=== PATIENT | male | born 1950 | race African-American/Black ===

== ENCOUNTER 2017-01-27 10:23 | Day surgery (SDC) | payer MEDICAID ==
[~2017-01-27] VITALS: Ht 175.3 cm; Wt 72.6 kg
[~2017-01-27 10:23] MED LIST: CLON0.1T PO; ZOLP10TA2 PO
[2017-01-27] MEDS ORDERED: SULF1TAB48 PO (11:46)
[2017-01-27] MEDS ORDERED: APIX2.5T PO (11:46)
[2017-01-27] MEDS ORDERED: AMIO200T39 PO (11:46)
[2017-01-27] MEDS ORDERED: METO25TA6 PO (11:46)
[2017-01-27] MEDS ORDERED: LIDOCAINE HCL 1% 20ML VIAL (Pyxis) INJ ONE (11:55)
[2017-01-27] MEDS ORDERED: MIDAZOLAM HCL 2 MG/2 ML VIAL ONE ×2 (11:56→12:29)
[2017-01-27] MEDS ORDERED: HYDROMORPHONE HCL/PF 2MG/ML (OR) ONE (11:56)
[2017-01-27] MEDS ORDERED: IODIXANOL 320MG/ML 100 ML BOTTLE IV ONE (11:56)
[2017-01-27] MEDS ORDERED: FENTANYL CITRATE/PF 50MCG/ML 2ML VIAL ONE (12:26)
== END 2017-01-27 18:00 | disposition home or self-care (01) ==
LOC: CCL 10:23
PROVIDERS: ATTEND Specialist
DX: I48.2 Chronic atrial fibrillation (principal); I34.0 Nonrheumatic mitral (valve) insufficiency; I12.9 Hypertensive chronic kidney disease with stage 1 through stage 4 chronic kidney disease, or unspecified chronic kidney disease; N18.9 Chronic kidney disease, unspecified; I50.9 Heart failure, unspecified; E78.5 Hyperlipidemia, unspecified; J44.9 Chronic obstructive pulmonary disease, unspecified; I73.9 Peripheral vascular disease, unspecified; Z87.891 Personal history of nicotine dependence
CPT/HCPCS: 36247; 75710; C1725; C1760; C1769; C1893; J1170; J1644; J2250; J3010; J3490; Q9967

== ENCOUNTER 2017-12-10 10:32 | Inpatient (IN) | payer MEDICAID, OTHER ==
[~2017-12-10] VITALS: Ht 180.3 cm; Wt 64.0 kg
[~2017-12-10 10:32] MED LIST changes: +ACET-3161 PO; +AMI2 PO; +APIX2.5T PO; +CARV6.2548 PO; -CLON0.1T PO; +FURO40TA5 PO; +PRAV40TA58 PO; +SPIR25TA4 PO; -ZOLP10TA2 PO
[2017-12-10] MEDS ORDERED: MORPHINE SULFATE 4 MG/ML CPJ (NOT FOR IM USE) IV STA (10:42)
[2017-12-10] MEDS ORDERED: ONDANSETRON HCL 4MG/2ML VIAL IV STA (10:42)
[2017-12-10] MEDS ORDERED: ASPIRIN 81MG TABLET PO ONE (10:45)
[2017-12-10] MEDS ORDERED: NITROGLYCERIN OINT 1GM/INCH UDPKT TD ONE (10:45)
[2017-12-10] MEDS ORDERED: LABETALOL HCL 20MG/4ML CARPUJECT IV ONE (10:45)
[2017-12-10 11:12] LABS: BASOPHILS % 1.2 % (0.0-2.0); EOSINOPHILS % 0.5 % (0.0-5.0); HEMATOCRIT. 40.9 % (42.0-52.0); HEMOGLOBIN. 13.2 g/dL (14.0-18.0); LYMPHOCYTES % 21.7 % (20.0-50.0); MEAN CORPUSCULAR HEMOGLOBIN 27.7 pg (28.0-32.0); MEAN CORPUSCULAR VOLUME 86.3 fL (80.0-94.0); MEAN PLATELET VOLUME 9.3 fl (7.4-10.4); MONOCYTES % 6.6 % (2.0-8.0); PLATELET 172 x1000/uL (130-400); RED BLOOD CELL COUNT 4.74 mill/uL (4.7-6.1); RED CELL DISTRIBUTION WIDTH 15.4 % (11.6-14.6)
[2017-12-10 11:34] LABS: CARBON DIOXIDE 21 mEq/L (21-32); CHLORIDE 117 mEq/L (98-107); ETHANOL BLOOD < 10 mg/dL; TROPONIN I 0.04 ng/mL (0.00-0.04)
[2017-12-10 11:35] LABS: D-DIMER 0.19 mg/L FEU (<0.50); INR 1.6; PROTHROMBIN TIME 16.6 sec (9.4-11.6)
[2017-12-10] MEDS ORDERED: DILTIAZEM HCL 5MG/ML 5ML VIAL IV ONE (12:30)
[2017-12-10] MEDS ORDERED: DIPHENHYDRAMINE 50MG/ML VIAL IV PRN (13:15)
[2017-12-10] MEDS ORDERED: ACETAMINOPHEN 325MG TABLET PO PRN (13:15)
[2017-12-10] MEDS ORDERED: GUAIFENESIN 200MG/10ML SUGAR FREE UDC PO PRN (13:15)
[2017-12-10] MEDS ORDERED: ENOXAPARIN 40MG/0.4ML SYR SUBCUT SCH (13:15)
[2017-12-10] MEDS ORDERED: MORPHINE SULFATE 2 MG/ML CPJ (NOT FOR IM USE) IV PRN (13:15)
[2017-12-10] MEDS ORDERED: NA PHOS,M-B/NA PHOS,DI-BA ENEMA 118ML PR PRN (13:15)
[2017-12-10] MEDS ORDERED: CLONIDINE 0.1MG TABLET PO PRN (13:15)
[2017-12-10] MEDS ORDERED: IPRATROPIUM/ALBUTEROL 0.5-3(2.5)MG/3ML NEB INH PRN (13:15)
[2017-12-10] MEDS ORDERED: LORAZEPAM 2MG/ML CPJ IV PRN (13:15)
[2017-12-10] MEDS ORDERED: ONDANSETRON HCL 4MG/2ML VIAL IV PRN (13:15)
[2017-12-10] MEDS ORDERED: MAGNESIUM/ALUMINUM HYDROXIDE/SIMETHICONE 30ML UDC PO PRN (13:15)
[2017-12-10] MEDS ORDERED: DOCUSATE SODIUM 100MG CAPSULE PO PRN (13:15)
[2017-12-10 16:26] LABS: CARBON DIOXIDE 21 mEq/L (21-32); CHLORIDE 115 mEq/L (98-107); TROPONIN I 0.04 ng/mL (0.00-0.04)
[2017-12-10 23:40] VITALS: BP 137/115
[2017-12-10 23:45] VITALS: BP 137/115
[2017-12-11] VITALS (12 sets, daily range): BP systolic 100–143; BP diastolic 40–115
[2017-12-11] MEDS: MORPHINE SULFATE 4 MG/ML CPJ (NOT FOR IM USE) IV PRN ×3 (01:24→20:32)
[2017-12-11] MEDS ORDERED: CLON0.1T PO (02:25)
[2017-12-11] MEDS ORDERED: SACU1TAB PO (02:25)
[2017-12-11] MEDS ORDERED: TUSSL GT (02:25)
[2017-12-11] MEDS: CLONIDINE 0.1MG TABLET PO SCH ×3 (05:25→22:33)
[2017-12-11] MEDS: GUAIFENESIN-DM 200MG-20MG/10ML UDC PO PRN (06:21)
[2017-12-11] MEDS ORDERED: PNEUMOCOCCAL 23-VAL P-SAC VAC 0.5 ML IM ONE (08:00)
[2017-12-11] MEDS: FUROSEMIDE 40MG/4ML VIAL IVP SCH (08:10)
[2017-12-11] MEDS: ASPIRIN 81MG EC TABLET PO SCH (08:10)
[2017-12-11] MEDS: CARVEDILOL 6.25 MG TABLET PO SCH ×2 (08:10→22:33)
[2017-12-11] MEDS: APIXABAN 2.5 MG TABLET PO SCH ×2 (08:10→16:20)
[2017-12-11] MEDS: AMIODARONE HCL 200 MG TABLET PO SCH (08:11)
[2017-12-11] MEDS ORDERED: APIXABAN 2.5 MG TABLET PO SCH (09:00)
[2017-12-11] MEDS ORDERED: MEDICATION NOT ON FORMULARY EA (Sacubitril/Valsartan (Entresto 24 mg-26 mg Tablet) 1 EAC PO SCH (09:00)
[2017-12-11] MEDS ORDERED: CARVEDILOL 6.25 MG TABLET PO SCH (09:00)
[2017-12-11 09:54] LABS: EOSINOPHILS % 3.2 % (0.0-5.0); HEMATOCRIT. 39.9 % (42.0-52.0); HEMOGLOBIN. 12.7 g/dL (14.0-18.0); LYMPHOCYTES % 24.5 % (20.0-50.0); MEAN CORPUSCULAR HEMOGLOBIN 28.1 pg (28.0-32.0); MEAN CORPUSCULAR VOLUME 88.3 fL (80.0-94.0); MEAN PLATELET VOLUME 9.1 fl (7.4-10.4); NEUTROPHILS % 62.3 % (40.0-76.0); PLATELET 149 x1000/uL (130-400); RED BLOOD CELL COUNT 4.52 mill/uL (4.7-6.1); RED CELL DISTRIBUTION WIDTH 15.5 % (11.6-14.6)
[2017-12-11 11:17] LABS: CARBON DIOXIDE 23 mEq/L (21-32); CHLORIDE 114 mEq/L (98-107); HDL CHOLESTEROL 33 mg/dL (40-59); LDL CHOLESTEROL 65 mg/dL (5-100)
[2017-12-11 11:43] LABS: *AMPHETAMINES SCREEN URINE NEGATIVE (NEGATIVE); *BARBITURATES SCREEN URINE NEGATIVE (NEGATIVE); *BENZODIAZEPINES SCREEN URINE NEGATIVE (NEGATIVE); *COCAINE SCREEN URINE NEGATIVE (NEGATIVE); CANNABINOID URINE SCREEN NEGATIVE (NEGATIVE); METHADONE URINE SCREEN PRESUMTIVE POSITIVE (NEGATIVE); OPIATES URINE SCREEN PRESUMTIVE POSITIVE (NEGATIVE); PHENCYCLIDINE URINE SCREEN NEGATIVE (NEGATIVE)
[2017-12-11] MEDS: ENTRESTO PO SCH ×2 (13:38→22:34)
[2017-12-11] MEDS ORDERED: ATORVASTATIN CALCIUM 10MG TABLET PO SCH (21:00)
[2017-12-12] VITALS (11 sets, daily range): BP systolic 99–145; BP diastolic 55–94
[2017-12-12] MEDS: HYDROCODONE/ACETAMINOPHEN 5/325MG TABLET PO PRN ×4 (02:38→19:58)
[2017-12-12] MEDS: CLONIDINE 0.1MG TABLET PO SCH ×2 (05:45→13:18)
[2017-12-12] MEDS: MORPHINE SULFATE 4 MG/ML CPJ (NOT FOR IM USE) IV PRN ×3 (06:11→18:35)
[2017-12-12] MEDS: ASPIRIN 81MG EC TABLET PO SCH (08:56)
[2017-12-12] MEDS: FUROSEMIDE 40MG/4ML VIAL IVP SCH (08:56)
[2017-12-12] MEDS: ENTRESTO PO SCH (08:57)
[2017-12-12] MEDS: APIXABAN 2.5 MG TABLET PO SCH ×2 (08:57→18:31)
[2017-12-12] MEDS: CARVEDILOL 6.25 MG TABLET PO SCH (08:57)
[2017-12-12] MEDS: AMIODARONE HCL 200 MG TABLET PO SCH (08:57)
[2017-12-12] MEDS: GUAIFENESIN-DM 200MG-20MG/10ML UDC PO PRN (09:36)
[2017-12-12] MEDS ORDERED: CARVEDILOL 12.5MG TABLET PO SCH (21:00)
[2017-12-12] MEDS ORDERED: CARVEDILOL 6.25 MG TABLET PO SCH (21:00)
== END 2017-12-12 20:20 | disposition home health service (06) | DRG 194 ==
LOC: ER 10:45 → 5EST 13:02 → EDBEDREQ 13:04 → EDBEDREQSVC 13:04 → ENRESERV 18:33
PROVIDERS: ADMIT Internal Medicine; ATTEND Internal Medicine
DX: I11.0 Hypertensive heart disease with heart failure (principal); E46 Unspecified protein-calorie malnutrition; I42.0 Dilated cardiomyopathy; I48.2 Chronic atrial fibrillation; I25.10 Atherosclerotic heart disease of native coronary artery without angina pectoris; F19.10 Other psychoactive substance abuse, uncomplicated; Z91.14 Patient's other noncompliance with medication regimen; Z68.1 Body mass index [BMI] 19.9 or less, adult; I50.23 Acute on chronic systolic (congestive) heart failure; E78.00 Pure hypercholesterolemia, unspecified; Z87.891 Personal history of nicotine dependence; Z79.899 Other long term (current) drug therapy; Z79.01 Long term (current) use of anticoagulants; Z95.810 Presence of automatic (implantable) cardiac defibrillator
CPT/HCPCS: 36415; 71045; 80048; 80053; 80061; 80305; 83605; 83690; 83735; 83880; 84439; 84443; 84484; 85025; 85379; 85610; 87070; 87077; 87186; 87205; 90732; 93005; 93306; 96374; 96375; 99291; G0482; J1940; J2270; J2405; J3490

== ENCOUNTER 2019-04-02 06:59 | Emergency (ER) | payer MEDICAID ==
[~2019-04-02] VITALS: Ht 177.8 cm; Wt 73.0 kg
[~2019-04-02 06:59] MED LIST changes: -ACET-3161 PO; -AMI2 PO; -SPIR25TA4 PO; +TUSSL GT
[2019-04-02] MEDS ORDERED: NITROGLYCERIN 0.4MG TABLET SL SL PRN (07:30)
[2019-04-02 07:48] LABS: EOSINOPHILS % 1.6 % (0.0-5.0); HEMATOCRIT. 39.2 % (42.0-52.0); LYMPHOCYTES % 13.3 % (20.0-50.0); MEAN CORPUSCULAR HEMOGLOBIN 24.3 pg (28.0-32.0); MEAN CORPUSCULAR VOLUME 79.1 fL (80.0-94.0); MEAN PLATELET VOLUME 7.9 fl (7.4-10.4); MONOCYTES % 6.8 % (2.0-8.0); NEUTROPHILS % 77.3 % (40.0-76.0); PLATELET 235 x1000/uL (130-400); RED BLOOD CELL COUNT 4.96 mill/uL (4.7-6.1)
[2019-04-02 07:55] LABS: CHLORIDE 113 mEq/L (98-107)
[2019-04-02 07:58] LABS: ETHANOL BLOOD < 10 mg/dL
[2019-04-02] MEDS: FUROSEMIDE 40MG/4ML VIAL IV ONE (09:00)
[2019-04-02] MEDS: ASPIRIN 81MG TABLET PO ONE (09:00)
[2019-04-02 12:04] LABS: *AMPHETAMINES SCREEN URINE NEGATIVE (NEGATIVE); *BARBITURATES SCREEN URINE NEGATIVE (NEGATIVE); *BENZODIAZEPINES SCREEN URINE NEGATIVE (NEGATIVE); *COCAINE SCREEN URINE NEGATIVE (NEGATIVE)
[2019-04-02 12:05] LABS: CANNABINOID URINE SCREEN NEGATIVE (NEGATIVE); METHADONE URINE SCREEN NEGATIVE (NEGATIVE)
[2019-04-02 12:06] LABS: PHENCYCLIDINE URINE SCREEN NEGATIVE (NEGATIVE)
[2019-04-02 12:07] LABS: OPIATES URINE SCREEN PRESUMTIVE POSITIVE (NEGATIVE)
[2019-04-02] MEDS: HYDROCODONE/ACETAMINOPHEN 5/325MG TABLET PO ONE (12:09)
[2019-04-02] MEDS ORDERED: HYDROCODONE/ACETAMINOPHEN 5/325MG TABLET PO PRN (12:45)
[2019-04-02] MEDS ORDERED: DOCUSATE SODIUM 100MG CAPSULE PO PRN (12:45)
[2019-04-02] MEDS ORDERED: MAGNESIUM/ALUMINUM HYDROXIDE/SIMETHICONE 30ML UDC PO PRN (12:45)
[2019-04-02] MEDS ORDERED: ACETAMINOPHEN 325MG TABLET PO PRN (12:45)
[2019-04-02] MEDS ORDERED: CLONIDINE 0.1MG TABLET PO PRN (12:45)
[2019-04-02] MEDS ORDERED: ENOXAPARIN 40MG/0.4ML SYR SUBCUT SCH (12:45)
[2019-04-02] MEDS ORDERED: IPRATROPIUM/ALBUTEROL 0.5-3(2.5)MG/3ML NEB INH PRN (12:45)
[2019-04-02] MEDS ORDERED: DIPHENHYDRAMINE 50MG/ML VIAL IV PRN (12:45)
[2019-04-02] MEDS ORDERED: ONDANSETRON HCL 4MG/2ML INJ IV PRN (12:45)
[2019-04-02] MEDS ORDERED: GUAIFENESIN 200MG/10ML SUGAR FREE UDC PO PRN (12:45)
[2019-04-02 13:05] LABS: PHOSPHORUS 2.7 mg/dL (2.5-4.9)
[2019-04-02 14:32] VITALS: BP 134/98
[2019-04-02 16:52] LABS: CREATINE KINASE MB FRACTION 3.2 ng/mL (0.5-3.6)
== END 2019-04-02 14:32 | disposition home or self-care (01) ==
LOC: ER 06:59 → EDBEDREQ 12:26 → ER 14:32 → CANBEDREQ 14:35
DX: I50.22 Chronic systolic (congestive) heart failure (principal); E78.00 Pure hypercholesterolemia, unspecified; I11.0 Hypertensive heart disease with heart failure; I48.91 Unspecified atrial fibrillation; Z95.0 Presence of cardiac pacemaker; Z79.899 Other long term (current) drug therapy
CPT/HCPCS: 36415; 71045; 80053; 80305; 80320; 82550; 82553; 83036; 83735; 83880; 84100; 84484; 85025; 93005; 96374; 99284; J1940; Z7610; G0480

== ENCOUNTER 2019-04-12 02:14 | Inpatient (IN) | payer MEDICAID, OTHER ==
[~2019-04-12] VITALS: Ht 180.3 cm; Wt 68.0 kg
[2019-04-12] MEDS ORDERED: FUROSEMIDE 40MG/4ML VIAL IV ONE (03:45)
[2019-04-12] MEDS ORDERED: NITROGLYCERIN OINT 1GM/INCH UDPKT TD ONE (03:45)
[2019-04-12 03:53] LABS: BASOPHILS % 0.3 % (0.0-2.0); EOSINOPHILS % 1.7 % (0.0-5.0); HEMATOCRIT. 36.8 % (42.0-52.0); HEMOGLOBIN. 11.5 g/dL (14.0-18.0); MEAN CORPUSCULAR HEMOGLOBIN 24.9 pg (28.0-32.0); MEAN CORPUSCULAR VOLUME 79.6 fL (80.0-94.0); MEAN PLATELET VOLUME 8.4 fl (7.4-10.4); MONOCYTES % 7.6 % (2.0-8.0); NEUTROPHILS % 76.4 % (40.0-76.0); PLATELET 233 x1000/uL (130-400); RED BLOOD CELL COUNT 4.62 mill/uL (4.7-6.1); RED CELL DISTRIBUTION WIDTH 19.8 % (11.6-14.6)
[2019-04-12 03:55] LABS: CHLORIDE 109 mEq/L (98-107)
[2019-04-12 03:58] LABS: INR 1.4; PROTHROMBIN TIME 14.6 sec (9.6-11.0)
[2019-04-12 05:58] LABS: *AMPHETAMINES SCREEN URINE NEGATIVE (NEGATIVE); *BARBITURATES SCREEN URINE NEGATIVE (NEGATIVE); *BENZODIAZEPINES SCREEN URINE NEGATIVE (NEGATIVE)
[2019-04-12 05:59] LABS: *COCAINE SCREEN URINE NEGATIVE (NEGATIVE); CANNABINOID URINE SCREEN NEGATIVE (NEGATIVE); METHADONE URINE SCREEN NEGATIVE (NEGATIVE); OPIATES URINE SCREEN PRESUMTIVE POSITIVE (NEGATIVE); PHENCYCLIDINE URINE SCREEN NEGATIVE (NEGATIVE)
[2019-04-12] MEDS ORDERED: MORPHINE SULFATE 2 MG/ML CPJ (NOT FOR IM USE) IV PRN (08:45)
[2019-04-12] MEDS ORDERED: ACETAMINOPHEN 325MG TABLET PO PRN (11:15)
[2019-04-12] MEDS ORDERED: ONDANSETRON HCL 4MG/2ML INJ IV PRN ×2 (11:15)
[2019-04-12 11:49] VITALS: BP 138/100
[2019-04-12 11:55] VITALS: BP 138/100
[2019-04-12] MEDS ORDERED: FUROSEMIDE 40MG/4ML VIAL IVP SCH (12:30)
[2019-04-12] MEDS ORDERED: MORPHINE SULFATE 4 MG/ML CPJ (NOT FOR IM USE) IV PRN (12:45)
[2019-04-12] MEDS: CARVEDILOL 6.25 MG TABLET PO SCH ×2 (13:05→20:23)
[2019-04-12] MEDS: ENOXAPARIN 40MG/0.4ML SYR SUBCUT SCH (13:06)
[2019-04-12] MEDS: LOSARTAN POTASSIUM 25 MG TABLET PO SCH (13:07)
[2019-04-12] MEDS ORDERED: LIDOCAINE HCL 1% 20ML VIAL (Pyxis) INJ ONE (14:56)
[2019-04-12 16:00] VITALS: BP 130/99
[2019-04-12] MEDS: FUROSEMIDE 100MG/10ML VIAL IVP SCH (17:28)
[2019-04-12 20:00] VITALS: BP 123/92
[2019-04-12] MEDS: MORPHINE SULFATE 2 MG/ML CPJ (NOT FOR IM USE) IV PRN (20:22)
[2019-04-13] VITALS: BP 138/99
[2019-04-13] MEDS: MORPHINE SULFATE 2 MG/ML CPJ (NOT FOR IM USE) IV PRN ×3 (01:08→10:44)
[2019-04-13 04:00] VITALS: BP 121/89
[2019-04-13] MEDS: FUROSEMIDE 100MG/10ML VIAL IVP SCH ×2 (06:17→16:17)
[2019-04-13 07:43] LABS: HEMATOCRIT. 37.7 % (42.0-52.0); HEMOGLOBIN. 11.6 g/dL (14.0-18.0); MEAN CORPUSCULAR HEMOGLOBIN 24.2 pg (28.0-32.0); MEAN CORPUSCULAR VOLUME 78.7 fL (80.0-94.0); MEAN PLATELET VOLUME 8.9 fl (7.4-10.4); PLATELET 242 x1000/uL (130-400); RED CELL DISTRIBUTION WIDTH 19.4 % (11.6-14.6)
[2019-04-13 08:00] VITALS: BP 130/94
[2019-04-13] MEDS: LOSARTAN POTASSIUM 25 MG TABLET PO SCH (09:13)
[2019-04-13] MEDS: CARVEDILOL 6.25 MG TABLET PO SCH (09:14)
[2019-04-13 09:20] LABS: NUCLEATED RED BLOOD CELLS 3 /100 WBC
[2019-04-13 09:22] LABS: PLATELET ESTIMATE NORMAL
[2019-04-13 12:00] VITALS: BP 129/94
[2019-04-13] MEDS: ENOXAPARIN 40MG/0.4ML SYR SUBCUT SCH (13:40)
[2019-04-13 15:55] LABS: CLARITY URINE CLEAR (CLEAR); COLOR URINE YELLOW (YELLOW); KETONES URINE NEGATIVE (NEGATIVE); LEUKOCYTE ESTERASE URINE NEGATIVE (NEGATIVE); NITRITE URINE NEGATIVE (NEGATIVE); OCCULT BLOOD URINE NEGATIVE (NEGATIVE); PROTEIN URINE NEGATIVE (NEGATIVE); SPECIFIC GRAVITY URINE 1.009 (1.005-1.030)
[2019-04-13 16:00] VITALS: BP 137/92
[2019-04-13] MEDS: PIPERACILLIN/TAZ 3.375G PREMIX 50 ML IV SCH ×2 (16:15→20:27)
[2019-04-13 20:00] VITALS: BP 120/86
[2019-04-13] MEDS: CARVEDILOL 12.5MG TABLET PO SCH (20:27)
[2019-04-14] VITALS (8 sets, daily range): BP systolic 100–137; BP diastolic 71–86
[2019-04-14] MEDS: MORPHINE SULFATE 2 MG/ML CPJ (NOT FOR IM USE) IV PRN ×5 (02:19→18:08)
[2019-04-14] MEDS: PIPERACILLIN/TAZ 3.375G PREMIX 50 ML IV SCH ×2 (02:19→10:20)
[2019-04-14] MEDS: FUROSEMIDE 100MG/10ML VIAL IVP SCH ×2 (06:25→17:57)
[2019-04-14] MEDS: LOSARTAN POTASSIUM 25 MG TABLET PO SCH (10:20)
[2019-04-14] MEDS: CARVEDILOL 12.5MG TABLET PO SCH ×2 (10:20→21:00)
[2019-04-14] MEDS: ENOXAPARIN 40MG/0.4ML SYR SUBCUT SCH (12:55)
[2019-04-14] MEDS ORDERED: CEFTRIAXONE 1 G PREMIX 50 ML IV SCH (13:00)
[2019-04-14 15:44] LABS: BASOPHILS % 1.3 % (0.0-2.0); EOSINOPHILS % 1.7 % (0.0-5.0); HEMATOCRIT. 37.8 % (42.0-52.0); HEMOGLOBIN. 11.8 g/dL (14.0-18.0); MEAN CORPUSCULAR HEMOGLOBIN 24.6 pg (28.0-32.0); MEAN CORPUSCULAR VOLUME 78.6 fL (80.0-94.0); MEAN PLATELET VOLUME 8.8 fl (7.4-10.4); MONOCYTES % 10.8 % (2.0-8.0); NEUTROPHILS % 75.2 % (40.0-76.0); PLATELET 232 x1000/uL (130-400); RED BLOOD CELL COUNT 4.82 mill/uL (4.7-6.1); RED CELL DISTRIBUTION WIDTH 19.2 % (11.6-14.6)
== END 2019-04-14 23:40 | DRG 194 ==
LOC: ER 02:14 → 8WST 05:37 → EDBEDREQ 05:38 → EDBEDREQTM 05:38 → ENRESERV 09:25
PROVIDERS: ADMIT Internal Medicine; ATTEND Internal Medicine
PROC: 0JPT3XZ Removal of Tunneled Vascular Access Device from Trunk Subcutaneous Tissue and Fascia, Percutaneous Approach (ICD-10-PCS; principal; 2019-04-12)
DX: I13.0 Hypertensive heart and chronic kidney disease with heart failure and stage 1 through stage 4 chronic kidney disease, or unspecified chronic kidney disease (principal); J96.00 Acute respiratory failure, unspecified whether with hypoxia or hypercapnia; I47.2 Ventricular tachycardia; N17.9 Acute kidney failure, unspecified; E44.0 Moderate protein-calorie malnutrition; L89.313 Pressure ulcer of right buttock, stage 3; E87.8 Other disorders of electrolyte and fluid balance, not elsewhere classified; I95.89 Other hypotension; I42.9 Cardiomyopathy, unspecified; L97.929 Non-pressure chronic ulcer of unspecified part of left lower leg with unspecified severity; I48.0 Paroxysmal atrial fibrillation; I50.23 Acute on chronic systolic (congestive) heart failure; I87.8 Other specified disorders of veins; L98.419 Non-pressure chronic ulcer of buttock with unspecified severity; D64.9 Anemia, unspecified; E78.5 Hyperlipidemia, unspecified; N18.9 Chronic kidney disease, unspecified; I73.9 Peripheral vascular disease, unspecified; E78.00 Pure hypercholesterolemia, unspecified; F17.200 Nicotine dependence, unspecified, uncomplicated; I25.10 Atherosclerotic heart disease of native coronary artery without angina pectoris; Z79.01 Long term (current) use of anticoagulants; Z79.899 Other long term (current) drug therapy; Z86.718 Personal history of other venous thrombosis and embolism; Z95.810 Presence of automatic (implantable) cardiac defibrillator; Z71.6 Tobacco abuse counseling
CPT/HCPCS: 36415; 36589; 71045; 80048; 80305; 83880; 84134; 84484; 87070; 87077; 87186; 93005; 93923; 96374; 96375; 97162; 97166; 97530; 99285; J0696; J1650; J1940; J2270; J2543; J3490; J7040

== ENCOUNTER 2019-09-04 22:28 | Inpatient (IN) | payer OTHER ==
[~2019-09-04] VITALS: Ht 180.3 cm; Wt 73.5 kg
[~2019-09-04 22:28] MED LIST changes: -APIX2.5T PO
[2019-09-04] MEDS ORDERED: NITROGLYCERIN OINT 1GM/INCH UDPKT TD ONE (23:15)
[2019-09-04] MEDS ORDERED: ASPIRIN 81MG TABLET PO ONE (23:15)
[2019-09-04 23:32] LABS: BASOPHILS % 1.4 % (0.0-2.0); EOSINOPHILS % 4.6 % (0.0-5.0); HEMATOCRIT. 42.5 % (42.0-52.0); HEMOGLOBIN. 13.5 g/dL (14.0-18.0); MEAN CORPUSCULAR HEMOGLOBIN 27.2 pg (28.0-32.0); MEAN CORPUSCULAR VOLUME 85.6 fL (80.0-94.0); MEAN PLATELET VOLUME 8.6 fl (7.4-10.4); MONOCYTES % 10.5 % (2.0-8.0); NEUTROPHILS % 54.5 % (40.0-76.0); PLATELET 129 x1000/uL (130-400); RED BLOOD CELL COUNT 4.97 mill/uL (4.7-6.1); RED CELL DISTRIBUTION WIDTH 15.5 % (11.6-14.6)
[2019-09-04 23:33] LABS: CHLORIDE 112 mEq/L (98-107)
[2019-09-05] MEDS ORDERED: ONDANSETRON HCL 4MG/2ML INJ IV PRN (07:30)
[2019-09-05] MEDS ORDERED: CLONIDINE 0.1MG TABLET PO PRN (07:30)
[2019-09-05] MEDS ORDERED: DIPHENHYDRAMINE 50MG/ML VIAL IV PRN (07:30)
[2019-09-05] MEDS ORDERED: LORAZEPAM 2MG/ML CPJ IV PRN (07:30)
[2019-09-05] MEDS ORDERED: MAGNESIUM/ALUMINUM HYDROXIDE/SIMETHICONE 30ML UDC PO PRN (07:30)
[2019-09-05] MEDS ORDERED: IPRATROPIUM/ALBUTEROL 0.5-3(2.5)MG/3ML NEB NEB PRN (07:30)
[2019-09-05] MEDS ORDERED: HYDROCODONE/ACETAMINOPHEN 5/325MG TABLET PO PRN (07:30)
[2019-09-05] MEDS ORDERED: GUAIFENESIN 200MG/10ML SUGAR FREE UDC PO PRN (07:30)
[2019-09-05] MEDS ORDERED: NA PHOS,M-B/NA PHOS,DI-BA ENEMA 118ML PR PRN (07:30)
[2019-09-05] MEDS ORDERED: ENOXAPARIN 40MG/0.4ML SYR SUBCUT SCH (07:30)
[2019-09-05] MEDS ORDERED: DOCUSATE SODIUM 100MG CAPSULE PO PRN (07:30)
[2019-09-05] MEDS ORDERED: ACETAMINOPHEN 325MG TABLET PO PRN (07:30)
[2019-09-05 08:40] VITALS: BP 138/97
[2019-09-05] MEDS ORDERED: ONDANSETRON HCL 4MG TABLET PO PRN (09:00)
[2019-09-05] MEDS: CARVEDILOL 12.5MG TABLET PO SCH ×2 (10:08→21:09)
[2019-09-05] MEDS: ASPIRIN 81MG EC TABLET PO SCH (10:08)
[2019-09-05] MEDS: ENOXAPARIN 40MG/0.4ML SYR SUBCUT SCH (10:09)
[2019-09-05] MEDS: FUROSEMIDE 40MG TABLET PO SCH (10:09)
[2019-09-05] MEDS: MORPHINE SULFATE 2 MG/ML CPJ (NOT FOR IM USE) IV PRN ×2 (10:46→16:14)
[2019-09-05 12:00] VITALS: BP 128/88
[2019-09-05 12:29] LABS: CHLORIDE 109 mEq/L (98-107)
[2019-09-05] MEDS ORDERED: INFLUENZA VIRUS VACCINE(AFLURIA) 0.5ML SYR IM ONE (13:00)
[2019-09-05 16:18] VITALS: BP 132/91
[2019-09-05] MEDS ORDERED: CLON0.1T PO (16:37)
[2019-09-05] MEDS ORDERED: FURO40TA5 MT (16:37)
[2019-09-05] MEDS ORDERED: ZOLP10TA2 MT (16:37)
[2019-09-05] MEDS ORDERED: CARV12.545 MT (16:37)
[2019-09-05] MEDS ORDERED: ONDA4TAB5 PO (16:37)
[2019-09-05] MEDS ORDERED: HYDR-4009 MT (16:37)
[2019-09-05 20:00] VITALS: BP 134/60
[2019-09-05] MEDS: ZOLPIDEM TARTRATE 5MG TABLET PO PRN (23:06)
[2019-09-06] VITALS: BP 119/78
[2019-09-06 04:00] VITALS: BP 114/80
[2019-09-06 08:00] VITALS: BP 131/94
[2019-09-06] MEDS: CARVEDILOL 12.5MG TABLET PO SCH ×2 (08:26→20:48)
[2019-09-06] MEDS: ENOXAPARIN 40MG/0.4ML SYR SUBCUT SCH (08:26)
[2019-09-06] MEDS: ASPIRIN 81MG EC TABLET PO SCH (08:26)
[2019-09-06] MEDS: MORPHINE SULFATE 2 MG/ML CPJ (NOT FOR IM USE) IV PRN ×3 (08:27→20:44)
[2019-09-06] MEDS: FUROSEMIDE 40MG TABLET PO SCH (09:00)
[2019-09-06 10:14] LABS: BASOPHILS % 1.2 % (0.0-2.0); HEMATOCRIT. 42.4 % (42.0-52.0); HEMOGLOBIN. 13.6 g/dL (14.0-18.0); LYMPHOCYTES % 26.7 % (20.0-50.0); MEAN CORPUSCULAR VOLUME 84.4 fL (80.0-94.0); MEAN PLATELET VOLUME 8.7 fl (7.4-10.4); MONOCYTES % 10.6 % (2.0-8.0); NEUTROPHILS % 56.5 % (40.0-76.0); PLATELET 138 x1000/uL (130-400); RED BLOOD CELL COUNT 5.03 mill/uL (4.7-6.1); RED CELL DISTRIBUTION WIDTH 15.2 % (11.6-14.6)
[2019-09-06 10:27] LABS: CHLORIDE 108 mEq/L (98-107)
[2019-09-06 10:34] LABS: LDL CHOLESTEROL 83 mg/dL (5-100)
[2019-09-06 10:36] LABS: HDL CHOLESTEROL 51 mg/dL (40-59); T4 FREE 1.22 ng/dL (0.76-1.46)
[2019-09-06 11:31] VITALS: BP 165/55
[2019-09-06 16:00] VITALS: BP 139/98
[2019-09-06] MEDS: FUROSEMIDE 100MG/10ML VIAL IVP SCH (16:14)
[2019-09-06 20:00] VITALS: BP 139/97
[2019-09-06] MEDS: APIXABAN 5 MG TABLET PO SCH (20:47)
[2019-09-06] MEDS: ATORVASTATIN CALCIUM 10MG TABLET PO SCH (20:47)
[2019-09-07 00:15] VITALS: BP 110/77
[2019-09-07] MEDS: ZOLPIDEM TARTRATE 5MG TABLET PO PRN (00:16)
[2019-09-07 04:00] VITALS: BP 147/76
[2019-09-07 08:00] VITALS: BP 150/98
[2019-09-07] MEDS: ASPIRIN 81MG EC TABLET PO SCH (09:09)
[2019-09-07] MEDS: CARVEDILOL 12.5MG TABLET PO SCH ×2 (09:09→20:47)
[2019-09-07] MEDS: FUROSEMIDE 100MG/10ML VIAL IVP SCH ×2 (09:09→16:25)
[2019-09-07] MEDS: APIXABAN 5 MG TABLET PO SCH ×2 (09:10→20:47)
[2019-09-07] MEDS: MORPHINE SULFATE 2 MG/ML CPJ (NOT FOR IM USE) IV PRN ×3 (09:15→20:44)
[2019-09-07 10:13] LABS: BASOPHILS % 1.1 % (0.0-2.0); EOSINOPHILS % 5.1 % (0.0-5.0); HEMATOCRIT. 44.2 % (42.0-52.0); HEMOGLOBIN. 14.2 g/dL (14.0-18.0); LYMPHOCYTES % 26.6 % (20.0-50.0); MEAN CORPUSCULAR HEMOGLOBIN 27.3 pg (28.0-32.0); MEAN CORPUSCULAR VOLUME 85.2 fL (80.0-94.0); MONOCYTES % 9.6 % (2.0-8.0); NEUTROPHILS % 57.6 % (40.0-76.0); PLATELET 138 x1000/uL (130-400); RED BLOOD CELL COUNT 5.19 mill/uL (4.7-6.1); RED CELL DISTRIBUTION WIDTH 15.3 % (11.6-14.6)
[2019-09-07 11:07] LABS: CHLORIDE 106 mEq/L (98-107)
[2019-09-07] MEDS ORDERED: METOLAZONE 2.5MG TABLET PO NR (11:45)
[2019-09-07 12:00] VITALS: BP 113/82
[2019-09-07 16:00] VITALS: BP 120/79
[2019-09-07 20:00] VITALS: BP 112/74
[2019-09-07] MEDS: ATORVASTATIN CALCIUM 10MG TABLET PO SCH (20:47)
[2019-09-08] MEDS: ZOLPIDEM TARTRATE 5MG TABLET PO PRN (01:25)
[2019-09-08 02:12] VITALS: BP 111/65
[2019-09-08 04:00] VITALS: BP 115/82
[2019-09-08 07:37] LABS: BASOPHILS % 1.1 % (0.0-2.0); EOSINOPHILS % 4.8 % (0.0-5.0); HEMATOCRIT. 41.7 % (42.0-52.0); HEMOGLOBIN. 13.7 g/dL (14.0-18.0); LYMPHOCYTES % 32.1 % (20.0-50.0); MEAN CORPUSCULAR HEMOGLOBIN 27.4 pg (28.0-32.0); MEAN CORPUSCULAR VOLUME 83.3 fL (80.0-94.0); MEAN PLATELET VOLUME 8.8 fl (7.4-10.4); MONOCYTES % 13.9 % (2.0-8.0); NEUTROPHILS % 48.1 % (40.0-76.0); PLATELET 135 x1000/uL (130-400); RED BLOOD CELL COUNT 5.01 mill/uL (4.7-6.1)
[2019-09-08 07:47] LABS: CHLORIDE 104 mEq/L (98-107)
[2019-09-08 08:00] VITALS: BP 132/93
[2019-09-08] MEDS: MORPHINE SULFATE 2 MG/ML CPJ (NOT FOR IM USE) IV PRN ×3 (08:45→18:34)
[2019-09-08] MEDS: FUROSEMIDE 100MG/10ML VIAL IVP SCH ×2 (08:55→17:37)
[2019-09-08] MEDS: ASPIRIN 81MG EC TABLET PO SCH (08:56)
[2019-09-08] MEDS: APIXABAN 5 MG TABLET PO SCH ×2 (08:56→21:31)
[2019-09-08] MEDS: CARVEDILOL 12.5MG TABLET PO SCH ×2 (08:56→21:00)
[2019-09-08 12:00] VITALS: BP 130/90
[2019-09-08 16:00] VITALS: BP 118/82
[2019-09-08 20:00] VITALS: BP 99/71
[2019-09-08] MEDS: ATORVASTATIN CALCIUM 10MG TABLET PO SCH (21:30)
[2019-09-09] VITALS: BP_SYST 130; BP_SYST 99; BP_DIAS 71; BP_DIAS 95
[2019-09-09] MEDS: MORPHINE SULFATE 2 MG/ML CPJ (NOT FOR IM USE) IV PRN ×4 (00:40→21:23)
[2019-09-09] MEDS: ZOLPIDEM TARTRATE 5MG TABLET PO PRN (02:19)
[2019-09-09 04:00] VITALS: BP 136/82
[2019-09-09 08:00] VITALS: BP 134/84
[2019-09-09] MEDS: ASPIRIN 81MG EC TABLET PO SCH (09:00)
[2019-09-09] MEDS: APIXABAN 5 MG TABLET PO SCH ×2 (09:00→21:22)
[2019-09-09] MEDS: FUROSEMIDE 40MG TABLET PO SCH ×2 (09:01→21:23)
[2019-09-09] MEDS: CARVEDILOL 12.5MG TABLET PO SCH ×2 (09:11→21:23)
[2019-09-09 12:00] VITALS: BP 117/80
[2019-09-09 16:00] VITALS: BP 130/82
[2019-09-09 20:00] VITALS: BP 123/91
[2019-09-09] MEDS: ATORVASTATIN CALCIUM 10MG TABLET PO SCH (21:22)
[2019-09-10] VITALS: BP 127/91
[2019-09-10] MEDS: ZOLPIDEM TARTRATE 5MG TABLET PO PRN (00:30)
[2019-09-10 04:00] VITALS: BP 120/80
[2019-09-10 08:00] VITALS: BP 119/76
[2019-09-10] MEDS: APIXABAN 5 MG TABLET PO SCH (09:00)
[2019-09-10] MEDS: ASPIRIN 81MG EC TABLET PO SCH (09:00)
[2019-09-10] MEDS: CARVEDILOL 12.5MG TABLET PO SCH (09:00)
[2019-09-10] MEDS: FUROSEMIDE 40MG TABLET PO SCH (09:00)
[2019-09-10 11:19] VITALS: BP 119/76
== END 2019-09-10 12:35 | disposition home or self-care (01) | DRG 133 ==
LOC: ER 22:28 → 7WST 09-05 04:31 → EDBEDREQTM 09-05 04:45 → EDBEDREQ 09-05 04:45 → EDBEDREQDT 09-05 04:45 → ENRESERV 09-05 07:03
PROVIDERS: ADMIT Internal Medicine; ATTEND Internal Medicine
DX: J96.00 Acute respiratory failure, unspecified whether with hypoxia or hypercapnia (principal); I50.23 Acute on chronic systolic (congestive) heart failure; I42.0 Dilated cardiomyopathy; I48.0 Paroxysmal atrial fibrillation; I11.0 Hypertensive heart disease with heart failure; I48.92 Unspecified atrial flutter; F19.10 Other psychoactive substance abuse, uncomplicated; I45.10 Unspecified right bundle-branch block; J44.9 Chronic obstructive pulmonary disease, unspecified; E78.5 Hyperlipidemia, unspecified; I25.10 Atherosclerotic heart disease of native coronary artery without angina pectoris; E87.6 Hypokalemia; I73.9 Peripheral vascular disease, unspecified; Z79.01 Long term (current) use of anticoagulants; Z79.899 Other long term (current) drug therapy; Z82.49 Family history of ischemic heart disease and other diseases of the circulatory system; Z86.718 Personal history of other venous thrombosis and embolism; Z91.19 Patient's noncompliance with other medical treatment and regimen; Z95.828 Presence of other vascular implants and grafts; Z95.810 Presence of automatic (implantable) cardiac defibrillator
CPT/HCPCS: 36415; 71045; 80048; 80061; 83880; 84439; 84443; 84484; 90686; 93005; 93306; 94618; 99285; J1650; J1940; J2270

== ENCOUNTER 2020-01-01 14:01 | Inpatient (IN) | payer MEDICAID ==
[~2020-01-01] VITALS: Ht 172.7 cm; Wt 70.3 kg
[~2020-01-01 14:01] MED LIST changes: +CARV12.545 MT; -CARV6.2548 PO; +CLON0.1T PO; +FURO40TA5 MT; -FURO40TA5 PO; +HYDR-4009 MT; +ONDA4TAB5 PO; +ZOLP10TA2 MT
[2020-01-01] MEDS ORDERED: ALBUTEROL (0.083%) 2.5MG/3ML NEB HHN STA (14:36)
[2020-01-01] MEDS ORDERED: ONDANSETRON HCL 4MG/2ML INJ IV STA (14:36)
[2020-01-01] MEDS ORDERED: METHYLPREDNISOLONE SOD SUCC 125 MG/2 ML VIAL IV STA (14:36)
[2020-01-01] MEDS ORDERED: IPRATROPIUM BROMIDE (0.02%) 0.5MG/2.5ML NEB HHN STA (14:36)
[2020-01-01] MEDS ORDERED: MORPHINE SULFATE 4 MG/ML CPJ (NOT FOR IM USE) IV STA (14:36)
[2020-01-01] MEDS ORDERED: MAGNESIUM 2 G PREMIX 50 ML IV ONE (14:45)
[2020-01-01] MEDS ORDERED: ASPIRIN 81MG TABLET PO ONE (14:45)
[2020-01-01] MEDS ORDERED: FUROSEMIDE 40MG/4ML VIAL IV ONE (14:45)
[2020-01-01 15:12] LABS: INR 1.2; PARTIAL THROMBOPLASTIN TIME 26.1 sec (23.4-31.0); PROTHROMBIN TIME 11.8 sec (9.6-11.0)
[2020-01-01 15:14] LABS: BASOPHILS % 0.3 % (0.0-2.0); EOSINOPHILS % 0.6 % (0.0-5.0); HEMATOCRIT. 53.5 % (42.0-52.0); HEMOGLOBIN. 16.8 g/dL (14.0-18.0); LYMPHOCYTES % 9.5 % (20.0-50.0); MEAN CORPUSCULAR HEMOGLOBIN 27.7 pg (28.0-32.0); MEAN PLATELET VOLUME 9.1 fl (7.4-10.4); MONOCYTES % 5.9 % (2.0-8.0); NEUTROPHILS % 83.7 % (40.0-76.0); PLATELET 159 x1000/uL (130-400); RED BLOOD CELL COUNT 6.08 mill/uL (4.7-6.1); RED CELL DISTRIBUTION WIDTH 16.1 % (11.6-14.6)
[2020-01-01 15:18] LABS: CHLORIDE 116 mEq/L (98-107)
[2020-01-01] MEDS ORDERED: ALBUTEROL (0.5%) 2.5MG/0.5ML NEB HHN ONE (15:22)
[2020-01-01] MEDS ORDERED: ALBUTEROL (0.083%) 2.5MG/3ML NEB ONE (15:22)
[2020-01-01] MEDS ORDERED: IPRATROPIUM BROMIDE (0.02%) 0.5MG/2.5ML NEB ONE (15:23)
[2020-01-01] MEDS ORDERED: PIPERACILLIN/TAZ 3.375G PREMIX 50 ML IV ONE (15:30)
[2020-01-01] MEDS ORDERED: VANCOMYCIN 1 G PREMIX 200 ML IV ONE (15:30)
[2020-01-01] MEDS ORDERED: DIPHENHYDRAMINE 50MG/ML VIAL IV ONE (17:00)
[2020-01-01] MEDS ORDERED: GUAIFENESIN 200MG/10ML SUGAR FREE UDC PO PRN (19:30)
[2020-01-01] MEDS ORDERED: MAGNESIUM/ALUMINUM HYDROXIDE/SIMETHICONE 30ML UDC PO PRN (19:30)
[2020-01-01] MEDS ORDERED: IPRATROPIUM/ALBUTEROL 0.5-3(2.5)MG/3ML NEB HHN PRN (19:30)
[2020-01-01] MEDS ORDERED: ONDANSETRON HCL 4MG/2ML INJ IV PRN (19:30)
[2020-01-01] MEDS ORDERED: DOCUSATE SODIUM 100MG CAPSULE PO PRN (19:30)
[2020-01-01] MEDS ORDERED: HYDRALAZINE 20MG/ML VIAL IV PRN (19:30)
[2020-01-01] MEDS ORDERED: CLONIDINE 0.1MG TABLET PO PRN (19:30)
[2020-01-01] MEDS ORDERED: DIPHENHYDRAMINE 50MG/ML VIAL IV PRN (19:30)
[2020-01-01] MEDS ORDERED: ACETAMINOPHEN 325MG TABLET PO PRN (19:30)
[2020-01-01] MEDS: MORPHINE SULFATE 2 MG/ML CPJ (NOT FOR IM USE) IV PRN (20:04)
[2020-01-01] MEDS: SODIUM CHLORIDE 0.9% INJ 3ML FLUSH IVF SCH (22:00)
[2020-01-01 22:26] VITALS: BP 134/79
[2020-01-01] MEDS ORDERED: ENOXAPARIN 40MG/0.4ML SYR SUBCUT SCH (23:00)
[2020-01-01 23:31] VITALS: BP 135/72
[2020-01-01 23:52] VITALS: BP 134/79
[2020-01-02] VITALS (9 sets, daily range): BP systolic 106–157; BP diastolic 53–108
[2020-01-02] MEDS: PIPERACILLIN/TAZ 3.375G PREMIX 50 ML IV SCH ×2 (00:22→06:14)
[2020-01-02] MEDS: HYDROCODONE/ACETAMINOPHEN 10/325MG TABLET PO PRN ×2 (00:23→12:45)
[2020-01-02] MEDS: LORAZEPAM 2MG/ML CPJ IV PRN (00:36)
[2020-01-02 02:11] LABS: CREATINE KINASE 273 IU/L (39-308)
[2020-01-02 02:12] LABS: CREATINE KINASE MB FRACTION 5.8 ng/mL (0.5-3.6)
[2020-01-02] MEDS ORDERED: VANCOMYCIN 750 MG PREMIX 150 ML IV SCH (04:00)
[2020-01-02] MEDS: IPRATROPIUM/ALBUTEROL 0.5-3(2.5)MG/3ML NEB HHN SCH ×4 (04:00→16:00)
[2020-01-02] MEDS: SODIUM CHLORIDE 0.9% INJ 3ML FLUSH IVF SCH ×3 (06:00→22:00)
[2020-01-02 08:55] LABS: HEMATOCRIT. 45.8 % (42.0-52.0); HEMOGLOBIN. 14.7 g/dL (14.0-18.0); MEAN CORPUSCULAR HEMOGLOBIN 27.6 pg (28.0-32.0); MEAN CORPUSCULAR VOLUME 85.9 fL (80.0-94.0); PLATELET 139 x1000/uL (130-400); RED BLOOD CELL COUNT 5.33 mill/uL (4.7-6.1); RED CELL DISTRIBUTION WIDTH 15.8 % (11.6-14.6)
[2020-01-02 09:28] LABS: CHLORIDE 113 mEq/L (98-107)
[2020-01-02 09:37] LABS: CREATINE KINASE 248 IU/L (39-308)
[2020-01-02 09:41] LABS: CREATINE KINASE MB FRACTION 6.7 ng/mL (0.5-3.6)
[2020-01-02] MEDS: CARVEDILOL 6.25 MG TABLET PO SCH ×2 (11:02→20:36)
[2020-01-02] MEDS: MORPHINE SULFATE 2 MG/ML CPJ (NOT FOR IM USE) IV PRN ×3 (11:02→20:35)
[2020-01-02] MEDS: FUROSEMIDE 40MG/4ML VIAL IVP SCH (11:02)
[2020-01-02] MEDS ORDERED: GUAIFENESIN-DM 200MG-20MG/10ML UDC PO PRN (13:15)
[2020-01-02 13:22] LABS: PLATELET ESTIMATE NORMAL
[2020-01-02] MEDS ORDERED: BUDESONIDE 0.5MG/2ML NEB HHN SCH (13:30)
[2020-01-02] MEDS: BENZONATATE 100MG CAPSULE PO SCH ×2 (15:36→20:36)
[2020-01-02] MEDS: PIPERACILLIN/TAZOBACTAM 3.375 G in DEXT 5% WATER 100 ML IV SCH (17:18)
[2020-01-02] MEDS: APIXABAN 5 MG TABLET PO SCH (17:18)
[2020-01-02] MEDS: VANCOMYCIN HCL 750 MG in DEXT 5% WATER 250 ML IV SCH (18:15)
[2020-01-03] VITALS (12 sets, daily range): BP systolic 83–142; BP diastolic 35–86
[2020-01-03] MEDS: IPRATROPIUM/ALBUTEROL 0.5-3(2.5)MG/3ML NEB HHN SCH ×2 (00:35→04:05)
[2020-01-03] MEDS: LORAZEPAM 2MG/ML CPJ IV PRN ×2 (00:37→22:32)
[2020-01-03] MEDS: MORPHINE SULFATE 2 MG/ML CPJ (NOT FOR IM USE) IV PRN ×6 (00:39→22:33)
[2020-01-03] MEDS: PIPERACILLIN/TAZOBACTAM 3.375 G in DEXT 5% WATER 100 ML IV SCH ×3 (00:41→16:53)
[2020-01-03] MEDS: VANCOMYCIN HCL 750 MG in DEXT 5% WATER 250 ML IV SCH (05:16)
[2020-01-03] MEDS: SODIUM CHLORIDE 0.9% INJ 3ML FLUSH IVF SCH ×3 (06:00→22:00)
[2020-01-03] MEDS: BENZONATATE 100MG CAPSULE PO SCH ×3 (06:00→20:50)
[2020-01-03] MEDS: FUROSEMIDE 40MG/4ML VIAL IVP SCH (08:36)
[2020-01-03] MEDS: CARVEDILOL 6.25 MG TABLET PO SCH ×2 (08:36→20:49)
[2020-01-03] MEDS: APIXABAN 5 MG TABLET PO SCH ×2 (08:36→16:53)
[2020-01-03] MEDS: HYDROCODONE/ACETAMINOPHEN 10/325MG TABLET PO PRN (12:54)
[2020-01-03] MEDS: VANCOMYCIN 750 MG PREMIX 150 ML IV SCH (18:12)
[2020-01-04] VITALS (8 sets, daily range): BP systolic 105–141; BP diastolic 61–102
[2020-01-04] MEDS: PIPERACILLIN/TAZOBACTAM 3.375 G in DEXT 5% WATER 100 ML IV SCH ×2 (00:18→09:00)
[2020-01-04] MEDS: MORPHINE SULFATE 2 MG/ML CPJ (NOT FOR IM USE) IV PRN ×2 (05:12→09:40)
[2020-01-04] MEDS: BENZONATATE 100MG CAPSULE PO SCH ×2 (05:13→13:03)
[2020-01-04] MEDS: SODIUM CHLORIDE 0.9% INJ 3ML FLUSH IVF SCH ×2 (05:13→13:03)
[2020-01-04] MEDS: VANCOMYCIN 750 MG PREMIX 150 ML IV SCH (05:13)
[2020-01-04] MEDS: FUROSEMIDE 40MG/4ML VIAL IVP SCH (09:19)
[2020-01-04] MEDS: CARVEDILOL 6.25 MG TABLET PO SCH (09:20)
[2020-01-04] MEDS: APIXABAN 5 MG TABLET PO SCH (09:21)
== END 2020-01-04 14:00 | disposition home or self-care (01) | DRG 137 ==
LOC: ER 14:01 → 5EST 17:01 → EDBEDREQ 17:09 → EDBEDREQSVC 17:09 → ENRESERV 19:55 → 5EST 01-02 18:50
PROVIDERS: ADMIT Internal Medicine; ATTEND Internal Medicine
DX: J69.0 Pneumonitis due to inhalation of food and vomit (principal); J96.00 Acute respiratory failure, unspecified whether with hypoxia or hypercapnia; I50.23 Acute on chronic systolic (congestive) heart failure; E87.2 Acidosis; R65.10 Systemic inflammatory response syndrome (SIRS) of non-infectious origin without acute organ dysfunction; I07.1 Rheumatic tricuspid insufficiency; I11.0 Hypertensive heart disease with heart failure; I42.9 Cardiomyopathy, unspecified; I27.21 Secondary pulmonary arterial hypertension; E78.5 Hyperlipidemia, unspecified; I25.10 Atherosclerotic heart disease of native coronary artery without angina pectoris; I48.20 Chronic atrial fibrillation, unspecified; J98.11 Atelectasis; N40.0 Benign prostatic hyperplasia without lower urinary tract symptoms; J44.0 Chronic obstructive pulmonary disease with (acute) lower respiratory infection; I34.0 Nonrheumatic mitral (valve) insufficiency; J44.9 Chronic obstructive pulmonary disease, unspecified; Z87.891 Personal history of nicotine dependence; Z95.810 Presence of automatic (implantable) cardiac defibrillator; Z95.828 Presence of other vascular implants and grafts; Z86.718 Personal history of other venous thrombosis and embolism; Z79.899 Other long term (current) drug therapy
CPT/HCPCS: 36415; 71045; 74176; 80053; 82550; 82553; 83605; 83880; 84484; 85025; 86850; 86870; 86900; 87804; 93005; 94640; 96365; 99291; J1200; J1650; J1940; J2060; J2270; J2405; J2543; J2930; J3370; J3475; J7060

== ENCOUNTER 2020-01-14 13:43 | Inpatient (IN) | payer MEDICAID ==
[~2020-01-14] VITALS: Ht 172.7 cm; Wt 74.4 kg
[2020-01-14] MEDS ORDERED: ASPIRIN 325MG TABLET PO ONE (14:15)
[2020-01-14 16:03] LABS: *BARBITURATES SCREEN URINE NEGATIVE (NEGATIVE); *BENZODIAZEPINES SCREEN URINE NEGATIVE (NEGATIVE); *COCAINE SCREEN URINE NEGATIVE (NEGATIVE)
[2020-01-14 16:04] LABS: CANNABINOID URINE SCREEN NEGATIVE (NEGATIVE); METHADONE URINE SCREEN NEGATIVE (NEGATIVE); OPIATES URINE SCREEN NEGATIVE (NEGATIVE); PHENCYCLIDINE URINE SCREEN NEGATIVE (NEGATIVE)
[2020-01-14 16:10] LABS: *AMPHETAMINES SCREEN URINE NEGATIVE (NEGATIVE)
[2020-01-14 17:03] LABS: BASOPHILS % 1.2 % (0.0-2.0); EOSINOPHILS % 1.5 % (0.0-5.0); HEMATOCRIT. 50.7 % (42.0-52.0); HEMOGLOBIN. 16.4 g/dL (14.0-18.0); LYMPHOCYTES % 26.9 % (20.0-50.0); MEAN CORPUSCULAR HEMOGLOBIN 27.7 pg (28.0-32.0); MEAN CORPUSCULAR VOLUME 85.8 fL (80.0-94.0); NEUTROPHILS % 63.4 % (40.0-76.0); PLATELET 175 x1000/uL (130-400); RED BLOOD CELL COUNT 5.91 mill/uL (4.7-6.1); RED CELL DISTRIBUTION WIDTH 15.8 % (11.6-14.6)
[2020-01-14 17:13] LABS: CHLORIDE 113 mEq/L (98-107)
[2020-01-14 17:22] LABS: ETHANOL BLOOD < 10 mg/dL
[2020-01-14] MEDS ORDERED: KETOROLAC 15MG/ML VIAL IV ONE (17:30)
[2020-01-14] MEDS ORDERED: VISCOUS LIDOCAINE 2% 15 ML UDC PO ONE (22:15)
[2020-01-14] MEDS ORDERED: MAGNESIUM/ALUMINUM HYDROXIDE/SIMETHICONE 30ML UDC PO ONE (22:15)
[2020-01-14] MEDS ORDERED: NITROGLYCERIN 0.4MG TABLET SL SL ONE (22:15)
[2020-01-15] MEDS ORDERED: CLONIDINE 0.1MG TABLET PO PRN ×2 (00:30→11:45)
[2020-01-15] MEDS: HYDROCODONE/ACETAMINOPHEN 5/325MG TABLET PO PRN ×2 (00:55→07:12)
[2020-01-15 09:01] VITALS: BP 167/110
[2020-01-15] MEDS ORDERED: ONDANSETRON HCL 4MG/2ML INJ IV PRN (11:45)
[2020-01-15] MEDS ORDERED: IPRATROPIUM/ALBUTEROL 0.5-3(2.5)MG/3ML NEB HHN PRN (11:45)
[2020-01-15] MEDS ORDERED: HYDROCODONE/ACETAMINOPHEN 5/325MG TABLET PO PRN (11:45)
[2020-01-15] MEDS ORDERED: LORAZEPAM 0.5MG TABLET PO PRN (11:45)
[2020-01-15] MEDS ORDERED: ACETAMINOPHEN 325MG TABLET PO PRN (11:45)
[2020-01-15 12:00] VITALS: BP 140/89
[2020-01-15 16:00] VITALS: BP 124/90
[2020-01-15] MEDS: HYDROCODONE/ACETAMINOPHEN 10/325MG TABLET PO PRN (18:36)
[2020-01-15] MEDS: APIXABAN 5 MG TABLET PO SCH (18:36)
[2020-01-15 20:00] VITALS: BP 115/84
[2020-01-16] VITALS: BP 129/87
[2020-01-16] MEDS: ZOLPIDEM TARTRATE 5MG TABLET PO PRN (00:39)
[2020-01-16 04:00] VITALS: BP 114/85
[2020-01-16] MEDS: HYDROCODONE/ACETAMINOPHEN 10/325MG TABLET PO PRN (05:03)
[2020-01-16 07:54] LABS: BASOPHILS % 1.2 % (0.0-2.0); EOSINOPHILS % 3.6 % (0.0-5.0); HEMOGLOBIN. 14.7 g/dL (14.0-18.0); LYMPHOCYTES % 35.5 % (20.0-50.0); MEAN CORPUSCULAR HEMOGLOBIN 27.7 pg (28.0-32.0); MEAN CORPUSCULAR VOLUME 84.8 fL (80.0-94.0); MEAN PLATELET VOLUME 9.2 fl (7.4-10.4); MONOCYTES % 8.5 % (2.0-8.0); NEUTROPHILS % 51.2 % (40.0-76.0); PLATELET 144 x1000/uL (130-400); RED CELL DISTRIBUTION WIDTH 15.3 % (11.6-14.6)
[2020-01-16 08:00] VITALS: BP 133/86
[2020-01-16 08:22] LABS: CHLORIDE 112 mEq/L (98-107)
[2020-01-16] MEDS: APIXABAN 5 MG TABLET PO SCH ×2 (08:51→17:31)
[2020-01-16] MEDS: MORPHINE SULFATE 2 MG/ML CPJ (NOT FOR IM USE) IV PRN ×4 (08:52→22:45)
[2020-01-16] MEDS ORDERED: REGADENOSON 0.4 MG/5 ML IV NR (11:15)
[2020-01-16] MEDS: FUROSEMIDE 40MG/4ML VIAL IVP SCH ×2 (11:44→17:15)
[2020-01-16 12:00] VITALS: BP 139/90
[2020-01-16 16:00] VITALS: BP 119/81
[2020-01-16 20:00] VITALS: BP 122/91
[2020-01-16] MEDS: ATORVASTATIN CALCIUM 10MG TABLET PO SCH (21:11)
[2020-01-16] MEDS: CARVEDILOL 6.25 MG TABLET PO SCH (21:11)
[2020-01-17] VITALS: BP 125/95
[2020-01-17] MEDS: ZOLPIDEM TARTRATE 5MG TABLET PO PRN (00:37)
[2020-01-17 04:00] VITALS: BP 129/94
[2020-01-17] MEDS: MORPHINE SULFATE 2 MG/ML CPJ (NOT FOR IM USE) IV PRN ×3 (04:45→20:29)
[2020-01-17 06:38] LABS: BASOPHILS % 1.3 % (0.0-2.0); EOSINOPHILS % 3.6 % (0.0-5.0); HEMATOCRIT. 45.1 % (42.0-52.0); HEMOGLOBIN. 14.9 g/dL (14.0-18.0); LYMPHOCYTES % 24.8 % (20.0-50.0); MEAN CORPUSCULAR HEMOGLOBIN 28.3 pg (28.0-32.0); MEAN CORPUSCULAR VOLUME 85.9 fL (80.0-94.0); MEAN PLATELET VOLUME 9.4 fl (7.4-10.4); NEUTROPHILS % 61.3 % (40.0-76.0); PLATELET 143 x1000/uL (130-400); RED BLOOD CELL COUNT 5.25 mill/uL (4.7-6.1); RED CELL DISTRIBUTION WIDTH 15.7 % (11.6-14.6)
[2020-01-17 06:57] LABS: CHLORIDE 112 mEq/L (98-107)
[2020-01-17] MEDS: FUROSEMIDE 40MG/4ML VIAL IVP SCH ×2 (06:58→17:15)
[2020-01-17] MEDS: CARVEDILOL 6.25 MG TABLET PO SCH ×2 (07:42→20:28)
[2020-01-17 07:53] VITALS: BP 147/78
[2020-01-17] MEDS: APIXABAN 5 MG TABLET PO SCH ×2 (08:00→16:43)
[2020-01-17] MEDS: HYDROCODONE/ACETAMINOPHEN 10/325MG TABLET PO PRN ×3 (08:01→23:12)
[2020-01-17] MEDS ORDERED: REGADENOSON 0.4 MG/5 ML IV ONE (09:33)
[2020-01-17 12:00] VITALS: BP 132/98
[2020-01-17] MEDS: GUAIFENESIN 200MG/10ML SUGAR FREE UDC PO PRN ×3 (13:24→23:06)
[2020-01-17 16:00] VITALS: BP 131/87
[2020-01-17 20:00] VITALS: BP 130/96
[2020-01-17] MEDS: ATORVASTATIN CALCIUM 10MG TABLET PO SCH (20:28)
[2020-01-18] VITALS: BP 121/88
[2020-01-18] MEDS: ZOLPIDEM TARTRATE 5MG TABLET PO PRN (01:25)
[2020-01-18 04:00] VITALS: BP 129/89
[2020-01-18] MEDS: GUAIFENESIN 200MG/10ML SUGAR FREE UDC PO PRN ×2 (04:49→10:00)
[2020-01-18] MEDS: MORPHINE SULFATE 2 MG/ML CPJ (NOT FOR IM USE) IV PRN ×2 (04:50→09:17)
[2020-01-18] MEDS: FUROSEMIDE 40MG/4ML VIAL IVP SCH (06:52)
[2020-01-18 07:33] LABS: BASOPHILS % 1.5 % (0.0-2.0); EOSINOPHILS % 4.6 % (0.0-5.0); HEMATOCRIT. 46.6 % (42.0-52.0); HEMOGLOBIN. 15.2 g/dL (14.0-18.0); MEAN CORPUSCULAR HEMOGLOBIN 27.9 pg (28.0-32.0); MEAN CORPUSCULAR VOLUME 85.7 fL (80.0-94.0); MEAN PLATELET VOLUME 9.6 fl (7.4-10.4); MONOCYTES % 11.2 % (2.0-8.0); NEUTROPHILS % 59.7 % (40.0-76.0); PLATELET 142 x1000/uL (130-400); RED BLOOD CELL COUNT 5.44 mill/uL (4.7-6.1); RED CELL DISTRIBUTION WIDTH 15.3 % (11.6-14.6)
[2020-01-18 08:00] VITALS: BP 105/81
[2020-01-18] MEDS: CARVEDILOL 6.25 MG TABLET PO SCH (08:42)
[2020-01-18] MEDS: APIXABAN 5 MG TABLET PO SCH (08:42)
[2020-01-18 12:00] VITALS: BP 131/83
[2020-01-18] MEDS ORDERED: COR6 PO (12:50)
[2020-01-18] MEDS ORDERED: APIX5TAB PO (12:50)
[2020-01-18] MEDS: HYDROCODONE/ACETAMINOPHEN 10/325MG TABLET PO PRN (13:44)
[2020-01-18 14:26] VITALS: BP 131/83
== END 2020-01-18 16:25 | disposition home or self-care (01) | DRG 194 ==
LOC: ER 13:50 → 7WST 18:41 → EDBEDREQTM 18:46 → ENRESERV 01-15 08:15
PROVIDERS: ADMIT Internal Medicine; ATTEND Internal Medicine
DX: I11.0 Hypertensive heart disease with heart failure (principal); N17.9 Acute kidney failure, unspecified; I27.20 Pulmonary hypertension, unspecified; I07.1 Rheumatic tricuspid insufficiency; I42.0 Dilated cardiomyopathy; M94.0 Chondrocostal junction syndrome [Tietze]; I50.23 Acute on chronic systolic (congestive) heart failure; I48.20 Chronic atrial fibrillation, unspecified; J44.9 Chronic obstructive pulmonary disease, unspecified; E78.5 Hyperlipidemia, unspecified; I48.92 Unspecified atrial flutter; I49.3 Ventricular premature depolarization; I45.10 Unspecified right bundle-branch block; N28.9 Disorder of kidney and ureter, unspecified; Z82.3 Family history of stroke; Z86.718 Personal history of other venous thrombosis and embolism; Z87.01 Personal history of pneumonia (recurrent); Z79.01 Long term (current) use of anticoagulants; Z82.49 Family history of ischemic heart disease and other diseases of the circulatory system
CPT/HCPCS: 36415; 71045; 78452; 80048; 80053; 80305; 80320; 83036; 83735; 83880; 84484; 85025; 93005; 93017; 99285; A9500; J1885; J1940; J2270; J2785; G0480

== ENCOUNTER 2020-02-01 15:35 | Inpatient (IN) | payer MEDICARE, MEDICAID ==
[~2020-02-01] VITALS: Ht 180.3 cm; Wt 67.2 kg
[~2020-02-01 15:35] MED LIST changes: +APIX5TAB PO; -CARV12.545 MT; +COR6 PO
[2020-02-01] MEDS ORDERED: NITROGLYCERIN 0.4MG TABLET SL SL PRN (16:00)
[2020-02-01] MEDS ORDERED: ASPIRIN 81MG TABLET PO ONE (16:00)
[2020-02-01 16:24] LABS: BASOPHILS % 1.5 % (0.0-2.0); HEMATOCRIT. 46.2 % (42.0-52.0); HEMOGLOBIN. 15.1 g/dL (14.0-18.0); LYMPHOCYTES % 30.9 % (20.0-50.0); MEAN CORPUSCULAR HEMOGLOBIN 28.1 pg (28.0-32.0); MEAN CORPUSCULAR VOLUME 85.7 fL (80.0-94.0); MEAN PLATELET VOLUME 8.6 fl (7.4-10.4); MONOCYTES % 8.7 % (2.0-8.0); NEUTROPHILS % 55.9 % (40.0-76.0); PLATELET 138 x1000/uL (130-400); RED BLOOD CELL COUNT 5.38 mill/uL (4.7-6.1); RED CELL DISTRIBUTION WIDTH 15.2 % (11.6-14.6)
[2020-02-01 16:28] LABS: CHLORIDE 110 mEq/L (98-107)
[2020-02-01] MEDS ORDERED: FUROSEMIDE 20MG/2ML VIAL IVP ONE (17:15)
[2020-02-01] MEDS: MORPHINE SULFATE 2 MG/ML CPJ (NOT FOR IM USE) IV PRN ×2 (18:49→22:46)
[2020-02-02] VITALS (7 sets, daily range): BP systolic 113–154; BP diastolic 74–99
[2020-02-02] MEDS ORDERED: IPRATROPIUM/ALBUTEROL 0.5-3(2.5)MG/3ML NEB HHN PRN (00:45)
[2020-02-02] MEDS ORDERED: CLONIDINE 0.1MG TABLET PO PRN (00:45)
[2020-02-02] MEDS: MORPHINE SULFATE 2 MG/ML CPJ (NOT FOR IM USE) IV PRN (04:22)
[2020-02-02 08:07] LABS: CHLORIDE 111 mEq/L (98-107)
[2020-02-02] MEDS: FUROSEMIDE 40MG/4ML VIAL IVP SCH ×2 (09:33→20:27)
[2020-02-02] MEDS: ASPIRIN 81MG EC TABLET PO SCH (09:33)
[2020-02-02] MEDS: APIXABAN 5 MG TABLET PO SCH ×2 (09:33→16:33)
[2020-02-02] MEDS: LISINOPRIL 20MG TABLET PO SCH (09:34)
[2020-02-02] MEDS ORDERED: HYDROCODONE/ACETAMINOPHEN 5/325MG TABLET PO PRN (12:30)
[2020-02-02] MEDS ORDERED: MORPHINE SULFATE 2 MG/ML CPJ (NOT FOR IM USE) IV NR (20:00)
[2020-02-02] MEDS: CARVEDILOL 3.125 MG TABLET PO SCH (20:27)
[2020-02-03] VITALS: BP 106/62
[2020-02-03] MEDS: ZOLPIDEM TARTRATE 5MG TABLET PO PRN (00:56)
[2020-02-03 04:00] VITALS: BP 97/67
[2020-02-03 06:07] LABS: BASOPHILS % 0.6 % (0.0-2.0); EOSINOPHILS % 4.7 % (0.0-5.0); HEMATOCRIT. 45.5 % (42.0-52.0); HEMOGLOBIN. 14.9 g/dL (14.0-18.0); LYMPHOCYTES % 37.3 % (20.0-50.0); MEAN CORPUSCULAR VOLUME 85.6 fL (80.0-94.0); MEAN PLATELET VOLUME 9.1 fl (7.4-10.4); MONOCYTES % 11.3 % (2.0-8.0); NEUTROPHILS % 46.1 % (40.0-76.0); PLATELET 123 x1000/uL (130-400); RED BLOOD CELL COUNT 5.32 mill/uL (4.7-6.1); RED CELL DISTRIBUTION WIDTH 15.5 % (11.6-14.6)
[2020-02-03 06:53] LABS: CHLORIDE 107 mEq/L (98-107)
[2020-02-03 08:00] VITALS: BP 97/67
[2020-02-03] MEDS: LISINOPRIL 20MG TABLET PO SCH (09:00)
[2020-02-03] MEDS: CARVEDILOL 3.125 MG TABLET PO SCH ×2 (09:00→21:13)
[2020-02-03] MEDS: APIXABAN 5 MG TABLET PO SCH ×2 (09:23→17:49)
[2020-02-03] MEDS: ASPIRIN 81MG EC TABLET PO SCH (09:23)
[2020-02-03] MEDS: FUROSEMIDE 40MG/4ML VIAL IVP SCH ×3 (09:24→21:13)
[2020-02-03] MEDS ORDERED: MORPHINE SULFATE 2 MG/ML CPJ (NOT FOR IM USE) IV PRN (10:30)
[2020-02-03 12:00] VITALS: BP 124/90
[2020-02-03] MEDS: HYDROCODONE/ACETAMINOPHEN 5/325MG TABLET PO PRN (14:46)
[2020-02-03 16:00] VITALS: BP 119/95
[2020-02-03 20:00] VITALS: BP 99/70
[2020-02-04] VITALS: BP 111/79
[2020-02-04] MEDS: ZOLPIDEM TARTRATE 5MG TABLET PO PRN (00:05)
[2020-02-04 04:00] VITALS: BP 106/84
[2020-02-04] MEDS: FUROSEMIDE 40MG/4ML VIAL IVP SCH (06:00)
[2020-02-04 08:00] VITALS: BP 119/86
[2020-02-04] MEDS: APIXABAN 5 MG TABLET PO SCH (08:10)
[2020-02-04] MEDS: ASPIRIN 81MG EC TABLET PO SCH (08:10)
[2020-02-04] MEDS: CARVEDILOL 3.125 MG TABLET PO SCH (08:10)
[2020-02-04] MEDS: HYDROCODONE/ACETAMINOPHEN 5/325MG TABLET PO PRN (08:11)
[2020-02-04] MEDS ORDERED: LISINOPRIL 20MG TABLET PO SCH (09:00)
[2020-02-04 13:00] VITALS: BP 119/86
== END 2020-02-04 13:45 | disposition home or self-care (01) | DRG 203 ==
LOC: ER 15:35 → 5WST 17:56 → EDBEDREQ 18:03 → EDBEDREQTM 18:03 → ENRESERV 22:23
PROVIDERS: ADMIT Internal Medicine; ATTEND Internal Medicine
DX: M94.0 Chondrocostal junction syndrome [Tietze] (principal); N17.9 Acute kidney failure, unspecified; I50.23 Acute on chronic systolic (congestive) heart failure; I13.0 Hypertensive heart and chronic kidney disease with heart failure and stage 1 through stage 4 chronic kidney disease, or unspecified chronic kidney disease; E87.8 Other disorders of electrolyte and fluid balance, not elsewhere classified; I27.21 Secondary pulmonary arterial hypertension; I08.1 Rheumatic disorders of both mitral and tricuspid valves; R07.89 Other chest pain; G89.29 Other chronic pain; I42.9 Cardiomyopathy, unspecified; I48.20 Chronic atrial fibrillation, unspecified; J44.9 Chronic obstructive pulmonary disease, unspecified; N18.9 Chronic kidney disease, unspecified; Z76.5 Malingerer [conscious simulation]; Z79.01 Long term (current) use of anticoagulants; Z79.899 Other long term (current) drug therapy; Z86.718 Personal history of other venous thrombosis and embolism; Z87.891 Personal history of nicotine dependence; Z95.810 Presence of automatic (implantable) cardiac defibrillator; Z95.828 Presence of other vascular implants and grafts; Z82.49 Family history of ischemic heart disease and other diseases of the circulatory system
CPT/HCPCS: 36415; 71045; 80048; 80053; 83735; 83880; 84484; 85025; 85379; 93005; 93306; 96374; 99285; J1940; J2270

== ENCOUNTER 2020-03-13 13:12 | Inpatient (IN) | payer MEDICARE, OTHER, MEDICAID ==
[~2020-03-13] VITALS: Ht 180.3 cm; Wt 67.6 kg
[~2020-03-13 13:12] MED LIST changes: -CLON0.1T PO
[2020-03-13 15:46] LABS: BASOPHILS % 1.2 % (0.0-2.0); EOSINOPHILS % 3.7 % (0.0-5.0); HEMATOCRIT. 48.3 % (42.0-52.0); HEMOGLOBIN. 15.5 g/dL (14.0-18.0); MEAN CORPUSCULAR HEMOGLOBIN 27.8 pg (28.0-32.0); MEAN CORPUSCULAR VOLUME 86.5 fL (80.0-94.0); MEAN PLATELET VOLUME 8.9 fl (7.4-10.4); MONOCYTES % 11.3 % (2.0-8.0); NEUTROPHILS % 48.8 % (40.0-76.0); PLATELET 140 x1000/uL (130-400); RED BLOOD CELL COUNT 5.58 mill/uL (4.7-6.1); RED CELL DISTRIBUTION WIDTH 15.7 % (11.6-14.6)
[2020-03-13 15:49] LABS: CHLORIDE 111 mEq/L (98-107); INR 1.3; PROTHROMBIN TIME 13.9 sec (9.6-11.0)
[2020-03-13] MEDS ORDERED: ACETAMINOPHEN 325MG TABLET PO ONE (17:15)
[2020-03-13 18:10] VITALS: BP 135/98
[2020-03-13 20:00] VITALS: BP_SYST 135; BP_SYST 145; BP_DIAS 118; BP_DIAS 98
[2020-03-13] MEDS ORDERED: CLONIDINE 0.1MG TABLET PO PRN (21:15)
[2020-03-13] MEDS ORDERED: GUAIFENESIN-DM 200MG-20MG/10ML UDC GT PRN (21:15)
[2020-03-13] MEDS ORDERED: HYDROCODONE/ACETAMINOPHEN 10/325MG TABLET PO PRN (21:15)
[2020-03-13] MEDS ORDERED: ONDANSETRON HCL 4MG TABLET PO PRN (21:15)
[2020-03-13] MEDS: MORPHINE SULFATE 2 MG/ML CPJ (NOT FOR IM USE) IV PRN (21:30)
[2020-03-13 22:48] LABS: BASOPHILS % 0.2 % (0.0-2.0); EOSINOPHILS % 5.2 % (0.0-5.0); HEMATOCRIT. 46.3 % (42.0-52.0); LYMPHOCYTES % 37.8 % (20.0-50.0); MEAN CORPUSCULAR VOLUME 86.4 fL (80.0-94.0); MEAN PLATELET VOLUME 8.2 fl (7.4-10.4); MONOCYTES % 11.6 % (2.0-8.0); NEUTROPHILS % 45.2 % (40.0-76.0); PLATELET 123 x1000/uL (130-400); RED BLOOD CELL COUNT 5.36 mill/uL (4.7-6.1); RED CELL DISTRIBUTION WIDTH 15.7 % (11.6-14.6)
[2020-03-13 23:04] LABS: CREATINE KINASE MB FRACTION 6.7 ng/mL (0.5-3.6)
[2020-03-14] VITALS: BP 134/97
[2020-03-14] MEDS: ZOLPIDEM TARTRATE 5MG TABLET PO PRN ×2 (00:27→23:29)
[2020-03-14 04:00] VITALS: BP 104/73
[2020-03-14 06:16] LABS: CREATINE KINASE MB FRACTION 5.3 ng/mL (0.5-3.6)
[2020-03-14 07:49] VITALS: BP 142/94
[2020-03-14] MEDS: MORPHINE SULFATE 2 MG/ML CPJ (NOT FOR IM USE) IV PRN ×4 (07:49→20:05)
[2020-03-14] MEDS: APIXABAN 5 MG TABLET PO SCH ×2 (08:56→16:10)
[2020-03-14] MEDS: FUROSEMIDE 40MG/4ML VIAL IVP SCH (08:56)
[2020-03-14] MEDS: CARVEDILOL 6.25 MG TABLET PO SCH ×2 (08:57→20:05)
[2020-03-14] MEDS ORDERED: AMLODIPINE 2.5MG TABLET PO NR (11:30)
[2020-03-14 12:07] VITALS: BP 122/92
[2020-03-14 15:51] LABS: CREATINE KINASE MB FRACTION 5.8 ng/mL (0.5-3.6)
[2020-03-14 16:07] VITALS: BP 124/103
[2020-03-14 20:00] VITALS: BP 126/80
[2020-03-14] MEDS: ATORVASTATIN CALCIUM 40MG TABLET PO SCH (20:06)
[2020-03-15] VITALS: BP 138/95
[2020-03-15 04:00] VITALS: BP 134/88
[2020-03-15 08:30] VITALS: BP 127/96
[2020-03-15] MEDS: APIXABAN 5 MG TABLET PO SCH ×2 (09:27→17:29)
[2020-03-15] MEDS: AMLODIPINE 2.5MG TABLET PO SCH (09:27)
[2020-03-15] MEDS: CARVEDILOL 6.25 MG TABLET PO SCH ×2 (09:27→20:46)
[2020-03-15] MEDS: MORPHINE SULFATE 2 MG/ML CPJ (NOT FOR IM USE) IV PRN ×4 (09:28→20:47)
[2020-03-15] MEDS: FUROSEMIDE 40MG/4ML VIAL IVP SCH (11:05)
[2020-03-15 13:16] VITALS: BP 108/81
[2020-03-15 15:29] LABS: EOSINOPHILS % 3.4 % (0.0-5.0); HEMATOCRIT. 50.2 % (42.0-52.0); HEMOGLOBIN. 16.2 g/dL (14.0-18.0); LYMPHOCYTES % 32.7 % (20.0-50.0); MEAN CORPUSCULAR HEMOGLOBIN 28.1 pg (28.0-32.0); MONOCYTES % 11.5 % (2.0-8.0); NEUTROPHILS % 51.4 % (40.0-76.0); PLATELET 133 x1000/uL (130-400); RED BLOOD CELL COUNT 5.77 mill/uL (4.7-6.1); RED CELL DISTRIBUTION WIDTH 16.1 % (11.6-14.6)
[2020-03-15 15:47] LABS: CHLORIDE 107 mEq/L (98-107)
[2020-03-15 16:45] VITALS: BP 132/85
[2020-03-15 20:00] VITALS: BP 133/73
[2020-03-15] MEDS: ATORVASTATIN CALCIUM 40MG TABLET PO SCH (20:46)
[2020-03-15] MEDS: ZOLPIDEM TARTRATE 5MG TABLET PO PRN (23:50)
[2020-03-16] VITALS: BP 111/92
[2020-03-16 04:00] VITALS: BP 126/86
[2020-03-16 08:00] VITALS: BP 133/72
[2020-03-16] MEDS: AMLODIPINE 2.5MG TABLET PO SCH (08:20)
[2020-03-16] MEDS: CARVEDILOL 6.25 MG TABLET PO SCH (08:20)
[2020-03-16] MEDS: APIXABAN 5 MG TABLET PO SCH (08:20)
[2020-03-16] MEDS: MORPHINE SULFATE 2 MG/ML CPJ (NOT FOR IM USE) IV PRN ×2 (08:21→12:00)
[2020-03-16] MEDS ORDERED: FUROSEMIDE 40MG TABLET PO SCH (09:00)
[2020-03-16 09:59] LABS: BASOPHILS % 1.1 % (0.0-2.0); EOSINOPHILS % 3.4 % (0.0-5.0); HEMATOCRIT. 50.6 % (42.0-52.0); HEMOGLOBIN. 16.7 g/dL (14.0-18.0); LYMPHOCYTES % 35.4 % (20.0-50.0); MEAN CORPUSCULAR HEMOGLOBIN 28.5 pg (28.0-32.0); MEAN CORPUSCULAR VOLUME 86.6 fL (80.0-94.0); MEAN PLATELET VOLUME 9.4 fl (7.4-10.4); MONOCYTES % 11.4 % (2.0-8.0); NEUTROPHILS % 48.7 % (40.0-76.0); PLATELET 139 x1000/uL (130-400); RED BLOOD CELL COUNT 5.84 mill/uL (4.7-6.1); RED CELL DISTRIBUTION WIDTH 15.8 % (11.6-14.6)
[2020-03-16 10:14] LABS: CHLORIDE 105 mEq/L (98-107)
[2020-03-16 12:03] VITALS: BP 112/85
[2020-03-16 13:42] VITALS: BP 121/72
== END 2020-03-16 16:35 | disposition home health service (06) | DRG 194 ==
LOC: ER 13:12 → 6WST 16:41 → EDBEDREQTM 16:44 → EDBEDREQ 16:44 → ENRESERV 17:31
PROVIDERS: ADMIT Internal Medicine; ATTEND Internal Medicine
DX: I13.0 Hypertensive heart and chronic kidney disease with heart failure and stage 1 through stage 4 chronic kidney disease, or unspecified chronic kidney disease (principal); J96.20 Acute and chronic respiratory failure, unspecified whether with hypoxia or hypercapnia; D69.6 Thrombocytopenia, unspecified; I27.20 Pulmonary hypertension, unspecified; I36.1 Nonrheumatic tricuspid (valve) insufficiency; Z99.81 Dependence on supplemental oxygen; I50.23 Acute on chronic systolic (congestive) heart failure; I42.0 Dilated cardiomyopathy; I48.20 Chronic atrial fibrillation, unspecified; E78.5 Hyperlipidemia, unspecified; I45.10 Unspecified right bundle-branch block; J44.9 Chronic obstructive pulmonary disease, unspecified; I25.10 Atherosclerotic heart disease of native coronary artery without angina pectoris; Z79.01 Long term (current) use of anticoagulants; N18.9 Chronic kidney disease, unspecified; Z95.828 Presence of other vascular implants and grafts; Z79.84 Long term (current) use of oral hypoglycemic drugs; Z79.891 Long term (current) use of opiate analgesic; Z79.899 Other long term (current) drug therapy; Z95.1 Presence of aortocoronary bypass graft; Z86.718 Personal history of other venous thrombosis and embolism; Z82.49 Family history of ischemic heart disease and other diseases of the circulatory system; Z82.3 Family history of stroke
CPT/HCPCS: 36415; 71045; 80048; 80053; 82550; 82553; 83880; 84484; 85025; 93005; 99285; J1940; J2270

== ENCOUNTER 2020-04-05 15:13 | Inpatient (IN) | payer MEDICARE, OTHER ==
[~2020-04-05] VITALS: Ht 180.3 cm; Wt 67.6 kg
[2020-04-05 17:23] LABS: CHLORIDE 112 mEq/L (98-107)
[2020-04-05 17:27] LABS: ETHANOL BLOOD 32 mg/dL
[2020-04-05 17:28] LABS: BASOPHILS % 0.7 % (0.0-2.0); HEMATOCRIT. 52.3 % (42.0-52.0); HEMOGLOBIN. 16.7 g/dL (14.0-18.0); LYMPHOCYTES % 35.1 % (20.0-50.0); MEAN CORPUSCULAR HEMOGLOBIN 28.3 pg (28.0-32.0); MEAN CORPUSCULAR VOLUME 88.5 fL (80.0-94.0); MEAN PLATELET VOLUME 8.6 fl (7.4-10.4); MONOCYTES % 8.9 % (2.0-8.0); NEUTROPHILS % 53.3 % (40.0-76.0); PLATELET 161 x1000/uL (130-400); RED BLOOD CELL COUNT 5.91 mill/uL (4.7-6.1); RED CELL DISTRIBUTION WIDTH 17.2 % (11.6-14.6)
[2020-04-05] MEDS ORDERED: FUROSEMIDE 40MG/4ML VIAL IV ONE (17:45)
[2020-04-05] MEDS ORDERED: NITROGLYCERIN 0.4MG TABLET SL SL PRN (17:45)
[2020-04-05] MEDS ORDERED: ASPIRIN 81MG TABLET PO ONE (17:45)
[2020-04-05 18:57] LABS: *AMPHETAMINES SCREEN URINE NEGATIVE (NEGATIVE); *BARBITURATES SCREEN URINE NEGATIVE (NEGATIVE); *BENZODIAZEPINES SCREEN URINE NEGATIVE (NEGATIVE); *COCAINE SCREEN URINE NEGATIVE (NEGATIVE); METHADONE URINE SCREEN NEGATIVE (NEGATIVE)
[2020-04-05 18:58] LABS: CANNABINOID URINE SCREEN NEGATIVE (NEGATIVE); OPIATES URINE SCREEN PRESUMTIVE POSITIVE (NEGATIVE); PHENCYCLIDINE URINE SCREEN NEGATIVE (NEGATIVE)
[2020-04-05] MEDS ORDERED: ACETAMINOPHEN 325MG TABLET PO PRN (19:30)
[2020-04-05] MEDS ORDERED: ONDANSETRON HCL 4MG/2ML INJ IV PRN (19:30)
[2020-04-05] MEDS ORDERED: LORAZEPAM 2MG/ML CPJ IV PRN (19:30)
[2020-04-05] MEDS ORDERED: DIPHENHYDRAMINE 50MG/ML VIAL IV PRN (19:30)
[2020-04-05] MEDS ORDERED: HYDROCODONE/ACETAMINOPHEN 10/325MG TABLET PO PRN (19:30)
[2020-04-05] MEDS ORDERED: DOCUSATE SODIUM 100MG CAPSULE PO PRN (19:30)
[2020-04-05] MEDS ORDERED: GUAIFENESIN 200MG/10ML SUGAR FREE UDC PO PRN (19:30)
[2020-04-05] MEDS ORDERED: ENOXAPARIN 40MG/0.4ML SYR SUBCUT SCH (19:30)
[2020-04-05] MEDS ORDERED: IPRATROPIUM/ALBUTEROL 0.5-3(2.5)MG/3ML NEB HHN PRN (19:30)
[2020-04-05] MEDS ORDERED: CLONIDINE 0.1MG TABLET PO PRN (19:30)
[2020-04-05] MEDS ORDERED: HYDRALAZINE 20MG/ML VIAL IV PRN (19:30)
[2020-04-05] MEDS ORDERED: MAGNESIUM/ALUMINUM HYDROXIDE/SIMETHICONE 30ML UDC PO PRN (19:30)
[2020-04-05 23:42] VITALS: BP 134/79
[2020-04-06] VITALS (12 sets, daily range): BP systolic 103–149; BP diastolic 48–102
[2020-04-06] MEDS: APIXABAN 5 MG TABLET PO SCH ×3 (00:17→21:26)
[2020-04-06 00:18] LABS: CREATINE KINASE MB FRACTION 9.9 ng/mL (0.5-3.6)
[2020-04-06] MEDS: MORPHINE SULFATE 2 MG/ML CPJ (NOT FOR IM USE) IV PRN ×3 (00:18→16:10)
[2020-04-06] MEDS: CARVEDILOL 6.25 MG TABLET PO SCH ×2 (00:18→09:11)
[2020-04-06] MEDS: SODIUM CHLORIDE 0.9% INJ 3ML FLUSH IVF SCH ×4 (00:21→21:31)
[2020-04-06] MEDS ORDERED: FUROSEMIDE 100MG/10ML VIAL IVP NR (09:30)
[2020-04-06] MEDS: AMLODIPINE 2.5MG TABLET PO SCH (11:33)
[2020-04-06 15:03] LABS: EOSINOPHILS % 2.9 % (0.0-5.0); HEMATOCRIT. 51.3 % (42.0-52.0); HEMOGLOBIN. 16.8 g/dL (14.0-18.0); LYMPHOCYTES % 30.8 % (20.0-50.0); MEAN CORPUSCULAR HEMOGLOBIN 28.5 pg (28.0-32.0); MEAN PLATELET VOLUME 8.6 fl (7.4-10.4); MONOCYTES % 12.4 % (2.0-8.0); NEUTROPHILS % 52.9 % (40.0-76.0); PLATELET 141 x1000/uL (130-400); RED CELL DISTRIBUTION WIDTH 16.5 % (11.6-14.6)
[2020-04-06 15:08] LABS: CHLORIDE 109 mEq/L (98-107)
[2020-04-06 15:17] LABS: CREATINE KINASE 257 IU/L (39-308)
[2020-04-06 15:19] LABS: CREATINE KINASE MB FRACTION 9.2 ng/mL (0.5-3.6)
[2020-04-06] MEDS: FUROSEMIDE 100MG/10ML VIAL IVP SCH (17:12)
[2020-04-06] MEDS: CARVEDILOL 3.125 MG TABLET PO SCH (21:31)
[2020-04-07] VITALS (12 sets, daily range): BP systolic 112–189; BP diastolic 31–110
[2020-04-07] MEDS: FUROSEMIDE 100MG/10ML VIAL IVP SCH ×3 (06:47→17:15)
[2020-04-07] MEDS: SODIUM CHLORIDE 0.9% INJ 3ML FLUSH IVF SCH ×3 (06:47→23:50)
[2020-04-07 08:06] LABS: CHLORIDE 107 mEq/L (98-107)
[2020-04-07 08:12] LABS: BASOPHILS % 0.7 % (0.0-2.0); EOSINOPHILS % 3.7 % (0.0-5.0); HEMATOCRIT. 46.3 % (42.0-52.0); HEMOGLOBIN. 15.3 g/dL (14.0-18.0); LYMPHOCYTES % 30.6 % (20.0-50.0); MEAN CORPUSCULAR HEMOGLOBIN 28.7 pg (28.0-32.0); MEAN CORPUSCULAR VOLUME 86.8 fL (80.0-94.0); MEAN PLATELET VOLUME 8.8 fl (7.4-10.4); MONOCYTES % 12.5 % (2.0-8.0); NEUTROPHILS % 52.5 % (40.0-76.0); PLATELET 134 x1000/uL (130-400); RED BLOOD CELL COUNT 5.33 mill/uL (4.7-6.1); RED CELL DISTRIBUTION WIDTH 16.5 % (11.6-14.6)
[2020-04-07] MEDS: CARVEDILOL 3.125 MG TABLET PO SCH (08:55)
[2020-04-07] MEDS: APIXABAN 5 MG TABLET PO SCH ×2 (08:55→20:40)
[2020-04-07] MEDS: AMLODIPINE 2.5MG TABLET PO SCH (08:56)
[2020-04-07] MEDS ORDERED: AMLODIPINE 2.5MG TABLET PO NR (09:15)
[2020-04-07] MEDS: MORPHINE SULFATE 2 MG/ML CPJ (NOT FOR IM USE) IV PRN ×2 (10:57→20:42)
[2020-04-07 11:45] LABS: CLARITY URINE CLEAR (CLEAR); COLOR URINE PALE YELLOW (YELLOW); KETONES URINE NEGATIVE (NEGATIVE); LEUKOCYTE ESTERASE URINE NEGATIVE (NEGATIVE); NITRITE URINE NEGATIVE (NEGATIVE); OCCULT BLOOD URINE NEGATIVE (NEGATIVE); PROTEIN URINE NEGATIVE (NEGATIVE); SPECIFIC GRAVITY URINE 1.006 (1.005-1.030); UROBILINOGEN URINE 0.2 E.U./dL (0.2-1.0)
[2020-04-07] MEDS: AMLODIPINE 5MG TABLET PO SCH (20:40)
[2020-04-07] MEDS: CARVEDILOL 6.25 MG TABLET PO SCH (20:40)
[2020-04-08] VITALS: BP 130/88
[2020-04-08 02:00] VITALS: BP 138/95
[2020-04-08] MEDS: MORPHINE SULFATE 2 MG/ML CPJ (NOT FOR IM USE) IV PRN ×2 (03:27→08:29)
[2020-04-08] MEDS: SODIUM CHLORIDE 0.9% INJ 3ML FLUSH IVF SCH (06:23)
[2020-04-08] MEDS: FUROSEMIDE 100MG/10ML VIAL IVP SCH (06:23)
[2020-04-08 06:42] VITALS: BP 148/68
[2020-04-08 08:08] VITALS: BP 154/104
[2020-04-08] MEDS: AMLODIPINE 5MG TABLET PO SCH (08:29)
[2020-04-08] MEDS: APIXABAN 5 MG TABLET PO SCH (08:29)
[2020-04-08] MEDS: CARVEDILOL 6.25 MG TABLET PO SCH (08:29)
[2020-04-08 08:54] LABS: BASOPHILS % 1.3 % (0.0-2.0); HEMATOCRIT. 52.9 % (42.0-52.0); LYMPHOCYTES % 24.6 % (20.0-50.0); MEAN CORPUSCULAR HEMOGLOBIN 28.4 pg (28.0-32.0); MEAN CORPUSCULAR VOLUME 88.5 fL (80.0-94.0); MEAN PLATELET VOLUME 8.7 fl (7.4-10.4); NEUTROPHILS % 61.1 % (40.0-76.0); PLATELET 143 x1000/uL (130-400); RED BLOOD CELL COUNT 5.98 mill/uL (4.7-6.1); RED CELL DISTRIBUTION WIDTH 16.7 % (11.6-14.6)
[2020-04-08 09:08] LABS: CHLORIDE 101 mEq/L (98-107)
[2020-04-08 11:38] VITALS: BP 154/96
[2020-04-08] MEDS ORDERED: FUROSEMIDE 40MG TABLET PO SCH (18:00)
== END 2020-04-08 13:08 | disposition home or self-care (01) | DRG 198 ==
LOC: ER 15:13 → 3WST 17:56 → EDBEDREQ 17:57 → ENRESERV 22:24
PROVIDERS: ADMIT Internal Medicine; ATTEND Internal Medicine
DX: I24.8 Other forms of acute ischemic heart disease (principal); J96.00 Acute respiratory failure, unspecified whether with hypoxia or hypercapnia; N17.0 Acute kidney failure with tubular necrosis; I13.0 Hypertensive heart and chronic kidney disease with heart failure and stage 1 through stage 4 chronic kidney disease, or unspecified chronic kidney disease; I50.23 Acute on chronic systolic (congestive) heart failure; I48.20 Chronic atrial fibrillation, unspecified; N18.9 Chronic kidney disease, unspecified; I07.1 Rheumatic tricuspid insufficiency; J43.9 Emphysema, unspecified; I27.20 Pulmonary hypertension, unspecified; I42.0 Dilated cardiomyopathy; Z86.718 Personal history of other venous thrombosis and embolism; Z95.828 Presence of other vascular implants and grafts; Z95.810 Presence of automatic (implantable) cardiac defibrillator; Z82.49 Family history of ischemic heart disease and other diseases of the circulatory system; Z79.01 Long term (current) use of anticoagulants; Z82.3 Family history of stroke; Z79.899 Other long term (current) drug therapy
CPT/HCPCS: 36415; 71045; 76770; 80048; 80053; 80305; 80320; 81003; 82550; 82553; 83735; 83880; 84100; 84484; 85025; 93005; 93970; 96374; 99291; J1940; J2270; G0480

== ENCOUNTER 2020-04-28 19:11 | Emergency (ER) | payer MEDICARE, OTHER ==
[~2020-04-28] VITALS: Ht 167.6 cm; Wt 64.0 kg
[2020-04-28] MEDS ORDERED: IBUPROFEN 400MG TABLET PO ONE (21:00)
[2020-04-28 22:31] VITALS: BP 126/96
== END 2020-04-28 22:33 | disposition home or self-care (01) ==
LOC: ER 19:11
DX: S29.8XXA Other specified injuries of thorax, initial encounter (principal); W22.8XXA Striking against or struck by other objects, initial encounter; Y93.89 Activity, other specified; Y92.89 Other specified places as the place of occurrence of the external cause; Y99.8 Other external cause status; J44.9 Chronic obstructive pulmonary disease, unspecified; I10 Essential (primary) hypertension; Z95.0 Presence of cardiac pacemaker; Z79.899 Other long term (current) drug therapy
CPT/HCPCS: 71045; 99283

== ENCOUNTER 2020-05-06 16:45 | Inpatient (IN) | payer MEDICARE, MEDICAID ==
[~2020-05-06] VITALS: Ht 180.3 cm; Wt 67.1 kg
[2020-05-06] MEDS ORDERED: ASPIRIN 81MG TABLET PO ONE (17:30)
[2020-05-06] MEDS ORDERED: NITROGLYCERIN 0.4MG TABLET SL SL PRN (17:30)
[2020-05-06 17:49] LABS: BASOPHILS % 0.4 % (0.0-2.0); EOSINOPHILS % 2.8 % (0.0-5.0); HEMATOCRIT. 48.2 % (42.0-52.0); HEMOGLOBIN. 15.8 g/dL (14.0-18.0); LYMPHOCYTES % 27.4 % (20.0-50.0); MEAN CORPUSCULAR HEMOGLOBIN 29.4 pg (28.0-32.0); MEAN CORPUSCULAR VOLUME 89.5 fL (80.0-94.0); MEAN PLATELET VOLUME 8.5 fl (7.4-10.4); MONOCYTES % 12.6 % (2.0-8.0); NEUTROPHILS % 56.8 % (40.0-76.0); PLATELET 184 x1000/uL (130-400); RED BLOOD CELL COUNT 5.38 mill/uL (4.7-6.1)
[2020-05-06 17:52] LABS: CHLORIDE 115 mEq/L (98-107)
[2020-05-06 17:56] LABS: ETHANOL BLOOD 22 mg/dL
[2020-05-06] MEDS ORDERED: ONDANSETRON HCL 4MG/2ML INJ IV PRN (20:00)
[2020-05-06] MEDS ORDERED: ACETAMINOPHEN 325MG TABLET PO PRN (20:00)
[2020-05-06] MEDS ORDERED: TRAZODONE HCL 50MG TABLET PO PRN (20:00)
[2020-05-06] MEDS ORDERED: ATORVASTATIN CALCIUM 40MG TABLET PO NR (20:00)
[2020-05-06] MEDS ORDERED: CLONIDINE 0.1MG TABLET PO PRN (20:00)
[2020-05-06] MEDS ORDERED: HYDRALAZINE 20MG/ML VIAL IV PRN (20:00)
[2020-05-06] MEDS: HEPARIN 5000 UNITS/ML VIAL SUBCUT SCH (21:57)
[2020-05-07] VITALS (7 sets, daily range): BP systolic 105–161; BP diastolic 82–101
[2020-05-07] MEDS: NITROGLYCERIN 0.4MG TABLET SL SL PRN ×2 (00:40→00:50)
[2020-05-07 07:15] LABS: HEMATOCRIT. 42.5 % (42.0-52.0); HEMOGLOBIN. 13.8 g/dL (14.0-18.0); MEAN CORPUSCULAR HEMOGLOBIN 29.1 pg (28.0-32.0); MEAN CORPUSCULAR VOLUME 89.6 fL (80.0-94.0); MEAN PLATELET VOLUME 8.4 fl (7.4-10.4); PLATELET 139 x1000/uL (130-400); RED BLOOD CELL COUNT 4.75 mill/uL (4.7-6.1); RED CELL DISTRIBUTION WIDTH 17.9 % (11.6-14.6)
[2020-05-07 07:21] LABS: CHLORIDE 115 mEq/L (98-107)
[2020-05-07 07:31] LABS: LDL CHOLESTEROL 47 mg/dL (5-100)
[2020-05-07 07:32] LABS: HDL CHOLESTEROL 52 mg/dL (40-59)
[2020-05-07] MEDS: HEPARIN 5000 UNITS/ML VIAL SUBCUT SCH ×2 (08:34→22:27)
[2020-05-07] MEDS ORDERED: MORPHINE SULFATE 2 MG/ML CPJ (NOT FOR IM USE) IV PRN (11:45)
[2020-05-07 14:15] LABS: PLATELET ESTIMATE NORMAL
[2020-05-07] MEDS: FUROSEMIDE 40MG/4ML VIAL IVP SCH ×2 (14:33→17:00)
[2020-05-07] MEDS: NITROGLYCERIN OINT 1GM/INCH UDPKT TD SCH ×3 (14:33→22:27)
[2020-05-07 15:42] LABS: *COCAINE SCREEN URINE NEGATIVE (NEGATIVE)
[2020-05-07 15:43] LABS: *AMPHETAMINES SCREEN URINE NEGATIVE (NEGATIVE); *BARBITURATES SCREEN URINE NEGATIVE (NEGATIVE); *BENZODIAZEPINES SCREEN URINE NEGATIVE (NEGATIVE); CANNABINOID URINE SCREEN NEGATIVE (NEGATIVE); METHADONE URINE SCREEN NEGATIVE (NEGATIVE); OPIATES URINE SCREEN PRESUMTIVE POSITIVE (NEGATIVE); PHENCYCLIDINE URINE SCREEN NEGATIVE (NEGATIVE)
[2020-05-07] MEDS ORDERED: ATORVASTATIN CALCIUM 10MG TABLET PO SCH (21:00)
[2020-05-07] MEDS: CARVEDILOL 3.125 MG TABLET PO SCH (22:27)
[2020-05-07] MEDS: AMLODIPINE 2.5MG TABLET PO SCH (22:28)
[2020-05-07] MEDS: TRAMADOL 50MG TABLET PO PRN (22:28)
[2020-05-08 00:14] VITALS: BP 133/80
[2020-05-08 04:00] VITALS: BP 113/81
[2020-05-08] MEDS: NITROGLYCERIN OINT 1GM/INCH UDPKT TD SCH (05:12)
[2020-05-08 08:00] VITALS: BP_SYST 124; BP_SYST 132; BP_DIAS 76; BP_DIAS 79
[2020-05-08] MEDS: FUROSEMIDE 40MG/4ML VIAL IVP SCH (08:39)
[2020-05-08] MEDS: HEPARIN 5000 UNITS/ML VIAL SUBCUT SCH (08:39)
[2020-05-08] MEDS: CARVEDILOL 3.125 MG TABLET PO SCH (08:39)
[2020-05-08] MEDS: AMLODIPINE 2.5MG TABLET PO SCH (08:39)
[2020-05-08] MEDS: TRAMADOL 50MG TABLET PO PRN (11:48)
[2020-05-08 12:07] VITALS: BP 126/88
[2020-05-08 12:10] VITALS: BP 126/88
[2020-05-08 13:05] VITALS: BP 126/86
== END 2020-05-08 14:15 | disposition home health service (06) | DRG 194 ==
LOC: ER 16:45 → EDBEDREQ 19:42 → EDBEDREQTM 19:42 → ENRESERV 22:50 → 6WST 05-07 00:21
PROVIDERS: ADMIT Internal Medicine; ATTEND Internal Medicine
DX: I11.0 Hypertensive heart disease with heart failure (principal); N17.9 Acute kidney failure, unspecified; E87.0 Hyperosmolality and hypernatremia; E87.8 Other disorders of electrolyte and fluid balance, not elsewhere classified; R07.89 Other chest pain; I20.0 Unstable angina; I50.23 Acute on chronic systolic (congestive) heart failure; E78.5 Hyperlipidemia, unspecified; E86.0 Dehydration; F10.129 Alcohol abuse with intoxication, unspecified; I27.20 Pulmonary hypertension, unspecified; I42.0 Dilated cardiomyopathy; I48.19 Other persistent atrial fibrillation; I49.3 Ventricular premature depolarization; I82.501 Chronic embolism and thrombosis of unspecified deep veins of right lower extremity; J44.9 Chronic obstructive pulmonary disease, unspecified; L85.3 Xerosis cutis; Z53.20 Procedure and treatment not carried out because of patient's decision for unspecified reasons; I45.10 Unspecified right bundle-branch block; Y90.1 Blood alcohol level of 20-39 mg/100 ml; Z79.01 Long term (current) use of anticoagulants; Z79.899 Other long term (current) drug therapy; Z82.3 Family history of stroke; Z82.49 Family history of ischemic heart disease and other diseases of the circulatory system; Z87.891 Personal history of nicotine dependence; Z91.19 Patient's noncompliance with other medical treatment and regimen; Z95.810 Presence of automatic (implantable) cardiac defibrillator; Z71.41 Alcohol abuse counseling and surveillance of alcoholic; I25.2 Old myocardial infarction
CPT/HCPCS: 36415; 71045; 80053; 80061; 80305; 80320; 83036; 83735; 83880; 84484; 85025; 93005; 93306; 97162; 99285; J1644; J1940; J2270; G0480

== ENCOUNTER 2020-05-11 06:09 | Emergency (ER) | payer MEDICARE, MEDICAID ==
[~2020-05-11] VITALS: Ht 175.3 cm; Wt 63.5 kg
[2020-05-11] MEDS ORDERED: IBUPROFEN 600MG TABLET PO ONE (07:00)
[2020-05-11] MEDS ORDERED: TRAMADOL 50MG TABLET PO ONE (07:00)
[2020-05-11 07:04] LABS: BASOPHILS % 1.3 % (0.0-2.0); EOSINOPHILS % 3.3 % (0.0-5.0); HEMATOCRIT. 48.9 % (42.0-52.0); LYMPHOCYTES % 32.2 % (20.0-50.0); MEAN CORPUSCULAR HEMOGLOBIN 29.5 pg (28.0-32.0); MEAN CORPUSCULAR VOLUME 90.2 fL (80.0-94.0); MEAN PLATELET VOLUME 8.4 fl (7.4-10.4); MONOCYTES % 14.1 % (2.0-8.0); NEUTROPHILS % 49.1 % (40.0-76.0); PLATELET 161 x1000/uL (130-400); RED BLOOD CELL COUNT 5.42 mill/uL (4.7-6.1); RED CELL DISTRIBUTION WIDTH 17.9 % (11.6-14.6)
[2020-05-11 07:14] LABS: CHLORIDE 107 mEq/L (98-107)
[2020-05-11 11:15] VITALS: BP 117/60
== END 2020-05-11 11:18 | disposition home or self-care (01) ==
LOC: ER 06:09
DX: R07.89 Other chest pain (principal); I48.91 Unspecified atrial fibrillation; I42.9 Cardiomyopathy, unspecified; I11.9 Hypertensive heart disease without heart failure; Z79.899 Other long term (current) drug therapy; Z86.711 Personal history of pulmonary embolism; Z79.01 Long term (current) use of anticoagulants; Z95.810 Presence of automatic (implantable) cardiac defibrillator
CPT/HCPCS: 36415; 71045; 80053; 83605; 83880; 84484; 85025; 93005; 99285

== ENCOUNTER 2020-06-22 13:45 | Inpatient (IN) | payer MEDICARE, MEDICAID ==
[~2020-06-22] VITALS: Ht 175.3 cm; Wt 64.4 kg
[2020-06-22] MEDS ORDERED: CLON0.2T PO (14:02)
[2020-06-22] MEDS ORDERED: TEMA15CA PO (14:02)
[2020-06-22] MEDS ORDERED: LISI10TA5 PO (14:02)
[2020-06-22] MEDS ORDERED: POTA-9 PO (14:02)
[2020-06-22] MEDS ORDERED: ISOS30TA12 PO (14:02)
[2020-06-22] MEDS ORDERED: ATOR40TA70 PO (14:02)
[2020-06-22] MEDS ORDERED: FAMO-135 PO (14:02)
[2020-06-22] MEDS ORDERED: MORPHINE SULFATE 4 MG/ML CPJ (NOT FOR IM USE) IV STA (14:22)
[2020-06-22 14:59] LABS: BASOPHILS % 0.1 % (0.0-2.0); EOSINOPHILS % 0.1 % (0.0-5.0); HEMATOCRIT. 50.2 % (42.0-52.0); HEMOGLOBIN. 16.3 g/dL (14.0-18.0); LYMPHOCYTES % 8.9 % (20.0-50.0); MEAN CORPUSCULAR HEMOGLOBIN 28.7 pg (28.0-32.0); MEAN CORPUSCULAR VOLUME 88.1 fL (80.0-94.0); MEAN PLATELET VOLUME 8.9 fl (7.4-10.4); MONOCYTES % 7.2 % (2.0-8.0); NEUTROPHILS % 83.7 % (40.0-76.0); PLATELET 171 x1000/uL (130-400); RED BLOOD CELL COUNT 5.69 mill/uL (4.7-6.1); RED CELL DISTRIBUTION WIDTH 14.9 % (11.6-14.6)
[2020-06-22 15:04] LABS: CHLORIDE 98 mEq/L (98-107)
[2020-06-22 15:10] LABS: INR 1.2; PROTHROMBIN TIME 12.8 sec (9.6-11.0)
[2020-06-22] MEDS ORDERED: SODIUM CHLORIDE 0.9% 250 ML IV ONE (15:15)
[2020-06-22] MEDS ORDERED: ASPIRIN 81MG TABLET PO NR (16:30)
[2020-06-22] MEDS ORDERED: ACETAMINOPHEN 650MG/20.3ML UDC PO ONE (17:15)
[2020-06-22] MEDS ORDERED: ONDANSETRON HCL 4MG/2ML INJ IV PRN (20:00)
[2020-06-22] MEDS ORDERED: HYDROCODONE/ACETAMINOPHEN 5/325MG TABLET PO PRN (20:00)
[2020-06-22] MEDS ORDERED: ACETAMINOPHEN 325MG TABLET PO PRN (20:00)
[2020-06-22] MEDS ORDERED: ISOSORBIDE DINITRATE 30MG TABLET PO SCH (20:00)
[2020-06-22] MEDS ORDERED: DOCUSATE SODIUM 100MG CAPSULE PO PRN (20:00)
[2020-06-22] MEDS ORDERED: MORPHINE SULFATE 2 MG/ML CPJ (NOT FOR IM USE) IV PRN (20:00)
[2020-06-22] MEDS ORDERED: MAGNESIUM/ALUMINUM HYDROXIDE/SIMETHICONE 30ML UDC PO PRN (20:00)
[2020-06-22] MEDS ORDERED: CLONIDINE 0.1MG TABLET PO PRN (20:00)
[2020-06-22] MEDS ORDERED: GUAIFENESIN 200MG/10ML SUGAR FREE UDC PO PRN (20:00)
[2020-06-22] MEDS ORDERED: ISOSORBIDE MONONITRATE 30MG TABLET SR 24HR PO SCH (20:00)
[2020-06-22] MEDS: APIXABAN 5 MG TABLET PO SCH (20:51)
[2020-06-22] MEDS: CARVEDILOL 6.25 MG TABLET PO SCH (20:53)
[2020-06-22] MEDS: LISINOPRIL 10MG TABLET PO SCH (20:58)
[2020-06-22 22:05] VITALS: BP 99/69
[2020-06-22 22:10] VITALS: BP 99/69
[2020-06-22] MEDS: ATORVASTATIN CALCIUM 40MG TABLET PO SCH (23:06)
[2020-06-22] MEDS: FAMOTIDINE 20MG TABLET PO SCH (23:07)
[2020-06-22] MEDS: OXYCODONE HCL/ACETAMINOPHEN 5/325MG TABLET PO PRN (23:07)
[2020-06-22] MEDS: ZOLPIDEM TARTRATE 5MG TABLET PO PRN (23:07)
[2020-06-23] VITALS: BP 90/55
[2020-06-23 04:00] VITALS: BP 91/58
[2020-06-23] MEDS: OXYCODONE HCL/ACETAMINOPHEN 5/325MG TABLET PO PRN (05:44)
[2020-06-23 08:00] VITALS: BP 89/55
[2020-06-23] MEDS: CARVEDILOL 6.25 MG TABLET PO SCH (09:00)
[2020-06-23] MEDS ORDERED: AMLODIPINE 10MG TABLET PO SCH (09:00)
[2020-06-23] MEDS ORDERED: ISOSORBIDE MONONITRATE 30MG TABLET SR 24HR PO SCH (09:00)
[2020-06-23] MEDS: LISINOPRIL 10MG TABLET PO SCH (09:00)
[2020-06-23] MEDS: APIXABAN 5 MG TABLET PO SCH ×2 (09:21→17:26)
[2020-06-23] MEDS: FUROSEMIDE 40MG TABLET PO SCH (09:21)
[2020-06-23 12:00] VITALS: BP 75/47
[2020-06-23 12:42] LABS: BASOPHILS % 0.2 % (0.0-2.0); EOSINOPHILS % 0.8 % (0.0-5.0); HEMATOCRIT. 49.8 % (42.0-52.0); HEMOGLOBIN. 16.2 g/dL (14.0-18.0); LYMPHOCYTES % 17.2 % (20.0-50.0); MEAN CORPUSCULAR HEMOGLOBIN 29.1 pg (28.0-32.0); MEAN CORPUSCULAR VOLUME 89.3 fL (80.0-94.0); MEAN PLATELET VOLUME 8.9 fl (7.4-10.4); MONOCYTES % 10.1 % (2.0-8.0); NEUTROPHILS % 71.7 % (40.0-76.0); PLATELET 158 x1000/uL (130-400); RED BLOOD CELL COUNT 5.58 mill/uL (4.7-6.1); RED CELL DISTRIBUTION WIDTH 15.1 % (11.6-14.6)
[2020-06-23 12:46] LABS: CHLORIDE 100 mEq/L (98-107)
[2020-06-23 12:54] LABS: HDL CHOLESTEROL 54 mg/dL (40-59); LDL CHOLESTEROL 67 mg/dL (5-100)
[2020-06-23] MEDS: MIDODRINE HCL 2.5MG TABLET PO SCH ×2 (13:21→17:25)
[2020-06-23 16:00] VITALS: BP 91/66
[2020-06-23 20:00] VITALS: BP 89/65
[2020-06-23] MEDS: ATORVASTATIN CALCIUM 40MG TABLET PO SCH (20:13)
[2020-06-23] MEDS: FAMOTIDINE 20MG TABLET PO SCH (20:13)
[2020-06-23] MEDS ORDERED: CARVEDILOL 6.25 MG TABLET PO SCH (21:00)
[2020-06-23] MEDS: ZOLPIDEM TARTRATE 5MG TABLET PO PRN (23:11)
[2020-06-24] VITALS: BP 106/46
[2020-06-24 04:00] VITALS: BP 90/60
[2020-06-24 08:00] VITALS: BP 70/36
[2020-06-24] MEDS: APIXABAN 5 MG TABLET PO SCH ×2 (10:00→17:15)
[2020-06-24] MEDS: MIDODRINE HCL 2.5MG TABLET PO SCH ×3 (10:01→17:16)
[2020-06-24] MEDS: FUROSEMIDE 40MG TABLET PO SCH (10:02)
[2020-06-24 11:44] VITALS: BP_SYST 100; BP_SYST 103; BP_SYST 106; BP_SYST 98; BP_DIAS 58; BP_DIAS 63; BP_DIAS 65; BP_DIAS 68
[2020-06-24 16:00] VITALS: BP 109/80
[2020-06-24] MEDS: OXYCODONE HCL/ACETAMINOPHEN 5/325MG TABLET PO PRN ×2 (17:33→23:36)
[2020-06-24 20:30] VITALS: BP 95/64
[2020-06-24] MEDS: ATORVASTATIN CALCIUM 40MG TABLET PO SCH (21:46)
[2020-06-24] MEDS: FAMOTIDINE 20MG TABLET PO SCH (21:46)
[2020-06-25] VITALS: BP 111/76
[2020-06-25] MEDS: ZOLPIDEM TARTRATE 5MG TABLET PO PRN ×3 (03:45→23:31)
[2020-06-25 04:00] VITALS: BP 113/72
[2020-06-25 08:00] VITALS: BP 116/79
[2020-06-25] MEDS: MIDODRINE HCL 2.5MG TABLET PO SCH ×3 (08:53→16:56)
[2020-06-25] MEDS: FUROSEMIDE 40MG/4ML VIAL IVP SCH (08:53)
[2020-06-25] MEDS: APIXABAN 5 MG TABLET PO SCH ×2 (08:54→16:55)
[2020-06-25 12:00] VITALS: BP_SYST 131; BP_SYST 157; BP_DIAS 71; BP_DIAS 80
[2020-06-25] MEDS: OXYCODONE HCL/ACETAMINOPHEN 5/325MG TABLET PO PRN ×2 (15:31→21:47)
[2020-06-25 16:00] VITALS: BP 126/84
[2020-06-25 20:00] VITALS: BP 107/75
[2020-06-25] MEDS: FAMOTIDINE 20MG TABLET PO SCH (21:46)
[2020-06-25] MEDS: ATORVASTATIN CALCIUM 40MG TABLET PO SCH (21:47)
[2020-06-26] VITALS: BP 119/84
[2020-06-26 04:00] VITALS: BP 137/85
[2020-06-26 05:00] VITALS: BP_SYST 110; BP_SYST 112; BP_SYST 120; BP_DIAS 58; BP_DIAS 60; BP_DIAS 65
[2020-06-26 06:10] LABS: *AMPHETAMINES SCREEN URINE NEGATIVE (NEGATIVE); *BARBITURATES SCREEN URINE NEGATIVE (NEGATIVE)
[2020-06-26 06:11] LABS: *BENZODIAZEPINES SCREEN URINE NEGATIVE (NEGATIVE); *COCAINE SCREEN URINE NEGATIVE (NEGATIVE); CANNABINOID URINE SCREEN NEGATIVE (NEGATIVE); METHADONE URINE SCREEN NEGATIVE (NEGATIVE); OPIATES URINE SCREEN NEGATIVE (NEGATIVE); PHENCYCLIDINE URINE SCREEN NEGATIVE (NEGATIVE)
[2020-06-26 08:00] VITALS: BP 126/94
[2020-06-26] MEDS: APIXABAN 5 MG TABLET PO SCH (09:20)
[2020-06-26] MEDS: MIDODRINE HCL 2.5MG TABLET PO SCH (09:20)
[2020-06-26] MEDS: FUROSEMIDE 40MG/4ML VIAL IVP SCH (09:20)
[2020-06-26] MEDS: OXYCODONE HCL/ACETAMINOPHEN 5/325MG TABLET PO PRN (09:28)
[2020-06-26 12:00] VITALS: BP 114/72
[2020-06-26 12:52] VITALS: BP 126/94
[2020-06-27] MEDS ORDERED: FUROSEMIDE 40MG TABLET PO SCH (09:00)
== END 2020-06-26 15:25 | DRG 194 ==
LOC: ER 13:45 → EDBEDREQ 19:55 → EDBEDREQTM 19:55 → ENRESERV 20:34 → 7WST 21:37 → 5WST 06-25 09:36
PROVIDERS: ADMIT Hospitalist; ATTEND Hospitalist
DX: I11.0 Hypertensive heart disease with heart failure (principal); I50.23 Acute on chronic systolic (congestive) heart failure; J96.00 Acute respiratory failure, unspecified whether with hypoxia or hypercapnia; D68.59 Other primary thrombophilia; E44.1 Mild protein-calorie malnutrition; I82.501 Chronic embolism and thrombosis of unspecified deep veins of right lower extremity; N17.9 Acute kidney failure, unspecified; I82.511 Chronic embolism and thrombosis of right femoral vein; I48.19 Other persistent atrial fibrillation; I42.0 Dilated cardiomyopathy; J44.1 Chronic obstructive pulmonary disease with (acute) exacerbation; D72.810 Lymphocytopenia; Z20.828 Contact with and (suspected) exposure to other viral communicable diseases; I27.21 Secondary pulmonary arterial hypertension; I95.89 Other hypotension; I47.2 Ventricular tachycardia; E78.5 Hyperlipidemia, unspecified; I25.10 Atherosclerotic heart disease of native coronary artery without angina pectoris; Z95.810 Presence of automatic (implantable) cardiac defibrillator; Z95.828 Presence of other vascular implants and grafts; Z79.01 Long term (current) use of anticoagulants; Z87.891 Personal history of nicotine dependence; Z91.19 Patient's noncompliance with other medical treatment and regimen; I25.2 Old myocardial infarction; Z86.79 Personal history of other diseases of the circulatory system; Z79.899 Other long term (current) drug therapy
CPT/HCPCS: 36415; 71045; 80053; 80061; 80305; 83880; 84484; 85025; 87635; 93005; 93970; 99285; J1940; J2270; J7050

== ENCOUNTER 2020-07-17 10:20 | Inpatient (IN) | payer MEDICARE, MEDICAID ==
[~2020-07-17] VITALS: Ht 177.8 cm; Wt 65.3 kg
[~2020-07-17 10:20] MED LIST changes: +ATOR40TA70 PO; +CLON0.2T PO; +FAMO-135 PO; +ISOS30TA12 PO; +LISI10TA5 PO; +POTA-9 PO; +TEMA15CA PO; -TUSSL GT
[2020-07-17] MEDS ORDERED: ASPIRIN 81MG TABLET PO ONE (11:15)
[2020-07-17] MEDS ORDERED: NITROGLYCERIN 0.4MG TABLET SL SL PRN (11:15)
[2020-07-17 11:53] LABS: BASOPHILS % 1.3 % (0.0-2.0); EOSINOPHILS % 2.8 % (0.0-5.0); HEMATOCRIT. 45.6 % (42.0-52.0); HEMOGLOBIN. 14.9 g/dL (14.0-18.0); LYMPHOCYTES % 34.4 % (20.0-50.0); MEAN CORPUSCULAR HEMOGLOBIN 28.9 pg (28.0-32.0); MEAN CORPUSCULAR VOLUME 88.4 fL (80.0-94.0); MEAN PLATELET VOLUME 8.2 fl (7.4-10.4); MONOCYTES % 10.7 % (2.0-8.0); NEUTROPHILS % 50.8 % (40.0-76.0); PLATELET 177 x1000/uL (130-400); RED BLOOD CELL COUNT 5.16 mill/uL (4.7-6.1)
[2020-07-17 12:00] LABS: CHLORIDE 118 mEq/L (98-107)
[2020-07-17] MEDS ORDERED: ENOXAPARIN 80MG/0.8ML SYR SUBCUT ONE (15:00)
[2020-07-17] MEDS ORDERED: FUROSEMIDE 40MG/4ML VIAL IVP ONE (15:00)
[2020-07-17] MEDS ORDERED: AZITHROMYCIN 500 MG in DEXT 5% WATER 250 ML IV ONE (16:45)
[2020-07-17] MEDS ORDERED: CEFTRIAXONE 1 G PREMIX 50 ML IV ONE (16:45)
[2020-07-17] MEDS ORDERED: CLONIDINE 0.1MG TABLET PO PRN (17:30)
[2020-07-17] MEDS ORDERED: MAGNESIUM/ALUMINUM HYDROXIDE/SIMETHICONE 30ML UDC PO PRN (17:30)
[2020-07-17] MEDS ORDERED: ONDANSETRON HCL 4MG/2ML INJ IV PRN (17:30)
[2020-07-17] MEDS ORDERED: DOCUSATE SODIUM 100MG CAPSULE PO PRN (17:30)
[2020-07-17] MEDS ORDERED: GUAIFENESIN 200MG/10ML SUGAR FREE UDC PO PRN (17:30)
[2020-07-17] MEDS ORDERED: ACETAMINOPHEN 325MG TABLET PO PRN (17:30)
[2020-07-17] MEDS: CARVEDILOL 3.125 MG TABLET PO SCH (18:43)
[2020-07-17] MEDS: FUROSEMIDE 40MG TABLET PO SCH (18:48)
[2020-07-17] MEDS: MORPHINE SULFATE 2 MG/ML CPJ (NOT FOR IM USE) IV PRN (22:58)
[2020-07-17 23:00] VITALS: BP 152/103
[2020-07-18] VITALS (15 sets, daily range): BP systolic 125–161; BP diastolic 56–116
[2020-07-18 00:02] LABS: CREATINE KINASE MB FRACTION 13.2 ng/mL (0.5-3.6)
[2020-07-18] MEDS: MORPHINE SULFATE 2 MG/ML CPJ (NOT FOR IM USE) IV PRN ×3 (03:26→15:54)
[2020-07-18 07:17] LABS: BASOPHILS % 0.2 % (0.0-2.0); EOSINOPHILS % 2.4 % (0.0-5.0); HEMATOCRIT. 44.6 % (42.0-52.0); HEMOGLOBIN. 14.7 g/dL (14.0-18.0); LYMPHOCYTES % 40.6 % (20.0-50.0); MEAN CORPUSCULAR HEMOGLOBIN 28.9 pg (28.0-32.0); MEAN CORPUSCULAR VOLUME 87.9 fL (80.0-94.0); MEAN PLATELET VOLUME 8.4 fl (7.4-10.4); MONOCYTES % 12.1 % (2.0-8.0); NEUTROPHILS % 44.7 % (40.0-76.0); PLATELET 171 x1000/uL (130-400); RED BLOOD CELL COUNT 5.08 mill/uL (4.7-6.1); RED CELL DISTRIBUTION WIDTH 16.1 % (11.6-14.6)
[2020-07-18 07:39] LABS: CHLORIDE 117 mEq/L (98-107)
[2020-07-18 07:48] LABS: CREATINE KINASE 337 IU/L (39-308)
[2020-07-18 07:51] LABS: CREATINE KINASE MB FRACTION 14.2 ng/mL (0.5-3.6)
[2020-07-18] MEDS: APIXABAN 5 MG TABLET PO SCH ×2 (08:04→16:53)
[2020-07-18] MEDS: FUROSEMIDE 40MG TABLET PO SCH (08:04)
[2020-07-18] MEDS: CARVEDILOL 3.125 MG TABLET PO SCH ×2 (08:05→20:29)
[2020-07-18] MEDS: LOSARTAN POTASSIUM 25 MG TABLET PO SCH (12:46)
[2020-07-18] MEDS ORDERED: NITROGLYCERIN 0.4MG TABLET SL SL PRN (16:15)
[2020-07-18] MEDS ORDERED: ZOLPIDEM TARTRATE 5MG TABLET PO PRN (20:15)
[2020-07-18] MEDS ORDERED: ATORVASTATIN CALCIUM 20MG TABLET PO SCH (21:00)
[2020-07-19] VITALS (8 sets, daily range): BP systolic 121–143; BP diastolic 62–92
[2020-07-19] MEDS: LOSARTAN POTASSIUM 25 MG TABLET PO SCH (08:31)
[2020-07-19] MEDS: FUROSEMIDE 40MG TABLET PO SCH (08:31)
[2020-07-19] MEDS: CARVEDILOL 3.125 MG TABLET PO SCH (08:31)
[2020-07-19] MEDS: APIXABAN 5 MG TABLET PO SCH (08:31)
[2020-07-19] MEDS ORDERED: ASPIRIN 81MG TABLET PO SCH (09:00)
== END 2020-07-19 13:15 | DRG 198 ==
LOC: ER 10:35 → EDBEDREQTM 16:29 → EDBEDREQ 16:29 → 3WST 16:35 → EDBEDREQ 16:40 → ENRESERV 21:03
PROVIDERS: ADMIT Hospitalist; ATTEND Hospitalist
DX: I20.0 Unstable angina (principal); D68.59 Other primary thrombophilia; E78.5 Hyperlipidemia, unspecified; I11.0 Hypertensive heart disease with heart failure; I42.0 Dilated cardiomyopathy; I48.20 Chronic atrial fibrillation, unspecified; J44.9 Chronic obstructive pulmonary disease, unspecified; I50.9 Heart failure, unspecified; E78.00 Pure hypercholesterolemia, unspecified; Z20.828 Contact with and (suspected) exposure to other viral communicable diseases; N28.9 Disorder of kidney and ureter, unspecified; I27.21 Secondary pulmonary arterial hypertension; Z79.01 Long term (current) use of anticoagulants; Z86.718 Personal history of other venous thrombosis and embolism; Z99.81 Dependence on supplemental oxygen; Z79.891 Long term (current) use of opiate analgesic; Z79.899 Other long term (current) drug therapy; I25.2 Old myocardial infarction; Z76.5 Malingerer [conscious simulation]
CPT/HCPCS: 36415; 71045; 80053; 80061; 82550; 82553; 83880; 84484; 85025; 87635; 93005; 93970; 99285; J0456; J0696; J1650; J1940; J2270; J7060

== ENCOUNTER 2020-12-15 18:01 | Emergency (ER) | payer MEDICARE, MEDICAID ==
[~2020-12-15] VITALS: Ht 182.9 cm; Wt 77.5 kg
[2020-12-15 19:42] LABS: BASOPHILS % 1.3 % (0.0-2.0); EOSINOPHILS % 3.9 % (0.0-5.0); HEMATOCRIT. 48.5 % (42.0-52.0); HEMOGLOBIN. 15.8 g/dL (14.0-18.0); LYMPHOCYTES % 24.8 % (20.0-50.0); MEAN CORPUSCULAR HEMOGLOBIN 28.6 pg (28.0-32.0); MEAN CORPUSCULAR VOLUME 88.1 fL (80.0-94.0); MEAN PLATELET VOLUME 9.1 fl (7.4-10.4); MONOCYTES % 9.6 % (2.0-8.0); NEUTROPHILS % 60.4 % (40.0-76.0); PLATELET 163 x1000/uL (130-400); RED BLOOD CELL COUNT 5.51 mill/uL (4.7-6.1); RED CELL DISTRIBUTION WIDTH 14.5 % (11.6-14.6)
[2020-12-15] MEDS ORDERED: HYDROCODONE/ACETAMINOPHEN 5/325MG TABLET PO ONE (22:45)
[2020-12-16 06:39] VITALS: BP 142/86
== END 2020-12-16 06:41 | disposition home or self-care (01) ==
LOC: ER 18:01
DX: S20.212A Contusion of left front wall of thorax, initial encounter (principal); Y04.2XXA Assault by strike against or bumped into by another person, initial encounter; Y93.89 Activity, other specified; Y92.018 Other place in single-family (private) house as the place of occurrence of the external cause; I48.20 Chronic atrial fibrillation, unspecified; I11.9 Hypertensive heart disease without heart failure; Z79.01 Long term (current) use of anticoagulants; I42.9 Cardiomyopathy, unspecified; Z86.718 Personal history of other venous thrombosis and embolism; R79.89 Other specified abnormal findings of blood chemistry; R07.89 Other chest pain
CPT/HCPCS: 36415; 71045; 80048; 84484; 85025; 93005; 99285; Z7610

== ENCOUNTER 2020-12-20 03:12 | Inpatient (IN) | payer MEDICARE, MEDICAID ==
[~2020-12-20] VITALS: Ht 182.9 cm; Wt 69.9 kg
[2020-12-20] MEDS ORDERED: DEXTROSE 50% WATER 50ML SYRINGE IV ONE (03:45)
[2020-12-20 04:24] LABS: BASOPHILS % 1.3 % (0.0-2.0); EOSINOPHILS % 3.6 % (0.0-5.0); HEMATOCRIT. 46.7 % (42.0-52.0); HEMOGLOBIN. 15.1 g/dL (14.0-18.0); LYMPHOCYTES % 28.8 % (20.0-50.0); MEAN CORPUSCULAR HEMOGLOBIN 28.6 pg (28.0-32.0); MEAN CORPUSCULAR VOLUME 88.4 fL (80.0-94.0); MEAN PLATELET VOLUME 9.1 fl (7.4-10.4); NEUTROPHILS % 59.3 % (40.0-76.0); PLATELET 143 x1000/uL (130-400); RED BLOOD CELL COUNT 5.28 mill/uL (4.7-6.1); RED CELL DISTRIBUTION WIDTH 14.7 % (11.6-14.6)
[2020-12-20 04:45] LABS: CHLORIDE 113 mEq/L (98-107)
[2020-12-20 08:40] LABS: CLARITY URINE CLEAR (CLEAR); COLOR URINE YELLOW (YELLOW); KETONES URINE NEGATIVE (NEGATIVE); LEUKOCYTE ESTERASE URINE NEGATIVE (NEGATIVE); NITRITE URINE NEGATIVE (NEGATIVE); OCCULT BLOOD URINE NEGATIVE (NEGATIVE); PH URINE 5.5 (4.5-8.0); PROTEIN URINE TRACE (NEGATIVE); SPECIFIC GRAVITY URINE 1.015 (1.005-1.030); UROBILINOGEN URINE 0.2 E.U./dL (0.2-1.0)
[2020-12-20 09:12] LABS: *AMPHETAMINES SCREEN URINE NEGATIVE (NEGATIVE); *BARBITURATES SCREEN URINE NEGATIVE (NEGATIVE); CANNABINOID URINE SCREEN NEGATIVE (NEGATIVE); METHADONE URINE SCREEN NEGATIVE (NEGATIVE); OPIATES URINE SCREEN NEGATIVE (NEGATIVE); PHENCYCLIDINE URINE SCREEN NEGATIVE (NEGATIVE)
[2020-12-20 09:13] LABS: *BENZODIAZEPINES SCREEN URINE NEGATIVE (NEGATIVE); *COCAINE SCREEN URINE NEGATIVE (NEGATIVE)
[2020-12-20] MEDS ORDERED: MORPHINE SULFATE 2 MG/ML CPJ (NOT FOR IM USE) IV SCH (10:45)
[2020-12-20 12:00] VITALS: BP 126/75
[2020-12-20 14:55] VITALS: BP 105/62
[2020-12-20] MEDS: DEXTROSE 50% WATER 50ML SYRINGE IV PRN (15:38)
[2020-12-20] MEDS: BLOOD SUGAR DIAGNOSTIC STRIP TEST SCH ×2 (16:45→21:35)
[2020-12-20] MEDS: MORPHINE SULFATE 2 MG/ML CPJ (NOT FOR IM USE) IV PRN (17:00)
[2020-12-20] MEDS: INSULIN LISPRO 100 UNITS/ML SUBCUT SCH ×2 (17:15→21:00)
[2020-12-20] MEDS ORDERED: *PATIENT'S OWN MEDICATION STORAGE XX SCH (17:45)
[2020-12-20] MEDS: APIXABAN 5 MG TABLET PO SCH (17:54)
[2020-12-20] MEDS: DEXT 5%/0.45% NACL 1000ML 1,000 ML IV SCH (18:55)
[2020-12-20 20:00] VITALS: BP 123/89
[2020-12-20 21:20] LABS: HEMATOCRIT 45.2 % (42.0-52.0); HEMOGLOBIN 14.6 g/dL (14.0-18.0); MEAN CORPUSCULAR HEMOGLOBIN 28.7 pg (28.0-32.0); MEAN CORPUSCULAR VOLUME 89.1 fL (80.0-94.0); PLATELET 135 x1000/uL (130-400); RED BLOOD CELL COUNT 5.07 mill/uL (4.7-6.1); RED CELL DISTRIBUTION WIDTH 14.8 % (11.6-14.6)
[2020-12-20 21:28] LABS: CHLORIDE 108 mEq/L (98-107)
[2020-12-20] MEDS: CARVEDILOL 6.25 MG TABLET PO SCH (22:37)
[2020-12-20] MEDS: ATORVASTATIN CALCIUM 40MG TABLET PO SCH (22:37)
[2020-12-20] MEDS: TEMAZEPAM 15MG CAPSULE PO SCH (22:37)
[2020-12-20] MEDS: HYDROCODONE/ACETAMINOPHEN 10/325MG TABLET PO PRN (22:42)
[2020-12-21] VITALS: BP 120/89
[2020-12-21] MEDS: DEXT 5%/0.45% NACL 1000ML 1,000 ML IV SCH ×3 (01:00→18:17)
[2020-12-21] MEDS: HYDROCODONE/ACETAMINOPHEN 10/325MG TABLET PO PRN (04:30)
[2020-12-21 06:38] LABS: BASOPHILS % 2.5 % (0.0-2.0); EOSINOPHILS % 3.8 % (0.0-5.0); HEMATOCRIT. 44.1 % (42.0-52.0); HEMOGLOBIN. 14.2 g/dL (14.0-18.0); LYMPHOCYTES % 33.2 % (20.0-50.0); MEAN CORPUSCULAR HEMOGLOBIN 28.6 pg (28.0-32.0); MEAN CORPUSCULAR VOLUME 88.8 fL (80.0-94.0); MEAN PLATELET VOLUME 9.2 fl (7.4-10.4); MONOCYTES % 10.3 % (2.0-8.0); NEUTROPHILS % 50.2 % (40.0-76.0); PLATELET 131 x1000/uL (130-400); RED BLOOD CELL COUNT 4.96 mill/uL (4.7-6.1); RED CELL DISTRIBUTION WIDTH 14.6 % (11.6-14.6)
[2020-12-21] MEDS: BLOOD SUGAR DIAGNOSTIC STRIP TEST SCH ×4 (06:56→21:26)
[2020-12-21] MEDS: INSULIN LISPRO 100 UNITS/ML SUBCUT SCH ×4 (06:56→21:00)
[2020-12-21] MEDS: MORPHINE SULFATE 2 MG/ML CPJ (NOT FOR IM USE) IV PRN ×3 (06:57→23:16)
[2020-12-21 08:00] VITALS: BP 123/74
[2020-12-21 08:01] LABS: CHLORIDE 107 mEq/L (98-107)
[2020-12-21 08:12] LABS: CREATINE KINASE MB FRACTION 11.9 ng/mL (0.5-3.6)
[2020-12-21] MEDS: CLONIDINE 0.2MG TABLET PO SCH (09:00)
[2020-12-21] MEDS: DEXTROSE 50% WATER 50ML SYRINGE IV PRN ×3 (09:27→18:18)
[2020-12-21] MEDS: CARVEDILOL 6.25 MG TABLET PO SCH ×3 (09:41→21:37)
[2020-12-21] MEDS: FAMOTIDINE 20MG TABLET PO SCH (09:41)
[2020-12-21] MEDS: FUROSEMIDE 40MG TABLET PO SCH (09:41)
[2020-12-21] MEDS: POTASSIUM CHLORIDE 10MEQ TABLET SR PO SCH (09:41)
[2020-12-21] MEDS: LISINOPRIL 10MG TABLET PO SCH (09:41)
[2020-12-21] MEDS: APIXABAN 5 MG TABLET PO SCH ×2 (09:41→18:17)
[2020-12-21] MEDS: ISOSORBIDE MONONITRATE 30MG TABLET SR 24HR PO SCH (09:42)
[2020-12-21 12:00] VITALS: BP 104/54
[2020-12-21 16:00] VITALS: BP 113/71
[2020-12-21] MEDS: DEXT 10% WATER 1,000 ML IV SCH (19:15)
[2020-12-21 20:00] VITALS: BP 105/59
[2020-12-21] MEDS: ATORVASTATIN CALCIUM 40MG TABLET PO SCH (21:36)
[2020-12-21] MEDS: TEMAZEPAM 15MG CAPSULE PO SCH (21:36)
[2020-12-22] VITALS (12 sets, daily range): BP systolic 115–160; BP diastolic 61–110
[2020-12-22] MEDS: BLOOD SUGAR DIAGNOSTIC STRIP TEST SCH ×12 (02:25→23:48)
[2020-12-22] MEDS: DEXTROSE 50% WATER 50ML SYRINGE IV PRN (04:11)
[2020-12-22 06:41] LABS: EOSINOPHILS % 5.5 % (0.0-5.0); HEMATOCRIT. 42.8 % (42.0-52.0); HEMOGLOBIN. 13.9 g/dL (14.0-18.0); LYMPHOCYTES % 28.6 % (20.0-50.0); MEAN CORPUSCULAR HEMOGLOBIN 28.7 pg (28.0-32.0); MEAN CORPUSCULAR VOLUME 88.5 fL (80.0-94.0); MEAN PLATELET VOLUME 9.4 fl (7.4-10.4); MONOCYTES % 9.6 % (2.0-8.0); NEUTROPHILS % 55.3 % (40.0-76.0); PLATELET 153 x1000/uL (130-400); RED BLOOD CELL COUNT 4.84 mill/uL (4.7-6.1); RED CELL DISTRIBUTION WIDTH 14.3 % (11.6-14.6)
[2020-12-22 06:44] LABS: CHLORIDE 108 mEq/L (98-107)
[2020-12-22 06:49] LABS: CORTISOL 13.6 ucg/dL
[2020-12-22 06:50] LABS: TRIOIODOTHYRONINE TOTAL 1.34 ng/ml (0.60-1.81)
[2020-12-22 07:08] LABS: T4 FREE 1.31 ng/dL (0.76-1.46)
[2020-12-22] MEDS: INSULIN LISPRO 100 UNITS/ML SUBCUT SCH ×4 (08:00→21:00)
[2020-12-22] MEDS: POTASSIUM CHLORIDE 10MEQ TABLET SR PO SCH (09:04)
[2020-12-22] MEDS: FAMOTIDINE 20MG TABLET PO SCH (09:04)
[2020-12-22] MEDS: APIXABAN 5 MG TABLET PO SCH ×2 (09:04→18:11)
[2020-12-22] MEDS: ISOSORBIDE MONONITRATE 30MG TABLET SR 24HR PO SCH (09:04)
[2020-12-22] MEDS: MORPHINE SULFATE 2 MG/ML CPJ (NOT FOR IM USE) IV PRN ×2 (09:09→18:32)
[2020-12-22] MEDS: FUROSEMIDE 40MG TABLET PO SCH (09:09)
[2020-12-22] MEDS: DEXT 10% WATER 1,000 ML IV SCH (09:10)
[2020-12-22] MEDS: CLONIDINE 0.2MG TABLET PO SCH (10:10)
[2020-12-22] MEDS: LISINOPRIL 10MG TABLET PO SCH (10:11)
[2020-12-22] MEDS: CARVEDILOL 6.25 MG TABLET PO SCH (20:56)
[2020-12-22] MEDS: ATORVASTATIN CALCIUM 40MG TABLET PO SCH (20:57)
[2020-12-22] MEDS: HYDROCODONE/ACETAMINOPHEN 10/325MG TABLET PO PRN (20:57)
[2020-12-22] MEDS: TEMAZEPAM 15MG CAPSULE PO SCH (21:00)
[2020-12-23] VITALS (9 sets, daily range): BP systolic 108–161; BP diastolic 55–104
[2020-12-23] MEDS: BLOOD SUGAR DIAGNOSTIC STRIP TEST SCH ×5 (04:00→19:58)
[2020-12-23] MEDS: INSULIN LISPRO 100 UNITS/ML SUBCUT SCH ×4 (08:00→20:56)
[2020-12-23] MEDS: FAMOTIDINE 20MG TABLET PO SCH (08:06)
[2020-12-23] MEDS: FUROSEMIDE 40MG TABLET PO SCH (08:06)
[2020-12-23] MEDS: POTASSIUM CHLORIDE 10MEQ TABLET SR PO SCH (08:06)
[2020-12-23] MEDS: ISOSORBIDE MONONITRATE 30MG TABLET SR 24HR PO SCH (08:06)
[2020-12-23] MEDS: LISINOPRIL 10MG TABLET PO SCH (08:07)
[2020-12-23] MEDS: APIXABAN 5 MG TABLET PO SCH ×2 (08:07→17:43)
[2020-12-23] MEDS: CARVEDILOL 6.25 MG TABLET PO SCH ×2 (08:07→21:30)
[2020-12-23] MEDS: CLONIDINE 0.2MG TABLET PO SCH (08:07)
[2020-12-23] MEDS: MORPHINE SULFATE 2 MG/ML CPJ (NOT FOR IM USE) IV PRN (08:08)
[2020-12-23] MEDS: HYDROCODONE/ACETAMINOPHEN 10/325MG TABLET PO PRN ×2 (11:47→17:44)
[2020-12-23] MEDS: DEXT 10% WATER 1,000 ML IV SCH (11:48)
[2020-12-23 12:43] LABS: BASOPHILS % 1.3 % (0.0-2.0); EOSINOPHILS % 3.8 % (0.0-5.0); HEMATOCRIT. 42.7 % (42.0-52.0); HEMOGLOBIN. 13.9 g/dL (14.0-18.0); LYMPHOCYTES % 23.6 % (20.0-50.0); MEAN CORPUSCULAR HEMOGLOBIN 28.5 pg (28.0-32.0); MEAN CORPUSCULAR VOLUME 87.5 fL (80.0-94.0); MEAN PLATELET VOLUME 9.1 fl (7.4-10.4); MONOCYTES % 11.6 % (2.0-8.0); NEUTROPHILS % 59.7 % (40.0-76.0); PLATELET 136 x1000/uL (130-400); RED BLOOD CELL COUNT 4.89 mill/uL (4.7-6.1); RED CELL DISTRIBUTION WIDTH 14.3 % (11.6-14.6)
[2020-12-23 12:55] LABS: CHLORIDE 108 mEq/L (98-107)
[2020-12-23 13:06] LABS: C-PEPTIDE 10.9 ng/mL (1.1-4.4); INSULIN 55.2 uIU/mL (2.6-24.9)
[2020-12-23] MEDS: TEMAZEPAM 15MG CAPSULE PO SCH (21:29)
[2020-12-23] MEDS: ATORVASTATIN CALCIUM 40MG TABLET PO SCH (21:29)
[2020-12-24] MEDS: BLOOD SUGAR DIAGNOSTIC STRIP TEST SCH ×5 (00:49→16:52)
[2020-12-24] MEDS: INSULIN LISPRO 100 UNITS/ML SUBCUT SCH ×2 (08:00→13:00)
[2020-12-24] MEDS: ISOSORBIDE MONONITRATE 30MG TABLET SR 24HR PO SCH (08:20)
[2020-12-24] MEDS: POTASSIUM CHLORIDE 10MEQ TABLET SR PO SCH (08:20)
[2020-12-24] MEDS: MORPHINE SULFATE 2 MG/ML CPJ (NOT FOR IM USE) IV PRN ×2 (08:20→15:18)
[2020-12-24] MEDS: CARVEDILOL 6.25 MG TABLET PO SCH (08:20)
[2020-12-24] MEDS: CLONIDINE 0.2MG TABLET PO SCH (08:20)
[2020-12-24] MEDS: FAMOTIDINE 20MG TABLET PO SCH (08:21)
[2020-12-24] MEDS: FUROSEMIDE 40MG TABLET PO SCH (08:21)
[2020-12-24] MEDS: APIXABAN 5 MG TABLET PO SCH (08:21)
[2020-12-24] MEDS: LISINOPRIL 10MG TABLET PO SCH (08:23)
[2020-12-24 12:00] VITALS: BP 118/71
[2020-12-24 16:35] VITALS: BP 99/71
[2020-12-25 13:07] LABS: PRO INSULIN 7.4 pmol/L (0.0-10.0)
== END 2020-12-24 17:25 | disposition home or self-care (01) | DRG 424 ==
LOC: ER 03:33 → 5WST 05:19 → ENRESERV 08:36 → CANRESERV 08:36 → EDBEDREQSVC 10:22 → ENRESERV 10:39 → 5EST 12-21 22:00
PROVIDERS: ADMIT Internal Medicine; ATTEND Internal Medicine
DX: E16.2 Hypoglycemia, unspecified (principal); B19.20 Unspecified viral hepatitis C without hepatic coma; B35.1 Tinea unguium; E78.5 Hyperlipidemia, unspecified; I11.0 Hypertensive heart disease with heart failure; I25.5 Ischemic cardiomyopathy; I27.20 Pulmonary hypertension, unspecified; I48.91 Unspecified atrial fibrillation; I50.20 Unspecified systolic (congestive) heart failure; I70.0 Atherosclerosis of aorta; K40.90 Unilateral inguinal hernia, without obstruction or gangrene, not specified as recurrent; M47.816 Spondylosis without myelopathy or radiculopathy, lumbar region; N28.1 Cyst of kidney, acquired; N40.0 Benign prostatic hyperplasia without lower urinary tract symptoms; M48.07 Spinal stenosis, lumbosacral region; Z86.718 Personal history of other venous thrombosis and embolism; Z87.891 Personal history of nicotine dependence; Z95.810 Presence of automatic (implantable) cardiac defibrillator; Z79.01 Long term (current) use of anticoagulants; Z79.899 Other long term (current) drug therapy; Z79.891 Long term (current) use of opiate analgesic; Z95.828 Presence of other vascular implants and grafts
CPT/HCPCS: 36415; 71045; 74176; 80048; 80053; 80076; 80305; 81003; 82533; 82553; 82962; 83036; 83525; 83880; 84134; 84206; 84439; 84443; 84480; 84484; 84681; 85025; 85027; 86337; 93005; 99285; C1893; J1815; J2270

== ENCOUNTER 2021-01-08 07:03 | Inpatient (IN) | payer MEDICARE, MEDICAID ==
[~2021-01-08] VITALS: Ht 180.3 cm; Wt 65.8 kg
[2021-01-08 08:55] LABS: CHLORIDE 115 mEq/L (98-107)
[2021-01-08 08:59] LABS: BASOPHILS % 1.3 % (0.0-2.0); EOSINOPHILS % 3.1 % (0.0-5.0); HEMATOCRIT. 49.8 % (42.0-52.0); HEMOGLOBIN. 15.8 g/dL (14.0-18.0); LYMPHOCYTES % 37.1 % (20.0-50.0); MEAN CORPUSCULAR HEMOGLOBIN 27.9 pg (28.0-32.0); MEAN CORPUSCULAR VOLUME 88.1 fL (80.0-94.0); MEAN PLATELET VOLUME 8.8 fl (7.4-10.4); MONOCYTES % 7.2 % (2.0-8.0); NEUTROPHILS % 51.3 % (40.0-76.0); PLATELET 198 x1000/uL (130-400); RED BLOOD CELL COUNT 5.66 mill/uL (4.7-6.1); RED CELL DISTRIBUTION WIDTH 14.2 % (11.6-14.6)
[2021-01-08] MEDS ORDERED: MORPHINE SULFATE 4 MG/ML CPJ (NOT FOR IM USE) IV ONE (09:15)
[2021-01-08] MEDS ORDERED: FAMOTIDINE(NEO) 1MG/ML SUSP PO SCH (13:45)
[2021-01-08] MEDS ORDERED: CLONIDINE 0.1MG TABLET PO PRN (13:45)
[2021-01-08] MEDS ORDERED: DOCUSATE SODIUM 100MG CAPSULE PO PRN (13:45)
[2021-01-08] MEDS ORDERED: ACETAMINOPHEN 325MG TABLET PO PRN (13:45)
[2021-01-08] MEDS ORDERED: GUAIFENESIN 200MG/10ML SUGAR FREE UDC PO PRN (13:45)
[2021-01-08] MEDS ORDERED: MAGNESIUM/ALUMINUM HYDROXIDE/SIMETHICONE 30ML UDC PO PRN (13:45)
[2021-01-08] MEDS: FAMOTIDINE 20MG TABLET PO SCH (14:00)
[2021-01-08] MEDS: ISOSORBIDE DINITRATE 30MG TABLET PO SCH (14:00)
[2021-01-08] MEDS: CLONIDINE 0.2MG TABLET PO SCH (15:30)
[2021-01-08] MEDS: APIXABAN 5 MG TABLET PO SCH (17:23)
[2021-01-08] MEDS: FUROSEMIDE 100MG/10ML VIAL IVP SCH (17:23)
[2021-01-08] MEDS: BUDESONIDE 0.5MG/2ML NEB HHN SCH (21:00)
[2021-01-08] MEDS ORDERED: ATORVASTATIN CALCIUM 40MG TABLET PO SCH (21:00)
[2021-01-08] MEDS: TEMAZEPAM 15MG CAPSULE PO SCH (22:22)
[2021-01-08] MEDS: CARVEDILOL 3.125 MG TABLET PO SCH (22:22)
[2021-01-08] MEDS: ATORVASTATIN CALCIUM 40MG TABLET PO SCH (22:22)
[2021-01-09] MEDS: HYDROCODONE/ACETAMINOPHEN 5/325MG TABLET PO PRN ×3 (05:28→23:26)
[2021-01-09 05:36] LABS: EOSINOPHILS % 2.7 % (0.0-5.0); HEMATOCRIT. 48.7 % (42.0-52.0); HEMOGLOBIN. 15.6 g/dL (14.0-18.0); MEAN CORPUSCULAR HEMOGLOBIN 28.3 pg (28.0-32.0); MEAN CORPUSCULAR VOLUME 88.4 fL (80.0-94.0); MEAN PLATELET VOLUME 8.6 fl (7.4-10.4); MONOCYTES % 13.6 % (2.0-8.0); NEUTROPHILS % 55.7 % (40.0-76.0); PLATELET 182 x1000/uL (130-400); RED BLOOD CELL COUNT 5.51 mill/uL (4.7-6.1); RED CELL DISTRIBUTION WIDTH 14.5 % (11.6-14.6)
[2021-01-09 05:44] LABS: CHLORIDE 112 mEq/L (98-107)
[2021-01-09] MEDS: FUROSEMIDE 100MG/10ML VIAL IVP SCH ×2 (07:46→17:27)
[2021-01-09] MEDS: MORPHINE SULFATE 2 MG/ML CPJ (NOT FOR IM USE) IV PRN (08:00)
[2021-01-09] MEDS: CLONIDINE 0.2MG TABLET PO SCH (09:00)
[2021-01-09 10:21] VITALS: BP 136/88
[2021-01-09] MEDS: FAMOTIDINE 20MG TABLET PO SCH (10:38)
[2021-01-09] MEDS: APIXABAN 5 MG TABLET PO SCH ×2 (10:38→17:27)
[2021-01-09] MEDS: ISOSORBIDE DINITRATE 30MG TABLET PO SCH (10:38)
[2021-01-09] MEDS: CARVEDILOL 3.125 MG TABLET PO SCH ×2 (10:38→21:00)
[2021-01-09] MEDS: LISINOPRIL 10MG TABLET PO SCH (10:38)
[2021-01-09 12:00] VITALS: BP 92/62
[2021-01-09 16:00] VITALS: BP 90/71
[2021-01-09 16:48] VITALS: BP 137/84
[2021-01-09 20:00] VITALS: BP 118/73
[2021-01-09] MEDS: BUDESONIDE 0.5MG/2ML NEB HHN SCH (21:24)
[2021-01-09] MEDS: IPRATROPIUM/ALBUTEROL 0.5-3(2.5)MG/3ML NEB HHN SCH (21:24)
[2021-01-09] MEDS: ATORVASTATIN CALCIUM 40MG TABLET PO SCH (23:24)
[2021-01-10] VITALS: BP_SYST 97; BP_SYST 99; BP_DIAS 58; BP_DIAS 67
[2021-01-10] MEDS: TEMAZEPAM 15MG CAPSULE PO SCH ×2 (00:09→21:28)
[2021-01-10 04:00] VITALS: BP 104/67
[2021-01-10] MEDS: IPRATROPIUM/ALBUTEROL 0.5-3(2.5)MG/3ML NEB HHN SCH ×4 (04:16→23:26)
[2021-01-10] MEDS: FUROSEMIDE 100MG/10ML VIAL IVP SCH ×2 (06:47→17:46)
[2021-01-10 06:49] LABS: BASOPHILS % 0.8 % (0.0-2.0); EOSINOPHILS % 3.5 % (0.0-5.0); HEMATOCRIT. 43.1 % (42.0-52.0); MEAN CORPUSCULAR HEMOGLOBIN 28.5 pg (28.0-32.0); MEAN CORPUSCULAR VOLUME 87.8 fL (80.0-94.0); MONOCYTES % 9.8 % (2.0-8.0); NEUTROPHILS % 57.9 % (40.0-76.0); PLATELET 178 x1000/uL (130-400); RED CELL DISTRIBUTION WIDTH 14.4 % (11.6-14.6)
[2021-01-10 08:00] VITALS: BP 109/78
[2021-01-10] MEDS: FAMOTIDINE 20MG TABLET PO SCH (08:07)
[2021-01-10] MEDS: APIXABAN 5 MG TABLET PO SCH ×2 (08:07→17:46)
[2021-01-10] MEDS: CLONIDINE 0.2MG TABLET PO SCH (08:07)
[2021-01-10] MEDS: CARVEDILOL 3.125 MG TABLET PO SCH ×2 (08:08→21:28)
[2021-01-10] MEDS: ISOSORBIDE DINITRATE 30MG TABLET PO SCH (08:08)
[2021-01-10] MEDS: LISINOPRIL 10MG TABLET PO SCH (08:09)
[2021-01-10] MEDS: BUDESONIDE 0.5MG/2ML NEB HHN SCH ×2 (09:43→23:26)
[2021-01-10] MEDS: MORPHINE SULFATE 2 MG/ML CPJ (NOT FOR IM USE) IV PRN ×2 (11:12→17:48)
[2021-01-10 12:00] VITALS: BP 129/80
[2021-01-10 16:00] VITALS: BP 127/89
[2021-01-10 20:00] VITALS: BP 113/68
[2021-01-10] MEDS: ATORVASTATIN CALCIUM 40MG TABLET PO SCH (21:28)
[2021-01-11] VITALS: BP 117/80
[2021-01-11] MEDS: MORPHINE SULFATE 2 MG/ML CPJ (NOT FOR IM USE) IV PRN ×3 (00:06→18:59)
[2021-01-11 04:00] VITALS: BP 106/72
[2021-01-11] MEDS: IPRATROPIUM/ALBUTEROL 0.5-3(2.5)MG/3ML NEB HHN SCH ×4 (05:46→20:18)
[2021-01-11] MEDS: FUROSEMIDE 100MG/10ML VIAL IVP SCH (06:52)
[2021-01-11 08:00] VITALS: BP 121/91
[2021-01-11] MEDS: APIXABAN 5 MG TABLET PO SCH ×2 (08:36→17:57)
[2021-01-11] MEDS: ISOSORBIDE DINITRATE 30MG TABLET PO SCH (08:36)
[2021-01-11] MEDS: BACITRACIN 15GM TUBE TOP SCH (08:36)
[2021-01-11] MEDS: FAMOTIDINE 20MG TABLET PO SCH (08:36)
[2021-01-11] MEDS: LISINOPRIL 10MG TABLET PO SCH (08:37)
[2021-01-11] MEDS: CARVEDILOL 3.125 MG TABLET PO SCH ×2 (08:37→20:44)
[2021-01-11] MEDS: BUDESONIDE 0.5MG/2ML NEB HHN SCH ×2 (09:33→20:17)
[2021-01-11 12:00] VITALS: BP 85/66
[2021-01-11 16:00] VITALS: BP 98/60
[2021-01-11] MEDS: FUROSEMIDE 40MG/4ML VIAL IVP SCH (17:57)
[2021-01-11 20:00] VITALS: BP 102/72
[2021-01-11] MEDS: TEMAZEPAM 15MG CAPSULE PO SCH (20:43)
[2021-01-11] MEDS: ATORVASTATIN CALCIUM 40MG TABLET PO SCH (20:44)
[2021-01-12] VITALS: BP 93/62
[2021-01-12] MEDS: MORPHINE SULFATE 2 MG/ML CPJ (NOT FOR IM USE) IV PRN ×4 (00:10→20:34)
[2021-01-12] MEDS: IPRATROPIUM/ALBUTEROL 0.5-3(2.5)MG/3ML NEB HHN SCH ×2 (02:35→11:03)
[2021-01-12 04:00] VITALS: BP 109/77
[2021-01-12] MEDS: FUROSEMIDE 40MG/4ML VIAL IVP SCH ×2 (06:32→16:48)
[2021-01-12 08:00] VITALS: BP 111/75
[2021-01-12] MEDS: APIXABAN 5 MG TABLET PO SCH ×2 (08:55→16:48)
[2021-01-12] MEDS: CARVEDILOL 3.125 MG TABLET PO SCH ×2 (08:55→20:40)
[2021-01-12] MEDS: FAMOTIDINE 20MG TABLET PO SCH (08:56)
[2021-01-12] MEDS: BACITRACIN 15GM TUBE TOP SCH (08:56)
[2021-01-12] MEDS: LISINOPRIL 5MG TABLET PO SCH (09:00)
[2021-01-12] MEDS: BUDESONIDE 0.5MG/2ML NEB HHN SCH (11:03)
[2021-01-12 12:00] VITALS: BP 100/62
[2021-01-12 16:00] VITALS: BP 122/90
[2021-01-12] MEDS: ONDANSETRON HCL 4MG/2ML INJ IV PRN (16:49)
[2021-01-12 20:35] VITALS: BP 112/79
[2021-01-12] MEDS: ATORVASTATIN CALCIUM 40MG TABLET PO SCH (20:40)
[2021-01-12] MEDS: TEMAZEPAM 15MG CAPSULE PO SCH (23:17)
[2021-01-13 00:33] VITALS: BP 111/80
[2021-01-13 04:00] VITALS: BP 121/87
[2021-01-13] MEDS: MORPHINE SULFATE 2 MG/ML CPJ (NOT FOR IM USE) IV PRN ×2 (04:44→10:46)
[2021-01-13 07:04] LABS: BASOPHILS % 1.1 % (0.0-2.0); EOSINOPHILS % 3.8 % (0.0-5.0); MEAN CORPUSCULAR HEMOGLOBIN 27.7 pg (28.0-32.0); MEAN CORPUSCULAR VOLUME 86.7 fL (80.0-94.0); MEAN PLATELET VOLUME 8.6 fl (7.4-10.4); MONOCYTES % 12.6 % (2.0-8.0); NEUTROPHILS % 51.5 % (40.0-76.0); PLATELET 203 x1000/uL (130-400); RED BLOOD CELL COUNT 5.42 mill/uL (4.7-6.1); RED CELL DISTRIBUTION WIDTH 14.1 % (11.6-14.6)
[2021-01-13] MEDS: FUROSEMIDE 40MG/4ML VIAL IVP SCH ×2 (07:25→17:01)
[2021-01-13 07:32] LABS: CHLORIDE 109 mEq/L (98-107)
[2021-01-13 08:30] VITALS: BP 101/67
[2021-01-13] MEDS: CARVEDILOL 3.125 MG TABLET PO SCH ×2 (08:31→21:00)
[2021-01-13] MEDS: LISINOPRIL 5MG TABLET PO SCH (08:32)
[2021-01-13] MEDS: FAMOTIDINE 20MG TABLET PO SCH (08:32)
[2021-01-13] MEDS: APIXABAN 5 MG TABLET PO SCH ×2 (08:32→17:01)
[2021-01-13] MEDS: BACITRACIN 15GM TUBE TOP SCH (08:33)
[2021-01-13] MEDS: IPRATROPIUM/ALBUTEROL 0.5-3(2.5)MG/3ML NEB HHN SCH ×2 (08:56→14:10)
[2021-01-13] MEDS: BUDESONIDE 0.5MG/2ML NEB HHN SCH (08:56)
[2021-01-13 12:00] VITALS: BP 105/76
[2021-01-13 16:00] VITALS: BP 122/76
[2021-01-13 20:29] VITALS: BP 97/64
[2021-01-13] MEDS: TEMAZEPAM 15MG CAPSULE PO SCH (23:01)
[2021-01-13] MEDS: ATORVASTATIN CALCIUM 40MG TABLET PO SCH (23:01)
[2021-01-14 00:43] VITALS: BP 124/92
[2021-01-14 04:00] VITALS: BP 112/69
[2021-01-14] MEDS: FUROSEMIDE 40MG/4ML VIAL IVP SCH ×2 (06:40→08:07)
[2021-01-14 08:00] VITALS: BP 133/87
[2021-01-14] MEDS: LISINOPRIL 5MG TABLET PO SCH (08:07)
[2021-01-14] MEDS: FAMOTIDINE 20MG TABLET PO SCH (08:07)
[2021-01-14] MEDS: APIXABAN 5 MG TABLET PO SCH ×2 (08:07→17:21)
[2021-01-14] MEDS: CARVEDILOL 3.125 MG TABLET PO SCH ×2 (08:07→21:41)
[2021-01-14] MEDS: BACITRACIN 15GM TUBE TOP SCH (08:07)
[2021-01-14] MEDS: IPRATROPIUM/ALBUTEROL 0.5-3(2.5)MG/3ML NEB HHN SCH ×3 (08:09→21:23)
[2021-01-14] MEDS: BUDESONIDE 0.5MG/2ML NEB HHN SCH ×2 (08:09→21:23)
[2021-01-14 12:00] VITALS: BP 99/68
[2021-01-14] MEDS: ONDANSETRON HCL 4MG/2ML INJ IV PRN (15:22)
[2021-01-14 16:00] VITALS: BP 105/86
[2021-01-14 20:00] VITALS: BP 118/78
[2021-01-14] MEDS: ATORVASTATIN CALCIUM 40MG TABLET PO SCH (21:41)
[2021-01-15] MEDS: IPRATROPIUM/ALBUTEROL 0.5-3(2.5)MG/3ML NEB HHN SCH ×2 (03:03→12:40)
[2021-01-15 07:57] VITALS: BP 105/54
[2021-01-15] MEDS: CARVEDILOL 3.125 MG TABLET PO SCH (08:02)
[2021-01-15] MEDS: LISINOPRIL 5MG TABLET PO SCH (08:03)
[2021-01-15] MEDS: APIXABAN 5 MG TABLET PO SCH (08:50)
[2021-01-15] MEDS: FAMOTIDINE 20MG TABLET PO SCH (08:50)
[2021-01-15] MEDS: FUROSEMIDE 40MG/4ML VIAL IVP SCH (08:51)
[2021-01-15] MEDS: BACITRACIN 15GM TUBE TOP SCH (08:53)
[2021-01-15] MEDS: BUDESONIDE 0.5MG/2ML NEB HHN SCH (10:38)
[2021-01-15 11:03] VITALS: BP 156/97
[2021-01-15 11:27] VITALS: BP_SYST 105; BP_SYST 156; BP_DIAS 54; BP_DIAS 97
== END 2021-01-15 15:21 | disposition home or self-care (01) | DRG 133 ==
LOC: ER 07:17 → MICUSO 10:09 → EDBEDREQTM 10:11 → EDBEDREQ 10:11 → 6WST 01-09 08:04
PROVIDERS: ADMIT Hospitalist; ATTEND Internal Medicine
DX: J96.01 Acute respiratory failure with hypoxia (principal); I50.23 Acute on chronic systolic (congestive) heart failure; I16.0 Hypertensive urgency; I11.0 Hypertensive heart disease with heart failure; N17.9 Acute kidney failure, unspecified; D68.59 Other primary thrombophilia; I48.20 Chronic atrial fibrillation, unspecified; I25.10 Atherosclerotic heart disease of native coronary artery without angina pectoris; J44.9 Chronic obstructive pulmonary disease, unspecified; I27.21 Secondary pulmonary arterial hypertension; I87.2 Venous insufficiency (chronic) (peripheral); B35.1 Tinea unguium; S90.411A Abrasion, right great toe, initial encounter; X58.XXXA Exposure to other specified factors, initial encounter; E78.5 Hyperlipidemia, unspecified; S90.412A Abrasion, left great toe, initial encounter; I42.0 Dilated cardiomyopathy; Z86.718 Personal history of other venous thrombosis and embolism; Z95.810 Presence of automatic (implantable) cardiac defibrillator; Z95.828 Presence of other vascular implants and grafts; Z79.01 Long term (current) use of anticoagulants; Z79.899 Other long term (current) drug therapy; Y93.89 Activity, other specified; Y92.89 Other specified places as the place of occurrence of the external cause; Y99.8 Other external cause status; Z87.891 Personal history of nicotine dependence
CPT/HCPCS: 36415; 71045; 80048; 80053; 83735; 83880; 84484; 85025; 93005; 93923; 94640; 99285; J1940; J2270; J2405; J7626

== ENCOUNTER 2021-01-21 04:07 | Inpatient (IN) | payer MEDICARE, MEDICAID ==
[~2021-01-21] VITALS: Ht 182.9 cm; Wt 77.6 kg
[~2021-01-21 04:07] MED LIST changes: +LISI10TA26 PO; -LISI10TA5 PO
[2021-01-21 05:17] LABS: BASOPHILS % 1.1 % (0.0-2.0); HEMOGLOBIN. 15.8 g/dL (14.0-18.0); LYMPHOCYTES % 33.4 % (20.0-50.0); MEAN CORPUSCULAR VOLUME 88.2 fL (80.0-94.0); MEAN PLATELET VOLUME 8.9 fl (7.4-10.4); MONOCYTES % 10.4 % (2.0-8.0); NEUTROPHILS % 53.1 % (40.0-76.0); PLATELET 189 x1000/uL (130-400); RED BLOOD CELL COUNT 5.66 mill/uL (4.7-6.1); RED CELL DISTRIBUTION WIDTH 14.5 % (11.6-14.6)
[2021-01-21 05:19] LABS: CHLORIDE 108 mEq/L (98-107)
[2021-01-21 05:25] LABS: ETHANOL BLOOD < 10 mg/dL
[2021-01-21] MEDS ORDERED: MORPHINE SULFATE 4 MG/ML CPJ (NOT FOR IM USE) IV ONE (06:45)
[2021-01-21 10:24] LABS: CANNABINOID URINE SCREEN NEGATIVE (NEGATIVE)
[2021-01-21 10:25] LABS: *AMPHETAMINES SCREEN URINE NEGATIVE (NEGATIVE); *BARBITURATES SCREEN URINE NEGATIVE (NEGATIVE); *BENZODIAZEPINES SCREEN URINE NEGATIVE (NEGATIVE); *COCAINE SCREEN URINE NEGATIVE (NEGATIVE); METHADONE URINE SCREEN NEGATIVE (NEGATIVE); OPIATES URINE SCREEN PRESUMTIVE POSITIVE (NEGATIVE)
[2021-01-21 10:26] LABS: PHENCYCLIDINE URINE SCREEN NEGATIVE (NEGATIVE)
[2021-01-21] MEDS: HYDROCODONE/ACETAMINOPHEN 5/325MG TABLET PO PRN ×2 (10:59→20:04)
[2021-01-21] MEDS ORDERED: IPRATROPIUM/ALBUTEROL 0.5-3(2.5)MG/3ML NEB HHN PRN (11:15)
[2021-01-21] MEDS ORDERED: HYDRALAZINE 20MG/ML VIAL IV PRN (11:15)
[2021-01-21] MEDS ORDERED: LORAZEPAM 2MG/ML CPJ IV PRN (11:15)
[2021-01-21] MEDS ORDERED: ACETAMINOPHEN 325MG TABLET PO PRN (11:15)
[2021-01-21] MEDS ORDERED: GUAIFENESIN 200MG/10ML SUGAR FREE UDC PO PRN (11:15)
[2021-01-21] MEDS ORDERED: MAGNESIUM/ALUMINUM HYDROXIDE/SIMETHICONE 30ML UDC PO PRN (11:15)
[2021-01-21] MEDS ORDERED: CLONIDINE 0.1MG TABLET PO PRN (11:15)
[2021-01-21] MEDS ORDERED: DOCUSATE SODIUM 100MG CAPSULE PO PRN (11:15)
[2021-01-21] MEDS ORDERED: ONDANSETRON HCL 4MG/2ML INJ IV PRN (11:15)
[2021-01-21] MEDS ORDERED: ENOXAPARIN 40MG/0.4ML SYR SUBCUT SCH (12:00)
[2021-01-21] MEDS: SODIUM CHLORIDE 0.9% INJ 3ML FLUSH IVF SCH ×2 (13:20→21:13)
[2021-01-21 16:00] VITALS: BP 131/75
[2021-01-21 16:25] LABS: CREATINE KINASE MB FRACTION 6.7 ng/mL (0.5-3.6)
[2021-01-21] MEDS: FUROSEMIDE 40MG/4ML VIAL IVP SCH (18:22)
[2021-01-21] MEDS: APIXABAN 5 MG TABLET PO SCH (20:04)
[2021-01-21] MEDS: CARVEDILOL 3.125 MG TABLET PO SCH (20:04)
[2021-01-21 20:05] VITALS: BP 117/80
[2021-01-21] MEDS: DIPHENHYDRAMINE 50MG/ML VIAL IV PRN (23:44)
[2021-01-22] VITALS: BP 115/64
[2021-01-22] MEDS: HYDROCODONE/ACETAMINOPHEN 5/325MG TABLET PO PRN ×4 (00:34→18:35)
[2021-01-22 04:00] VITALS: BP 119/85
[2021-01-22] MEDS: SODIUM CHLORIDE 0.9% INJ 3ML FLUSH IVF SCH ×3 (06:27→21:17)
[2021-01-22] MEDS: APIXABAN 5 MG TABLET PO SCH ×2 (08:54→18:36)
[2021-01-22] MEDS: FUROSEMIDE 40MG/4ML VIAL IVP SCH ×2 (08:54→18:36)
[2021-01-22] MEDS: CARVEDILOL 3.125 MG TABLET PO SCH ×2 (09:00→21:18)
[2021-01-22] MEDS: AMLODIPINE 2.5MG TABLET PO SCH (09:00)
[2021-01-22] MEDS: MORPHINE SULFATE 2 MG/ML CPJ (NOT FOR IM USE) IV PRN ×2 (11:29→15:26)
[2021-01-22] MEDS ORDERED: METOLAZONE 2.5MG TABLET PO NR (11:30)
[2021-01-22 12:00] VITALS: BP 110/73
[2021-01-22 16:00] VITALS: BP 108/82
[2021-01-22 20:00] VITALS: BP 105/68
[2021-01-22] MEDS: DIPHENHYDRAMINE 50MG/ML VIAL IV PRN (23:13)
[2021-01-23] VITALS: BP 118/70
[2021-01-23 04:00] VITALS: BP 134/85
[2021-01-23] MEDS: MORPHINE SULFATE 2 MG/ML CPJ (NOT FOR IM USE) IV PRN (04:32)
[2021-01-23] MEDS: SODIUM CHLORIDE 0.9% INJ 3ML FLUSH IVF SCH ×2 (06:15→13:49)
[2021-01-23] MEDS: HYDROCODONE/ACETAMINOPHEN 5/325MG TABLET PO PRN (06:36)
[2021-01-23] MEDS: CARVEDILOL 3.125 MG TABLET PO SCH (09:00)
[2021-01-23] MEDS: AMLODIPINE 2.5MG TABLET PO SCH (09:00)
[2021-01-23] MEDS: FUROSEMIDE 40MG/4ML VIAL IVP SCH (09:23)
[2021-01-23] MEDS: APIXABAN 5 MG TABLET PO SCH (09:23)
[2021-01-23] MEDS ORDERED: MORPHINE SULFATE 2 MG/ML CPJ (NOT FOR IM USE) IV PRN (10:30)
[2021-01-23 16:04] VITALS: BP 101/85
[2021-01-23] MEDS ORDERED: FUROSEMIDE 40MG TABLET PO SCH (21:00)
== END 2021-01-23 17:53 | disposition home or self-care (01) | DRG 203 ==
LOC: ER 04:07 → 8WST 09:56 → EDBEDREQ 09:58 → ENRESERV 15:22
PROVIDERS: ADMIT Internal Medicine; ATTEND Internal Medicine
DX: M94.0 Chondrocostal junction syndrome [Tietze] (principal); J96.00 Acute respiratory failure, unspecified whether with hypoxia or hypercapnia; E78.5 Hyperlipidemia, unspecified; I11.0 Hypertensive heart disease with heart failure; I27.20 Pulmonary hypertension, unspecified; I42.0 Dilated cardiomyopathy; I73.9 Peripheral vascular disease, unspecified; J44.9 Chronic obstructive pulmonary disease, unspecified; Z79.01 Long term (current) use of anticoagulants; Z79.899 Other long term (current) drug therapy; Z82.49 Family history of ischemic heart disease and other diseases of the circulatory system; I25.2 Old myocardial infarction; Z86.718 Personal history of other venous thrombosis and embolism; Z95.810 Presence of automatic (implantable) cardiac defibrillator; Z95.828 Presence of other vascular implants and grafts; Z99.81 Dependence on supplemental oxygen; I50.43 Acute on chronic combined systolic (congestive) and diastolic (congestive) heart failure; R77.8 Other specified abnormalities of plasma proteins; I48.20 Chronic atrial fibrillation, unspecified
CPT/HCPCS: 36415; 71045; 80053; 80305; 80320; 82550; 82553; 83605; 83880; 84484; 85025; 86850; 86870; 86900; 93005; 96374; 99285; C1893; J1200; J1650; J1940; J2270; G0480

== ENCOUNTER 2021-02-18 16:32 | Inpatient (IN) | payer MEDICARE, MEDICAID ==
[2021-02-17 22:45] VITALS: BP 145/108
[~2021-02-18] VITALS: Ht 175.3 cm; Wt 64.4 kg
[2021-02-18] MEDS ORDERED: ASPIRIN 81MG TABLET PO ONE (17:30)
[2021-02-18 17:45] LABS: HEMATOCRIT. 51.7 % (42.0-52.0); HEMOGLOBIN. 16.2 g/dL (14.0-18.0); MEAN CORPUSCULAR HEMOGLOBIN 27.6 pg (28.0-32.0); MEAN CORPUSCULAR VOLUME 88.3 fL (80.0-94.0); MEAN PLATELET VOLUME 8.3 fl (7.4-10.4); PLATELET 159 x1000/uL (130-400); RED BLOOD CELL COUNT 5.85 mill/uL (4.7-6.1)
[2021-02-18 17:53] LABS: CHLORIDE 112 mEq/L (98-107)
[2021-02-18 18:28] LABS: PLATELET ESTIMATE NORMAL
[2021-02-18] MEDS: NITROGLYCERIN 0.4MG TABLET SL SL PRN ×2 (18:54→19:12)
[2021-02-18] MEDS: ENOXAPARIN 40MG/0.4ML SYR SUBCUT SCH (21:00)
[2021-02-18] MEDS ORDERED: MAGNESIUM/ALUMINUM HYDROXIDE/SIMETHICONE 30ML UDC PO PRN (21:00)
[2021-02-18] MEDS ORDERED: CLONIDINE 0.1MG TABLET PO PRN (21:00)
[2021-02-18] MEDS ORDERED: ACETAMINOPHEN 325MG TABLET PO PRN (21:00)
[2021-02-18] MEDS ORDERED: GUAIFENESIN 200MG/10ML SUGAR FREE UDC PO PRN (21:00)
[2021-02-18] MEDS ORDERED: NA PHOS,M-B/NA PHOS,DI-BA ENEMA 118ML PR PRN (21:00)
[2021-02-18] MEDS ORDERED: ONDANSETRON HCL 4MG/2ML INJ IV PRN (21:00)
[2021-02-18] MEDS ORDERED: DIPHENHYDRAMINE 50MG/ML VIAL IV PRN (21:00)
[2021-02-18] MEDS ORDERED: LORAZEPAM 2MG/ML CPJ IV PRN (21:00)
[2021-02-18] MEDS ORDERED: DOCUSATE SODIUM 100MG CAPSULE PO PRN (21:00)
[2021-02-18] MEDS: HYDROCODONE/ACETAMINOPHEN 5/325MG TABLET PO PRN (21:21)
[2021-02-19 04:30] VITALS: BP 139/96
[2021-02-19 07:25] LABS: HEMATOCRIT. 50.3 % (42.0-52.0); HEMOGLOBIN. 15.7 g/dL (14.0-18.0); MEAN CORPUSCULAR HEMOGLOBIN 27.5 pg (28.0-32.0); MEAN CORPUSCULAR VOLUME 88.2 fL (80.0-94.0); MEAN PLATELET VOLUME 8.2 fl (7.4-10.4); PLATELET 150 x1000/uL (130-400); RED CELL DISTRIBUTION WIDTH 16.6 % (11.6-14.6)
[2021-02-19 07:38] LABS: CHLORIDE 114 mEq/L (98-107)
[2021-02-19 07:51] LABS: LDL CHOLESTEROL 71 mg/dL (5-100)
[2021-02-19 07:52] LABS: HDL CHOLESTEROL 83 mg/dL (40-59); T4 FREE 1.13 ng/dL (0.76-1.46)
[2021-02-19] MEDS: ASPIRIN 81MG EC TABLET PO SCH (08:25)
[2021-02-19] MEDS: FUROSEMIDE 40MG/4ML VIAL IV SCH ×2 (08:26→16:59)
[2021-02-19 08:30] VITALS: BP 147/89
[2021-02-19] MEDS: HYDROCODONE/ACETAMINOPHEN 5/325MG TABLET PO PRN (08:32)
[2021-02-19 12:30] VITALS: BP 140/80
[2021-02-19 12:37] LABS: PLATELET ESTIMATE NORMAL
[2021-02-19] MEDS ORDERED: *PATIENT'S OWN MEDICATION STORAGE XX SCH (12:45)
[2021-02-19] MEDS: MORPHINE SULFATE 2 MG/ML CPJ (NOT FOR IM USE) IV PRN ×2 (13:09→20:23)
[2021-02-19 16:00] VITALS: BP 124/76
[2021-02-19 20:00] VITALS: BP 124/90
[2021-02-19] MEDS: ENOXAPARIN 40MG/0.4ML SYR SUBCUT SCH (20:22)
[2021-02-20] VITALS: BP 130/92
[2021-02-20] MEDS: ZOLPIDEM TARTRATE 5MG TABLET PO PRN (00:34)
[2021-02-20 04:00] VITALS: BP 120/90
[2021-02-20 08:05] VITALS: BP 116/88
[2021-02-20] MEDS: MORPHINE SULFATE 2 MG/ML CPJ (NOT FOR IM USE) IV PRN ×3 (08:10→20:14)
[2021-02-20] MEDS: FUROSEMIDE 40MG/4ML VIAL IV SCH ×2 (08:11→17:25)
[2021-02-20] MEDS: ASPIRIN 81MG EC TABLET PO SCH (08:11)
[2021-02-20 12:16] VITALS: BP 128/88
[2021-02-20 16:21] VITALS: BP 122/84
[2021-02-20 20:04] VITALS: BP 131/76
[2021-02-20] MEDS: ENOXAPARIN 40MG/0.4ML SYR SUBCUT SCH (20:14)
[2021-02-21] VITALS: BP 114/75
[2021-02-21] MEDS: ZOLPIDEM TARTRATE 5MG TABLET PO PRN ×2 (00:29→23:14)
[2021-02-21 04:00] VITALS: BP 148/69
[2021-02-21] MEDS: MORPHINE SULFATE 2 MG/ML CPJ (NOT FOR IM USE) IV PRN ×4 (04:04→19:47)
[2021-02-21 08:00] VITALS: BP 117/70
[2021-02-21] MEDS: ASPIRIN 81MG EC TABLET PO SCH (09:16)
[2021-02-21] MEDS: FUROSEMIDE 40MG/4ML VIAL IV SCH ×2 (09:16→18:04)
[2021-02-21 12:00] VITALS: BP 147/119
[2021-02-21] MEDS: IPRATROPIUM/ALBUTEROL 0.5-3(2.5)MG/3ML NEB NEB PRN (15:17)
[2021-02-21 16:00] VITALS: BP 127/93
[2021-02-21 20:00] VITALS: BP 116/85
[2021-02-21] MEDS: ENOXAPARIN 40MG/0.4ML SYR SUBCUT SCH (20:25)
[2021-02-22] VITALS (8 sets, daily range): BP systolic 118–134; BP diastolic 76–116
[2021-02-22] MEDS: MORPHINE SULFATE 2 MG/ML CPJ (NOT FOR IM USE) IV PRN ×4 (05:06→21:01)
[2021-02-22] MEDS: FUROSEMIDE 40MG/4ML VIAL IV SCH ×2 (08:56→16:41)
[2021-02-22] MEDS: ASPIRIN 81MG EC TABLET PO SCH (08:56)
[2021-02-22] MEDS: IPRATROPIUM/ALBUTEROL 0.5-3(2.5)MG/3ML NEB NEB PRN ×2 (11:25→15:51)
[2021-02-22] MEDS: ENOXAPARIN 40MG/0.4ML SYR SUBCUT SCH (21:00)
[2021-02-22] MEDS: ZOLPIDEM TARTRATE 5MG TABLET PO PRN (21:01)
[2021-02-23] VITALS (7 sets, daily range): BP systolic 115–133; BP diastolic 62–88
[2021-02-23] MEDS: MORPHINE SULFATE 2 MG/ML CPJ (NOT FOR IM USE) IV PRN ×3 (04:29→17:25)
[2021-02-23] MEDS: FUROSEMIDE 40MG/4ML VIAL IV SCH ×2 (09:23→17:28)
[2021-02-23] MEDS: ASPIRIN 81MG EC TABLET PO SCH (09:29)
[2021-02-23] MEDS: APIXABAN 5 MG TABLET PO SCH (17:28)
[2021-02-23] MEDS: DILTIAZEM HCL 60MG TABLET PO SCH (17:28)
[2021-02-23] MEDS: CARVEDILOL 3.125 MG TABLET PO SCH (21:40)
[2021-02-24] VITALS: BP 93/61
[2021-02-24] MEDS: ZOLPIDEM TARTRATE 5MG TABLET PO PRN (02:27)
[2021-02-24 04:00] VITALS: BP 106/80
[2021-02-24] MEDS: DILTIAZEM HCL 60MG TABLET PO SCH ×2 (06:00)
[2021-02-24 08:00] VITALS: BP 95/76
[2021-02-24] MEDS: LOSARTAN POTASSIUM 25 MG TABLET PO SCH (09:58)
[2021-02-24] MEDS: CARVEDILOL 3.125 MG TABLET PO SCH ×2 (09:58→22:00)
[2021-02-24] MEDS: APIXABAN 5 MG TABLET PO SCH ×2 (10:09→17:37)
[2021-02-24] MEDS: FUROSEMIDE 40MG/4ML VIAL IV SCH ×2 (10:09→17:37)
[2021-02-24] MEDS: ASPIRIN 81MG EC TABLET PO SCH (10:09)
[2021-02-24 10:31] LABS: BASOPHILS % 0.9 % (0.0-2.0); EOSINOPHILS % 3.5 % (0.0-5.0); HEMATOCRIT. 53.8 % (42.0-52.0); HEMOGLOBIN. 16.6 g/dL (14.0-18.0); MEAN CORPUSCULAR HEMOGLOBIN 27.4 pg (28.0-32.0); MEAN CORPUSCULAR VOLUME 88.7 fL (80.0-94.0); MEAN PLATELET VOLUME 8.7 fl (7.4-10.4); NEUTROPHILS % 48.6 % (40.0-76.0); PLATELET 146 x1000/uL (130-400); RED BLOOD CELL COUNT 6.06 mill/uL (4.7-6.1)
[2021-02-24 11:53] LABS: CHLORIDE 103 mEq/L (98-107)
[2021-02-24 12:00] VITALS: BP 119/80
[2021-02-24] MEDS ORDERED: MORPHINE SULFATE 2 MG/ML CPJ (NOT FOR IM USE) IV PRN (12:15)
[2021-02-24] MEDS: DILTIAZEM HCL 30MG TABLET PO SCH ×2 (15:17→22:00)
[2021-02-24 16:00] VITALS: BP 105/85
[2021-02-24 20:00] VITALS: BP 131/90
[2021-02-24] MEDS: MORPHINE SULFATE 2 MG/ML CPJ (NOT FOR IM USE) IV PRN (20:11)
[2021-02-24] MEDS ORDERED: ZOLPIDEM TARTRATE 5MG TABLET PO PRN (23:45)
[2021-02-25] VITALS: BP 90/67
[2021-02-25 04:00] VITALS: BP 130/81
[2021-02-25] MEDS: MORPHINE SULFATE 2 MG/ML CPJ (NOT FOR IM USE) IV PRN (04:32)
[2021-02-25] MEDS: DILTIAZEM HCL 30MG TABLET PO SCH (06:00)
[2021-02-25 08:00] VITALS: BP 101/79
[2021-02-25] MEDS: LOSARTAN POTASSIUM 25 MG TABLET PO SCH (09:00)
[2021-02-25] MEDS: CARVEDILOL 3.125 MG TABLET PO SCH (09:00)
[2021-02-25] MEDS ORDERED: MORPHINE SULFATE 2 MG/ML CPJ (NOT FOR IM USE) IV PRN (09:15)
[2021-02-25 09:17] LABS: BASOPHILS % 1.2 % (0.0-2.0); EOSINOPHILS % 3.7 % (0.0-5.0); HEMATOCRIT. 52.9 % (42.0-52.0); HEMOGLOBIN. 16.9 g/dL (14.0-18.0); LYMPHOCYTES % 38.9 % (20.0-50.0); MEAN CORPUSCULAR HEMOGLOBIN 27.8 pg (28.0-32.0); MEAN CORPUSCULAR VOLUME 87.3 fL (80.0-94.0); MEAN PLATELET VOLUME 8.4 fl (7.4-10.4); MONOCYTES % 10.1 % (2.0-8.0); NEUTROPHILS % 46.1 % (40.0-76.0); PLATELET 170 x1000/uL (130-400); RED BLOOD CELL COUNT 6.06 mill/uL (4.7-6.1); RED CELL DISTRIBUTION WIDTH 15.6 % (11.6-14.6)
[2021-02-25] MEDS: FUROSEMIDE 40MG/4ML VIAL IV SCH (09:27)
[2021-02-25] MEDS: APIXABAN 5 MG TABLET PO SCH (09:27)
[2021-02-25] MEDS: ASPIRIN 81MG EC TABLET PO SCH (09:27)
[2021-02-25 09:30] LABS: CHLORIDE 102 mEq/L (98-107)
[2021-02-25 11:45] VITALS: BP 108/78
[2021-02-25 12:00] VITALS: BP 108/78
[2021-02-25] MEDS ORDERED: FUROSEMIDE 40MG TABLET PO SCH (21:00)
== END 2021-02-25 15:24 | DRG 133 ==
LOC: ER 16:32 → 6WST 19:26 → ENRESERV 21:49 → 6WST 22:53
PROVIDERS: ADMIT Internal Medicine; ATTEND Internal Medicine
DX: J96.00 Acute respiratory failure, unspecified whether with hypoxia or hypercapnia (principal); I11.0 Hypertensive heart disease with heart failure; I50.20 Unspecified systolic (congestive) heart failure; I25.10 Atherosclerotic heart disease of native coronary artery without angina pectoris; J44.9 Chronic obstructive pulmonary disease, unspecified; I44.7 Left bundle-branch block, unspecified; E78.5 Hyperlipidemia, unspecified; I42.0 Dilated cardiomyopathy; I48.0 Paroxysmal atrial fibrillation; I27.21 Secondary pulmonary arterial hypertension; I82.402 Acute embolism and thrombosis of unspecified deep veins of left lower extremity; D68.9 Coagulation defect, unspecified; I48.19 Other persistent atrial fibrillation; I48.92 Unspecified atrial flutter; I95.89 Other hypotension; Z79.01 Long term (current) use of anticoagulants; Z79.891 Long term (current) use of opiate analgesic; Z79.899 Other long term (current) drug therapy; Z87.891 Personal history of nicotine dependence; Z95.0 Presence of cardiac pacemaker; Z86.718 Personal history of other venous thrombosis and embolism; Z95.828 Presence of other vascular implants and grafts; Z91.19 Patient's noncompliance with other medical treatment and regimen; R07.89 Other chest pain
CPT/HCPCS: 36415; 71045; 80048; 80053; 80061; 83735; 83880; 84439; 84443; 84484; 85025; 93005; 94640; 97116; 97162; 99291; C1893; J1650; J1940; J2270

== ENCOUNTER 2021-08-01 05:51 | Inpatient (IN) | payer MEDICARE, MEDICAID ==
[~2021-08-01] VITALS: Ht 180.3 cm; Wt 65.3 kg
[~2021-08-01 05:51] MED LIST changes: -CLON0.2T PO; -FAMO-135 PO; -ISOS30TA12 PO; -PRAV40TA58 PO; -TEMA15CA PO
[2021-08-01 08:15] LABS: BASOPHILS % 1.4 % (0.0-2.0); EOSINOPHILS % 0.9 % (0.0-5.0); HEMATOCRIT. 48.9 % (42.0-52.0); HEMOGLOBIN. 15.6 g/dL (14.0-18.0); LYMPHOCYTES % 30.6 % (20.0-50.0); MEAN CORPUSCULAR HEMOGLOBIN 27.8 pg (28.0-32.0); MEAN CORPUSCULAR VOLUME 86.9 fL (80.0-94.0); MEAN PLATELET VOLUME 8.9 fl (7.4-10.4); MONOCYTES % 8.4 % (2.0-8.0); NEUTROPHILS % 58.7 % (40.0-76.0); PLATELET 151 x1000/uL (130-400); RED BLOOD CELL COUNT 5.63 mill/uL (4.7-6.1); RED CELL DISTRIBUTION WIDTH 15.9 % (11.6-14.6)
[2021-08-01 08:23] LABS: CHLORIDE 112 mEq/L (98-107)
[2021-08-01] MEDS ORDERED: IPRATROPIUM/ALBUTEROL 0.5-3(2.5)MG/3ML NEB NEB PRN (12:15)
[2021-08-01] MEDS ORDERED: CLONIDINE 0.1MG TABLET PO PRN (12:15)
[2021-08-01] MEDS ORDERED: MORPHINE SULFATE 2 MG/ML CPJ (NOT FOR IM USE) IV PRN (12:15)
[2021-08-01] MEDS ORDERED: GUAIFENESIN 200MG/10ML SUGAR FREE UDC PO PRN (12:15)
[2021-08-01] MEDS ORDERED: MAGNESIUM/ALUMINUM HYDROXIDE/SIMETHICONE 30ML UDC PO PRN (12:15)
[2021-08-01] MEDS ORDERED: NA PHOS,M-B/NA PHOS,DI-BA ENEMA 118ML PR PRN (12:15)
[2021-08-01] MEDS ORDERED: ACETAMINOPHEN 325MG TABLET PO PRN (12:15)
[2021-08-01] MEDS ORDERED: DOCUSATE SODIUM 100MG CAPSULE PO PRN (12:15)
[2021-08-01] MEDS ORDERED: ONDANSETRON HCL 4MG/2ML INJ IV PRN (12:15)
[2021-08-01] MEDS ORDERED: DIPHENHYDRAMINE 50MG/ML VIAL IV PRN (12:15)
[2021-08-01] MEDS ORDERED: NALOXONE HCL 0.4MG/ML VIAL IV PRN (12:30)
[2021-08-01 13:46] VITALS: BP 149/111
[2021-08-01] MEDS: ASPIRIN 81MG EC TABLET PO SCH (14:31)
[2021-08-01] MEDS: PREDNISONE 20MG TABLET PO SCH (14:31)
[2021-08-01] MEDS: ENOXAPARIN 40MG/0.4ML SYR SUBCUT SCH (14:32)
[2021-08-01 16:00] VITALS: BP 126/72
[2021-08-01 17:47] LABS: CHLORIDE 114 mEq/L (98-107)
[2021-08-01 20:00] VITALS: BP 145/88
[2021-08-01] MEDS: IPRATROPIUM/ALBUTEROL 0.5-3(2.5)MG/3ML NEB HHN SCH (21:31)
[2021-08-02] VITALS: BP 148/89
[2021-08-02] MEDS: IPRATROPIUM/ALBUTEROL 0.5-3(2.5)MG/3ML NEB HHN SCH ×4 (01:10→21:38)
[2021-08-02 04:00] VITALS: BP 124/101
[2021-08-02] MEDS: PREDNISONE 20MG TABLET PO SCH (05:13)
[2021-08-02 08:03] VITALS: BP 142/94
[2021-08-02 08:10] LABS: BASOPHILS % 0.5 % (0.0-2.0); EOSINOPHILS % 0.1 % (0.0-5.0); HEMOGLOBIN. 15.5 g/dL (14.0-18.0); LYMPHOCYTES % 19.8 % (20.0-50.0); MEAN CORPUSCULAR HEMOGLOBIN 27.9 pg (28.0-32.0); MEAN CORPUSCULAR VOLUME 84.7 fL (80.0-94.0); MEAN PLATELET VOLUME 9.4 fl (7.4-10.4); MONOCYTES % 5.1 % (2.0-8.0); NEUTROPHILS % 74.5 % (40.0-76.0); PLATELET 169 x1000/uL (130-400); RED BLOOD CELL COUNT 5.54 mill/uL (4.7-6.1); RED CELL DISTRIBUTION WIDTH 15.8 % (11.6-14.6)
[2021-08-02 08:13] LABS: CHLORIDE 114 mEq/L (98-107)
[2021-08-02] MEDS: ENOXAPARIN 40MG/0.4ML SYR SUBCUT SCH (08:16)
[2021-08-02] MEDS: ASPIRIN 81MG EC TABLET PO SCH (08:16)
[2021-08-02 08:25] LABS: LDL CHOLESTEROL 81 mg/dL (5-100)
[2021-08-02 08:27] LABS: HDL CHOLESTEROL 46 mg/dL (40-59); T4 FREE 1.18 ng/dL (0.76-1.46)
[2021-08-02] MEDS: FUROSEMIDE 40MG/4ML VIAL IVP SCH (11:59)
[2021-08-02 12:00] VITALS: BP 134/105
[2021-08-02] MEDS: HYDROCODONE/ACETAMINOPHEN 5/325MG TABLET PO PRN ×2 (12:00→21:18)
[2021-08-02 16:00] VITALS: BP 144/96
[2021-08-02] MEDS: MORPHINE SULFATE 2 MG/ML CPJ (NOT FOR IM USE) IV PRN (16:15)
[2021-08-02] MEDS: APIXABAN 5 MG TABLET PO SCH (16:15)
[2021-08-02 20:00] VITALS: BP 126/104
[2021-08-02] MEDS: ATORVASTATIN CALCIUM 40MG TABLET PO SCH (20:58)
[2021-08-02] MEDS: CARVEDILOL 6.25 MG TABLET PO SCH (20:58)
[2021-08-03] VITALS: BP 140/92
[2021-08-03] MEDS: IPRATROPIUM/ALBUTEROL 0.5-3(2.5)MG/3ML NEB HHN SCH ×2 (01:59→07:26)
[2021-08-03 04:00] VITALS: BP 144/78
[2021-08-03] MEDS: PREDNISONE 20MG TABLET PO SCH (05:40)
[2021-08-03 08:00] VITALS: BP 124/96
[2021-08-03] MEDS: APIXABAN 5 MG TABLET PO SCH ×2 (09:27→17:28)
[2021-08-03] MEDS: CARVEDILOL 6.25 MG TABLET PO SCH ×2 (09:27→20:55)
[2021-08-03] MEDS: MORPHINE SULFATE 2 MG/ML CPJ (NOT FOR IM USE) IV PRN ×2 (09:27→17:29)
[2021-08-03] MEDS: FUROSEMIDE 40MG/4ML VIAL IVP SCH (09:27)
[2021-08-03 12:00] VITALS: BP 100/67
[2021-08-03 16:00] VITALS: BP 103/82
[2021-08-03] MEDS ORDERED: APIXABAN 5 MG TABLET PO SCH (17:00)
[2021-08-03 20:00] VITALS: BP 123/93
[2021-08-03] MEDS: ATORVASTATIN CALCIUM 40MG TABLET PO SCH (20:54)
[2021-08-04] VITALS: BP 119/91
[2021-08-04] MEDS: LORAZEPAM 2MG/ML CPJ IV PRN (00:26)
[2021-08-04 04:00] VITALS: BP 98/61
[2021-08-04] MEDS: PREDNISONE 20MG TABLET PO SCH (06:17)
[2021-08-04] MEDS: IPRATROPIUM/ALBUTEROL 0.5-3(2.5)MG/3ML NEB HHN SCH ×3 (07:54→21:57)
[2021-08-04 08:00] VITALS: BP 111/60
[2021-08-04] MEDS: CARVEDILOL 6.25 MG TABLET PO SCH ×2 (08:14→21:06)
[2021-08-04] MEDS: APIXABAN 5 MG TABLET PO SCH ×2 (08:14→16:00)
[2021-08-04] MEDS: FUROSEMIDE 40MG/4ML VIAL IVP SCH (08:14)
[2021-08-04 12:00] VITALS: BP 114/85
[2021-08-04 16:00] VITALS: BP 121/86
[2021-08-04 20:00] VITALS: BP 132/96
[2021-08-04] MEDS: ATORVASTATIN CALCIUM 40MG TABLET PO SCH (21:04)
[2021-08-04] MEDS: HYDROCODONE/ACETAMINOPHEN 5/325MG TABLET PO PRN (21:07)
[2021-08-05] VITALS: BP 123/86
[2021-08-05 04:00] VITALS: BP 116/82
[2021-08-05 08:00] VITALS: BP 126/89
[2021-08-05] MEDS: FUROSEMIDE 40MG/4ML VIAL IVP SCH (08:45)
[2021-08-05] MEDS: CARVEDILOL 6.25 MG TABLET PO SCH ×2 (08:45→20:52)
[2021-08-05] MEDS: PREDNISONE 20MG TABLET PO SCH (08:46)
[2021-08-05] MEDS: APIXABAN 5 MG TABLET PO SCH ×2 (08:46→17:33)
[2021-08-05] MEDS: IPRATROPIUM/ALBUTEROL 0.5-3(2.5)MG/3ML NEB HHN SCH ×2 (09:59→20:11)
[2021-08-05 12:00] VITALS: BP 109/67
[2021-08-05] MEDS: HYDROCODONE/ACETAMINOPHEN 5/325MG TABLET PO PRN ×2 (15:25→21:32)
[2021-08-05 16:00] VITALS: BP 108/82
[2021-08-05] MEDS ORDERED: ALBU18HF2 IH (19:06)
[2021-08-05] MEDS ORDERED: NITR0.4T49 SL (19:06)
[2021-08-05] MEDS ORDERED: MULT-1318 PO (19:06)
[2021-08-05] MEDS ORDERED: ASPI-1406 PO (19:06)
[2021-08-05] MEDS ORDERED: ONDA4TAB5 PO (19:06)
[2021-08-05 20:00] VITALS: BP 115/88
[2021-08-05] MEDS: ATORVASTATIN CALCIUM 40MG TABLET PO SCH (20:51)
[2021-08-06] VITALS: BP 135/93
[2021-08-06] MEDS: LORAZEPAM 2MG/ML CPJ IV PRN ×2 (00:35→09:01)
[2021-08-06] MEDS: IPRATROPIUM/ALBUTEROL 0.5-3(2.5)MG/3ML NEB HHN SCH ×4 (01:45→20:06)
[2021-08-06 04:00] VITALS: BP 125/91
[2021-08-06 08:00] VITALS: BP 135/92
[2021-08-06] MEDS: FUROSEMIDE 40MG/4ML VIAL IVP SCH (08:57)
[2021-08-06] MEDS: CARVEDILOL 6.25 MG TABLET PO SCH ×2 (08:57→21:04)
[2021-08-06] MEDS: APIXABAN 5 MG TABLET PO SCH ×2 (08:58→17:41)
[2021-08-06] MEDS: PREDNISONE 20MG TABLET PO SCH (08:58)
[2021-08-06 12:00] VITALS: BP 116/83
[2021-08-06 16:00] VITALS: BP 118/75
[2021-08-06 20:00] VITALS: BP 120/89
[2021-08-06] MEDS: ATORVASTATIN CALCIUM 40MG TABLET PO SCH (21:02)
[2021-08-07] MEDS: IPRATROPIUM/ALBUTEROL 0.5-3(2.5)MG/3ML NEB HHN SCH (02:06)
[2021-08-07 08:00] VITALS: BP 119/69
[2021-08-07] MEDS: APIXABAN 5 MG TABLET PO SCH (08:23)
[2021-08-07] MEDS: PREDNISONE 20MG TABLET PO SCH (08:23)
[2021-08-07] MEDS: FUROSEMIDE 40MG/4ML VIAL IVP SCH (08:23)
[2021-08-07] MEDS: CARVEDILOL 6.25 MG TABLET PO SCH (08:24)
[2021-08-07 11:20] VITALS: BP 137/88
== END 2021-08-07 12:40 | disposition home or self-care (01) | DRG 194 ==
LOC: ER 05:51 → 7EST 10:23 → ENRESERV 11:48
PROVIDERS: ADMIT Internal Medicine; ATTEND Internal Medicine
DX: I11.0 Hypertensive heart disease with heart failure (principal); J96.01 Acute respiratory failure with hypoxia; E46 Unspecified protein-calorie malnutrition; I27.20 Pulmonary hypertension, unspecified; I42.0 Dilated cardiomyopathy; I48.20 Chronic atrial fibrillation, unspecified; I25.10 Atherosclerotic heart disease of native coronary artery without angina pectoris; I50.23 Acute on chronic systolic (congestive) heart failure; R74.01 Elevation of levels of liver transaminase levels; E78.5 Hyperlipidemia, unspecified; Z20.822 Contact with and (suspected) exposure to COVID-19; I27.21 Secondary pulmonary arterial hypertension; J44.1 Chronic obstructive pulmonary disease with (acute) exacerbation; I25.2 Old myocardial infarction; Z86.718 Personal history of other venous thrombosis and embolism; Z87.891 Personal history of nicotine dependence; Z95.810 Presence of automatic (implantable) cardiac defibrillator; Z95.828 Presence of other vascular implants and grafts; Z99.81 Dependence on supplemental oxygen; Z79.01 Long term (current) use of anticoagulants; Z76.5 Malingerer [conscious simulation]; Z79.899 Other long term (current) drug therapy; Z91.19 Patient's noncompliance with other medical treatment and regimen; Z68.20 Body mass index [BMI] 20.0-20.9, adult
CPT/HCPCS: 36415; 71045; 80048; 80053; 80061; 83880; 84439; 84443; 84484; 85025; 87426; 93005; 93306; 94640; 99285; C1893; J1650; J1940; J2060; J2270; J7512

== ENCOUNTER 2021-09-08 14:40 | Inpatient (IN) | payer MEDICARE, MEDICAID ==
[~2021-09-08] VITALS: Ht 180.3 cm; Wt 60.8 kg
[~2021-09-08 14:40] MED LIST changes: +ALBU18HF2 IH; +ASPI-1406 PO; +MULT-1318 PO; +NITR0.4T49 SL
[2021-09-08] MEDS ORDERED: ONDANSETRON HCL 4MG/2ML INJ IV STA (15:22)
[2021-09-08] MEDS ORDERED: MORPHINE SULFATE 4 MG/ML CPJ (NOT FOR IM USE) IV STA (15:22)
[2021-09-08 15:49] LABS: BASOPHILS % 1.1 % (0.0-2.0); EOSINOPHILS % 2.1 % (0.0-5.0); HEMATOCRIT. 37.4 % (42.0-52.0); HEMOGLOBIN. 12.2 g/dL (14.0-18.0); MEAN CORPUSCULAR HEMOGLOBIN 28.2 pg (28.0-32.0); MEAN CORPUSCULAR VOLUME 86.7 fL (80.0-94.0); MEAN PLATELET VOLUME 8.7 fl (7.4-10.4); MONOCYTES % 11.3 % (2.0-8.0); NEUTROPHILS % 42.5 % (40.0-76.0); PLATELET 127 x1000/uL (130-400); RED BLOOD CELL COUNT 4.32 mill/uL (4.7-6.1); RED CELL DISTRIBUTION WIDTH 15.5 % (11.6-14.6)
[2021-09-08 16:49] LABS: *BENZODIAZEPINES SCREEN URINE NEGATIVE (NEGATIVE)
[2021-09-08 16:50] LABS: CANNABINOID URINE SCREEN NEGATIVE (NEGATIVE); METHADONE URINE SCREEN NEGATIVE (NEGATIVE); OPIATES URINE SCREEN PRESUMTIVE POSITIVE (NEGATIVE)
[2021-09-08 16:52] LABS: CHLORIDE 108 mEq/L (98-107)
[2021-09-08 16:53] LABS: *COCAINE SCREEN URINE NEGATIVE (NEGATIVE)
[2021-09-08 16:57] LABS: *AMPHETAMINES SCREEN URINE NEGATIVE (NEGATIVE); PHENCYCLIDINE URINE SCREEN NEGATIVE (NEGATIVE)
[2021-09-08 16:58] LABS: *BARBITURATES SCREEN URINE NEGATIVE (NEGATIVE)
[2021-09-08] MEDS ORDERED: FUROSEMIDE 40MG/4ML VIAL IVP ONE (17:30)
[2021-09-08] MEDS ORDERED: NA PHOS,M-B/NA PHOS,DI-BA ENEMA 118ML PR PRN (22:15)
[2021-09-08] MEDS ORDERED: NALOXONE HCL 0.4MG/ML VIAL IV PRN (22:15)
[2021-09-08] MEDS ORDERED: DOCUSATE SODIUM 100MG CAPSULE PO PRN (22:15)
[2021-09-08] MEDS ORDERED: CLONIDINE 0.1MG TABLET PO PRN (22:15)
[2021-09-08] MEDS ORDERED: IPRATROPIUM/ALBUTEROL 0.5-3(2.5)MG/3ML NEB NEB PRN (22:15)
[2021-09-08] MEDS ORDERED: DIPHENHYDRAMINE 50MG/ML VIAL IV PRN (22:15)
[2021-09-08] MEDS ORDERED: ACETAMINOPHEN 325MG TABLET PO PRN (22:15)
[2021-09-08] MEDS ORDERED: HYDROCODONE/ACETAMINOPHEN 5/325MG TABLET PO PRN (22:15)
[2021-09-08] MEDS ORDERED: ONDANSETRON HCL 4MG/2ML INJ IV PRN (22:15)
[2021-09-08] MEDS ORDERED: GUAIFENESIN 200MG/10ML SUGAR FREE UDC PO PRN (22:15)
[2021-09-08] MEDS: MORPHINE SULFATE 2 MG/ML CPJ (NOT FOR IM USE) IV PRN (22:21)
[2021-09-08] MEDS: METHYLPREDNISOLONE SOD SUCC 125 MG/2 ML VIAL IV SCH (22:25)
[2021-09-08] MEDS: ENOXAPARIN 40MG/0.4ML SYR SUBCUT SCH (22:25)
[2021-09-08 23:07] LABS: CHLORIDE 108 mEq/L (98-107)
[2021-09-09 01:00] VITALS: BP 138/83
[2021-09-09] MEDS: LORAZEPAM 2MG/ML CPJ IV PRN (02:49)
[2021-09-09 04:00] VITALS: BP 118/76
[2021-09-09] MEDS: METHYLPREDNISOLONE SOD SUCC 125 MG/2 ML VIAL IV SCH ×4 (04:20→20:39)
[2021-09-09 08:00] VITALS: BP 135/101
[2021-09-09] MEDS ORDERED: FUROSEMIDE 100MG/10ML VIAL IV SCH (09:00)
[2021-09-09] MEDS: ASPIRIN 81MG EC TABLET PO SCH (09:17)
[2021-09-09] MEDS: MORPHINE SULFATE 2 MG/ML CPJ (NOT FOR IM USE) IV PRN (09:26)
[2021-09-09 10:05] LABS: BASOPHILS % 0.4 % (0.0-2.0); EOSINOPHILS % 0.1 % (0.0-5.0); HEMATOCRIT. 51.6 % (42.0-52.0); HEMOGLOBIN. 16.5 g/dL (14.0-18.0); LYMPHOCYTES % 16.1 % (20.0-50.0); MEAN CORPUSCULAR HEMOGLOBIN 27.8 pg (28.0-32.0); MEAN CORPUSCULAR VOLUME 86.9 fL (80.0-94.0); MEAN PLATELET VOLUME 9.3 fl (7.4-10.4); MONOCYTES % 1.4 % (2.0-8.0); PLATELET 177 x1000/uL (130-400); RED BLOOD CELL COUNT 5.93 mill/uL (4.7-6.1); RED CELL DISTRIBUTION WIDTH 15.4 % (11.6-14.6)
[2021-09-09 10:12] LABS: CHLORIDE 106 mEq/L (98-107)
[2021-09-09 10:20] LABS: LDL CHOLESTEROL 92 mg/dL (5-100)
[2021-09-09 10:22] LABS: HDL CHOLESTEROL 71 mg/dL (40-59); T4 FREE 0.98 ng/dL (0.76-1.46)
[2021-09-09 12:00] VITALS: BP 131/81
[2021-09-09 15:40] VITALS: BP 138/89
[2021-09-09] MEDS: APIXABAN 5 MG TABLET PO SCH (16:03)
[2021-09-09] MEDS: FUROSEMIDE 100MG/10ML VIAL IV SCH (16:03)
[2021-09-09] MEDS: MAGNESIUM/ALUMINUM HYDROXIDE/SIMETHICONE 30ML UDC PO PRN (16:14)
[2021-09-09 20:00] VITALS: BP 113/66
[2021-09-09] MEDS: CARVEDILOL 6.25 MG TABLET PO SCH (20:38)
[2021-09-09] MEDS: ATORVASTATIN CALCIUM 40MG TABLET PO SCH (20:49)
[2021-09-09] MEDS: ENOXAPARIN 40MG/0.4ML SYR SUBCUT SCH (21:17)
[2021-09-10] VITALS: BP 113/69
[2021-09-10 04:00] VITALS: BP 102/77
[2021-09-10] MEDS: METHYLPREDNISOLONE SOD SUCC 125 MG/2 ML VIAL IV SCH ×3 (04:15→21:35)
[2021-09-10 08:00] VITALS: BP 135/72
[2021-09-10 09:43] LABS: HEMATOCRIT. 49.8 % (42.0-52.0); HEMOGLOBIN. 16.2 g/dL (14.0-18.0); MEAN CORPUSCULAR HEMOGLOBIN 28.2 pg (28.0-32.0); MEAN CORPUSCULAR VOLUME 86.6 fL (80.0-94.0); PLATELET 180 x1000/uL (130-400); RED BLOOD CELL COUNT 5.75 mill/uL (4.7-6.1); RED CELL DISTRIBUTION WIDTH 15.3 % (11.6-14.6)
[2021-09-10] MEDS: FUROSEMIDE 100MG/10ML VIAL IV SCH (09:48)
[2021-09-10] MEDS: HYDROCODONE/ACETAMINOPHEN 10/325MG TABLET PO PRN ×2 (09:50→18:55)
[2021-09-10] MEDS: CARVEDILOL 6.25 MG TABLET PO SCH ×2 (09:51→21:34)
[2021-09-10] MEDS: ASPIRIN 81MG EC TABLET PO SCH (09:51)
[2021-09-10] MEDS: POTASSIUM CHLORIDE 10MEQ TABLET SR PO SCH (09:51)
[2021-09-10] MEDS: APIXABAN 5 MG TABLET PO SCH ×2 (09:54→18:55)
[2021-09-10] MEDS: MAGNESIUM/ALUMINUM HYDROXIDE/SIMETHICONE 30ML UDC PO PRN (10:00)
[2021-09-10 12:00] VITALS: BP 131/86
[2021-09-10 16:00] VITALS: BP 121/86
[2021-09-10] MEDS ORDERED: TEMA15CA PO (16:37)
[2021-09-10] MEDS ORDERED: DILT30TA38 PO (16:37)
[2021-09-10 17:15] LABS: PLATELET ESTIMATE NORMAL
[2021-09-10] MEDS: FUROSEMIDE 40MG/4ML VIAL IV SCH (18:56)
[2021-09-10 20:00] VITALS: BP 122/83
[2021-09-10] MEDS: ATORVASTATIN CALCIUM 40MG TABLET PO SCH (21:34)
[2021-09-10] MEDS: ENOXAPARIN 40MG/0.4ML SYR SUBCUT SCH (21:37)
[2021-09-10] MEDS: LORAZEPAM 2MG/ML CPJ IV PRN (23:59)
[2021-09-11] VITALS (7 sets, daily range): BP systolic 115–142; BP diastolic 70–94
[2021-09-11] MEDS: FUROSEMIDE 40MG/4ML VIAL IV SCH (08:33)
[2021-09-11] MEDS: METHYLPREDNISOLONE SOD SUCC 125 MG/2 ML VIAL IV SCH (08:33)
[2021-09-11] MEDS: APIXABAN 5 MG TABLET PO SCH ×2 (08:34→17:39)
[2021-09-11] MEDS: POTASSIUM CHLORIDE 10MEQ TABLET SR PO SCH (08:34)
[2021-09-11] MEDS: ASPIRIN 81MG EC TABLET PO SCH (08:34)
[2021-09-11] MEDS: CARVEDILOL 12.5MG TABLET PO SCH ×2 (08:34→21:51)
[2021-09-11] MEDS: HYDROCODONE/ACETAMINOPHEN 10/325MG TABLET PO PRN (11:56)
[2021-09-11] MEDS: FUROSEMIDE 40MG TABLET PO SCH (17:39)
[2021-09-11] MEDS: ATORVASTATIN CALCIUM 40MG TABLET PO SCH (21:51)
[2021-09-11] MEDS: LORAZEPAM 2MG/ML CPJ IV PRN (23:01)
[2021-09-12] VITALS: BP 133/76
[2021-09-12 04:00] VITALS: BP 101/82
[2021-09-12] MEDS: FUROSEMIDE 40MG TABLET PO SCH (06:19)
[2021-09-12] MEDS ORDERED: PREDNISONE 20MG TABLET PO SCH (07:10)
[2021-09-12 08:00] VITALS: BP 115/77
[2021-09-12] MEDS: POTASSIUM CHLORIDE 10MEQ TABLET SR PO SCH (09:15)
[2021-09-12] MEDS: APIXABAN 5 MG TABLET PO SCH (09:15)
[2021-09-12] MEDS: CARVEDILOL 12.5MG TABLET PO SCH (09:15)
[2021-09-12] MEDS: ASPIRIN 81MG EC TABLET PO SCH (09:16)
[2021-09-12] MEDS: HYDROCODONE/ACETAMINOPHEN 10/325MG TABLET PO PRN (09:24)
[2021-09-12 12:00] VITALS: BP 100/68
== END 2021-09-12 14:00 | disposition home health service (06) | DRG 194 ==
LOC: ER 14:40 → 7EST 21:46 → EDBEDREQ 21:53 → EDBEDREQTM 21:53 → CANRESERV 22:54 → ENRESERV 22:54 → EDRESERV 22:54 → ENRESERV 23:20
PROVIDERS: ADMIT Internal Medicine; ATTEND Internal Medicine
DX: I13.0 Hypertensive heart and chronic kidney disease with heart failure and stage 1 through stage 4 chronic kidney disease, or unspecified chronic kidney disease (principal); J96.01 Acute respiratory failure with hypoxia; I27.21 Secondary pulmonary arterial hypertension; I96 Gangrene, not elsewhere classified; I48.19 Other persistent atrial fibrillation; I42.0 Dilated cardiomyopathy; I27.29 Other secondary pulmonary hypertension; I50.23 Acute on chronic systolic (congestive) heart failure; I49.5 Sick sinus syndrome; R07.89 Other chest pain; N18.9 Chronic kidney disease, unspecified; E78.5 Hyperlipidemia, unspecified; Z79.01 Long term (current) use of anticoagulants; Z82.49 Family history of ischemic heart disease and other diseases of the circulatory system; Z86.718 Personal history of other venous thrombosis and embolism; Z95.810 Presence of automatic (implantable) cardiac defibrillator; Z95.828 Presence of other vascular implants and grafts; Z79.899 Other long term (current) drug therapy; Z84.89 Family history of other specified conditions
CPT/HCPCS: 36415; 71045; 80048; 80053; 80061; 80305; 83880; 84439; 84443; 84484; 85025; 93005; 94618; 97162; 97165; 99285; J1650; J1940; J2060; J2270; J2405; J2930; J7512

== ENCOUNTER 2021-09-24 16:09 | Inpatient (IN) | payer MEDICARE, MEDICAID ==
[~2021-09-24] VITALS: Ht 180.3 cm; Wt 63.2 kg
[~2021-09-24 16:09] MED LIST changes: -COR6 PO; +DILT30TA38 PO; +TEMA15CA PO; -ZOLP10TA2 MT
[2021-09-24 16:56] LABS: BASOPHILS % 1.1 % (0.0-2.0); EOSINOPHILS % 0.7 % (0.0-5.0); HEMATOCRIT. 46.2 % (42.0-52.0); LYMPHOCYTES % 25.2 % (20.0-50.0); MEAN CORPUSCULAR HEMOGLOBIN 28.3 pg (28.0-32.0); MEAN CORPUSCULAR VOLUME 87.1 fL (80.0-94.0); MEAN PLATELET VOLUME 7.8 fl (7.4-10.4); MONOCYTES % 8.5 % (2.0-8.0); NEUTROPHILS % 64.5 % (40.0-76.0); PLATELET 150 x1000/uL (130-400); RED BLOOD CELL COUNT 5.31 mill/uL (4.7-6.1); RED CELL DISTRIBUTION WIDTH 15.3 % (11.6-14.6)
[2021-09-24 17:02] LABS: CHLORIDE 109 mEq/L (98-107)
[2021-09-24] MEDS ORDERED: PREDNISONE 20MG TABLET PO STA (17:15)
[2021-09-24] MEDS ORDERED: IPRATROPIUM BROMIDE (0.02%) 0.5MG/2.5ML NEB HHN STA (17:15)
[2021-09-24] MEDS ORDERED: ALBUTEROL (0.083%) 2.5MG/3ML NEB HHN STA (17:15)
[2021-09-24] MEDS ORDERED: KETOROLAC 30MG/ML VIAL IV NR (17:45)
[2021-09-24 23:12] VITALS: BP 122/88
[2021-09-25] VITALS: BP 122/88
[2021-09-25] MEDS ORDERED: MORPHINE SULFATE 2 MG/ML CPJ (NOT FOR IM USE) IV PRN (00:15)
[2021-09-25] MEDS ORDERED: CLONIDINE 0.1MG TABLET PO PRN (00:15)
[2021-09-25] MEDS ORDERED: ONDANSETRON HCL 4MG/2ML INJ IV PRN (00:30)
[2021-09-25] MEDS ORDERED: NALOXONE HCL 0.4MG/ML VIAL IV PRN (00:30)
[2021-09-25] MEDS ORDERED: HYDROCODONE/ACETAMINOPHEN 10/325MG TABLET PO PRN (00:30)
[2021-09-25] MEDS: TEMAZEPAM 15MG CAPSULE PO PRN (00:59)
[2021-09-25 04:00] VITALS: BP 118/76
[2021-09-25] MEDS: DILTIAZEM HCL 30MG TABLET PO SCH ×3 (06:00→21:27)
[2021-09-25 08:00] VITALS: BP 129/92
[2021-09-25] MEDS: ASPIRIN 81MG EC TABLET PO SCH (08:39)
[2021-09-25] MEDS ORDERED: FUROSEMIDE 40MG TABLET PO SCH (09:00)
[2021-09-25] MEDS ORDERED: LISINOPRIL 10MG TABLET PO SCH (09:00)
[2021-09-25 09:44] LABS: CREATINE KINASE 158 IU/L (39-308)
[2021-09-25 09:45] LABS: CREATINE KINASE MB FRACTION 5.3 ng/mL (0.5-3.6)
[2021-09-25] MEDS ORDERED: CARVEDILOL 3.125 MG TABLET PO NR (11:30)
[2021-09-25 12:00] VITALS: BP 118/76
[2021-09-25 12:18] LABS: CREATINE KINASE MB FRACTION 4.7 ng/mL (0.5-3.6)
[2021-09-25] MEDS: APIXABAN 5 MG TABLET PO SCH ×2 (14:01→18:14)
[2021-09-25] MEDS: MORPHINE SULFATE 2 MG/ML CPJ (NOT FOR IM USE) IV PRN ×2 (14:02→22:23)
[2021-09-25 16:00] VITALS: BP 108/84
[2021-09-25 20:00] VITALS: BP 109/74
[2021-09-25] MEDS ORDERED: ATORVASTATIN CALCIUM 40MG TABLET PO SCH (21:00)
[2021-09-25] MEDS: CARVEDILOL 3.125 MG TABLET PO SCH (21:00)
[2021-09-26] VITALS: BP 99/61
[2021-09-26] MEDS: TEMAZEPAM 15MG CAPSULE PO PRN (00:09)
[2021-09-26 04:00] VITALS: BP 96/57
[2021-09-26] MEDS: DILTIAZEM HCL 30MG TABLET PO SCH ×2 (06:00→14:00)
[2021-09-26 08:00] VITALS: BP 109/73
[2021-09-26] MEDS ORDERED: POLYETHYLENE GLYCOL 3350 (17GM) 1 DOSE PACK PO SCH (09:00)
[2021-09-26] MEDS: CARVEDILOL 3.125 MG TABLET PO SCH (09:00)
[2021-09-26] MEDS ORDERED: FUROSEMIDE 40MG/4ML VIAL IVP SCH (09:00)
[2021-09-26] MEDS ORDERED: LISINOPRIL 2.5MG TABLET PO SCH (09:00)
[2021-09-26] MEDS: ASPIRIN 81MG EC TABLET PO SCH (09:58)
[2021-09-26] MEDS: APIXABAN 5 MG TABLET PO SCH (09:58)
[2021-09-26] MEDS: MORPHINE SULFATE 2 MG/ML CPJ (NOT FOR IM USE) IV PRN (10:12)
[2021-09-26 10:51] LABS: BASOPHILS % 1.2 % (0.0-2.0); EOSINOPHILS % 1.5 % (0.0-5.0); HEMATOCRIT. 46.9 % (42.0-52.0); HEMOGLOBIN. 15.2 g/dL (14.0-18.0); LYMPHOCYTES % 23.9 % (20.0-50.0); MEAN CORPUSCULAR HEMOGLOBIN 28.3 pg (28.0-32.0); MEAN CORPUSCULAR VOLUME 87.5 fL (80.0-94.0); MEAN PLATELET VOLUME 8.5 fl (7.4-10.4); MONOCYTES % 8.6 % (2.0-8.0); NEUTROPHILS % 64.8 % (40.0-76.0); PLATELET 154 x1000/uL (130-400); RED BLOOD CELL COUNT 5.36 mill/uL (4.7-6.1); RED CELL DISTRIBUTION WIDTH 15.1 % (11.6-14.6)
[2021-09-26 11:02] LABS: CHLORIDE 104 mEq/L (98-107)
[2021-09-26 12:00] VITALS: BP 101/66
[2021-09-26 13:37] VITALS: BP 101/66
[2021-09-27] MEDS ORDERED: FUROSEMIDE 40MG TABLET PO SCH (09:00)
== END 2021-09-26 15:51 | disposition home or self-care (01) | DRG 194 ==
LOC: ER 16:09 → 7EST 18:49 → EDBEDREQTM 18:54 → EDBEDREQ 18:54 → ENRESERV 20:06
PROVIDERS: ADMIT Internal Medicine; ATTEND Internal Medicine
DX: I13.2 Hypertensive heart and chronic kidney disease with heart failure and with stage 5 chronic kidney disease, or end stage renal disease (principal); J96.02 Acute respiratory failure with hypercapnia; I47.2 Ventricular tachycardia; N17.9 Acute kidney failure, unspecified; I27.21 Secondary pulmonary arterial hypertension; I96 Gangrene, not elsewhere classified; I48.19 Other persistent atrial fibrillation; N18.6 End stage renal disease; I50.33 Acute on chronic diastolic (congestive) heart failure; I42.0 Dilated cardiomyopathy; I25.2 Old myocardial infarction; I50.9 Heart failure, unspecified; J44.9 Chronic obstructive pulmonary disease, unspecified; E78.5 Hyperlipidemia, unspecified; Z79.01 Long term (current) use of anticoagulants; Z86.718 Personal history of other venous thrombosis and embolism; Z95.810 Presence of automatic (implantable) cardiac defibrillator; Z76.5 Malingerer [conscious simulation]
CPT/HCPCS: 36415; 71045; 80048; 80053; 82550; 82553; 83880; 84484; 85025; 93005; 94640; 99285; J1885; J1940; J2270; J7512

== ENCOUNTER 2021-10-09 13:38 | Inpatient (IN) | payer MEDICARE, MEDICAID ==
[~2021-10-09] VITALS: Ht 180.3 cm; Wt 61.7 kg
[2021-10-09 15:16] LABS: BASOPHILS % 0.3 % (0.0-2.0); EOSINOPHILS % 4.6 % (0.0-5.0); HEMOGLOBIN. 13.7 g/dL (14.0-18.0); LYMPHOCYTES % 30.2 % (20.0-50.0); MEAN CORPUSCULAR HEMOGLOBIN 27.7 pg (28.0-32.0); MEAN CORPUSCULAR VOLUME 85.3 fL (80.0-94.0); MONOCYTES % 13.9 % (2.0-8.0); PLATELET 185 x1000/uL (130-400); RED BLOOD CELL COUNT 4.92 mill/uL (4.7-6.1); RED CELL DISTRIBUTION WIDTH 14.9 % (11.6-14.6)
[2021-10-09 15:22] LABS: CHLORIDE 111 mEq/L (98-107)
[2021-10-09] MEDS ORDERED: FUROSEMIDE 40MG/4ML VIAL IVP NR (16:30)
[2021-10-09] MEDS ORDERED: KETOROLAC 30MG/ML VIAL IV ONE (17:00)
[2021-10-09 22:25] VITALS: BP 120/78
[2021-10-09] MEDS ORDERED: DOCUSATE SODIUM 100MG CAPSULE PO PRN (22:30)
[2021-10-09] MEDS ORDERED: MAGNESIUM/ALUMINUM HYDROXIDE/SIMETHICONE 30ML UDC PO PRN (22:30)
[2021-10-09] MEDS ORDERED: GUAIFENESIN 200MG/10ML SUGAR FREE UDC PO PRN (22:30)
[2021-10-09] MEDS ORDERED: ONDANSETRON HCL 4MG/2ML INJ IV PRN (22:30)
[2021-10-09] MEDS ORDERED: CLONIDINE 0.1MG TABLET PO PRN (22:30)
[2021-10-09] MEDS ORDERED: NA PHOS,M-B/NA PHOS,DI-BA ENEMA 118ML PR PRN (22:30)
[2021-10-09] MEDS ORDERED: ACETAMINOPHEN 325MG TABLET PO PRN (22:30)
[2021-10-09] MEDS ORDERED: DIPHENHYDRAMINE 50MG/ML VIAL IV PRN (22:30)
[2021-10-09] MEDS: ENOXAPARIN 40MG/0.4ML SYR SUBCUT SCH (23:08)
[2021-10-09] MEDS: MORPHINE SULFATE 2 MG/ML CPJ (NOT FOR IM USE) IV PRN (23:10)
[2021-10-09] MEDS ORDERED: CARV3.1242 PO (23:31)
[2021-10-09] MEDS ORDERED: DILT30TA38 PO (23:32)
[2021-10-10] VITALS: BP 102/66
[2021-10-10] MEDS: LORAZEPAM 2MG/ML CPJ IV PRN (01:03)
[2021-10-10 04:00] VITALS: BP 99/68
[2021-10-10] MEDS: MORPHINE SULFATE 2 MG/ML CPJ (NOT FOR IM USE) IV PRN ×4 (06:03→20:04)
[2021-10-10 08:00] VITALS: BP 132/99
[2021-10-10] MEDS: ASPIRIN 81MG EC TABLET PO SCH (08:34)
[2021-10-10] MEDS: IPRATROPIUM/ALBUTEROL 0.5-3(2.5)MG/3ML NEB NEB PRN (10:51)
[2021-10-10 12:00] VITALS: BP 139/87
[2021-10-10 16:00] VITALS: BP 138/98
[2021-10-10 16:00] LABS: CHLORIDE 110 mEq/L (98-107)
[2021-10-10 20:00] VITALS: BP 127/88
[2021-10-10] MEDS: ENOXAPARIN 40MG/0.4ML SYR SUBCUT SCH (20:03)
[2021-10-10] MEDS ORDERED: FUROSEMIDE 40MG/4ML VIAL IVP NR (20:30)
[2021-10-10] MEDS: ATORVASTATIN CALCIUM 40MG TABLET PO SCH (21:18)
[2021-10-10] MEDS: CARVEDILOL 3.125 MG TABLET PO SCH (21:18)
[2021-10-10] MEDS ORDERED: NALOXONE HCL 0.4MG/ML VIAL IV PRN (22:15)
[2021-10-11] VITALS: BP 142/89
[2021-10-11] MEDS: DILTIAZEM HCL 30MG TABLET PO SCH ×3 (00:22→21:36)
[2021-10-11] MEDS: TEMAZEPAM 15MG CAPSULE PO PRN (00:22)
[2021-10-11 03:32] VITALS: BP 101/69
[2021-10-11] MEDS: MORPHINE SULFATE 2 MG/ML CPJ (NOT FOR IM USE) IV PRN ×3 (06:54→21:27)
[2021-10-11] MEDS ORDERED: LIDOCAINE HCL/PF 1% 2ML VIAL ONE (07:00)
[2021-10-11 07:25] LABS: HEMATOCRIT. 46.2 % (42.0-52.0); MEAN CORPUSCULAR HEMOGLOBIN 27.8 pg (28.0-32.0); MEAN CORPUSCULAR VOLUME 85.4 fL (80.0-94.0); MEAN PLATELET VOLUME 8.5 fl (7.4-10.4); PLATELET 178 x1000/uL (130-400); RED BLOOD CELL COUNT 5.41 mill/uL (4.7-6.1); RED CELL DISTRIBUTION WIDTH 14.6 % (11.6-14.6)
[2021-10-11 08:00] VITALS: BP 110/65
[2021-10-11 08:39] LABS: BG CARBOXYHEMOGLOBIN 0.5 % (0.5-1.5); BG DEOXYHEMOGLOBIN 3.6 % (0.0-5.0); BG OXYGEN SATURATION 96.4 % (92.0-98.5); BG OXYHEMOGLOBIN 95.9 % (94.0-97.0); BG PCO2 33.9 mmHg (35.0-45.0); BG PH 7.468 (7.350-7.450); BG SAMPLE SITE RIGHT RADIAL; BG TOTAL HEMOGLOBIN 15.6 g/dL (12.0-18.0); BG VENT MODE ROOM AIR
[2021-10-11] MEDS ORDERED: ASPIRIN 81MG EC TABLET PO SCH (09:00)
[2021-10-11] MEDS: ASPIRIN 81MG EC TABLET PO SCH (09:18)
[2021-10-11] MEDS: APIXABAN 5 MG TABLET PO SCH ×2 (09:18→16:45)
[2021-10-11] MEDS: FUROSEMIDE 40MG/4ML VIAL IVP SCH (09:18)
[2021-10-11] MEDS: CARVEDILOL 3.125 MG TABLET PO SCH ×2 (09:19→21:24)
[2021-10-11 12:00] VITALS: BP 122/89
[2021-10-11] MEDS: IPRATROPIUM/ALBUTEROL 0.5-3(2.5)MG/3ML NEB NEB PRN (13:59)
[2021-10-11 14:52] LABS: PLATELET ESTIMATE NORMAL
[2021-10-11 16:00] VITALS: BP 132/84
[2021-10-11] MEDS: HYDROCODONE/ACETAMINOPHEN 5/325MG TABLET PO PRN (16:46)
[2021-10-11 20:00] VITALS: BP 137/92
[2021-10-11] MEDS: ATORVASTATIN CALCIUM 40MG TABLET PO SCH (21:24)
[2021-10-12] VITALS (8 sets, daily range): BP systolic 112–136; BP diastolic 64–87
[2021-10-12] MEDS: TEMAZEPAM 15MG CAPSULE PO PRN (00:37)
[2021-10-12] MEDS: LORAZEPAM 2MG/ML CPJ IV PRN (01:28)
[2021-10-12] MEDS: MORPHINE SULFATE 2 MG/ML CPJ (NOT FOR IM USE) IV PRN ×2 (08:44→17:35)
[2021-10-12 08:53] LABS: BASOPHILS % 1.1 % (0.0-2.0); HEMATOCRIT. 46.3 % (42.0-52.0); HEMOGLOBIN. 14.7 g/dL (14.0-18.0); LYMPHOCYTES % 32.1 % (20.0-50.0); MEAN CORPUSCULAR HEMOGLOBIN 28.2 pg (28.0-32.0); MEAN CORPUSCULAR VOLUME 88.6 fL (80.0-94.0); MONOCYTES % 14.6 % (2.0-8.0); NEUTROPHILS % 48.2 % (40.0-76.0); PLATELET 226 x1000/uL (130-400); RED BLOOD CELL COUNT 5.22 mill/uL (4.7-6.1); RED CELL DISTRIBUTION WIDTH 14.7 % (11.6-14.6)
[2021-10-12 09:00] LABS: CHLORIDE 105 mEq/L (98-107)
[2021-10-12] MEDS: DILTIAZEM HCL 30MG TABLET PO SCH ×2 (09:19→21:29)
[2021-10-12] MEDS: FUROSEMIDE 40MG/4ML VIAL IVP SCH (09:19)
[2021-10-12] MEDS: APIXABAN 5 MG TABLET PO SCH (09:19)
[2021-10-12] MEDS: CARVEDILOL 3.125 MG TABLET PO SCH ×2 (09:19→21:29)
[2021-10-12] MEDS: ASPIRIN 81MG EC TABLET PO SCH (09:19)
[2021-10-12] MEDS: HYDROCODONE/ACETAMINOPHEN 5/325MG TABLET PO PRN (13:27)
[2021-10-12] MEDS: ATORVASTATIN CALCIUM 40MG TABLET PO SCH (21:29)
[2021-10-13] VITALS (10 sets, daily range): BP systolic 104–151; BP diastolic 67–102
[2021-10-13] MEDS: LORAZEPAM 2MG/ML CPJ IV PRN (01:06)
[2021-10-13] MEDS ORDERED: NICARDIPINE 100MCG/ML 10ML VIAL (CATH LAB) IV ONE (08:04)
[2021-10-13] MEDS ORDERED: HEPARIN SODIUM 1,000 UNIT/1ML VIAL IV ONE (08:04)
[2021-10-13] MEDS ORDERED: NITROGLYCERIN 50MCG/ML 10ML VIAL (CATH LAB) IV ONE (08:04)
[2021-10-13] MEDS: DILTIAZEM HCL 30MG TABLET PO SCH ×2 (09:00→20:38)
[2021-10-13] MEDS: CARVEDILOL 3.125 MG TABLET PO SCH ×2 (09:00→20:38)
[2021-10-13] MEDS: ASPIRIN 81MG EC TABLET PO SCH (09:00)
[2021-10-13 09:17] LABS: BASOPHILS % 1.1 % (0.0-2.0); EOSINOPHILS % 2.9 % (0.0-5.0); HEMOGLOBIN. 13.8 g/dL (14.0-18.0); LYMPHOCYTES % 29.2 % (20.0-50.0); MEAN CORPUSCULAR HEMOGLOBIN 27.7 pg (28.0-32.0); MEAN CORPUSCULAR VOLUME 86.3 fL (80.0-94.0); MEAN PLATELET VOLUME 8.3 fl (7.4-10.4); NEUTROPHILS % 52.8 % (40.0-76.0); PLATELET 171 x1000/uL (130-400); RED BLOOD CELL COUNT 4.99 mill/uL (4.7-6.1); RED CELL DISTRIBUTION WIDTH 14.2 % (11.6-14.6)
[2021-10-13] MEDS: FUROSEMIDE 40MG/4ML VIAL IVP SCH (09:21)
[2021-10-13] MEDS: MORPHINE SULFATE 2 MG/ML CPJ (NOT FOR IM USE) IV PRN ×2 (09:22→20:37)
[2021-10-13 09:26] LABS: CHLORIDE 110 mEq/L (98-107)
[2021-10-13] MEDS ORDERED: LIDOCAINE HCL 1% 30ML VIAL (10MG/ML) ONE (12:21)
[2021-10-13] MEDS ORDERED: IODIXANOL 320MG/ML 100 ML BOTTLE IV ONE (12:21)
[2021-10-13] MEDS ORDERED: MIDAZOLAM HCL 2 MG/2 ML VIAL ONE ×3 (12:37→13:29)
[2021-10-13] MEDS ORDERED: FENTANYL CITRATE/PF 50MCG/ML 2ML VIAL ONE ×2 (12:38→13:29)
[2021-10-13] MEDS ORDERED: ASPIRIN/SOD BICARB/CITRIC ACID 324MG TAB EFF ONE (12:38)
[2021-10-13] MEDS ORDERED: HEPARIN 1000 UNITS/ML 10ML ONE (12:55)
[2021-10-13] MEDS ORDERED: FENTANYL CITRATE/PF 50MCG/ML 5ML VIAL ONE (12:59)
[2021-10-13] MEDS ORDERED: MIDAZOLAM HCL 5 MG/5 ML VIAL ONE (12:59)
[2021-10-13] MEDS ORDERED: LIDOCAINE HCL 1% 10 MG/ML 10ML VIAL ONE (12:59)
[2021-10-13] MEDS ORDERED: IOHEXOL-300 100 ML BOTTLE ONE (13:22)
[2021-10-13] MEDS ORDERED: ACETAMINOPHEN 325MG TABLET PO PRN (13:45)
[2021-10-13] MEDS ORDERED: CLOPIDOGREL 75MG TABLET PO SCH (13:45)
[2021-10-13] MEDS ORDERED: ONDANSETRON HCL 4MG/2ML INJ IV PRN (13:45)
[2021-10-13] MEDS ORDERED: ATROPINE SULFATE 1MG/10ML SYR IV PRN (13:45)
[2021-10-13] MEDS ORDERED: MORPHINE SULFATE 2 MG/ML CPJ (NOT FOR IM USE) IV PRN (13:45)
[2021-10-13] MEDS ORDERED: SODIUM CHLORIDE 0.45% 600 ML IV SCH (13:45)
[2021-10-13] MEDS: APIXABAN 5 MG TABLET PO SCH (20:33)
[2021-10-13] MEDS: ATORVASTATIN CALCIUM 40MG TABLET PO SCH (20:37)
[2021-10-14] VITALS (11 sets, daily range): BP systolic 108–138; BP diastolic 65–95
[2021-10-14] MEDS: LORAZEPAM 2MG/ML CPJ IV PRN (00:39)
[2021-10-14 05:17] LABS: CHLORIDE 107 mEq/L (98-107)
[2021-10-14 07:04] LABS: HEMOGLOBIN. 14.7 g/dL (14.0-18.0); MEAN CORPUSCULAR HEMOGLOBIN 28.1 pg (28.0-32.0); MEAN CORPUSCULAR VOLUME 86.4 fL (80.0-94.0); MEAN PLATELET VOLUME 8.4 fl (7.4-10.4); PLATELET 156 x1000/uL (130-400); RED BLOOD CELL COUNT 5.21 mill/uL (4.7-6.1); RED CELL DISTRIBUTION WIDTH 14.3 % (11.6-14.6)
[2021-10-14] MEDS: FUROSEMIDE 40MG/4ML VIAL IVP SCH (08:30)
[2021-10-14] MEDS: APIXABAN 5 MG TABLET PO SCH ×2 (08:31→21:55)
[2021-10-14] MEDS: CARVEDILOL 3.125 MG TABLET PO SCH ×2 (08:31→21:55)
[2021-10-14] MEDS: CLOPIDOGREL 75MG TABLET PO SCH (08:31)
[2021-10-14] MEDS: DILTIAZEM HCL 30MG TABLET PO SCH ×2 (08:32→21:55)
[2021-10-14] MEDS: MORPHINE SULFATE 2 MG/ML CPJ (NOT FOR IM USE) IV PRN ×2 (08:32→17:04)
[2021-10-14] MEDS ORDERED: ASPIRIN 81MG TABLET PO SCH (09:00)
[2021-10-14] MEDS: HYDROCODONE/ACETAMINOPHEN 5/325MG TABLET PO PRN ×2 (12:23→21:56)
[2021-10-14 13:50] LABS: PLATELET ESTIMATE NORMAL
[2021-10-14] MEDS: ATORVASTATIN CALCIUM 40MG TABLET PO SCH (21:55)
[2021-10-15] VITALS (7 sets, daily range): BP systolic 112–153; BP diastolic 56–102
[2021-10-15] MEDS: TEMAZEPAM 15MG CAPSULE PO PRN (01:36)
[2021-10-15] MEDS ORDERED: HYDROCODONE/ACETAMINOPHEN 5/325MG TABLET PO PRN (08:30)
[2021-10-15] MEDS: DILTIAZEM HCL 30MG TABLET PO SCH (09:00)
[2021-10-15] MEDS ORDERED: ASPIRIN 81MG TABLET PO SCH (09:00)
[2021-10-15] MEDS ORDERED: FUROSEMIDE 40MG TABLET PO SCH (09:00)
[2021-10-15] MEDS: APIXABAN 5 MG TABLET PO SCH (10:11)
[2021-10-15] MEDS: CLOPIDOGREL 75MG TABLET PO SCH (10:11)
[2021-10-15] MEDS: CARVEDILOL 3.125 MG TABLET PO SCH (10:11)
== END 2021-10-15 13:25 | disposition home or self-care (01) | DRG 175 ==
LOC: ER 13:38 → 6WST 18:17 → ENRESERV 19:52 → 3WST 10-13 15:04
PROVIDERS: ADMIT Internal Medicine; ATTEND Internal Medicine
PROC: 4A023N7 Measurement of Cardiac Sampling and Pressure, Left Heart, Percutaneous Approach (ICD-10-PCS; principal; 2021-10-13)
PROC: 027135Z Dilation of Coronary Artery, Two Arteries with Two Drug-eluting Intraluminal Devices, Percutaneous Approach (ICD-10-PCS; 2021-10-13)
PROC: B2111ZZ Fluoroscopy of Multiple Coronary Arteries using Low Osmolar Contrast (ICD-10-PCS; 2021-10-13)
DX: I25.10 Atherosclerotic heart disease of native coronary artery without angina pectoris (principal); N17.0 Acute kidney failure with tubular necrosis; R07.89 Other chest pain; I50.9 Heart failure, unspecified; I42.0 Dilated cardiomyopathy; I13.0 Hypertensive heart and chronic kidney disease with heart failure and stage 1 through stage 4 chronic kidney disease, or unspecified chronic kidney disease; I27.21 Secondary pulmonary arterial hypertension; N18.9 Chronic kidney disease, unspecified; J44.9 Chronic obstructive pulmonary disease, unspecified; E78.5 Hyperlipidemia, unspecified; E78.00 Pure hypercholesterolemia, unspecified; E87.5 Hyperkalemia; I25.5 Ischemic cardiomyopathy; I48.19 Other persistent atrial fibrillation; Z20.822 Contact with and (suspected) exposure to COVID-19; Z79.01 Long term (current) use of anticoagulants; Z86.718 Personal history of other venous thrombosis and embolism; Z91.19 Patient's noncompliance with other medical treatment and regimen; Z95.810 Presence of automatic (implantable) cardiac defibrillator; Z79.899 Other long term (current) drug therapy; Z79.82 Long term (current) use of aspirin
CPT/HCPCS: 36415; 36600; 71045; 80048; 80053; 82375; 82805; 83735; 83880; 84443; 84484; 85025; 85347; 87426; 92928; 92929; 93005; 93458; 94618; 94640; 99285; C1769; C1874; C1887; C1893; J1644; J1650; J1885; J1940; J2060; J2250; J2270; J3010; J3490; Q9967

== ENCOUNTER 2021-10-18 16:11 | Inpatient (IN) | payer MEDICARE, MEDICAID ==
[~2021-10-18] VITALS: Ht 182.9 cm; Wt 63.1 kg
[~2021-10-18 16:11] MED LIST changes: +CARV3.1242 PO; -LISI10TA26 PO
[2021-10-18 19:36] LABS: BASOPHILS % 1.4 % (0.0-2.0); EOSINOPHILS % 2.6 % (0.0-5.0); HEMATOCRIT. 46.3 % (42.0-52.0); LYMPHOCYTES % 36.4 % (20.0-50.0); MEAN CORPUSCULAR HEMOGLOBIN 28.1 pg (28.0-32.0); MEAN CORPUSCULAR VOLUME 86.8 fL (80.0-94.0); MEAN PLATELET VOLUME 8.2 fl (7.4-10.4); MONOCYTES % 12.9 % (2.0-8.0); NEUTROPHILS % 46.7 % (40.0-76.0); PLATELET 162 x1000/uL (130-400); RED BLOOD CELL COUNT 5.34 mill/uL (4.7-6.1); RED CELL DISTRIBUTION WIDTH 14.4 % (11.6-14.6)
[2021-10-18 19:42] LABS: CHLORIDE 110 mEq/L (98-107)
[2021-10-19] MEDS: NITROGLYCERIN 0.4MG TABLET SL SL PRN ×2 (01:11→02:23)
[2021-10-19 02:50] VITALS: BP 131/91
[2021-10-19 04:00] VITALS: BP 134/94
[2021-10-19] MEDS ORDERED: NITROGLYCERIN 0.4MG TABLET SL SL PRN (06:45)
[2021-10-19] MEDS ORDERED: ALBUTEROL 6.7GM HFA INHALER INH PRN (06:45)
[2021-10-19] MEDS ORDERED: NALOXONE HCL 0.4MG/ML VIAL IV PRN (06:45)
[2021-10-19] MEDS ORDERED: ONDANSETRON HCL 4MG TABLET PO PRN (06:45)
[2021-10-19] MEDS ORDERED: TEMAZEPAM 15MG CAPSULE PO PRN (06:45)
[2021-10-19] MEDS ORDERED: ALBUTEROL (0.083%) 2.5MG/3ML NEB HHN PRN (07:00)
[2021-10-19 08:00] VITALS: BP 117/86
[2021-10-19] MEDS: MORPHINE SULFATE 2 MG/ML CPJ (NOT FOR IM USE) IV PRN ×3 (09:08→22:06)
[2021-10-19] MEDS: DILTIAZEM HCL 30MG TABLET PO SCH ×2 (09:39→21:53)
[2021-10-19] MEDS: CARVEDILOL 3.125 MG TABLET PO SCH ×2 (09:39→21:52)
[2021-10-19] MEDS: APIXABAN 5 MG TABLET PO SCH ×2 (09:39→16:08)
[2021-10-19] MEDS: POTASSIUM CHLORIDE 10MEQ TABLET SR PO SCH (09:40)
[2021-10-19] MEDS: ASPIRIN 81MG EC TABLET PO SCH (09:40)
[2021-10-19] MEDS: FUROSEMIDE 40MG TABLET PO SCH (09:40)
[2021-10-19 11:56] VITALS: BP 114/77
[2021-10-19 15:23] VITALS: BP 142/76
[2021-10-19 16:39] LABS: CREATINE KINASE MB FRACTION 5.9 ng/mL (0.5-3.6)
[2021-10-19 20:00] VITALS: BP 128/82
[2021-10-19] MEDS: ATORVASTATIN CALCIUM 40MG TABLET PO SCH (21:50)
[2021-10-20] VITALS: BP 125/84
[2021-10-20 00:16] LABS: CREATINE KINASE MB FRACTION 5.5 ng/mL (0.5-3.6)
[2021-10-20 04:00] VITALS: BP 141/89
[2021-10-20] MEDS: HYDROCODONE/ACETAMINOPHEN 10/325MG TABLET PO PRN (06:33)
[2021-10-20 08:00] VITALS: BP 138/96
[2021-10-20] MEDS: ASPIRIN 81MG EC TABLET PO SCH (08:32)
[2021-10-20] MEDS: POTASSIUM CHLORIDE 10MEQ TABLET SR PO SCH (08:32)
[2021-10-20] MEDS: APIXABAN 5 MG TABLET PO SCH ×2 (08:32→18:03)
[2021-10-20] MEDS: FUROSEMIDE 40MG TABLET PO SCH (08:32)
[2021-10-20] MEDS: CARVEDILOL 3.125 MG TABLET PO SCH ×2 (08:33→20:53)
[2021-10-20] MEDS: DILTIAZEM HCL 30MG TABLET PO SCH ×2 (08:33→20:53)
[2021-10-20] MEDS ORDERED: CLOPIDOGREL 75MG TABLET PO NR (10:00)
[2021-10-20 12:05] VITALS: BP 107/83
[2021-10-20] MEDS: CAPSAICIN 0.025% CREAM 60GM TOP SCH ×2 (12:36→20:52)
[2021-10-20 15:50] LABS: HEMATOCRIT 45.7 % (42.0-52.0); HEMOGLOBIN 14.7 g/dL (14.0-18.0); MEAN CORPUSCULAR HEMOGLOBIN 27.8 pg (28.0-32.0); MEAN CORPUSCULAR VOLUME 86.2 fL (80.0-94.0); PLATELET 188 x1000/uL (130-400); RED CELL DISTRIBUTION WIDTH 14.2 % (11.6-14.6)
[2021-10-20 16:00] VITALS: BP 118/63
[2021-10-20 16:05] LABS: CHLORIDE 109 mEq/L (98-107)
[2021-10-20 16:14] LABS: CREATINE KINASE 171 IU/L (39-308)
[2021-10-20 16:16] LABS: CREATINE KINASE MB FRACTION 5.5 ng/mL (0.5-3.6)
[2021-10-20 20:00] VITALS: BP 135/81
[2021-10-20] MEDS: ATORVASTATIN CALCIUM 40MG TABLET PO SCH (20:54)
[2021-10-21] VITALS (7 sets, daily range): BP systolic 109–142; BP diastolic 65–85
[2021-10-21] MEDS: CAPSAICIN 0.025% CREAM 60GM TOP SCH ×3 (03:00→19:00)
[2021-10-21] MEDS: POTASSIUM CHLORIDE 10MEQ TABLET SR PO SCH (08:38)
[2021-10-21] MEDS: APIXABAN 5 MG TABLET PO SCH ×2 (08:38→17:00)
[2021-10-21] MEDS: DILTIAZEM HCL 30MG TABLET PO SCH (08:38)
[2021-10-21] MEDS: ASPIRIN 81MG EC TABLET PO SCH (08:38)
[2021-10-21] MEDS: FUROSEMIDE 40MG TABLET PO SCH (08:38)
[2021-10-21] MEDS: HYDROCODONE/ACETAMINOPHEN 10/325MG TABLET PO PRN (08:39)
[2021-10-21] MEDS: CARVEDILOL 3.125 MG TABLET PO SCH (08:39)
[2021-10-21] MEDS ORDERED: CLOPIDOGREL 75MG TABLET PO SCH (09:00)
[2021-10-21] MEDS: MORPHINE SULFATE 2 MG/ML CPJ (NOT FOR IM USE) IV PRN (14:36)
[2021-10-21] MEDS ORDERED: ALBU6.7H9 INH (15:45)
== END 2021-10-21 20:20 | disposition home health service (06) | DRG 203 ==
LOC: ER 16:11 → 6WST 23:16 → ENRESERV 10-19 01:27
PROVIDERS: ADMIT Internal Medicine; ATTEND Internal Medicine
DX: M94.0 Chondrocostal junction syndrome [Tietze] (principal); I27.21 Secondary pulmonary arterial hypertension; I42.0 Dilated cardiomyopathy; I11.0 Hypertensive heart disease with heart failure; D64.9 Anemia, unspecified; I25.10 Atherosclerotic heart disease of native coronary artery without angina pectoris; E78.5 Hyperlipidemia, unspecified; I25.5 Ischemic cardiomyopathy; I48.20 Chronic atrial fibrillation, unspecified; I50.22 Chronic systolic (congestive) heart failure; G89.4 Chronic pain syndrome; J44.9 Chronic obstructive pulmonary disease, unspecified; Z79.01 Long term (current) use of anticoagulants; Z95.5 Presence of coronary angioplasty implant and graft; Z95.810 Presence of automatic (implantable) cardiac defibrillator; I25.2 Old myocardial infarction; Z79.82 Long term (current) use of aspirin; Z79.899 Other long term (current) drug therapy; Z86.73 Personal history of transient ischemic attack (TIA), and cerebral infarction without residual deficits
CPT/HCPCS: 36415; 71045; 80048; 80053; 82550; 82553; 83880; 84484; 85025; 85027; 93005; 99285; C1893; J2270

== ENCOUNTER 2021-11-04 13:49 | Emergency (ER) | payer MEDICARE, MEDICAID ==
[~2021-11-04] VITALS: Ht 172.7 cm; Wt 75.0 kg
[~2021-11-04 13:49] MED LIST changes: -ALBU18HF2 IH; +ALBU6.7H9 INH
[2021-11-04] MEDS ORDERED: ONDANSETRON HCL 4MG/2ML INJ IV STA (14:20)
[2021-11-04] MEDS ORDERED: MORPHINE SULFATE 4 MG/ML CPJ (NOT FOR IM USE) IV STA (14:20)
[2021-11-04 15:00] LABS: BASOPHILS % 1.1 % (0.0-2.0); EOSINOPHILS % 2.4 % (0.0-5.0); HEMATOCRIT. 47.4 % (42.0-52.0); HEMOGLOBIN. 15.2 g/dL (14.0-18.0); MEAN CORPUSCULAR HEMOGLOBIN 28.1 pg (28.0-32.0); MEAN CORPUSCULAR VOLUME 87.5 fL (80.0-94.0); MEAN PLATELET VOLUME 8.7 fl (7.4-10.4); MONOCYTES % 11.5 % (2.0-8.0); PLATELET 175 x1000/uL (130-400); RED BLOOD CELL COUNT 5.41 mill/uL (4.7-6.1); RED CELL DISTRIBUTION WIDTH 14.6 % (11.6-14.6)
[2021-11-04 15:05] LABS: CHLORIDE 110 mEq/L (98-107)
[2021-11-04 15:09] LABS: ETHANOL BLOOD < 10 mg/dL
[2021-11-04] MEDS ORDERED: FUROSEMIDE 40MG/4ML VIAL IVP ONE (15:30)
[2021-11-04 16:09] VITALS: BP 11/70
== END 2021-11-04 16:32 | disposition home or self-care (01) ==
LOC: ER 13:49
DX: I48.91 Unspecified atrial fibrillation (principal); I11.0 Hypertensive heart disease with heart failure; I50.9 Heart failure, unspecified; I25.2 Old myocardial infarction; I10 Essential (primary) hypertension; F17.200 Nicotine dependence, unspecified, uncomplicated; J44.1 Chronic obstructive pulmonary disease with (acute) exacerbation; Z79.899 Other long term (current) drug therapy
CPT/HCPCS: 36415; 71045; 80053; 80320; 83690; 83880; 84484; 85025; 93005; 96374; 96375; 99285; J1940; J2270; J2405; G0480

== ENCOUNTER 2021-11-12 19:28 | Inpatient (IN) | payer MEDICARE, MEDICAID ==
[~2021-11-12] VITALS: Ht 180.3 cm; Wt 63.0 kg
[2021-11-12 21:57] LABS: BASOPHILS % 0.6 % (0.0-2.0); EOSINOPHILS % 0.3 % (0.0-5.0); HEMATOCRIT. 49.1 % (42.0-52.0); LYMPHOCYTES % 41.3 % (20.0-50.0); MEAN CORPUSCULAR VOLUME 85.6 fL (80.0-94.0); MEAN PLATELET VOLUME 9.3 fl (7.4-10.4); MONOCYTES % 14.2 % (2.0-8.0); NEUTROPHILS % 43.6 % (40.0-76.0); PLATELET 124 x1000/uL (130-400); RED BLOOD CELL COUNT 5.73 mill/uL (4.7-6.1); RED CELL DISTRIBUTION WIDTH 14.3 % (11.6-14.6)
[2021-11-12 22:02] LABS: CHLORIDE 108 mEq/L (98-107)
[2021-11-12] MEDS ORDERED: ASPIRIN 325MG EC TABLET PO ONE (23:00)
[2021-11-13 06:34] VITALS: BP 109/76
[2021-11-13] MEDS ORDERED: EMPA25TA PO (06:54)
[2021-11-13] MEDS ORDERED: POTA10TA11 MT (06:54)
[2021-11-13 08:00] VITALS: BP 107/76
[2021-11-13] MEDS ORDERED: *PATIENT'S OWN MEDICATION STORAGE XX SCH (08:15)
[2021-11-13] MEDS ORDERED: NITROGLYCERIN 0.4MG TABLET SL SL PRN (08:45)
[2021-11-13] MEDS ORDERED: ACETAMINOPHEN 325MG TABLET PO PRN (08:45)
[2021-11-13] MEDS ORDERED: MORPHINE SULFATE 2 MG/ML CPJ (NOT FOR IM USE) IV PRN (08:45)
[2021-11-13] MEDS ORDERED: CLONIDINE 0.2MG TABLET PO PRN (08:45)
[2021-11-13] MEDS ORDERED: ONDANSETRON HCL 4MG/2ML INJ IV PRN (08:45)
[2021-11-13] MEDS: CARVEDILOL 3.125 MG TABLET PO SCH ×2 (09:30→21:00)
[2021-11-13] MEDS ORDERED: DILTIAZEM HCL 30MG TABLET PO SCH (09:30)
[2021-11-13] MEDS ORDERED: ENOXAPARIN 40MG/0.4ML SYR SUBCUT SCH (09:30)
[2021-11-13] MEDS ORDERED: NALOXONE HCL 0.4MG/ML VIAL IV PRN (09:30)
[2021-11-13] MEDS ORDERED: FUROSEMIDE 40MG TABLET PO SCH (09:30)
[2021-11-13] MEDS: ASPIRIN 81MG TABLET PO SCH (10:06)
[2021-11-13] MEDS: MORPHINE SULFATE 2 MG/ML CPJ (NOT FOR IM USE) IV PRN ×2 (10:34→16:09)
[2021-11-13] MEDS ORDERED: CLOPIDOGREL 75MG TABLET PO NR (10:45)
[2021-11-13 12:00] VITALS: BP 113/85
[2021-11-13 16:00] VITALS: BP 108/75
[2021-11-13] MEDS: APIXABAN 5 MG TABLET PO SCH (17:10)
[2021-11-13] MEDS: FUROSEMIDE 40MG/4ML VIAL IVP SCH (17:11)
[2021-11-13 20:00] VITALS: BP 101/60
[2021-11-13] MEDS: ATORVASTATIN CALCIUM 40MG TABLET PO SCH (22:04)
[2021-11-14] VITALS: BP 118/80
[2021-11-14] MEDS: MORPHINE SULFATE 2 MG/ML CPJ (NOT FOR IM USE) IV PRN ×3 (00:17→16:52)
[2021-11-14 04:00] VITALS: BP 109/79
[2021-11-14 08:07] VITALS: BP 104/78
[2021-11-14] MEDS: ASPIRIN 81MG TABLET PO SCH (08:37)
[2021-11-14] MEDS: LISINOPRIL 2.5MG TABLET PO SCH (08:37)
[2021-11-14] MEDS: APIXABAN 5 MG TABLET PO SCH ×2 (08:37→16:52)
[2021-11-14] MEDS: FUROSEMIDE 40MG/4ML VIAL IVP SCH ×2 (08:37→16:52)
[2021-11-14] MEDS: CARVEDILOL 3.125 MG TABLET PO SCH ×2 (08:38→21:02)
[2021-11-14] MEDS: POTASSIUM CHLORIDE 20MEQ TABLET SR PO SCH (08:38)
[2021-11-14] MEDS: CLOPIDOGREL 75MG TABLET PO SCH (08:38)
[2021-11-14 12:28] VITALS: BP 105/72
[2021-11-14 16:00] VITALS: BP 109/75
[2021-11-14 17:24] LABS: BASOPHILS % 0.4 % (0.0-2.0); EOSINOPHILS % 1.2 % (0.0-5.0); LYMPHOCYTES % 34.9 % (20.0-50.0); MEAN CORPUSCULAR HEMOGLOBIN 27.8 pg (28.0-32.0); MEAN CORPUSCULAR VOLUME 85.4 fL (80.0-94.0); MEAN PLATELET VOLUME 9.9 fl (7.4-10.4); MONOCYTES % 12.5 % (2.0-8.0); PLATELET 148 x1000/uL (130-400); RED BLOOD CELL COUNT 5.74 mill/uL (4.7-6.1); RED CELL DISTRIBUTION WIDTH 14.1 % (11.6-14.6)
[2021-11-14 17:40] LABS: CHLORIDE 109 mEq/L (98-107)
[2021-11-14 20:00] VITALS: BP 115/73
[2021-11-14] MEDS: ATORVASTATIN CALCIUM 40MG TABLET PO SCH (21:01)
[2021-11-15] VITALS (7 sets, daily range): BP systolic 96–120; BP diastolic 65–86
[2021-11-15] MEDS: MORPHINE SULFATE 2 MG/ML CPJ (NOT FOR IM USE) IV PRN ×3 (00:33→17:09)
[2021-11-15] MEDS: TEMAZEPAM 15MG CAPSULE PO PRN ×2 (02:26→22:35)
[2021-11-15 08:29] LABS: EOSINOPHILS % 2.1 % (0.0-5.0); HEMATOCRIT. 49.6 % (42.0-52.0); HEMOGLOBIN. 16.5 g/dL (14.0-18.0); LYMPHOCYTES % 32.6 % (20.0-50.0); MEAN CORPUSCULAR HEMOGLOBIN 28.5 pg (28.0-32.0); MEAN CORPUSCULAR VOLUME 85.6 fL (80.0-94.0); MEAN PLATELET VOLUME 9.9 fl (7.4-10.4); MONOCYTES % 13.4 % (2.0-8.0); NEUTROPHILS % 50.9 % (40.0-76.0); PLATELET 135 x1000/uL (130-400)
[2021-11-15] MEDS: CARVEDILOL 3.125 MG TABLET PO SCH ×2 (08:41→20:50)
[2021-11-15] MEDS: ASPIRIN 81MG TABLET PO SCH (08:41)
[2021-11-15] MEDS: LISINOPRIL 2.5MG TABLET PO SCH (08:41)
[2021-11-15] MEDS: FUROSEMIDE 40MG/4ML VIAL IVP SCH ×2 (08:41→16:25)
[2021-11-15] MEDS: POTASSIUM CHLORIDE 20MEQ TABLET SR PO SCH (08:42)
[2021-11-15] MEDS: CLOPIDOGREL 75MG TABLET PO SCH (08:42)
[2021-11-15] MEDS: APIXABAN 5 MG TABLET PO SCH ×2 (08:42→16:25)
[2021-11-15 09:19] LABS: CHLORIDE 109 mEq/L (98-107)
[2021-11-15] MEDS: ATORVASTATIN CALCIUM 40MG TABLET PO SCH (20:49)
[2021-11-16] VITALS: BP 133/83
[2021-11-16] MEDS: MORPHINE SULFATE 2 MG/ML CPJ (NOT FOR IM USE) IV PRN ×3 (01:09→20:10)
[2021-11-16 04:00] VITALS: BP 121/73
[2021-11-16] MEDS: LISINOPRIL 2.5MG TABLET PO SCH (09:00)
[2021-11-16] MEDS: CARVEDILOL 3.125 MG TABLET PO SCH ×2 (09:00→20:09)
[2021-11-16 09:42] VITALS: BP 109/87
[2021-11-16] MEDS: ASPIRIN 81MG TABLET PO SCH (09:44)
[2021-11-16] MEDS: APIXABAN 5 MG TABLET PO SCH ×2 (09:44→17:25)
[2021-11-16] MEDS: CLOPIDOGREL 75MG TABLET PO SCH (09:44)
[2021-11-16] MEDS: FUROSEMIDE 40MG TABLET PO SCH (09:52)
[2021-11-16 12:00] VITALS: BP 111/75
[2021-11-16 16:00] VITALS: BP 105/84
[2021-11-16 20:00] VITALS: BP 116/54
[2021-11-16] MEDS: ATORVASTATIN CALCIUM 40MG TABLET PO SCH (20:09)
[2021-11-16] MEDS: TEMAZEPAM 15MG CAPSULE PO PRN (23:36)
[2021-11-17] VITALS (7 sets, daily range): BP systolic 108–139; BP diastolic 65–99
[2021-11-17] MEDS: MORPHINE SULFATE 2 MG/ML CPJ (NOT FOR IM USE) IV PRN ×2 (06:22→17:01)
[2021-11-17] MEDS: ASPIRIN 81MG TABLET PO SCH (09:22)
[2021-11-17] MEDS: CARVEDILOL 3.125 MG TABLET PO SCH ×2 (09:23→21:00)
[2021-11-17] MEDS: LISINOPRIL 2.5MG TABLET PO SCH (09:23)
[2021-11-17] MEDS: APIXABAN 5 MG TABLET PO SCH ×2 (09:23→17:01)
[2021-11-17] MEDS: CLOPIDOGREL 75MG TABLET PO SCH (09:23)
[2021-11-17] MEDS: FUROSEMIDE 40MG TABLET PO SCH (09:23)
[2021-11-17] MEDS: ATORVASTATIN CALCIUM 40MG TABLET PO SCH (21:36)
[2021-11-17] MEDS: HYDROCODONE/ACETAMINOPHEN 10/325MG TABLET PO PRN (21:37)
[2021-11-17] MEDS ORDERED: MORPHINE SULFATE 2 MG/ML CPJ (NOT FOR IM USE) IV PRN (22:00)
[2021-11-18] MEDS: TEMAZEPAM 15MG CAPSULE PO PRN (01:42)
[2021-11-18 04:00] VITALS: BP 111/81
[2021-11-18 08:00] VITALS: BP 112/76
[2021-11-18] MEDS: LISINOPRIL 2.5MG TABLET PO SCH (09:54)
[2021-11-18] MEDS: APIXABAN 5 MG TABLET PO SCH (09:54)
[2021-11-18] MEDS: ASPIRIN 81MG TABLET PO SCH (09:54)
[2021-11-18] MEDS: FUROSEMIDE 40MG TABLET PO SCH (09:54)
[2021-11-18] MEDS: CARVEDILOL 3.125 MG TABLET PO SCH (09:55)
[2021-11-18] MEDS: CLOPIDOGREL 75MG TABLET PO SCH (09:55)
[2021-11-18 12:00] VITALS: BP 117/85
[2021-11-18 14:48] VITALS: BP 113/85
[2021-11-18] MEDS: HYDROCODONE/ACETAMINOPHEN 10/325MG TABLET PO PRN (14:48)
== END 2021-11-18 14:45 | disposition home health service (06) | DRG 201 ==
LOC: ER 19:28 → 7EST 11-13 00:15 → ENRESERV 11-13 04:30
PROVIDERS: ADMIT Internal Medicine; ATTEND Internal Medicine
DX: I48.19 Other persistent atrial fibrillation (principal); D69.6 Thrombocytopenia, unspecified; I27.21 Secondary pulmonary arterial hypertension; I25.110 Atherosclerotic heart disease of native coronary artery with unstable angina pectoris; I42.0 Dilated cardiomyopathy; I11.0 Hypertensive heart disease with heart failure; I50.9 Heart failure, unspecified; E11.9 Type 2 diabetes mellitus without complications; I10 Essential (primary) hypertension; J45.909 Unspecified asthma, uncomplicated; E78.5 Hyperlipidemia, unspecified; I25.5 Ischemic cardiomyopathy; J44.9 Chronic obstructive pulmonary disease, unspecified; Z82.49 Family history of ischemic heart disease and other diseases of the circulatory system; Z86.718 Personal history of other venous thrombosis and embolism; I25.2 Old myocardial infarction; Z76.5 Malingerer [conscious simulation]; Z79.01 Long term (current) use of anticoagulants; Z79.02 Long term (current) use of antithrombotics/antiplatelets; Z79.82 Long term (current) use of aspirin; Z95.5 Presence of coronary angioplasty implant and graft; Z95.810 Presence of automatic (implantable) cardiac defibrillator; Z79.899 Other long term (current) drug therapy; Z79.891 Long term (current) use of opiate analgesic; Z79.84 Long term (current) use of oral hypoglycemic drugs
CPT/HCPCS: 36415; 71045; 80048; 80053; 83880; 84484; 85025; 93005; 97162; 99285; J1650; J1940; J2270

== ENCOUNTER 2022-02-28 12:54 | Inpatient (IN) | payer MEDICARE, MEDICAID ==
[~2022-02-28] VITALS: Ht 190.5 cm; Wt 65.3 kg
[~2022-02-28 12:54] MED LIST changes: +EMPA25TA PO; +LOSA1TAB37 PO
[2022-02-28] MEDS ORDERED: ALBUTEROL (0.083%) 2.5MG/3ML NEB HHN ONE (13:30)
[2022-02-28 14:26] LABS: BASOPHILS % 1.1 % (0.0-2.0); EOSINOPHILS % 2.8 % (0.0-5.0); HEMOGLOBIN. 15.5 g/dL (14.0-18.0); LYMPHOCYTES % 29.7 % (20.0-50.0); MEAN CORPUSCULAR HEMOGLOBIN 28.8 pg (28.0-32.0); MEAN PLATELET VOLUME 8.5 fl (7.4-10.4); MONOCYTES % 8.5 % (2.0-8.0); NEUTROPHILS % 57.9 % (40.0-76.0); PLATELET 171 x1000/uL (130-400); RED BLOOD CELL COUNT 5.41 mill/uL (4.7-6.1); RED CELL DISTRIBUTION WIDTH 15.4 % (11.6-14.6)
[2022-02-28 14:46] LABS: CHLORIDE 107 mEq/L (98-107)
[2022-02-28] MEDS ORDERED: NITROGLYCERIN OINT 1GM/INCH UDPKT TD NR (15:00)
[2022-02-28] MEDS ORDERED: FUROSEMIDE 40MG/4ML VIAL IVP NR (15:00)
[2022-02-28] MEDS ORDERED: NITROGLYCERIN 0.4MG TABLET SL SL PRN (18:15)
[2022-02-28] MEDS ORDERED: ONDANSETRON HCL 4MG/2ML INJ IV PRN (18:15)
[2022-02-28] MEDS: APIXABAN 5 MG TABLET PO SCH (18:54)
[2022-02-28] MEDS: ASPIRIN 81MG EC TABLET PO SCH (18:54)
[2022-02-28] MEDS: FUROSEMIDE 40MG TABLET PO SCH (18:55)
[2022-02-28 20:00] VITALS: BP 131/101
[2022-02-28] MEDS: MORPHINE SULFATE 2 MG/ML CPJ (NOT FOR IM USE) IV PRN (21:08)
[2022-02-28] MEDS: DILTIAZEM HCL 30MG TABLET PO SCH (21:09)
[2022-02-28] MEDS: ATORVASTATIN CALCIUM 40MG TABLET PO SCH (21:09)
[2022-02-28] MEDS: CARVEDILOL 3.125 MG TABLET PO SCH (21:16)
[2022-02-28 21:58] VITALS: BP 145/98
[2022-03-01] VITALS: BP 129/74
[2022-03-01] MEDS: MORPHINE SULFATE 2 MG/ML CPJ (NOT FOR IM USE) IV PRN ×5 (01:06→19:06)
[2022-03-01 04:00] VITALS: BP 138/82
[2022-03-01 08:00] VITALS: BP 114/76
[2022-03-01] MEDS: ASPIRIN 81MG EC TABLET PO SCH (09:24)
[2022-03-01] MEDS: FUROSEMIDE 40MG TABLET PO SCH (09:24)
[2022-03-01] MEDS: CARVEDILOL 3.125 MG TABLET PO SCH ×2 (09:24→21:00)
[2022-03-01] MEDS: DILTIAZEM HCL 30MG TABLET PO SCH ×2 (09:24→21:54)
[2022-03-01] MEDS: APIXABAN 5 MG TABLET PO SCH ×2 (09:24→17:42)
[2022-03-01 12:00] VITALS: BP 119/83
[2022-03-01] MEDS: CLOPIDOGREL 75MG TABLET PO SCH (13:07)
[2022-03-01 16:00] VITALS: BP 114/80
[2022-03-01 20:00] VITALS: BP 114/73
[2022-03-01] MEDS: ATORVASTATIN CALCIUM 40MG TABLET PO SCH (21:54)
[2022-03-02] VITALS: BP 98/65
[2022-03-02 04:00] VITALS: BP 125/82
[2022-03-02 08:00] VITALS: BP 123/92
[2022-03-02] MEDS: MORPHINE SULFATE 2 MG/ML CPJ (NOT FOR IM USE) IV PRN ×4 (09:05→21:52)
[2022-03-02] MEDS: CLOPIDOGREL 75MG TABLET PO SCH (09:06)
[2022-03-02] MEDS: DILTIAZEM HCL 30MG TABLET PO SCH ×3 (09:06→21:53)
[2022-03-02] MEDS: CARVEDILOL 3.125 MG TABLET PO SCH ×2 (09:06→21:00)
[2022-03-02] MEDS: ASPIRIN 81MG EC TABLET PO SCH (09:06)
[2022-03-02] MEDS: FUROSEMIDE 40MG TABLET PO SCH (09:06)
[2022-03-02] MEDS: APIXABAN 5 MG TABLET PO SCH ×2 (09:07→17:03)
[2022-03-02 12:00] VITALS: BP 116/66
[2022-03-02] MEDS ORDERED: LIP40 PO (13:34)
[2022-03-02] MEDS ORDERED: FURO40TA5 PO (13:34)
[2022-03-02] MEDS ORDERED: COR3 PO (13:34)
[2022-03-02] MEDS ORDERED: ASPI-1406 PO (13:34)
[2022-03-02] MEDS ORDERED: CLOP75TA15 PO (13:34)
[2022-03-02] MEDS ORDERED: DILT30TA38 PO (13:34)
[2022-03-02] MEDS ORDERED: APIX5TAB PO (13:34)
[2022-03-02 16:00] VITALS: BP 125/78
[2022-03-02] MEDS: FUROSEMIDE 40MG/4ML VIAL IVP SCH (17:02)
[2022-03-02] MEDS ORDERED: LOSA50TA41 MT (17:49)
[2022-03-02 17:52] LABS: BASOPHILS % 1.1 % (0.0-2.0); EOSINOPHILS % 3.3 % (0.0-5.0); HEMATOCRIT. 46.8 % (42.0-52.0); HEMOGLOBIN. 15.4 g/dL (14.0-18.0); LYMPHOCYTES % 39.1 % (20.0-50.0); MEAN CORPUSCULAR HEMOGLOBIN 28.4 pg (28.0-32.0); MEAN CORPUSCULAR VOLUME 86.3 fL (80.0-94.0); MEAN PLATELET VOLUME 8.7 fl (7.4-10.4); MONOCYTES % 12.8 % (2.0-8.0); NEUTROPHILS % 43.7 % (40.0-76.0); PLATELET 159 x1000/uL (130-400); RED BLOOD CELL COUNT 5.43 mill/uL (4.7-6.1); RED CELL DISTRIBUTION WIDTH 15.1 % (11.6-14.6)
[2022-03-02 17:59] LABS: CHLORIDE 105 mEq/L (98-107)
[2022-03-02 18:08] LABS: LDL CHOLESTEROL 76 mg/dL (5-100)
[2022-03-02 18:09] LABS: CREATINE KINASE 125 IU/L (39-308); HDL CHOLESTEROL 66 mg/dL (40-59)
[2022-03-02 20:00] VITALS: BP 117/66
[2022-03-02] MEDS: ATORVASTATIN CALCIUM 40MG TABLET PO SCH (21:51)
[2022-03-03] VITALS: BP 112/68
[2022-03-03 04:00] VITALS: BP 107/62
[2022-03-03] MEDS: MORPHINE SULFATE 2 MG/ML CPJ (NOT FOR IM USE) IV PRN ×5 (05:25→21:04)
[2022-03-03] MEDS: DILTIAZEM HCL 30MG TABLET PO SCH (06:00)
[2022-03-03] MEDS: FUROSEMIDE 40MG/4ML VIAL IVP SCH ×2 (06:37→17:07)
[2022-03-03 08:00] VITALS: BP 120/74
[2022-03-03] MEDS: CLOPIDOGREL 75MG TABLET PO SCH (09:12)
[2022-03-03] MEDS: APIXABAN 5 MG TABLET PO SCH ×2 (09:12→17:07)
[2022-03-03] MEDS: ASPIRIN 81MG EC TABLET PO SCH (09:12)
[2022-03-03] MEDS: CARVEDILOL 3.125 MG TABLET PO SCH (09:12)
[2022-03-03 12:00] VITALS: BP 118/86
[2022-03-03 16:00] VITALS: BP 121/82
[2022-03-03 20:00] VITALS: BP 117/81
[2022-03-03] MEDS: CARVEDILOL 6.25 MG TABLET PO SCH (20:58)
[2022-03-03] MEDS: ATORVASTATIN CALCIUM 40MG TABLET PO SCH (21:03)
[2022-03-04] VITALS: BP 118/68
[2022-03-04] MEDS: MORPHINE SULFATE 2 MG/ML CPJ (NOT FOR IM USE) IV PRN ×5 (01:14→17:19)
[2022-03-04 04:00] VITALS: BP 123/84
[2022-03-04 08:00] VITALS: BP 112/58
[2022-03-04] MEDS: FUROSEMIDE 40MG/4ML VIAL IVP SCH ×2 (09:26→17:18)
[2022-03-04] MEDS: CLOPIDOGREL 75MG TABLET PO SCH (09:27)
[2022-03-04] MEDS: CARVEDILOL 6.25 MG TABLET PO SCH (09:27)
[2022-03-04] MEDS: ASPIRIN 81MG EC TABLET PO SCH (09:27)
[2022-03-04] MEDS: APIXABAN 5 MG TABLET PO SCH ×2 (09:27→17:19)
[2022-03-04 12:00] VITALS: BP 103/56
[2022-03-04 16:00] VITALS: BP 116/84
[2022-03-04 18:14] VITALS: BP 116/84
[2022-03-17] MEDS ORDERED: ZOLP5TAB2 MT (01:33)
== END 2022-03-04 19:05 | disposition home health service (06) | DRG 243 ==
LOC: ER 13:06 → 6WST 15:32 → EDBEDREQTM 15:46 → EDBEDREQ 15:46 → ENRESERV 17:10
PROVIDERS: ADMIT Family Medicine; ATTEND Family Medicine
DX: K21.9 Gastro-esophageal reflux disease without esophagitis (principal); I50.43 Acute on chronic combined systolic (congestive) and diastolic (congestive) heart failure; I27.21 Secondary pulmonary arterial hypertension; N19 Unspecified kidney failure; I48.20 Chronic atrial fibrillation, unspecified; I25.10 Atherosclerotic heart disease of native coronary artery without angina pectoris; R62.7 Adult failure to thrive; I11.0 Hypertensive heart disease with heart failure; I25.5 Ischemic cardiomyopathy; J44.9 Chronic obstructive pulmonary disease, unspecified; E78.5 Hyperlipidemia, unspecified; R79.89 Other specified abnormal findings of blood chemistry; Z95.5 Presence of coronary angioplasty implant and graft; Z95.810 Presence of automatic (implantable) cardiac defibrillator; Z68.1 Body mass index [BMI] 19.9 or less, adult; Z79.01 Long term (current) use of anticoagulants; Z79.84 Long term (current) use of oral hypoglycemic drugs; Z79.899 Other long term (current) drug therapy; Z79.82 Long term (current) use of aspirin; Z87.891 Personal history of nicotine dependence; F19.11 Other psychoactive substance abuse, in remission
CPT/HCPCS: 36415; 71045; 80053; 80061; 82550; 82553; 83735; 83880; 84484; 85025; 93005; 94640; 99285; J1940; J2270; J2405

== ENCOUNTER 2022-03-05 11:20 | Inpatient (IN) | payer MEDICARE, MEDICAID ==
[~2022-03-05] VITALS: Ht 175.3 cm; Wt 57.9 kg
[~2022-03-05 11:20] MED LIST changes: -ALBU6.7H9 INH; -ATOR40TA70 PO; -CARV3.1242 PO; +CLOP75TA15 PO; +COR3 PO; -EMPA25TA PO; -FURO40TA5 MT; +FURO40TA5 PO; -HYDR-4009 MT; +LIP40 PO; -LOSA1TAB37 PO; -ONDA4TAB5 PO; -TEMA15CA PO
[2022-03-05] MEDS ORDERED: ASPIRIN 325MG EC TABLET PO ONE (22:30)
[2022-03-06 00:12] LABS: EOSINOPHILS % 0.6 % (0.0-5.0); HEMATOCRIT. 53.4 % (42.0-52.0); HEMOGLOBIN. 17.2 g/dL (14.0-18.0); LYMPHOCYTES % 27.2 % (20.0-50.0); MEAN CORPUSCULAR HEMOGLOBIN 28.4 pg (28.0-32.0); MEAN CORPUSCULAR VOLUME 87.8 fL (80.0-94.0); MEAN PLATELET VOLUME 8.9 fl (7.4-10.4); MONOCYTES % 7.6 % (2.0-8.0); NEUTROPHILS % 63.6 % (40.0-76.0); PLATELET 153 x1000/uL (130-400); RED BLOOD CELL COUNT 6.07 mill/uL (4.7-6.1); RED CELL DISTRIBUTION WIDTH 14.8 % (11.6-14.6)
[2022-03-06 00:44] LABS: CHLORIDE 105 mEq/L (98-107)
[2022-03-06 06:31] VITALS: BP 125/98
[2022-03-06] MEDS ORDERED: NITROGLYCERIN 0.4MG TABLET SL SL PRN (07:15)
[2022-03-06 08:00] VITALS: BP 128/99
[2022-03-06] MEDS ORDERED: NALOXONE HCL 0.4MG/ML VIAL IV PRN (08:30)
[2022-03-06] MEDS ORDERED: FUROSEMIDE 40MG TABLET PO SCH (09:00)
[2022-03-06] MEDS: DILTIAZEM HCL 30MG TABLET PO SCH ×2 (09:03→21:17)
[2022-03-06] MEDS: CARVEDILOL 3.125 MG TABLET PO SCH ×2 (09:03→21:17)
[2022-03-06] MEDS: ASPIRIN 81MG EC TABLET PO SCH (09:04)
[2022-03-06] MEDS: APIXABAN 5 MG TABLET PO SCH ×2 (09:04→16:37)
[2022-03-06] MEDS: MORPHINE SULFATE 2 MG/ML CPJ (NOT FOR IM USE) IV PRN ×4 (09:05→21:16)
[2022-03-06 12:00] VITALS: BP 123/98
[2022-03-06 16:00] VITALS: BP 107/83
[2022-03-06 20:00] VITALS: BP 106/81
[2022-03-06] MEDS: ATORVASTATIN CALCIUM 40MG TABLET PO SCH (21:14)
[2022-03-07] VITALS: BP 90/69
[2022-03-07 04:32] VITALS: BP 108/62
[2022-03-07] MEDS: MORPHINE SULFATE 2 MG/ML CPJ (NOT FOR IM USE) IV PRN ×4 (06:16→20:34)
[2022-03-07] MEDS ORDERED: METOLAZONE 2.5MG TABLET PO NR (06:30)
[2022-03-07 07:47] VITALS: BP 122/83
[2022-03-07] MEDS: FUROSEMIDE 40MG/4ML VIAL IVP SCH (08:45)
[2022-03-07] MEDS: ASPIRIN 81MG EC TABLET PO SCH (08:45)
[2022-03-07] MEDS: POTASSIUM CHLORIDE 20MEQ TABLET SR PO SCH (08:45)
[2022-03-07] MEDS: DILTIAZEM HCL 30MG TABLET PO SCH ×2 (08:45→20:31)
[2022-03-07] MEDS: CARVEDILOL 3.125 MG TABLET PO SCH ×2 (08:46→20:31)
[2022-03-07] MEDS: APIXABAN 5 MG TABLET PO SCH ×2 (08:46→16:20)
[2022-03-07 11:31] VITALS: BP 110/81
[2022-03-07 15:14] VITALS: BP 101/65
[2022-03-07 16:43] LABS: BASOPHILS % 1.3 % (0.0-2.0); EOSINOPHILS % 2.9 % (0.0-5.0); HEMATOCRIT. 49.1 % (42.0-52.0); HEMOGLOBIN. 16.2 g/dL (14.0-18.0); LYMPHOCYTES % 41.8 % (20.0-50.0); MEAN CORPUSCULAR HEMOGLOBIN 28.9 pg (28.0-32.0); MEAN PLATELET VOLUME 8.7 fl (7.4-10.4); MONOCYTES % 10.2 % (2.0-8.0); NEUTROPHILS % 43.8 % (40.0-76.0); PLATELET 129 x1000/uL (130-400); RED BLOOD CELL COUNT 5.58 mill/uL (4.7-6.1); RED CELL DISTRIBUTION WIDTH 14.8 % (11.6-14.6)
[2022-03-07 16:48] LABS: CHLORIDE 104 mEq/L (98-107)
[2022-03-07 16:59] LABS: CREATINE KINASE 115 IU/L (39-308); CREATINE KINASE MB FRACTION 4.3 ng/mL (0.5-3.6)
[2022-03-07 20:00] VITALS: BP 130/77
[2022-03-07] MEDS: ATORVASTATIN CALCIUM 40MG TABLET PO SCH (20:32)
[2022-03-08] VITALS: BP 121/78
[2022-03-08] MEDS: ZOLPIDEM TARTRATE 5MG TABLET PO PRN ×2 (00:07→23:49)
[2022-03-08 04:00] VITALS: BP 114/66
[2022-03-08] MEDS: MORPHINE SULFATE 2 MG/ML CPJ (NOT FOR IM USE) IV PRN ×3 (06:16→18:22)
[2022-03-08 08:00] VITALS: BP 151/76
[2022-03-08] MEDS: ASPIRIN 81MG EC TABLET PO SCH (08:00)
[2022-03-08] MEDS: FUROSEMIDE 40MG/4ML VIAL IVP SCH (08:00)
[2022-03-08] MEDS: CARVEDILOL 3.125 MG TABLET PO SCH ×2 (08:00→20:55)
[2022-03-08] MEDS: POTASSIUM CHLORIDE 20MEQ TABLET SR PO SCH ×2 (08:01→16:24)
[2022-03-08] MEDS: APIXABAN 5 MG TABLET PO SCH ×2 (08:01→16:24)
[2022-03-08] MEDS: DILTIAZEM HCL 30MG TABLET PO SCH ×2 (08:01→20:52)
[2022-03-08 12:00] VITALS: BP 116/78
[2022-03-08 16:00] VITALS: BP 113/75
[2022-03-08] MEDS: FUROSEMIDE 100MG/10ML VIAL IVP SCH (16:24)
[2022-03-08 20:00] VITALS: BP 120/79
[2022-03-08] MEDS: ATORVASTATIN CALCIUM 40MG TABLET PO SCH (20:53)
[2022-03-09] VITALS: BP 118/75
[2022-03-09 04:00] VITALS: BP 116/81
[2022-03-09] MEDS: MORPHINE SULFATE 2 MG/ML CPJ (NOT FOR IM USE) IV PRN ×3 (05:32→14:11)
[2022-03-09] MEDS: FUROSEMIDE 100MG/10ML VIAL IVP SCH (07:05)
[2022-03-09 08:00] VITALS: BP 145/86
[2022-03-09] MEDS: ASPIRIN 81MG EC TABLET PO SCH (08:59)
[2022-03-09] MEDS: POTASSIUM CHLORIDE 20MEQ TABLET SR PO SCH (08:59)
[2022-03-09] MEDS: CARVEDILOL 3.125 MG TABLET PO SCH (09:00)
[2022-03-09] MEDS: DILTIAZEM HCL 30MG TABLET PO SCH (09:00)
[2022-03-09] MEDS: APIXABAN 5 MG TABLET PO SCH (09:00)
[2022-03-09 12:00] VITALS: BP 104/77
[2022-03-09 12:43] VITALS: BP 104/77
[2022-03-09 14:11] VITALS: BP 104/77
[2022-03-09] MEDS ORDERED: FUROSEMIDE 40MG TABLET PO SCH (21:00)
[2022-03-17] MEDS ORDERED: ZOLP5TAB2 MT (01:33)
== END 2022-03-09 16:05 | disposition home or self-care (01) | DRG 203 ==
LOC: ER 11:20 → MICUSO 03-06 01:50 → 8WST 03-06 03:08
PROVIDERS: ADMIT Internal Medicine; ATTEND Internal Medicine
DX: M94.0 Chondrocostal junction syndrome [Tietze] (principal); E46 Unspecified protein-calorie malnutrition; I27.20 Pulmonary hypertension, unspecified; D68.59 Other primary thrombophilia; I48.19 Other persistent atrial fibrillation; D64.9 Anemia, unspecified; D75.1 Secondary polycythemia; I11.0 Hypertensive heart disease with heart failure; I73.9 Peripheral vascular disease, unspecified; Z79.01 Long term (current) use of anticoagulants; I25.10 Atherosclerotic heart disease of native coronary artery without angina pectoris; I50.9 Heart failure, unspecified; G89.4 Chronic pain syndrome; I25.5 Ischemic cardiomyopathy; I45.10 Unspecified right bundle-branch block; J44.9 Chronic obstructive pulmonary disease, unspecified; Z79.899 Other long term (current) drug therapy; Z86.718 Personal history of other venous thrombosis and embolism; Z86.73 Personal history of transient ischemic attack (TIA), and cerebral infarction without residual deficits; I25.2 Old myocardial infarction; Z91.19 Patient's noncompliance with other medical treatment and regimen; Z95.828 Presence of other vascular implants and grafts; Z95.810 Presence of automatic (implantable) cardiac defibrillator; Z79.84 Long term (current) use of oral hypoglycemic drugs; Z68.1 Body mass index [BMI] 19.9 or less, adult; Z79.82 Long term (current) use of aspirin
CPT/HCPCS: 36415; 71045; 80048; 80053; 82550; 82553; 84484; 85025; 93005; 99285; J1940; J2270

== ENCOUNTER 2022-03-29 13:41 | Emergency (ER) | payer MEDICARE, MEDICAID ==
[~2022-03-29] VITALS: Ht 177.8 cm; Wt 90.0 kg
[~2022-03-29 13:41] MED LIST changes: +POTA-202 PO; -POTA-9 PO; +ZOLP5TAB2 MT
[2022-03-29] MEDS ORDERED: ACETAMINOPHEN 325MG TABLET PO ONE (16:15)
[2022-03-29 16:16] LABS: BASOPHILS % 0.4 % (0.0-2.0); EOSINOPHILS % 2.6 % (0.0-5.0); HEMATOCRIT. 51.4 % (42.0-52.0); LYMPHOCYTES % 34.4 % (20.0-50.0); MEAN CORPUSCULAR HEMOGLOBIN 28.8 pg (28.0-32.0); MEAN CORPUSCULAR VOLUME 87.2 fL (80.0-94.0); MEAN PLATELET VOLUME 8.4 fl (7.4-10.4); NEUTROPHILS % 52.6 % (40.0-76.0); PLATELET 167 x1000/uL (130-400); RED BLOOD CELL COUNT 5.89 mill/uL (4.7-6.1); RED CELL DISTRIBUTION WIDTH 14.2 % (11.6-14.6)
[2022-03-29 16:26] LABS: CHLORIDE 111 mEq/L (98-107)
[2022-03-29] MEDS ORDERED: FUROSEMIDE 40MG TABLET PO ONE (17:45)
[2022-03-29 18:17] VITALS: BP 141/101
[2022-03-29] MEDS ORDERED: MAGNESIUM/ALUMINUM HYDROXIDE/SIMETHICONE 30ML UDC PO ONE (19:00)
[2022-04-13] MEDS ORDERED: TOPUD MT (23:31)
[2022-04-13] MEDS ORDERED: LIDO700A30 TP (23:32)
== END 2022-03-29 19:09 | disposition home or self-care (01) ==
LOC: ER 13:41
DX: R07.89 Other chest pain (principal); I11.0 Hypertensive heart disease with heart failure; I50.9 Heart failure, unspecified; J45.909 Unspecified asthma, uncomplicated; J44.9 Chronic obstructive pulmonary disease, unspecified; I10 Essential (primary) hypertension; Z95.0 Presence of cardiac pacemaker; Z79.899 Other long term (current) drug therapy
CPT/HCPCS: 36415; 71045; 80053; 83880; 84484; 85025; 93005; 99285

== ENCOUNTER 2022-04-21 11:57 | Emergency (ER) | payer MEDICARE, MEDICAID ==
[~2022-04-21] VITALS: Ht 170.2 cm; Wt 79.0 kg
[~2022-04-21 11:57] MED LIST changes: +LIDO700A30 TP; -POTA-202 PO; +POTA-9 PO; +TOPUD MT
[2022-04-21] MEDS ORDERED: CETI10CA2 MT (15:50)
[2022-04-21 16:26] VITALS: BP 149/83
== END 2022-04-21 16:27 | disposition home or self-care (01) ==
LOC: ER 11:57
DX: I11.0 Hypertensive heart disease with heart failure (principal); I50.9 Heart failure, unspecified; E11.9 Type 2 diabetes mellitus without complications; Z79.899 Other long term (current) drug therapy; Z98.890 Other specified postprocedural states
CPT/HCPCS: 99283

== ENCOUNTER 2022-06-19 11:46 | Inpatient (IN) | payer MEDICARE, MEDICAID ==
[~2022-06-19] VITALS: Ht 180.3 cm; Wt 64.4 kg
[~2022-06-19 11:46] MED LIST changes: +CETI10CA2 MT; +POTA-202 PO; -POTA-9 PO
[2022-06-19] MEDS ORDERED: ASPIRIN 81MG TABLET PO ONE (12:15)
[2022-06-19 14:30] LABS: CHLORIDE 123 mEq/L (98-107)
[2022-06-19 14:38] LABS: ETHANOL BLOOD < 10 mg/dL
[2022-06-19 14:49] LABS: HEMATOCRIT. 44.4 % (42.0-52.0); HEMOGLOBIN. 14.4 g/dL (14.0-18.0); MEAN CORPUSCULAR HEMOGLOBIN 28.5 pg (28.0-32.0); MEAN CORPUSCULAR VOLUME 87.8 fL (80.0-94.0); MEAN PLATELET VOLUME 8.2 fl (7.4-10.4); PLATELET 110 x1000/uL (130-400); RED BLOOD CELL COUNT 5.06 mill/uL (4.7-6.1); RED CELL DISTRIBUTION WIDTH 18.1 % (11.6-14.6)
[2022-06-19] MEDS ORDERED: FUROSEMIDE 20MG TABLET PO ONE (15:15)
[2022-06-19] MEDS ORDERED: ONDANSETRON HCL 4MG/2ML INJ IV STA (15:33)
[2022-06-19] MEDS ORDERED: MORPHINE SULFATE 4 MG/ML CPJ (NOT FOR IM USE) IV STA (15:33)
[2022-06-19 16:00] VITALS: BP 130/88
[2022-06-19 16:43] LABS: *AMPHETAMINES SCREEN URINE NEGATIVE (NEGATIVE); *BARBITURATES SCREEN URINE NEGATIVE (NEGATIVE); *BENZODIAZEPINES SCREEN URINE NEGATIVE (NEGATIVE); *COCAINE SCREEN URINE NEGATIVE (NEGATIVE); CANNABINOID URINE SCREEN NEGATIVE (NEGATIVE); METHADONE URINE SCREEN NEGATIVE (NEGATIVE); OPIATES URINE SCREEN NEGATIVE (NEGATIVE); PHENCYCLIDINE URINE SCREEN NEGATIVE (NEGATIVE)
[2022-06-19 17:10] VITALS: BP 130/88
[2022-06-19] MEDS ORDERED: CLONIDINE 0.1MG TABLET PO PRN (18:15)
[2022-06-19] MEDS ORDERED: IPRATROPIUM/ALBUTEROL 0.5-3(2.5)MG/3ML NEB HHN PRN (18:15)
[2022-06-19] MEDS ORDERED: DIPHENHYDRAMINE 50MG/ML VIAL IV PRN (18:15)
[2022-06-19] MEDS ORDERED: ONDANSETRON HCL 4MG/2ML INJ IV PRN (18:15)
[2022-06-19] MEDS ORDERED: ACETAMINOPHEN 325MG TABLET PO PRN (18:15)
[2022-06-19 20:00] VITALS: BP 166/82
[2022-06-19] MEDS ORDERED: NITROGLYCERIN 0.4MG TABLET SL SL PRN (20:00)
[2022-06-19 20:04] LABS: PLATELET ESTIMATE DECREASED
[2022-06-19] MEDS ORDERED: ZOLPIDEM TARTRATE 5MG TABLET PO PRN (21:00)
[2022-06-19] MEDS ORDERED: ATORVASTATIN CALCIUM 40MG TABLET PO SCH (21:00)
[2022-06-19] MEDS: CARVEDILOL 3.125 MG TABLET PO SCH (21:16)
[2022-06-19] MEDS: DILTIAZEM HCL 30MG TABLET PO SCH (21:16)
[2022-06-20] VITALS: BP 112/71
[2022-06-20 07:54] VITALS: BP 122/80
[2022-06-20] MEDS: CARVEDILOL 3.125 MG TABLET PO SCH (08:32)
[2022-06-20] MEDS: DILTIAZEM HCL 30MG TABLET PO SCH (08:33)
[2022-06-20] MEDS ORDERED: FUROSEMIDE 40MG/4ML VIAL IVP SCH (09:00)
[2022-06-20] MEDS ORDERED: APIXABAN 5 MG TABLET PO SCH (09:00)
[2022-06-20] MEDS ORDERED: ASPIRIN 81MG EC TABLET PO SCH (09:00)
[2022-06-20] MEDS ORDERED: FUROSEMIDE 40MG TABLET PO SCH (09:00)
[2022-06-20] MEDS ORDERED: CLOPIDOGREL 75MG TABLET PO SCH (09:00)
[2022-06-20 11:43] VITALS: BP 108/80
[2022-06-20] MEDS ORDERED: DILTIAZEM HCL 30MG TABLET PO SCH (12:00)
[2022-06-20 12:48] LABS: CHLORIDE 106 mEq/L (98-107)
[2022-06-20] MEDS ORDERED: DILT30TA38 PO ×2 (13:44)
[2022-06-20 14:08] VITALS: BP_DIAS 108
[2022-06-20] MEDS ORDERED: DILT30TA38 MT (15:04)
[2022-06-20 15:07] VITALS: BP 105/75
== END 2022-06-20 15:20 | disposition home health service (06) | DRG 198 ==
LOC: ER 12:04 → 8WST 14:08 → ENRESERV 14:42
PROVIDERS: ADMIT Internal Medicine; ATTEND Internal Medicine
DX: I24.9 Acute ischemic heart disease, unspecified (principal); E87.0 Hyperosmolality and hypernatremia; I27.20 Pulmonary hypertension, unspecified; I25.10 Atherosclerotic heart disease of native coronary artery without angina pectoris; I11.0 Hypertensive heart disease with heart failure; I50.20 Unspecified systolic (congestive) heart failure; K76.1 Chronic passive congestion of liver; J44.9 Chronic obstructive pulmonary disease, unspecified; E78.00 Pure hypercholesterolemia, unspecified; E78.5 Hyperlipidemia, unspecified; R74.01 Elevation of levels of liver transaminase levels; I25.5 Ischemic cardiomyopathy; I48.20 Chronic atrial fibrillation, unspecified; I25.2 Old myocardial infarction; Z95.5 Presence of coronary angioplasty implant and graft; Z87.891 Personal history of nicotine dependence; Z95.810 Presence of automatic (implantable) cardiac defibrillator; Z79.01 Long term (current) use of anticoagulants
CPT/HCPCS: 36415; 71045; 80053; 80305; 80320; 83880; 84484; 85025; 93005; 93306; 99285; J1940; J2270; J2405; G0480

== ENCOUNTER 2022-06-29 07:53 | Inpatient (IN) | payer MEDICARE, MEDICAID ==
[~2022-06-29] VITALS: Ht 177.8 cm; Wt 56.8 kg
[~2022-06-29 07:53] MED LIST changes: +DILT30TA38 MT; -DILT30TA38 PO
[2022-06-29] MEDS ORDERED: MORPHINE SULFATE 4 MG/ML CPJ (NOT FOR IM USE) IV ONE ×3 (08:00→14:00)
[2022-06-29] MEDS ORDERED: ASPIRIN 325MG EC TABLET PO ONE (08:00)
[2022-06-29 09:25] LABS: EOSINOPHILS % 6.7 % (0.0-5.0); HEMATOCRIT. 40.3 % (42.0-52.0); HEMOGLOBIN. 12.9 g/dL (14.0-18.0); LYMPHOCYTES % 20.3 % (20.0-50.0); MEAN CORPUSCULAR HEMOGLOBIN 28.2 pg (28.0-32.0); MEAN CORPUSCULAR VOLUME 88.4 fL (80.0-94.0); MEAN PLATELET VOLUME 7.7 fl (7.4-10.4); MONOCYTES % 13.8 % (2.0-8.0); NEUTROPHILS % 58.2 % (40.0-76.0); PLATELET 161 x1000/uL (130-400); RED BLOOD CELL COUNT 4.56 mill/uL (4.7-6.1); RED CELL DISTRIBUTION WIDTH 17.9 % (11.6-14.6)
[2022-06-29 09:31] LABS: CHLORIDE 116 mEq/L (98-107)
[2022-06-29] MEDS ORDERED: CLONIDINE 0.1MG TABLET PO PRN ×2 (16:30→23:00)
[2022-06-29] MEDS ORDERED: ONDANSETRON HCL 4MG/2ML INJ IV PRN (16:30)
[2022-06-29] MEDS ORDERED: IPRATROPIUM/ALBUTEROL 0.5-3(2.5)MG/3ML NEB HHN PRN (16:30)
[2022-06-29] MEDS ORDERED: DOCUSATE SODIUM 100MG CAPSULE PO PRN (16:30)
[2022-06-29] MEDS ORDERED: LORAZEPAM 0.5MG TABLET PO PRN (16:30)
[2022-06-29] MEDS ORDERED: ACETAMINOPHEN 325MG TABLET PO PRN ×2 (16:30)
[2022-06-29] MEDS ORDERED: MORPHINE SULFATE 2 MG/ML CPJ (NOT FOR IM USE) IV PRN (23:00)
[2022-06-29] MEDS ORDERED: NALOXONE HCL 0.4MG/ML VIAL IV PRN (23:00)
[2022-06-30] VITALS (7 sets, daily range): BP systolic 123–132; BP diastolic 81–95
[2022-06-30] MEDS: ZOLPIDEM TARTRATE 5MG TABLET PO PRN ×2 (01:19→23:16)
[2022-06-30] MEDS ORDERED: IPRATROPIUM/ALBUTEROL 0.5-3(2.5)MG/3ML NEB HHN PRN (03:00)
[2022-06-30] MEDS: HYDROCODONE/ACETAMINOPHEN 5/325MG TABLET PO PRN ×3 (10:30→18:04)
[2022-06-30] MEDS ORDERED: NALOXONE HCL 0.4MG/ML VIAL IV PRN (10:30)
[2022-06-30] MEDS ORDERED: FUROSEMIDE 40MG TABLET PO SCH (13:00)
[2022-06-30] MEDS: DILTIAZEM HCL 30MG TABLET PO SCH ×3 (14:02→23:16)
[2022-06-30] MEDS: CLOPIDOGREL 75MG TABLET PO SCH (14:03)
[2022-06-30] MEDS: CETIRIZINE 10MG TABLET PO SCH (14:03)
[2022-06-30] MEDS: ASPIRIN 81MG EC TABLET PO SCH (14:06)
[2022-06-30] MEDS ORDERED: FUROSEMIDE 100MG/10ML VIAL IVP SCH (17:15)
[2022-06-30] MEDS: FUROSEMIDE 40MG TABLET PO SCH (18:02)
[2022-06-30] MEDS: APIXABAN 5 MG TABLET PO SCH (18:03)
[2022-06-30] MEDS: GUAIFENESIN 200MG/10ML SUGAR FREE UDC PO PRN (18:03)
[2022-06-30] MEDS: ATORVASTATIN CALCIUM 40MG TABLET PO SCH (20:47)
[2022-06-30] MEDS: CARVEDILOL 3.125 MG TABLET PO SCH (20:48)
[2022-07-01] VITALS: BP 121/82
[2022-07-01 04:00] VITALS: BP 127/83
[2022-07-01] MEDS: GUAIFENESIN 200MG/10ML SUGAR FREE UDC PO PRN ×2 (05:26→12:38)
[2022-07-01] MEDS: DILTIAZEM HCL 30MG TABLET PO SCH ×4 (05:26→23:16)
[2022-07-01 08:00] VITALS: BP 119/52
[2022-07-01] MEDS ORDERED: METOLAZONE 2.5MG TABLET PO NR (08:00)
[2022-07-01] MEDS: CARVEDILOL 3.125 MG TABLET PO SCH ×2 (08:45→21:02)
[2022-07-01] MEDS: ASPIRIN 81MG EC TABLET PO SCH (08:45)
[2022-07-01] MEDS: APIXABAN 5 MG TABLET PO SCH ×2 (08:46→18:15)
[2022-07-01] MEDS: CLOPIDOGREL 75MG TABLET PO SCH (08:46)
[2022-07-01] MEDS: CETIRIZINE 10MG TABLET PO SCH (08:46)
[2022-07-01] MEDS: FUROSEMIDE 40MG TABLET PO SCH ×2 (08:47→18:15)
[2022-07-01 12:00] VITALS: BP 119/77
[2022-07-01] MEDS: HYDROCODONE/ACETAMINOPHEN 5/325MG TABLET PO PRN ×3 (12:37→23:16)
[2022-07-01 16:00] VITALS: BP 115/65
[2022-07-01 20:00] VITALS: BP 111/90
[2022-07-01] MEDS ORDERED: TOPUD MT (20:29)
[2022-07-01] MEDS ORDERED: ISOS20TA8 MT (20:34)
[2022-07-01] MEDS ORDERED: GABA-532 MT (20:35)
[2022-07-01] MEDS ORDERED: FLUT1DIS3 INH (20:37)
[2022-07-01] MEDS ORDERED: FAMO20TA8 MT (20:40)
[2022-07-01] MEDS: ATORVASTATIN CALCIUM 40MG TABLET PO SCH (21:00)
[2022-07-02] VITALS: BP 111/75
[2022-07-02] MEDS: ZOLPIDEM TARTRATE 5MG TABLET PO PRN (02:08)
[2022-07-02 04:00] VITALS: BP 113/80
[2022-07-02] MEDS: HYDROCODONE/ACETAMINOPHEN 5/325MG TABLET PO PRN ×2 (05:46→10:54)
[2022-07-02] MEDS: DILTIAZEM HCL 30MG TABLET PO SCH ×2 (05:47→11:15)
[2022-07-02] MEDS: GUAIFENESIN 200MG/10ML SUGAR FREE UDC PO PRN ×2 (05:47→11:10)
[2022-07-02 08:00] VITALS: BP 126/87
[2022-07-02] MEDS: FUROSEMIDE 40MG TABLET PO SCH (08:03)
[2022-07-02] MEDS: CLOPIDOGREL 75MG TABLET PO SCH (08:03)
[2022-07-02] MEDS: CETIRIZINE 10MG TABLET PO SCH (08:03)
[2022-07-02] MEDS: ASPIRIN 81MG EC TABLET PO SCH (08:03)
[2022-07-02] MEDS: APIXABAN 5 MG TABLET PO SCH (08:03)
[2022-07-02] MEDS: CARVEDILOL 3.125 MG TABLET PO SCH (08:07)
[2022-07-02 12:00] VITALS: BP 107/84
[2022-07-02 13:36] VITALS: BP 107/84
== END 2022-07-02 15:15 | disposition home health service (06) | DRG 194 ==
LOC: ER 07:53 → 8WST 11:06 → EDBEDREQTM 11:11 → EDBEDREQ 11:11 → ENRESERV 17:10 → CANRESERV 17:10 → ENRESERV 17:29 → CANRESERV 17:29 → ENRESERV 20:04
PROVIDERS: ADMIT Internal Medicine; ATTEND Internal Medicine
DX: I11.0 Hypertensive heart disease with heart failure (principal); E44.0 Moderate protein-calorie malnutrition; Z79.01 Long term (current) use of anticoagulants; I48.19 Other persistent atrial fibrillation; E78.5 Hyperlipidemia, unspecified; I25.10 Atherosclerotic heart disease of native coronary artery without angina pectoris; I50.23 Acute on chronic systolic (congestive) heart failure; I25.5 Ischemic cardiomyopathy; J44.9 Chronic obstructive pulmonary disease, unspecified; Z79.899 Other long term (current) drug therapy; Z86.718 Personal history of other venous thrombosis and embolism; Z95.810 Presence of automatic (implantable) cardiac defibrillator; Z87.891 Personal history of nicotine dependence; Z95.5 Presence of coronary angioplasty implant and graft; Z79.51 Long term (current) use of inhaled steroids; Z82.49 Family history of ischemic heart disease and other diseases of the circulatory system; K21.9 Gastro-esophageal reflux disease without esophagitis
CPT/HCPCS: 36415; 71045; 80053; 83880; 84484; 85025; 93005; 94640; 99285; J2270

== ENCOUNTER 2022-07-04 15:34 | Inpatient (IN) | payer MEDICARE, MEDICAID ==
[~2022-07-04] VITALS: Ht 179.1 cm; Wt 57.2 kg
[~2022-07-04 15:34] MED LIST changes: +FAMO20TA8 MT; +FLUT1DIS3 INH; +GABA-532 MT; +ISOS20TA8 MT
[2022-07-04] MEDS ORDERED: IPRATROPIUM BROMIDE (0.02%) 0.5MG/2.5ML NEB HHN STA (16:04)
[2022-07-04] MEDS ORDERED: ALBUTEROL (0.083%) 2.5MG/3ML NEB HHN STA (16:04)
[2022-07-04] MEDS ORDERED: METHYLPREDNISOLONE SOD SUCC 125 MG/2 ML VIAL IV STA (16:04)
[2022-07-04] MEDS ORDERED: NITROGLYCERIN OINT 1GM/INCH UDPKT TD ONE (16:15)
[2022-07-04] MEDS ORDERED: ASPIRIN 81MG TABLET PO ONE (16:15)
[2022-07-04 17:45] LABS: HEMATOCRIT. 44.7 % (42.0-52.0); HEMOGLOBIN. 14.3 g/dL (14.0-18.0); MEAN CORPUSCULAR HEMOGLOBIN 28.3 pg (28.0-32.0); MEAN CORPUSCULAR VOLUME 88.6 fL (80.0-94.0); PLATELET 180 x1000/uL (130-400); RED BLOOD CELL COUNT 5.05 mill/uL (4.7-6.1); RED CELL DISTRIBUTION WIDTH 17.8 % (11.6-14.6)
[2022-07-04 17:54] LABS: CHLORIDE 107 mEq/L (98-107)
[2022-07-04] MEDS ORDERED: KCL 10MEQ/50ML PREMIX 50 ML IV ONE (18:15)
[2022-07-04] MEDS ORDERED: POTASSIUM CHLORIDE 20MEQ TABLET SR PO ONE (18:15)
[2022-07-04 18:31] LABS: PLATELET ESTIMATE NORMAL
[2022-07-04] MEDS ORDERED: MORPHINE SULFATE 2 MG/ML CPJ (NOT FOR IM USE) IV ONE (19:30)
[2022-07-04 22:00] VITALS: BP 138/80
[2022-07-04] MEDS ORDERED: MAGNESIUM/ALUMINUM HYDROXIDE/SIMETHICONE 30ML UDC PO PRN (23:45)
[2022-07-04] MEDS ORDERED: ACETAMINOPHEN 325MG TABLET PO PRN (23:45)
[2022-07-04] MEDS ORDERED: DOCUSATE SODIUM 100MG CAPSULE PO PRN (23:45)
[2022-07-04] MEDS ORDERED: IPRATROPIUM/ALBUTEROL 0.5-3(2.5)MG/3ML NEB HHN PRN (23:45)
[2022-07-04] MEDS ORDERED: CLONIDINE 0.1MG TABLET PO PRN (23:45)
[2022-07-04] MEDS ORDERED: ONDANSETRON HCL 4MG/2ML INJ IV PRN (23:45)
[2022-07-04] MEDS ORDERED: GUAIFENESIN 200MG/10ML SUGAR FREE UDC PO PRN (23:45)
[2022-07-05] MEDS ORDERED: NITROGLYCERIN 0.4MG TABLET SL SL PRN
[2022-07-05] MEDS: HYDROCODONE/ACETAMINOPHEN 5/325MG TABLET PO PRN ×5 (00:04→18:50)
[2022-07-05 08:13] VITALS: BP 145/89
[2022-07-05] MEDS: CLOPIDOGREL 75MG TABLET PO SCH (08:43)
[2022-07-05] MEDS: FAMOTIDINE 20MG TABLET PO SCH ×2 (08:43→17:08)
[2022-07-05] MEDS: APIXABAN 5 MG TABLET PO SCH ×2 (08:43→17:07)
[2022-07-05] MEDS: ASPIRIN 81MG EC TABLET PO SCH (08:44)
[2022-07-05] MEDS: FUROSEMIDE 40MG TABLET PO SCH (08:44)
[2022-07-05] MEDS: ISOSORBIDE DINITRATE 20MG TABLET PO SCH ×2 (08:44→17:14)
[2022-07-05] MEDS: GABAPENTIN 300MG CAPSULE PO SCH ×3 (08:44→17:08)
[2022-07-05] MEDS: LIDOCAINE 5% PATCH TOP SCH (08:53)
[2022-07-05] MEDS ORDERED: POTASSIUM CHLORIDE 10MEQ TABLET SR PO SCH (09:00)
[2022-07-05] MEDS ORDERED: ASPIRIN 81MG EC TABLET PO SCH (09:00)
[2022-07-05] MEDS ORDERED: CARVEDILOL 3.125 MG TABLET PO SCH (09:00)
[2022-07-05 12:55] VITALS: BP 108/82
[2022-07-05 16:00] VITALS: BP 132/63
[2022-07-05] MEDS: POTASSIUM CHLORIDE 20MEQ TABLET SR PO SCH ×2 (17:07→21:06)
[2022-07-05] MEDS: LOSARTAN POTASSIUM 25 MG TABLET PO SCH ×2 (17:08→20:16)
[2022-07-05] MEDS: DILTIAZEM HCL 30MG TABLET PO SCH ×2 (18:48→23:18)
[2022-07-05] MEDS ORDERED: NALOXONE HCL 0.4MG/ML VIAL IV PRN (19:00)
[2022-07-05 20:00] VITALS: BP 107/55
[2022-07-05] MEDS ORDERED: ATORVASTATIN CALCIUM 40MG TABLET PO SCH (21:00)
[2022-07-05] MEDS: MORPHINE SULFATE 2 MG/ML CPJ (NOT FOR IM USE) IV PRN (21:07)
[2022-07-06] VITALS: BP 110/68
[2022-07-06] MEDS: HYDROCODONE/ACETAMINOPHEN 5/325MG TABLET PO PRN ×2 (01:52→06:04)
[2022-07-06 04:00] VITALS: BP 103/69
[2022-07-06] MEDS: DILTIAZEM HCL 30MG TABLET PO SCH (05:00)
[2022-07-06 08:00] VITALS: BP 94/41
[2022-07-06] MEDS: LOSARTAN POTASSIUM 25 MG TABLET PO SCH (08:48)
[2022-07-06] MEDS: ISOSORBIDE DINITRATE 20MG TABLET PO SCH (08:48)
[2022-07-06] MEDS: GABAPENTIN 300MG CAPSULE PO SCH ×2 (09:54→13:33)
[2022-07-06] MEDS: FUROSEMIDE 40MG TABLET PO SCH (09:55)
[2022-07-06] MEDS: CLOPIDOGREL 75MG TABLET PO SCH (09:55)
[2022-07-06] MEDS: FAMOTIDINE 20MG TABLET PO SCH (09:55)
[2022-07-06] MEDS: LIDOCAINE 5% PATCH TOP SCH (09:55)
[2022-07-06] MEDS: ASPIRIN 81MG EC TABLET PO SCH (09:55)
[2022-07-06] MEDS: APIXABAN 5 MG TABLET PO SCH (09:55)
[2022-07-06] MEDS: POTASSIUM CHLORIDE 20MEQ TABLET SR PO SCH (09:59)
[2022-07-06 10:34] LABS: BASOPHILS % 0.8 % (0.0-2.0); EOSINOPHILS % 3.9 % (0.0-5.0); HEMATOCRIT. 40.3 % (42.0-52.0); HEMOGLOBIN. 12.9 g/dL (14.0-18.0); LYMPHOCYTES % 37.2 % (20.0-50.0); MEAN CORPUSCULAR HEMOGLOBIN 28.6 pg (28.0-32.0); MEAN PLATELET VOLUME 8.3 fl (7.4-10.4); MONOCYTES % 14.5 % (2.0-8.0); NEUTROPHILS % 43.6 % (40.0-76.0); PLATELET 171 x1000/uL (130-400); RED BLOOD CELL COUNT 4.52 mill/uL (4.7-6.1)
[2022-07-06 10:50] LABS: CHLORIDE 105 mEq/L (98-107)
[2022-07-06] MEDS: MORPHINE SULFATE 2 MG/ML CPJ (NOT FOR IM USE) IV PRN (10:52)
[2022-07-06 11:03] LABS: CREATINE KINASE 106 IU/L (39-308); CREATINE KINASE MB FRACTION 4.6 ng/mL (0.5-3.6); PHOSPHORUS 2.7 mg/dL (2.5-4.9)
[2022-07-06 12:00] VITALS: BP 106/66
[2022-07-06] MEDS ORDERED: LOSA25TA3 PO (12:27)
[2022-07-06 13:15] VITALS: BP 106/66
== END 2022-07-06 17:34 | disposition home health service (06) | DRG 243 ==
LOC: ER 15:34 → EDBEDREQTM 19:06 → EDBEDREQ 19:06 → ENRESERV 19:10 → 6WST 21:53
PROVIDERS: ADMIT Internal Medicine; ATTEND Internal Medicine
DX: K21.9 Gastro-esophageal reflux disease without esophagitis (principal); I42.0 Dilated cardiomyopathy; E44.0 Moderate protein-calorie malnutrition; I48.19 Other persistent atrial fibrillation; I50.9 Heart failure, unspecified; I11.0 Hypertensive heart disease with heart failure; E78.00 Pure hypercholesterolemia, unspecified; E87.6 Hypokalemia; G62.9 Polyneuropathy, unspecified; I25.10 Atherosclerotic heart disease of native coronary artery without angina pectoris; Z79.01 Long term (current) use of anticoagulants; R00.1 Bradycardia, unspecified; M79.605 Pain in left leg; I25.5 Ischemic cardiomyopathy; J44.9 Chronic obstructive pulmonary disease, unspecified; I25.2 Old myocardial infarction; Z95.810 Presence of automatic (implantable) cardiac defibrillator; Z79.899 Other long term (current) drug therapy; Z82.49 Family history of ischemic heart disease and other diseases of the circulatory system; Z95.5 Presence of coronary angioplasty implant and graft; Z86.718 Personal history of other venous thrombosis and embolism; Z68.1 Body mass index [BMI] 19.9 or less, adult
CPT/HCPCS: 36415; 71045; 80048; 80053; 82550; 82553; 83735; 83880; 84100; 84484; 85025; 85379; 93005; 94640; 99285; C1893; J2270; J2930; J3480

== ENCOUNTER 2022-07-13 15:52 | Emergency (ER) | payer MEDICARE, MEDICAID ==
[~2022-07-13] VITALS: Ht 170.2 cm; Wt 63.0 kg
[~2022-07-13 15:52] MED LIST changes: -COR3 PO; -DILT30TA38 MT; +LOSA25TA3 PO
[2022-07-13 16:46] LABS: BASOPHILS % 1.2 % (0.0-2.0); HEMATOCRIT. 41.4 % (42.0-52.0); HEMOGLOBIN. 13.4 g/dL (14.0-18.0); LYMPHOCYTES % 25.3 % (20.0-50.0); MEAN CORPUSCULAR HEMOGLOBIN 28.8 pg (28.0-32.0); MEAN CORPUSCULAR VOLUME 89.3 fL (80.0-94.0); MEAN PLATELET VOLUME 8.1 fl (7.4-10.4); MONOCYTES % 13.5 % (2.0-8.0); PLATELET 224 x1000/uL (130-400); RED BLOOD CELL COUNT 4.63 mill/uL (4.7-6.1); RED CELL DISTRIBUTION WIDTH 16.6 % (11.6-14.6)
[2022-07-13 16:50] LABS: CHLORIDE 109 mEq/L (98-107)
[2022-07-13 21:20] VITALS: BP 110/60
== END 2022-07-13 21:20 | disposition home or self-care (01) ==
LOC: ER 15:52
DX: R07.89 Other chest pain (principal); I11.0 Hypertensive heart disease with heart failure; I50.9 Heart failure, unspecified; I25.10 Atherosclerotic heart disease of native coronary artery without angina pectoris; I25.2 Old myocardial infarction
CPT/HCPCS: 36415; 71045; 80053; 84484; 85025; 93005; 99285

== ENCOUNTER 2022-07-19 12:24 | Emergency (ER) | payer MEDICARE, MEDICAID ==
[~2022-07-19] VITALS: Ht 182.9 cm; Wt 66.0 kg
[2022-07-19 15:56] LABS: BASOPHILS % 0.2 % (0.0-2.0); EOSINOPHILS % 1.2 % (0.0-5.0); HEMATOCRIT. 45.8 % (42.0-52.0); HEMOGLOBIN. 14.9 g/dL (14.0-18.0); LYMPHOCYTES % 34.8 % (20.0-50.0); MEAN CORPUSCULAR HEMOGLOBIN 28.9 pg (28.0-32.0); MEAN CORPUSCULAR VOLUME 88.6 fL (80.0-94.0); MEAN PLATELET VOLUME 8.5 fl (7.4-10.4); MONOCYTES % 9.6 % (2.0-8.0); NEUTROPHILS % 54.2 % (40.0-76.0); PLATELET 206 x1000/uL (130-400); RED BLOOD CELL COUNT 5.17 mill/uL (4.7-6.1); RED CELL DISTRIBUTION WIDTH 17.4 % (11.6-14.6)
[2022-07-19 16:04] LABS: CHLORIDE 107 mEq/L (98-107)
[2022-07-19 17:00] VITALS: BP 111/76
== END 2022-07-20 02:39 | disposition home or self-care (01) ==
LOC: ER 12:40
DX: R07.89 Other chest pain (principal); I48.91 Unspecified atrial fibrillation; M79.605 Pain in left leg; I44.7 Left bundle-branch block, unspecified; I10 Essential (primary) hypertension; I25.10 Atherosclerotic heart disease of native coronary artery without angina pectoris; Z95.0 Presence of cardiac pacemaker; Z86.718 Personal history of other venous thrombosis and embolism; Z79.01 Long term (current) use of anticoagulants; I25.2 Old myocardial infarction; Z79.899 Other long term (current) drug therapy
CPT/HCPCS: 36415; 71045; 71275; 80053; 83605; 83880; 84484; 85025; 85379; 93005; 99285

== ENCOUNTER 2022-08-01 19:40 | Emergency (ER) | payer MEDICARE, MEDICAID ==
[~2022-08-01] VITALS: Ht 170.2 cm; Wt 46.0 kg
[2022-08-01 21:00] LABS: BASOPHILS % 0.6 % (0.0-2.0); EOSINOPHILS % 0.9 % (0.0-5.0); HEMATOCRIT. 45.7 % (42.0-52.0); HEMOGLOBIN. 14.4 g/dL (14.0-18.0); LYMPHOCYTES % 17.9 % (20.0-50.0); MEAN CORPUSCULAR VOLUME 91.6 fL (80.0-94.0); MEAN PLATELET VOLUME 8.6 fl (7.4-10.4); MONOCYTES % 9.9 % (2.0-8.0); NEUTROPHILS % 70.7 % (40.0-76.0); PLATELET 193 x1000/uL (130-400); RED BLOOD CELL COUNT 4.98 mill/uL (4.7-6.1); RED CELL DISTRIBUTION WIDTH 17.5 % (11.6-14.6)
[2022-08-01 21:09] LABS: CHLORIDE 115 mEq/L (98-107)
[2022-08-01 21:16] LABS: ETHANOL BLOOD < 10 mg/dL
[2022-08-01 22:30] LABS: CLARITY URINE CLEAR (CLEAR); COLOR URINE DARK YELLOW (YELLOW); KETONES URINE TRACE (NEGATIVE); LEUKOCYTE ESTERASE URINE TRACE (NEGATIVE); NITRITE URINE NEGATIVE (NEGATIVE); OCCULT BLOOD URINE NEGATIVE (NEGATIVE); PH URINE 5.5 (4.5-8.0); PROTEIN URINE TRACE (NEGATIVE)
[2022-08-01] MEDS: FAMOTIDINE 20MG/2ML VIAL IV STA (22:31)
[2022-08-01 22:42] LABS: *AMPHETAMINES SCREEN URINE NEGATIVE (NEGATIVE); *BARBITURATES SCREEN URINE NEGATIVE (NEGATIVE); *BENZODIAZEPINES SCREEN URINE NEGATIVE (NEGATIVE); *COCAINE SCREEN URINE NEGATIVE (NEGATIVE); CANNABINOID URINE SCREEN NEGATIVE (NEGATIVE); METHADONE URINE SCREEN NEGATIVE (NEGATIVE); OPIATES URINE SCREEN PRESUMTIVE POSITIVE (NEGATIVE); PHENCYCLIDINE URINE SCREEN NEGATIVE (NEGATIVE)
[2022-08-02] MEDS: VISCOUS LIDOCAINE 2% 15 ML UDC MM PRN (02:33)
[2022-08-02] MEDS: ACETAMINOPHEN 325MG TABLET PO ONE (02:33)
[2022-08-02] MEDS ORDERED: FAMO-135 MT (04:58)
[2022-08-02 06:00] VITALS: BP 112/77
== END 2022-08-02 06:26 | disposition home or self-care (01) ==
LOC: ER 19:40
DX: R07.89 Other chest pain (principal); R10.13 Epigastric pain; I11.0 Hypertensive heart disease with heart failure; I50.9 Heart failure, unspecified; J44.1 Chronic obstructive pulmonary disease with (acute) exacerbation; Z79.899 Other long term (current) drug therapy; Z98.890 Other specified postprocedural states
CPT/HCPCS: 36415; 71045; 80053; 80305; 80320; 81003; 83690; 84484; 85025; 93005; 96374; 99285; J3490; Z7610; G0480

== ENCOUNTER 2022-08-11 14:07 | Inpatient (IN) | payer MEDICARE, MEDICAID ==
[~2022-08-11] VITALS: Ht 177.8 cm; Wt 57.6 kg
[~2022-08-11 14:07] MED LIST changes: +FAMO-135 MT
[2022-08-11 16:24] LABS: BASOPHILS % 1.8 % (0.0-2.0); EOSINOPHILS % 2.8 % (0.0-5.0); HEMATOCRIT. 40.4 % (42.0-52.0); HEMOGLOBIN. 13.2 g/dL (14.0-18.0); LYMPHOCYTES % 32.7 % (20.0-50.0); MEAN CORPUSCULAR HEMOGLOBIN 29.8 pg (28.0-32.0); MEAN PLATELET VOLUME 8.7 fl (7.4-10.4); MONOCYTES % 10.8 % (2.0-8.0); NEUTROPHILS % 51.9 % (40.0-76.0); PLATELET 172 x1000/uL (130-400); RED BLOOD CELL COUNT 4.44 mill/uL (4.7-6.1); RED CELL DISTRIBUTION WIDTH 16.3 % (11.6-14.6)
[2022-08-11 16:34] LABS: CHLORIDE 117 mEq/L (98-107)
[2022-08-11] MEDS ORDERED: CLONIDINE 0.1MG TABLET PO PRN (18:45)
[2022-08-11] MEDS ORDERED: ACETAMINOPHEN 325MG TABLET PO PRN ×2 (18:45)
[2022-08-11] MEDS ORDERED: ONDANSETRON HCL 4MG/2ML INJ IV PRN (18:45)
[2022-08-11] MEDS ORDERED: IPRATROPIUM/ALBUTEROL 0.5-3(2.5)MG/3ML NEB NEB PRN (18:45)
[2022-08-11] MEDS ORDERED: GUAIFENESIN 200MG/10ML SUGAR FREE UDC PO PRN (18:45)
[2022-08-11] MEDS ORDERED: MAGNESIUM/ALUMINUM HYDROXIDE/SIMETHICONE 30ML UDC PO PRN (18:45)
[2022-08-11 19:11] LABS: INR 1.1; PARTIAL THROMBOPLASTIN TIME 29.1 sec (23.4-31.0); PROTHROMBIN TIME 11.9 sec (9.6-11.0)
[2022-08-11] MEDS ORDERED: ENOXAPARIN 40MG/0.4ML SYR SUBCUT SCH (20:00)
[2022-08-11] MEDS: TRAMADOL 50MG TABLET PO PRN (23:17)
[2022-08-12] VITALS: BP 122/86
[2022-08-12 04:00] VITALS: BP 119/80
[2022-08-12 08:07] VITALS: BP 121/81
[2022-08-12] MEDS: TRAMADOL 50MG TABLET PO PRN ×2 (09:24→17:48)
[2022-08-12 12:00] VITALS: BP 123/74
[2022-08-12 16:00] VITALS: BP 127/65
[2022-08-12] MEDS: FUROSEMIDE 40MG/4ML VIAL IVP SCH (17:47)
[2022-08-12] MEDS: APIXABAN 5 MG TABLET PO SCH (17:48)
[2022-08-12 20:00] VITALS: BP 135/91
[2022-08-12] MEDS ORDERED: ZOLPIDEM TARTRATE 5MG TABLET PO PRN (21:00)
[2022-08-13] VITALS: BP 160/92
[2022-08-13 04:00] VITALS: BP 113/78
[2022-08-13 08:00] VITALS: BP 121/94
[2022-08-13] MEDS ORDERED: CLOPIDOGREL 75MG TABLET PO SCH (09:00)
[2022-08-13] MEDS: FUROSEMIDE 40MG/4ML VIAL IVP SCH (09:05)
[2022-08-13] MEDS: APIXABAN 5 MG TABLET PO SCH (09:06)
[2022-08-13] MEDS: TRAMADOL 50MG TABLET PO PRN ×2 (09:06→10:33)
[2022-08-13 12:00] VITALS: BP 128/86
[2022-08-13] MEDS ORDERED: APIX5TAB PO (14:41)
[2022-08-13] MEDS ORDERED: LOSA25TA3 PO (14:41)
[2022-08-13] MEDS ORDERED: LIP40 PO (14:41)
[2022-08-13] MEDS ORDERED: FURO40TA5 PO (14:41)
[2022-08-13] MEDS ORDERED: ASPI-1406 PO (14:41)
[2022-08-13] MEDS ORDERED: CLOP75TA15 PO (14:41)
[2022-08-13] MEDS ORDERED: NITR0.4T49 SL (14:41)
[2022-08-13 14:50] VITALS: BP 128/86
[2022-08-13] MEDS ORDERED: FUROSEMIDE 40MG/4ML VIAL IVP SCH (17:15)
== END 2022-08-13 16:20 | disposition home or self-care (01) | DRG 194 ==
LOC: ER 14:07 → 6WST 18:31 → EDBEDREQ 18:34 → EDBEDREQTM 18:34 → ENRESERV 20:30
PROVIDERS: ADMIT Internal Medicine; ATTEND Internal Medicine
DX: I11.0 Hypertensive heart disease with heart failure (principal); Z79.01 Long term (current) use of anticoagulants; I48.20 Chronic atrial fibrillation, unspecified; I50.23 Acute on chronic systolic (congestive) heart failure; J44.9 Chronic obstructive pulmonary disease, unspecified; E78.00 Pure hypercholesterolemia, unspecified; E87.5 Hyperkalemia; F51.04 Psychophysiologic insomnia; R07.89 Other chest pain; I25.5 Ischemic cardiomyopathy; I25.10 Atherosclerotic heart disease of native coronary artery without angina pectoris; I49.3 Ventricular premature depolarization; Z79.899 Other long term (current) drug therapy; I25.2 Old myocardial infarction; Z95.5 Presence of coronary angioplasty implant and graft; Z95.810 Presence of automatic (implantable) cardiac defibrillator; Z86.711 Personal history of pulmonary embolism; Z87.891 Personal history of nicotine dependence
CPT/HCPCS: 36415; 71045; 80053; 83880; 84484; 85025; 93005; 99285; J1650; J1940

== ENCOUNTER 2022-08-20 16:12 | Emergency (ER) | payer MEDICARE, MEDICAID ==
[~2022-08-20] VITALS: Ht 172.7 cm; Wt 61.0 kg
[~2022-08-20 16:12] MED LIST changes: -CETI10CA2 MT; -FAMO-135 MT; -FAMO20TA8 MT; -FLUT1DIS3 INH; -GABA-532 MT; -ISOS20TA8 MT; -LIDO700A30 TP; -MULT-1318 PO; -POTA-202 PO; -ZOLP5TAB2 MT
[2022-08-20] MEDS ORDERED: NITROGLYCERIN 0.4MG TABLET SL SL PRN (17:15)
[2022-08-20 19:57] LABS: BASOPHILS % 0.2 % (0.0-2.0); EOSINOPHILS % 1.3 % (0.0-5.0); HEMATOCRIT. 41.3 % (42.0-52.0); HEMOGLOBIN. 13.5 g/dL (14.0-18.0); LYMPHOCYTES % 33.9 % (20.0-50.0); MEAN CORPUSCULAR HEMOGLOBIN 29.4 pg (28.0-32.0); MEAN CORPUSCULAR VOLUME 89.9 fL (80.0-94.0); MEAN PLATELET VOLUME 8.7 fl (7.4-10.4); MONOCYTES % 8.8 % (2.0-8.0); NEUTROPHILS % 55.8 % (40.0-76.0); PLATELET 154 x1000/uL (130-400); RED BLOOD CELL COUNT 4.59 mill/uL (4.7-6.1); RED CELL DISTRIBUTION WIDTH 15.8 % (11.6-14.6)
[2022-08-20 20:11] LABS: CHLORIDE 112 mEq/L (98-107)
[2022-08-20] MEDS ORDERED: ACETAMINOPHEN 325MG TABLET PO ONE (21:45)
[2022-08-20 21:54] VITALS: BP 133/89
== END 2022-08-21 00:07 | disposition home or self-care (01) ==
LOC: ER 16:12 → CANBEDREQ 08-21 07:31
DX: R07.89 Other chest pain (principal); I11.0 Hypertensive heart disease with heart failure; I50.9 Heart failure, unspecified; J44.9 Chronic obstructive pulmonary disease, unspecified; I25.2 Old myocardial infarction; Z95.0 Presence of cardiac pacemaker; Z79.899 Other long term (current) drug therapy
CPT/HCPCS: 36415; 71045; 80053; 83880; 84484; 85025; 93005; 99285; Z7610

== ENCOUNTER 2022-09-24 17:23 | Emergency (ER) | payer MEDICARE, MEDICAID ==
[~2022-09-24] VITALS: Ht 172.7 cm; Wt 64.0 kg
[2022-09-24] MEDS ORDERED: ACETAMINOPHEN 325MG TABLET PO ONE (21:30)
[2022-09-24] MEDS ORDERED: IBUPROFEN 400MG TABLET PO ONE (21:30)
[2022-09-24 21:53] VITALS: BP 124/93
== END 2022-09-24 21:56 | disposition home or self-care (01) ==
LOC: ER 17:23
DX: T40.1X1A Poisoning by heroin, accidental (unintentional), initial encounter (principal); F11.129 Opioid abuse with intoxication, unspecified; R55 Syncope and collapse; Y92.810 Car as the place of occurrence of the external cause; I48.91 Unspecified atrial fibrillation; I11.0 Hypertensive heart disease with heart failure; I50.9 Heart failure, unspecified; J44.9 Chronic obstructive pulmonary disease, unspecified; I25.2 Old myocardial infarction; Z79.899 Other long term (current) drug therapy; Z79.82 Long term (current) use of aspirin
CPT/HCPCS: 99285

== ENCOUNTER 2022-10-07 15:37 | Emergency (ER) | payer MEDICARE, MEDICAID ==
[~2022-10-07] VITALS: Ht 175.3 cm; Wt 64.0 kg
[2022-10-07] MEDS ORDERED: ACETAMINOPHEN 325MG TABLET PO ONE (15:45)
[2022-10-07 16:33] LABS: HEMATOCRIT. 45.9 % (42.0-52.0); HEMOGLOBIN. 14.6 g/dL (14.0-18.0); LYMPHOCYTES % 27.8 % (20.0-50.0); MEAN CORPUSCULAR HEMOGLOBIN 28.6 pg (28.0-32.0); MEAN CORPUSCULAR VOLUME 89.9 fL (80.0-94.0); MEAN PLATELET VOLUME 8.8 fl (7.4-10.4); MONOCYTES % 13.4 % (2.0-8.0); NEUTROPHILS % 53.8 % (40.0-76.0); PLATELET 188 x1000/uL (130-400); RED BLOOD CELL COUNT 5.11 mill/uL (4.7-6.1); RED CELL DISTRIBUTION WIDTH 14.7 % (11.6-14.6)
[2022-10-07 18:10] LABS: ETHANOL BLOOD < 10 mg/dL
[2022-10-07 18:26] LABS: CHLORIDE 103 mEq/L (98-107)
[2022-10-07 19:00] VITALS: BP 154/95
[2022-10-07] MEDS ORDERED: FUROSEMIDE 20MG/2ML VIAL IVP ONE (19:15)
[2022-10-07] MEDS ORDERED: ACETAMINOPHEN 325MG TABLET PO NR (19:45)
[2022-10-07 19:47] LABS: *AMPHETAMINES SCREEN URINE NEGATIVE (NEGATIVE); *BARBITURATES SCREEN URINE NEGATIVE (NEGATIVE); *BENZODIAZEPINES SCREEN URINE NEGATIVE (NEGATIVE); *COCAINE SCREEN URINE NEGATIVE (NEGATIVE); CANNABINOID URINE SCREEN NEGATIVE (NEGATIVE); METHADONE URINE SCREEN NEGATIVE (NEGATIVE); OPIATES URINE SCREEN NEGATIVE (NEGATIVE); PHENCYCLIDINE URINE SCREEN NEGATIVE (NEGATIVE)
== END 2022-10-07 21:23 | disposition home or self-care (01) ==
LOC: ER 15:37
DX: I11.0 Hypertensive heart disease with heart failure (principal); I50.21 Acute systolic (congestive) heart failure; Z95.0 Presence of cardiac pacemaker; I48.91 Unspecified atrial fibrillation; R94.31 Abnormal electrocardiogram [ECG] [EKG]
CPT/HCPCS: 36415; 71045; 80053; 80305; 80320; 83880; 84484; 85025; 93005; 96374; 99285; J1940; G0480

== ENCOUNTER 2022-10-16 16:44 | Emergency (ER) | payer MEDICARE, MEDICAID ==
[~2022-10-16] VITALS: Ht 172.7 cm; Wt 68.0 kg
[2022-10-16 16:52] VITALS: BP 130/89
[2022-10-16] MEDS ORDERED: IPRATROPIUM BROMIDE (0.02%) 0.5MG/2.5ML NEB HHN STA (21:38)
[2022-10-16] MEDS ORDERED: PREDNISONE 20MG TABLET PO STA (21:38)
[2022-10-16] MEDS ORDERED: ALBUTEROL (0.083%) 2.5MG/3ML NEB HHN STA (21:38)
[2022-10-16] MEDS ORDERED: ASPIRIN 325MG EC TABLET PO ONE (22:45)
[2022-10-16] MEDS ORDERED: KETOROLAC 60MG/2ML VIAL IM ONE (22:45)
[2022-10-16 23:35] LABS: BASOPHILS % 0.7 % (0.0-2.0); EOSINOPHILS % 2.4 % (0.0-5.0); HEMATOCRIT. 44.7 % (42.0-52.0); HEMOGLOBIN. 14.3 g/dL (14.0-18.0); LYMPHOCYTES % 40.2 % (20.0-50.0); MEAN CORPUSCULAR HEMOGLOBIN 28.6 pg (28.0-32.0); MEAN CORPUSCULAR VOLUME 89.6 fL (80.0-94.0); MEAN PLATELET VOLUME 8.9 fl (7.4-10.4); MONOCYTES % 9.5 % (2.0-8.0); NEUTROPHILS % 47.2 % (40.0-76.0); PLATELET 161 x1000/uL (130-400); RED BLOOD CELL COUNT 4.99 mill/uL (4.7-6.1); RED CELL DISTRIBUTION WIDTH 14.5 % (11.6-14.6)
[2022-10-16 23:41] LABS: CHLORIDE 118 mEq/L (98-107)
[2022-10-17] MEDS ORDERED: FUROSEMIDE 40MG TABLET PO NR (00:15)
[2022-10-17] MEDS ORDERED: FURO-151 MT (03:22)
[2022-10-17] MEDS ORDERED: TOPUD MT (08:51)
== END 2022-10-17 04:16 | disposition home or self-care (01) ==
LOC: ER 16:44
DX: R07.89 Other chest pain (principal); I11.0 Hypertensive heart disease with heart failure; I50.9 Heart failure, unspecified; I47.20 Ventricular tachycardia, unspecified; G89.29 Other chronic pain; M25.512 Pain in left shoulder; I48.20 Chronic atrial fibrillation, unspecified; I25.10 Atherosclerotic heart disease of native coronary artery without angina pectoris; J44.9 Chronic obstructive pulmonary disease, unspecified; I45.10 Unspecified right bundle-branch block; F11.10 Opioid abuse, uncomplicated; F17.210 Nicotine dependence, cigarettes, uncomplicated; Z71.6 Tobacco abuse counseling; Z79.01 Long term (current) use of anticoagulants; Z79.899 Other long term (current) drug therapy; Z95.0 Presence of cardiac pacemaker
CPT/HCPCS: 36415; 71045; 73030; 80053; 83880; 84484; 85025; 93005; 94640; 96372; 99285; 99406; J1885; J7512; Z7610

== ENCOUNTER 2022-10-17 05:24 | Emergency (ER) | payer MEDICARE, MEDICAID ==
[~2022-10-17] VITALS: Ht 180.3 cm; Wt 65.0 kg
[~2022-10-17 05:24] MED LIST changes: +FURO-151 MT
[2022-10-17 06:05] VITALS: BP 129/84
[2022-10-17] MEDS ORDERED: TOPUD MT (08:51)
[2022-10-17] MEDS ORDERED: ACETAMINOPHEN 325MG TABLET PO ONE (09:00)
== END 2022-10-17 10:00 | disposition home or self-care (01) ==
LOC: ER 05:24
DX: M25.512 Pain in left shoulder (principal)
CPT/HCPCS: 99282

== ENCOUNTER 2022-10-28 14:27 | Inpatient (IN) | payer MEDICARE, MEDICAID ==
[~2022-10-28] VITALS: Ht 180.3 cm; Wt 57.2 kg
[~2022-10-28 14:27] MED LIST changes: +GABA-532 MT
[2022-10-28] MEDS ORDERED: ACETAMINOPHEN 325MG TABLET PO ONE (16:45)
[2022-10-28] MEDS ORDERED: ASPIRIN 81MG TABLET PO ONE (16:45)
[2022-10-28 19:44] LABS: BASOPHILS % 1.1 % (0.0-2.0); EOSINOPHILS % 2.1 % (0.0-5.0); HEMATOCRIT. 51.2 % (42.0-52.0); HEMOGLOBIN. 16.4 g/dL (14.0-18.0); LYMPHOCYTES % 28.5 % (20.0-50.0); MEAN CORPUSCULAR HEMOGLOBIN 28.2 pg (28.0-32.0); MEAN CORPUSCULAR VOLUME 87.9 fL (80.0-94.0); MEAN PLATELET VOLUME 9.4 fl (7.4-10.4); MONOCYTES % 7.2 % (2.0-8.0); NEUTROPHILS % 61.1 % (40.0-76.0); PLATELET 165 x1000/uL (130-400); RED BLOOD CELL COUNT 5.82 mill/uL (4.7-6.1); RED CELL DISTRIBUTION WIDTH 14.8 % (11.6-14.6)
[2022-10-28 19:56] LABS: CHLORIDE 113 mEq/L (98-107)
[2022-10-28 20:07] LABS: ETHANOL BLOOD < 10 mg/dL
[2022-10-29] VITALS (7 sets, daily range): BP systolic 117–145; BP diastolic 64–97
[2022-10-29] MEDS ORDERED: FUROSEMIDE 20MG/2ML VIAL IVP NR (01:00)
[2022-10-29] MEDS ORDERED: ONDANSETRON HCL 4MG/2ML INJ IV PRN (07:45)
[2022-10-29] MEDS ORDERED: DOCUSATE SODIUM 100MG CAPSULE PO PRN (07:45)
[2022-10-29] MEDS ORDERED: SODIUM CHLORIDE 0.9% 1,000 ML IV SCH (07:45)
[2022-10-29] MEDS ORDERED: ACETAMINOPHEN 325MG TABLET GT PRN (07:45)
[2022-10-29] MEDS ORDERED: LORAZEPAM 2MG/ML CPJ IV PRN (07:45)
[2022-10-29] MEDS ORDERED: NALOXONE HCL 0.4MG/ML VIAL IV PRN (10:45)
[2022-10-29] MEDS: THIAMINE HCL 100MG TABLET PO SCH ×2 (11:37→11:43)
[2022-10-29] MEDS: HYDROCODONE/ACETAMINOPHEN 5/325MG TABLET PO PRN (11:41)
[2022-10-29] MEDS: ENOXAPARIN 40MG/0.4ML SYR SUBCUT SCH (11:42)
[2022-10-29] MEDS: CLOPIDOGREL 75MG TABLET PO SCH (13:29)
[2022-10-29] MEDS: NITROGLYCERIN OINT 1GM/INCH UDPKT TD SCH ×2 (13:29→21:10)
[2022-10-29] MEDS ORDERED: INFLUENZA VACCINE 05/PF 0.5 ML SYRINGE IM ONE (15:00)
[2022-10-29 17:01] LABS: BASOPHILS % 0.9 % (0.0-2.0); EOSINOPHILS % 0.2 % (0.0-5.0); HEMATOCRIT. 41.9 % (42.0-52.0); HEMOGLOBIN. 13.3 g/dL (14.0-18.0); LYMPHOCYTES % 12.6 % (20.0-50.0); MEAN CORPUSCULAR HEMOGLOBIN 28.1 pg (28.0-32.0); MEAN CORPUSCULAR VOLUME 88.5 fL (80.0-94.0); MEAN PLATELET VOLUME 9.3 fl (7.4-10.4); MONOCYTES % 6.9 % (2.0-8.0); NEUTROPHILS % 79.4 % (40.0-76.0); PLATELET 124 x1000/uL (130-400); RED BLOOD CELL COUNT 4.73 mill/uL (4.7-6.1); RED CELL DISTRIBUTION WIDTH 14.6 % (11.6-14.6)
[2022-10-29 17:09] LABS: CHLORIDE 113 mEq/L (98-107)
[2022-10-29] MEDS: FUROSEMIDE 40MG/4ML VIAL IVP SCH (17:51)
[2022-10-29] MEDS: ATORVASTATIN CALCIUM 40MG TABLET PO SCH (20:19)
[2022-10-29] MEDS: FAMOTIDINE 20MG TABLET PO SCH (20:19)
[2022-10-29] MEDS ORDERED: IPRATROPIUM/ALBUTEROL 0.5-3(2.5)MG/3ML NEB HHN PRN (22:00)
[2022-10-30] VITALS: BP 99/58
[2022-10-30 04:00] VITALS: BP 115/76
[2022-10-30] MEDS: NITROGLYCERIN OINT 1GM/INCH UDPKT TD SCH ×2 (05:02→14:00)
[2022-10-30] MEDS: FUROSEMIDE 40MG/4ML VIAL IVP SCH ×3 (05:02→17:00)
[2022-10-30] MEDS: HYDROCODONE/ACETAMINOPHEN 5/325MG TABLET PO PRN ×3 (05:02→21:05)
[2022-10-30 08:00] VITALS: BP 121/66
[2022-10-30] MEDS: FAMOTIDINE 20MG TABLET PO SCH ×2 (10:15→21:05)
[2022-10-30] MEDS: ASPIRIN 81MG TABLET PO SCH (10:15)
[2022-10-30] MEDS: LOSARTAN POTASSIUM 25 MG TABLET PO SCH (10:15)
[2022-10-30] MEDS: CLOPIDOGREL 75MG TABLET PO SCH (10:15)
[2022-10-30] MEDS: THIAMINE HCL 100MG TABLET PO SCH (10:15)
[2022-10-30] MEDS: ENOXAPARIN 40MG/0.4ML SYR SUBCUT SCH (10:17)
[2022-10-30] MEDS: CARVEDILOL 3.125 MG TABLET PO SCH ×2 (11:00→21:05)
[2022-10-30 11:50] VITALS: BP 96/52
[2022-10-30 15:54] VITALS: BP 98/76
[2022-10-30 16:18] LABS: HEMATOCRIT. 38.5 % (42.0-52.0); HEMOGLOBIN. 12.7 g/dL (14.0-18.0); MEAN CORPUSCULAR HEMOGLOBIN 28.3 pg (28.0-32.0); MEAN CORPUSCULAR VOLUME 86.2 fL (80.0-94.0); MEAN PLATELET VOLUME 9.5 fl (7.4-10.4); PLATELET 135 x1000/uL (130-400); RED BLOOD CELL COUNT 4.47 mill/uL (4.7-6.1); RED CELL DISTRIBUTION WIDTH 14.6 % (11.6-14.6)
[2022-10-30 17:28] LABS: CHLORIDE 109 mEq/L (98-107)
[2022-10-30 17:37] LABS: PHOSPHORUS 3.3 mg/dL (2.5-4.9)
[2022-10-30 20:00] VITALS: BP 126/76
[2022-10-30] MEDS: ATORVASTATIN CALCIUM 40MG TABLET PO SCH (21:05)
[2022-10-30 23:39] LABS: PLATELET ESTIMATE NORMAL
[2022-10-31] VITALS: BP 98/77
[2022-10-31] MEDS: HYDROCODONE/ACETAMINOPHEN 5/325MG TABLET PO PRN ×4 (01:48→21:59)
[2022-10-31 04:00] VITALS: BP 110/70
[2022-10-31] MEDS: FUROSEMIDE 40MG/4ML VIAL IVP SCH (04:09)
[2022-10-31 05:46] LABS: HEMATOCRIT. 39.8 % (42.0-52.0); MEAN CORPUSCULAR HEMOGLOBIN 28.1 pg (28.0-32.0); MEAN PLATELET VOLUME 9.9 fl (7.4-10.4); PLATELET 132 x1000/uL (130-400); RED BLOOD CELL COUNT 4.62 mill/uL (4.7-6.1); RED CELL DISTRIBUTION WIDTH 14.5 % (11.6-14.6)
[2022-10-31 06:21] LABS: CHLORIDE 110 mEq/L (98-107)
[2022-10-31 08:00] VITALS: BP 104/79
[2022-10-31] MEDS: CARVEDILOL 3.125 MG TABLET PO SCH ×2 (08:19→21:58)
[2022-10-31] MEDS: LOSARTAN POTASSIUM 25 MG TABLET PO SCH (08:19)
[2022-10-31] MEDS: FAMOTIDINE 20MG TABLET PO SCH ×2 (08:20→21:58)
[2022-10-31] MEDS: CLOPIDOGREL 75MG TABLET PO SCH (08:20)
[2022-10-31] MEDS: ASPIRIN 81MG TABLET PO SCH (08:20)
[2022-10-31] MEDS: THIAMINE HCL 100MG TABLET PO SCH (08:20)
[2022-10-31] MEDS: ENOXAPARIN 40MG/0.4ML SYR SUBCUT SCH (11:20)
[2022-10-31 12:00] VITALS: BP 102/76
[2022-10-31 16:00] VITALS: BP 102/72
[2022-10-31 20:00] VITALS: BP 110/67
[2022-10-31] MEDS: ATORVASTATIN CALCIUM 40MG TABLET PO SCH (21:58)
[2022-11-01] VITALS: BP 124/83
[2022-11-01 04:00] VITALS: BP 111/79
[2022-11-01 04:03] LABS: PLATELET ESTIMATE NORMAL
[2022-11-01 06:24] LABS: CHLORIDE 106 mEq/L (98-107)
[2022-11-01 06:28] LABS: BASOPHILS % 0.8 % (0.0-2.0); EOSINOPHILS % 5.8 % (0.0-5.0); HEMATOCRIT. 40.1 % (42.0-52.0); LYMPHOCYTES % 22.9 % (20.0-50.0); MEAN CORPUSCULAR HEMOGLOBIN 28.1 pg (28.0-32.0); MEAN CORPUSCULAR VOLUME 86.7 fL (80.0-94.0); MEAN PLATELET VOLUME 9.6 fl (7.4-10.4); MONOCYTES % 11.3 % (2.0-8.0); NEUTROPHILS % 59.2 % (40.0-76.0); PLATELET 150 x1000/uL (130-400); RED BLOOD CELL COUNT 4.63 mill/uL (4.7-6.1); RED CELL DISTRIBUTION WIDTH 14.9 % (11.6-14.6)
[2022-11-01 08:00] VITALS: BP 116/89
[2022-11-01] MEDS: THIAMINE HCL 100MG TABLET PO SCH (08:43)
[2022-11-01] MEDS: CARVEDILOL 3.125 MG TABLET PO SCH (08:43)
[2022-11-01] MEDS: CLOPIDOGREL 75MG TABLET PO SCH (08:43)
[2022-11-01] MEDS: ASPIRIN 81MG TABLET PO SCH (08:43)
[2022-11-01] MEDS: LOSARTAN POTASSIUM 25 MG TABLET PO SCH (08:44)
[2022-11-01] MEDS: FAMOTIDINE 20MG TABLET PO SCH (08:44)
[2022-11-01] MEDS ORDERED: FUROSEMIDE 40MG/4ML VIAL IVP SCH (09:00)
[2022-11-01] MEDS ORDERED: ENOXAPARIN 30MG/0.3ML SYR SUBCUT SCH (09:00)
[2022-11-01] MEDS: HYDROCODONE/ACETAMINOPHEN 5/325MG TABLET PO PRN (11:25)
[2022-11-01 12:00] VITALS: BP 108/82
[2022-11-01] MEDS ORDERED: COR3 PO (13:52)
[2022-11-01] MEDS ORDERED: IPRA3AMP9 HHN (13:52)
[2022-11-01 16:00] VITALS: BP 104/72
[2022-11-01 16:02] VITALS: BP 104/72
== END 2022-11-01 17:15 | disposition home or self-care (01) | DRG 194 ==
LOC: ER 14:27 → EDBEDREQ 10-29 00:54 → MICUSO 10-29 05:27 → 8WST 10-29 10:33
PROVIDERS: ADMIT Internal Medicine; ATTEND Internal Medicine
PROC: 4B02XTZ Measurement of Cardiac Defibrillator, External Approach (ICD-10-PCS; principal; 2022-10-29)
DX: I11.0 Hypertensive heart disease with heart failure (principal); I27.20 Pulmonary hypertension, unspecified; I47.20 Ventricular tachycardia, unspecified; Z79.01 Long term (current) use of anticoagulants; I50.23 Acute on chronic systolic (congestive) heart failure; I48.19 Other persistent atrial fibrillation; Z20.822 Contact with and (suspected) exposure to COVID-19; M25.512 Pain in left shoulder; E78.5 Hyperlipidemia, unspecified; I25.10 Atherosclerotic heart disease of native coronary artery without angina pectoris; I25.5 Ischemic cardiomyopathy; J44.9 Chronic obstructive pulmonary disease, unspecified; Z79.02 Long term (current) use of antithrombotics/antiplatelets; Z79.82 Long term (current) use of aspirin; Z79.899 Other long term (current) drug therapy; Z82.49 Family history of ischemic heart disease and other diseases of the circulatory system; Z95.5 Presence of coronary angioplasty implant and graft; Z95.810 Presence of automatic (implantable) cardiac defibrillator
CPT/HCPCS: 36415; 71045; 80048; 80053; 80320; 83735; 83880; 84100; 84484; 85025; 87426; 93005; 93306; 99285; C1893; J1650; J1940; J2060; J7030; G0480

== ENCOUNTER 2022-11-04 10:24 | Emergency (ER) | payer MEDICARE, MEDICAID ==
[~2022-11-04] VITALS: Ht 175.3 cm; Wt 70.0 kg
[~2022-11-04 10:24] MED LIST changes: +COR3 PO; -FURO-151 MT; -GABA-532 MT; +IPRA3AMP9 HHN
[2022-11-04] MEDS ORDERED: IBUPROFEN 400MG TABLET PO ONE (11:45)
[2022-11-04] MEDS ORDERED: ACETAMINOPHEN 325MG TABLET PO ONE (11:45)
[2022-11-04 12:22] VITALS: BP 136/89
[2022-11-04] MEDS ORDERED: TOPUD MT (12:54)
== END 2022-11-04 13:47 | disposition home or self-care (01) ==
LOC: ER 10:24
DX: G89.29 Other chronic pain (principal); M79.602 Pain in left arm; I11.0 Hypertensive heart disease with heart failure; I50.9 Heart failure, unspecified; I48.91 Unspecified atrial fibrillation; J44.9 Chronic obstructive pulmonary disease, unspecified; Z87.828 Personal history of other (healed) physical injury and trauma; Z79.82 Long term (current) use of aspirin; Z79.899 Other long term (current) drug therapy; Z95.0 Presence of cardiac pacemaker
CPT/HCPCS: 99283

== ENCOUNTER 2022-11-04 14:39 | Emergency (ER) | payer MEDICARE, MEDICAID ==
[~2022-11-04] VITALS: Ht 165.1 cm; Wt 50.0 kg
[2022-11-04 14:46] VITALS: BP 167/110
== END 2022-11-04 21:45 | disposition left against medical advice (07) ==
LOC: ER 14:55
DX: Z53.21 Procedure and treatment not carried out due to patient leaving prior to being seen by health care provider (principal)

== ENCOUNTER 2022-12-09 16:38 | Emergency (ER) | payer MEDICARE, MEDICAID ==
[~2022-12-09] VITALS: Ht 182.9 cm; Wt 68.0 kg
[2022-12-09 16:41] VITALS: BP 149/79
[2022-12-09] MEDS ORDERED: IPRATROPIUM/ALBUTEROL 0.5-3(2.5)MG/3ML NEB HHN ONE (21:45)
[2022-12-09] MEDS ORDERED: P50 MT (22:44)
== END 2022-12-09 23:32 | disposition home or self-care (01) ==
LOC: ER 16:38
DX: J44.1 Chronic obstructive pulmonary disease with (acute) exacerbation (principal); I48.91 Unspecified atrial fibrillation; I11.0 Hypertensive heart disease with heart failure; I50.9 Heart failure, unspecified; Z79.899 Other long term (current) drug therapy
CPT/HCPCS: 93005; 94640; 99283; Z7610

== ENCOUNTER 2022-12-22 20:07 | Inpatient (IN) | payer MEDICARE, MEDICAID ==
[~2022-12-22] VITALS: Ht 167.6 cm; Wt 68.0 kg
[~2022-12-22 20:07] MED LIST changes: +P50 MT
[2022-12-22 20:48] LABS: BASOPHILS % 1.8 % (0.0-2.0); EOSINOPHILS % 3.2 % (0.0-5.0); HEMATOCRIT. 39.3 % (42.0-52.0); HEMOGLOBIN. 12.7 g/dL (14.0-18.0); LYMPHOCYTES % 23.6 % (20.0-50.0); MEAN CORPUSCULAR HEMOGLOBIN 27.2 pg (28.0-32.0); MEAN CORPUSCULAR VOLUME 84.5 fL (80.0-94.0); MEAN PLATELET VOLUME 8.6 fl (7.4-10.4); MONOCYTES % 10.7 % (2.0-8.0); NEUTROPHILS % 60.7 % (40.0-76.0); PLATELET 143 x1000/uL (130-400); RED BLOOD CELL COUNT 4.65 mill/uL (4.7-6.1); RED CELL DISTRIBUTION WIDTH 15.9 % (11.6-14.6)
[2022-12-22 21:01] LABS: CHLORIDE 116 mEq/L (98-107)
[2022-12-23] MEDS ORDERED: ASPIRIN 325MG TABLET PO ONE (01:00)
[2022-12-23] MEDS ORDERED: MORPHINE SULFATE 2 MG/ML CPJ (NOT FOR IM USE) IV ONE (01:00)
[2022-12-23 06:25] VITALS: BP 136/89
[2022-12-23 08:00] VITALS: BP 142/98
[2022-12-23] MEDS ORDERED: ACETAMINOPHEN 325MG TABLET PO PRN (08:00)
[2022-12-23] MEDS ORDERED: ONDANSETRON HCL 4MG/2ML INJ IV PRN (08:00)
[2022-12-23 09:00] VITALS: BP 140/107
[2022-12-23] MEDS ORDERED: ASPIRIN 81MG TABLET PO SCH (09:00)
[2022-12-23] MEDS ORDERED: FUROSEMIDE 40MG/4 ML UDC PO SCH (11:15)
[2022-12-23 12:00] VITALS: BP 140/102
[2022-12-23] MEDS ORDERED: NITROGLYCERIN OINT 1GM/INCH UDPKT TD SCH (14:00)
[2022-12-23 14:57] VITALS: BP 140/102
[2022-12-23 16:00] VITALS: BP_SYST 128; BP_SYST 129; BP_DIAS 89
== END 2022-12-23 17:22 | disposition home or self-care (01) | DRG 194 ==
LOC: ER 20:07 → MICUSO 12-23 01:29 → EDBEDREQ 12-23 01:50 → EDBEDREQTM 12-23 01:50 → 8WST 12-23 05:40
PROVIDERS: ADMIT Internal Medicine; ATTEND Internal Medicine
DX: I11.0 Hypertensive heart disease with heart failure (principal); Z79.01 Long term (current) use of anticoagulants; Z99.81 Dependence on supplemental oxygen; I48.19 Other persistent atrial fibrillation; E78.5 Hyperlipidemia, unspecified; F51.04 Psychophysiologic insomnia; I25.10 Atherosclerotic heart disease of native coronary artery without angina pectoris; I50.23 Acute on chronic systolic (congestive) heart failure; Z20.822 Contact with and (suspected) exposure to COVID-19; J44.9 Chronic obstructive pulmonary disease, unspecified; Z76.5 Malingerer [conscious simulation]; Z79.02 Long term (current) use of antithrombotics/antiplatelets; Z79.82 Long term (current) use of aspirin; Z79.899 Other long term (current) drug therapy; Z82.49 Family history of ischemic heart disease and other diseases of the circulatory system; Z91.199 Patient's noncompliance with other medical treatment and regimen due to unspecified reason; Z95.5 Presence of coronary angioplasty implant and graft; Z95.810 Presence of automatic (implantable) cardiac defibrillator
CPT/HCPCS: 36415; 71045; 80053; 83880; 84484; 85025; 99285; J1940; J2270

== ENCOUNTER 2022-12-25 17:39 | Emergency (ER) | payer MEDICARE, MEDICAID ==
[~2022-12-25] VITALS: Ht 177.8 cm; Wt 70.0 kg
[2022-12-25 17:59] VITALS: BP 127/81
[2022-12-26] MEDS ORDERED: ACETAMINOPHEN 500MG TABLET PO ONE (00:30)
[2022-12-26 00:41] LABS: BASOPHILS % 1.4 % (0.0-2.0)
[2022-12-26 00:45] LABS: CHLORIDE 111 mEq/L (98-107)
[2022-12-26 00:48] LABS: EOSINOPHILS % 0.7 % (0.0-5.0); HEMATOCRIT. 48.6 % (42.0-52.0); HEMOGLOBIN. 15.8 g/dL (14.0-18.0); LYMPHOCYTES % 23.8 % (20.0-50.0); MEAN CORPUSCULAR HEMOGLOBIN 27.4 pg (28.0-32.0); MEAN CORPUSCULAR VOLUME 84.2 fL (80.0-94.0); MEAN PLATELET VOLUME 8.9 fl (7.4-10.4); MONOCYTES % 9.7 % (2.0-8.0); NEUTROPHILS % 64.4 % (40.0-76.0); PLATELET 155 x1000/uL (130-400); RED BLOOD CELL COUNT 5.78 mill/uL (4.7-6.1); RED CELL DISTRIBUTION WIDTH 17.2 % (11.6-14.6)
[2022-12-26] MEDS ORDERED: FUROSEMIDE 40MG TABLET PO ONE (02:15)
[2022-12-26] MEDS ORDERED: ASPIRIN 81MG TABLET PO ONE (05:15)
[2022-12-26] MEDS ORDERED: ASPIRIN 81MG TABLET PO NR (05:45)
[2022-12-26] MEDS ORDERED: FUROSEMIDE 40MG TABLET PO NR (05:45)
[2022-12-26] MEDS ORDERED: ACETAMINOPHEN 500MG TABLET PO NR (05:45)
== END 2022-12-26 05:50 | disposition home or self-care (01) ==
LOC: ER 18:03
DX: I48.20 Chronic atrial fibrillation, unspecified (principal); R10.13 Epigastric pain; I11.0 Hypertensive heart disease with heart failure; I50.9 Heart failure, unspecified; I25.10 Atherosclerotic heart disease of native coronary artery without angina pectoris; J44.9 Chronic obstructive pulmonary disease, unspecified; I25.2 Old myocardial infarction; Z95.0 Presence of cardiac pacemaker; Z79.01 Long term (current) use of anticoagulants
CPT/HCPCS: 36415; 71045; 76700; 80053; 83880; 84484; 85025; 93005; 99285

== ENCOUNTER 2023-01-11 19:20 | Inpatient (IN) | payer MEDICARE, MEDICAID ==
[~2023-01-11] VITALS: Ht 180.3 cm; Wt 64.0 kg
[2023-01-11] MEDS ORDERED: METHYLPREDNISOLONE SOD SUCC 125 MG/2 ML VIAL IV ONE (20:00)
[2023-01-11] MEDS ORDERED: IPRATROPIUM/ALBUTEROL 0.5-3(2.5)MG/3ML NEB HHN ONE (20:00)
[2023-01-11 20:23] LABS: BASOPHILS % 0.6 % (0.0-2.0); EOSINOPHILS % 2.1 % (0.0-5.0); HEMATOCRIT. 40.6 % (42.0-52.0); HEMOGLOBIN. 12.7 g/dL (14.0-18.0); LYMPHOCYTES % 18.1 % (20.0-50.0); MEAN CORPUSCULAR HEMOGLOBIN 26.6 pg (28.0-32.0); MEAN CORPUSCULAR VOLUME 84.9 fL (80.0-94.0); MEAN PLATELET VOLUME 8.3 fl (7.4-10.4); NEUTROPHILS % 70.2 % (40.0-76.0); PLATELET 173 x1000/uL (130-400); RED BLOOD CELL COUNT 4.78 mill/uL (4.7-6.1); RED CELL DISTRIBUTION WIDTH 17.5 % (11.6-14.6)
[2023-01-11 20:29] LABS: CHLORIDE 112 mEq/L (98-107)
[2023-01-11] MEDS ORDERED: FUROSEMIDE 20MG/2ML VIAL IVP NR (21:30)
[2023-01-11] MEDS ORDERED: ASPIRIN 325MG EC TABLET PO NR (21:30)
[2023-01-11] MEDS ORDERED: METHYLPREDNISOLONE SOD SUCC 125 MG/2 ML VIAL IV NR (22:00)
[2023-01-11] MEDS ORDERED: IPRATROPIUM/ALBUTEROL 0.5-3(2.5)MG/3ML NEB HHN NR (22:00)
[2023-01-11] MEDS ORDERED: OXYCODONE HCL/ACETAMINOPHEN 5/325MG TABLET PO ONE (22:15)
[2023-01-11] MEDS ORDERED: ONDANSETRON HCL 4MG/2ML INJ IV PRN (23:15)
[2023-01-11] MEDS ORDERED: ACETAMINOPHEN 325MG TABLET PO PRN (23:15)
[2023-01-11] MEDS ORDERED: IPRATROPIUM/ALBUTEROL 0.5-3(2.5)MG/3ML NEB HHN PRN (23:15)
[2023-01-11] MEDS ORDERED: CLONIDINE 0.1MG TABLET PO PRN (23:15)
[2023-01-11] MEDS ORDERED: ACETAMINOPHEN 160MG/5ML UDC PO ONE (23:15)
[2023-01-11] MEDS ORDERED: LORAZEPAM 2MG/ML CPJ IV PRN (23:15)
[2023-01-11] MEDS ORDERED: DOCUSATE SODIUM 100MG CAPSULE PO PRN (23:15)
[2023-01-11] MEDS ORDERED: DEXTROSE 50% WATER 50ML SYRINGE IV PRN (23:30)
[2023-01-12] MEDS ORDERED: IOHEXOL-350 100 ML BOTTLE ONE (03:43)
[2023-01-12] MEDS: ACETAMINOPHEN 325MG TABLET PO PRN ×3 (05:30→23:49)
[2023-01-12] MEDS ORDERED: FUROSEMIDE 40MG TABLET PO SCH (09:00)
[2023-01-12] MEDS ORDERED: ENOXAPARIN 40MG/0.4ML SYR SUBCUT SCH (09:00)
[2023-01-12] MEDS ORDERED: METHYLPREDNISOLONE SOD SUCC 40 MG/ML VIAL IV SCH (09:00)
[2023-01-12] MEDS: FUROSEMIDE 40MG/4ML VIAL IVP SCH ×2 (09:26→16:41)
[2023-01-12] MEDS: APIXABAN 5 MG TABLET PO SCH ×2 (09:26→16:41)
[2023-01-12] MEDS: FAMOTIDINE 20MG TABLET PO SCH ×2 (09:27→21:21)
[2023-01-12] MEDS: FOLIC ACID 1MG TABLET PO SCH (09:27)
[2023-01-12] MEDS: THIAMINE HCL 100MG TABLET PO SCH (09:27)
[2023-01-12 13:30] VITALS: BP 131/103
[2023-01-12 14:09] VITALS: BP 131/103
[2023-01-12 14:20] VITALS: BP 123/97
[2023-01-12] MEDS ORDERED: IPRATROPIUM BROMIDE (0.02%) 0.5MG/2.5ML NEB HHN PRN (15:30)
[2023-01-12] MEDS ORDERED: ALBUTEROL (0.083%) 2.5MG/3ML NEB HHN PRN (15:30)
[2023-01-12 16:00] VITALS: BP 126/89
[2023-01-12 20:00] VITALS: BP 144/95
[2023-01-12] MEDS: METHYLPREDNISOLONE SOD SUCC 40 MG/ML VIAL IV SCH (21:21)
[2023-01-12] MEDS: ATORVASTATIN CALCIUM 40MG TABLET PO SCH (21:21)
[2023-01-12] MEDS: LORAZEPAM 2MG/ML CPJ IV PRN (23:48)
[2023-01-13] VITALS (7 sets, daily range): BP systolic 119–135; BP diastolic 69–96
[2023-01-13] MEDS: THIAMINE HCL 100MG TABLET PO SCH (10:11)
[2023-01-13] MEDS: FAMOTIDINE 20MG TABLET PO SCH ×2 (10:11→21:35)
[2023-01-13] MEDS: FOLIC ACID 1MG TABLET PO SCH (10:11)
[2023-01-13] MEDS: METHYLPREDNISOLONE SOD SUCC 40 MG/ML VIAL IV SCH (10:11)
[2023-01-13] MEDS: APIXABAN 5 MG TABLET PO SCH ×2 (10:11→18:00)
[2023-01-13] MEDS: FUROSEMIDE 100MG/10ML VIAL IVP SCH ×2 (10:12→21:36)
[2023-01-13] MEDS: PREDNISONE 20MG TABLET PO SCH (18:00)
[2023-01-13] MEDS: ATORVASTATIN CALCIUM 40MG TABLET PO SCH (21:35)
[2023-01-14] VITALS: BP 117/86
[2023-01-14 04:00] VITALS: BP 119/65
[2023-01-14 08:00] VITALS: BP 163/98
[2023-01-14] MEDS: THIAMINE HCL 100MG TABLET PO SCH (09:04)
[2023-01-14] MEDS: FUROSEMIDE 100MG/10ML VIAL IVP SCH ×2 (09:04→21:00)
[2023-01-14] MEDS: APIXABAN 5 MG TABLET PO SCH ×2 (09:05→18:13)
[2023-01-14] MEDS: FOLIC ACID 1MG TABLET PO SCH (09:05)
[2023-01-14] MEDS: PREDNISONE 20MG TABLET PO SCH ×2 (09:05→18:13)
[2023-01-14] MEDS: FAMOTIDINE 20MG TABLET PO SCH ×2 (09:08→21:59)
[2023-01-14 12:00] VITALS: BP 118/70
[2023-01-14] MEDS: CEFTRIAXONE 2 G in DEXTROSE 5% WATER 50 ML IV SCH (13:53)
[2023-01-14] MEDS ORDERED: CEFTRIAXONE 1 G PREMIX 50 ML IV SCH (14:00)
[2023-01-14 16:00] VITALS: BP 104/62
[2023-01-14 20:00] VITALS: BP 123/82
[2023-01-14] MEDS: ATORVASTATIN CALCIUM 40MG TABLET PO SCH (22:00)
[2023-01-15] VITALS: BP 100/58
[2023-01-15 04:00] VITALS: BP 112/80
[2023-01-15 08:00] VITALS: BP 131/89
[2023-01-15] MEDS: FAMOTIDINE 20MG TABLET PO SCH ×2 (09:32→21:42)
[2023-01-15] MEDS: APIXABAN 5 MG TABLET PO SCH ×2 (09:32→18:09)
[2023-01-15] MEDS: PREDNISONE 20MG TABLET PO SCH (09:32)
[2023-01-15] MEDS: FUROSEMIDE 100MG/10ML VIAL IVP SCH ×2 (09:33→21:42)
[2023-01-15] MEDS: THIAMINE HCL 100MG TABLET PO SCH (09:33)
[2023-01-15] MEDS: FOLIC ACID 1MG TABLET PO SCH (09:36)
[2023-01-15 09:47] LABS: HEMATOCRIT. 39.8 % (42.0-52.0); HEMOGLOBIN. 12.7 g/dL (14.0-18.0); MEAN CORPUSCULAR HEMOGLOBIN 26.4 pg (28.0-32.0); MEAN PLATELET VOLUME 8.7 fl (7.4-10.4); PLATELET 180 x1000/uL (130-400); RED BLOOD CELL COUNT 4.79 mill/uL (4.7-6.1); RED CELL DISTRIBUTION WIDTH 16.5 % (11.6-14.6)
[2023-01-15 10:02] LABS: CHLORIDE 106 mEq/L (98-107)
[2023-01-15 10:53] LABS: PLATELET ESTIMATE NORMAL
[2023-01-15 11:06] LABS: CLARITY URINE CLEAR (CLEAR); COLOR URINE YELLOW (YELLOW); KETONES URINE NEGATIVE (NEGATIVE); LEUKOCYTE ESTERASE URINE NEGATIVE (NEGATIVE); NITRITE URINE NEGATIVE (NEGATIVE); OCCULT BLOOD URINE NEGATIVE (NEGATIVE); PH URINE 5.5 (4.5-8.0); PROTEIN URINE 1+ (NEGATIVE); SPECIFIC GRAVITY URINE 1.022 (1.005-1.030); UROBILINOGEN URINE 0.2 E.U./dL (0.2-1.0)
[2023-01-15 12:00] VITALS: BP 128/79
[2023-01-15] MEDS: CEFTRIAXONE 2 G in DEXTROSE 5% WATER 50 ML IV SCH (15:22)
[2023-01-15 15:58] LABS: HEMATOCRIT. 47.4 % (42.0-52.0); HEMOGLOBIN. 15.5 g/dL (14.0-18.0); MEAN CORPUSCULAR HEMOGLOBIN 27.1 pg (28.0-32.0); MEAN CORPUSCULAR VOLUME 83.2 fL (80.0-94.0); MEAN PLATELET VOLUME 9.4 fl (7.4-10.4); PLATELET 207 x1000/uL (130-400); RED CELL DISTRIBUTION WIDTH 16.7 % (11.6-14.6)
[2023-01-15 16:00] VITALS: BP 107/69
[2023-01-15 16:01] LABS: CHLORIDE 102 mEq/L (98-107)
[2023-01-15 17:34] LABS: PLATELET ESTIMATE NORMAL
[2023-01-15 20:00] VITALS: BP 125/69
[2023-01-15] MEDS: ATORVASTATIN CALCIUM 40MG TABLET PO SCH (21:42)
[2023-01-15] MEDS: LORAZEPAM 2MG/ML CPJ IV PRN (21:43)
[2023-01-16 00:01] VITALS: BP 123/93
[2023-01-16 04:00] VITALS: BP 125/86
[2023-01-16 08:00] VITALS: BP 152/70
[2023-01-16] MEDS ORDERED: PREDNISONE 20MG TABLET PO SCH (09:00)
[2023-01-16] MEDS: THIAMINE HCL 100MG TABLET PO SCH (10:42)
[2023-01-16] MEDS: APIXABAN 5 MG TABLET PO SCH (10:42)
[2023-01-16] MEDS: FAMOTIDINE 20MG TABLET PO SCH (10:42)
[2023-01-16] MEDS: FOLIC ACID 1MG TABLET PO SCH (10:43)
[2023-01-16] MEDS: FUROSEMIDE 100MG/10ML VIAL IVP SCH (10:43)
[2023-01-16 12:00] VITALS: BP 138/77
[2023-01-16 12:53] VITALS: BP 138/77
[2023-01-16] MEDS: ACETAMINOPHEN 325MG TABLET PO PRN (14:02)
[2023-01-17] MEDS ORDERED: PREDNISONE 10MG TABLET PO SCH (09:00)
== END 2023-01-16 16:42 | disposition home or self-care (01) | DRG 194 ==
LOC: ER 21:23 → 7WST 22:06
PROVIDERS: ADMIT Internal Medicine; ATTEND Internal Medicine
DX: I11.0 Hypertensive heart disease with heart failure (principal); J96.21 Acute and chronic respiratory failure with hypoxia; I21.4 Non-ST elevation (NSTEMI) myocardial infarction; G93.40 Encephalopathy, unspecified; E44.0 Moderate protein-calorie malnutrition; J18.9 Pneumonia, unspecified organism; I27.29 Other secondary pulmonary hypertension; I48.19 Other persistent atrial fibrillation; J44.0 Chronic obstructive pulmonary disease with (acute) lower respiratory infection; J44.1 Chronic obstructive pulmonary disease with (acute) exacerbation; I50.23 Acute on chronic systolic (congestive) heart failure; R65.10 Systemic inflammatory response syndrome (SIRS) of non-infectious origin without acute organ dysfunction; I25.10 Atherosclerotic heart disease of native coronary artery without angina pectoris; I34.0 Nonrheumatic mitral (valve) insufficiency; R68.89 Other general symptoms and signs; E78.00 Pure hypercholesterolemia, unspecified; E78.5 Hyperlipidemia, unspecified; Z91.199 Patient's noncompliance with other medical treatment and regimen due to unspecified reason; Z79.01 Long term (current) use of anticoagulants; Z86.718 Personal history of other venous thrombosis and embolism; Z87.891 Personal history of nicotine dependence; Z95.5 Presence of coronary angioplasty implant and graft; Z95.810 Presence of automatic (implantable) cardiac defibrillator; Z95.828 Presence of other vascular implants and grafts; Z99.81 Dependence on supplemental oxygen; Z68.1 Body mass index [BMI] 19.9 or less, adult; Z82.49 Family history of ischemic heart disease and other diseases of the circulatory system
CPT/HCPCS: 36415; 71045; 71275; 80048; 80053; 80320; 81003; 83880; 84484; 85025; 85379; 93005; 94640; 99291; J0696; J1940; J2060; J2920; J2930; J7060; J7512; Q9967; G0480

== ENCOUNTER 2023-02-03 07:30 | Emergency (ER) | payer MEDICARE, MEDICAID ==
[~2023-02-03] VITALS: Ht 185.4 cm; Wt 68.0 kg
[2023-02-03 08:59] LABS: BASOPHILS % 0.7 % (0.0-2.0); EOSINOPHILS % 2.6 % (0.0-5.0); HEMATOCRIT. 49.4 % (42.0-52.0); HEMOGLOBIN. 14.9 g/dL (14.0-18.0); MEAN CORPUSCULAR HEMOGLOBIN 26.8 pg (28.0-32.0); MEAN CORPUSCULAR VOLUME 89.1 fL (80.0-94.0); MONOCYTES % 8.7 % (2.0-8.0); RED BLOOD CELL COUNT 5.54 mill/uL (4.7-6.1); RED CELL DISTRIBUTION WIDTH 19.9 % (11.6-14.6)
[2023-02-03 09:02] LABS: CHLORIDE 116 mEq/L (98-107)
[2023-02-03] MEDS ORDERED: METHYLPREDNISOLONE SOD SUCC 125 MG/2 ML VIAL IV STA (09:11)
[2023-02-03] MEDS ORDERED: IPRATROPIUM BROMIDE (0.02%) 0.5MG/2.5ML NEB HHN STA (09:11)
[2023-02-03] MEDS ORDERED: MAGNESIUM 2 G PREMIX 50 ML IV STA (09:11)
[2023-02-03] MEDS ORDERED: ALBUTEROL (0.083%) 2.5MG/3ML NEB HHN STA (09:11)
[2023-02-03] MEDS ORDERED: ALBUTEROL (0.5%) 2.5MG/0.5ML NEB HHN ONE (09:32)
[2023-02-03] MEDS ORDERED: ACETAMINOPHEN WITH CODEINE 300/30MG TABLET PO ONE (09:45)
[2023-02-03] MEDS ORDERED: P50 PO (10:33)
[2023-02-03 10:45] VITALS: BP 98/55
[2023-02-03 10:52] LABS: MEAN PLATELET VOLUME 8.8 fl (7.4-10.4); PLATELET 208 x1000/uL (130-400)
== END 2023-02-03 11:00 | disposition home or self-care (01) ==
LOC: ER 07:30 → EDBEDREQTM 09:24 → EDBEDREQ 10:14 → EDBEDREQTM 10:14 → ER 11:00 → CANBEDREQ 02-04 08:06
DX: J44.1 Chronic obstructive pulmonary disease with (acute) exacerbation (principal); I48.91 Unspecified atrial fibrillation; I44.7 Left bundle-branch block, unspecified; I11.9 Hypertensive heart disease without heart failure; Z95.810 Presence of automatic (implantable) cardiac defibrillator; I25.2 Old myocardial infarction
CPT/HCPCS: 36415; 71045; 80053; 83880; 84484; 85025; 93005; 94640; 99285; C1893; Z7610; J2930; J3475

== ENCOUNTER 2023-02-15 09:53 | Inpatient (IN) | payer MEDICARE, MEDICAID ==
[~2023-02-15] VITALS: Ht 177.8 cm; Wt 58.5 kg
[~2023-02-15 09:53] MED LIST changes: +P50 PO
[2023-02-15] MEDS ORDERED: MORPHINE SULFATE 4 MG/ML CPJ (NOT FOR IM USE) IV ONE (10:15)
[2023-02-15 12:27] LABS: CHLORIDE 116 mEq/L (98-107)
[2023-02-15] MEDS ORDERED: IPRATROPIUM/ALBUTEROL 0.5-3(2.5)MG/3ML NEB HHN PRN (14:15)
[2023-02-15] MEDS ORDERED: ACETAMINOPHEN 325MG TABLET PO PRN ×2 (14:15)
[2023-02-15] MEDS ORDERED: DOCUSATE SODIUM 100MG CAPSULE PO PRN (14:15)
[2023-02-15] MEDS ORDERED: CLONIDINE 0.1MG TABLET PO PRN (14:15)
[2023-02-15] MEDS ORDERED: LORAZEPAM 0.5MG TABLET PO PRN (14:15)
[2023-02-15] MEDS ORDERED: ONDANSETRON HCL 4MG/2ML INJ IV PRN (14:15)
[2023-02-15] MEDS ORDERED: NALOXONE HCL 0.4MG/ML VIAL IV PRN (14:30)
[2023-02-15] MEDS ORDERED: APIXABAN 2.5 MG TABLET PO SCH (17:00)
[2023-02-15 17:15] VITALS: BP 136/95
[2023-02-15] MEDS: HYDROCODONE/ACETAMINOPHEN 5/325MG TABLET PO PRN ×2 (18:33→22:26)
[2023-02-15 20:00] VITALS: BP 144/95
[2023-02-15] MEDS: FUROSEMIDE 40MG/4ML VIAL IVP SCH ×2 (21:00→21:22)
[2023-02-15] MEDS: CARVEDILOL 6.25 MG TABLET PO SCH (21:21)
[2023-02-15] MEDS ORDERED: FUROSEMIDE 40MG TABLET PO NR (21:30)
[2023-02-16] VITALS: BP 112/75
[2023-02-16] MEDS: HYDROCODONE/ACETAMINOPHEN 5/325MG TABLET PO PRN ×3 (03:10→21:50)
[2023-02-16 04:00] VITALS: BP 101/78
[2023-02-16 08:00] VITALS: BP 121/88
[2023-02-16] MEDS: CLOPIDOGREL 75MG TABLET PO SCH (08:46)
[2023-02-16] MEDS: FUROSEMIDE 40MG/4ML VIAL IVP SCH ×5 (08:46→16:43)
[2023-02-16] MEDS: ASPIRIN 81MG TABLET PO SCH (08:47)
[2023-02-16] MEDS: CARVEDILOL 6.25 MG TABLET PO SCH ×2 (08:47→21:00)
[2023-02-16 12:00] VITALS: BP 107/74
[2023-02-16] MEDS ORDERED: LIDOCAINE HCL 1% 10 MG/ML 10ML VIAL ONE (12:36)
[2023-02-16] MEDS ORDERED: ALBUTEROL (0.083%) 2.5MG/3ML NEB HHN PRN (13:45)
[2023-02-16] MEDS ORDERED: IPRATROPIUM BROMIDE (0.02%) 0.5MG/2.5ML NEB HHN PRN (13:45)
[2023-02-16] MEDS ORDERED: FUROSEMIDE 40MG TABLET PO NR (14:15)
[2023-02-16 16:00] VITALS: BP 116/86
[2023-02-16] MEDS ORDERED: IPRATROPIUM/ALBUTEROL 0.5-3(2.5)MG/3ML NEB HHN SCH (18:00)
[2023-02-16 20:00] VITALS: BP 108/79
[2023-02-16] MEDS: ALBUTEROL (0.083%) 2.5MG/3ML NEB HHN SCH (21:46)
[2023-02-16] MEDS: IPRATROPIUM BROMIDE (0.02%) 0.5MG/2.5ML NEB HHN SCH (21:46)
[2023-02-17] VITALS: BP 126/94
[2023-02-17] MEDS: IPRATROPIUM BROMIDE (0.02%) 0.5MG/2.5ML NEB HHN SCH ×4 (01:00→22:11)
[2023-02-17] MEDS: ALBUTEROL (0.083%) 2.5MG/3ML NEB HHN SCH ×4 (01:00→22:11)
[2023-02-17 04:00] VITALS: BP 117/87
[2023-02-17] MEDS: HYDROCODONE/ACETAMINOPHEN 5/325MG TABLET PO PRN ×2 (04:31→17:20)
[2023-02-17 08:00] VITALS: BP 141/94
[2023-02-17] MEDS: FUROSEMIDE 40MG/4ML VIAL IVP SCH ×3 (09:00→17:00)
[2023-02-17] MEDS: ASPIRIN 81MG TABLET PO SCH (09:05)
[2023-02-17] MEDS: CARVEDILOL 6.25 MG TABLET PO SCH ×2 (09:05→23:17)
[2023-02-17] MEDS: CLOPIDOGREL 75MG TABLET PO SCH (09:05)
[2023-02-17 12:00] VITALS: BP 106/75
[2023-02-17 16:00] VITALS: BP 96/67
[2023-02-17] MEDS: APIXABAN 2.5 MG TABLET PO SCH (17:20)
[2023-02-17 20:00] VITALS: BP 116/92
[2023-02-18] VITALS: BP 123/94
[2023-02-18] MEDS: HYDROCODONE/ACETAMINOPHEN 5/325MG TABLET PO PRN (00:09)
[2023-02-18] MEDS: ALBUTEROL (0.083%) 2.5MG/3ML NEB HHN SCH ×4 (01:49→12:50)
[2023-02-18] MEDS: IPRATROPIUM BROMIDE (0.02%) 0.5MG/2.5ML NEB HHN SCH ×4 (01:49→12:50)
[2023-02-18 04:00] VITALS: BP 115/76
[2023-02-18 08:00] VITALS: BP 122/54
[2023-02-18] MEDS: APIXABAN 2.5 MG TABLET PO SCH ×2 (09:11→17:41)
[2023-02-18] MEDS: ASPIRIN 81MG TABLET PO SCH (09:11)
[2023-02-18] MEDS: CARVEDILOL 6.25 MG TABLET PO SCH (09:12)
[2023-02-18] MEDS: CLOPIDOGREL 75MG TABLET PO SCH (09:12)
[2023-02-18 11:32] VITALS: BP 128/86
[2023-02-18 12:08] LABS: BASOPHILS % 0.6 % (0.0-2.0); EOSINOPHILS % 3.4 % (0.0-5.0); HEMOGLOBIN. 12.6 g/dL (14.0-18.0); LYMPHOCYTES % 21.3 % (20.0-50.0); MEAN CORPUSCULAR HEMOGLOBIN 26.5 pg (28.0-32.0); MEAN PLATELET VOLUME 9.6 fl (7.4-10.4); MONOCYTES % 12.5 % (2.0-8.0); NEUTROPHILS % 62.2 % (40.0-76.0); PLATELET 126 x1000/uL (130-400); RED BLOOD CELL COUNT 4.76 mill/uL (4.7-6.1); RED CELL DISTRIBUTION WIDTH 18.4 % (11.6-14.6)
[2023-02-18 12:10] LABS: CHLORIDE 114 mEq/L (98-107)
[2023-02-18] MEDS ORDERED: FURO40TA5 PO (13:00)
[2023-02-18] MEDS ORDERED: APIX2.5T PO (13:00)
[2023-02-18] MEDS ORDERED: COR6 PO (13:00)
[2023-02-18 16:28] VITALS: BP 132/78
[2023-02-18 16:30] VITALS: BP 132/78
[2023-02-18] MEDS ORDERED: FUROSEMIDE 40MG TABLET PO SCH (17:15)
== END 2023-02-18 19:07 | disposition home health service (06) | DRG 194 ==
LOC: ER 10:28 → 7EST 12:20 → EDBEDREQ 12:24 → ENRESERV 13:40
PROVIDERS: ADMIT Family Medicine Adult Medicine; ATTEND Family Medicine Adult Medicine
PROC: 02HV33Z Insertion of Infusion Device into Superior Vena Cava, Percutaneous Approach (ICD-10-PCS; principal; 2023-02-18)
PROC: B548ZZA Ultrasonography of Superior Vena Cava, Guidance (ICD-10-PCS; 2023-02-18)
DX: I13.0 Hypertensive heart and chronic kidney disease with heart failure and stage 1 through stage 4 chronic kidney disease, or unspecified chronic kidney disease (principal); J96.20 Acute and chronic respiratory failure, unspecified whether with hypoxia or hypercapnia; I27.20 Pulmonary hypertension, unspecified; I50.23 Acute on chronic systolic (congestive) heart failure; I42.0 Dilated cardiomyopathy; I25.10 Atherosclerotic heart disease of native coronary artery without angina pectoris; J44.9 Chronic obstructive pulmonary disease, unspecified; I48.20 Chronic atrial fibrillation, unspecified; N18.9 Chronic kidney disease, unspecified; I25.5 Ischemic cardiomyopathy; J91.8 Pleural effusion in other conditions classified elsewhere; I07.1 Rheumatic tricuspid insufficiency; J44.1 Chronic obstructive pulmonary disease with (acute) exacerbation; F17.200 Nicotine dependence, unspecified, uncomplicated; Z86.718 Personal history of other venous thrombosis and embolism; I25.2 Old myocardial infarction; Z99.81 Dependence on supplemental oxygen; Z91.199 Patient's noncompliance with other medical treatment and regimen due to unspecified reason; Z95.5 Presence of coronary angioplasty implant and graft; Z95.810 Presence of automatic (implantable) cardiac defibrillator; Z95.828 Presence of other vascular implants and grafts; Z79.899 Other long term (current) drug therapy
CPT/HCPCS: 36415; 36573; 71045; 80048; 80053; 83735; 83880; 84484; 85025; 93005; 93306; 94640; 99285; C1725; C1760; C1893; J1940; J3490

== ENCOUNTER 2023-02-23 01:04 | Emergency (ER) | payer MEDICARE, MEDICAID ==
[~2023-02-23] VITALS: Ht 170.2 cm; Wt 64.0 kg
[~2023-02-23 01:04] MED LIST changes: +APIX2.5T PO; -APIX5TAB PO; -COR3 PO; +COR6 PO; -LOSA25TA3 PO; -P50 MT; -P50 PO
[2023-02-23 09:32] VITALS: BP 118/76
[2023-02-23] MEDS ORDERED: BENZ200C52 MT (09:45)
== END 2023-02-23 10:26 | disposition home or self-care (01) ==
LOC: ER 01:24
DX: R05.9 Cough, unspecified (principal); I11.0 Hypertensive heart disease with heart failure; I50.9 Heart failure, unspecified; J44.1 Chronic obstructive pulmonary disease with (acute) exacerbation; Z79.899 Other long term (current) drug therapy
CPT/HCPCS: 71045; 99283; Z7610

== ENCOUNTER 2023-02-25 17:52 | Inpatient (IN) | payer MEDICARE, MEDICAID ==
[~2023-02-25] VITALS: Ht 177.8 cm; Wt 57.4 kg
[~2023-02-25 17:52] MED LIST changes: +BENZ200C52 MT
[2023-02-25] MEDS ORDERED: ASPIRIN 325MG EC TABLET PO ONE (18:30)
[2023-02-25] MEDS ORDERED: NITROGLYCERIN 0.4MG TABLET SL SL ONE (18:30)
[2023-02-25 19:12] LABS: EOSINOPHILS % 2.3 % (0.0-5.0); HEMATOCRIT. 50.4 % (42.0-52.0); HEMOGLOBIN. 16.1 g/dL (14.0-18.0); LYMPHOCYTES % 15.4 % (20.0-50.0); MEAN CORPUSCULAR HEMOGLOBIN 26.9 pg (28.0-32.0); MEAN CORPUSCULAR VOLUME 84.5 fL (80.0-94.0); MONOCYTES % 8.9 % (2.0-8.0); NEUTROPHILS % 72.4 % (40.0-76.0); PLATELET 138 x1000/uL (130-400); RED BLOOD CELL COUNT 5.97 mill/uL (4.7-6.1); RED CELL DISTRIBUTION WIDTH 19.5 % (11.6-14.6)
[2023-02-25] MEDS ORDERED: IPRATROPIUM/ALBUTEROL 0.5-3(2.5)MG/3ML NEB HHN ONE (19:15)
[2023-02-25] MEDS ORDERED: FUROSEMIDE 40MG/4ML VIAL IVP ONE (19:15)
[2023-02-25] MEDS ORDERED: METHYLPREDNISOLONE SOD SUCC 125 MG/2 ML VIAL IV ONE (19:15)
[2023-02-25 19:18] LABS: CHLORIDE 110 mEq/L (98-107)
[2023-02-26] VITALS: BP 109/77
[2023-02-26] MEDS: HYDROCODONE/ACETAMINOPHEN 5/325MG TABLET PO PRN ×2 (00:36→04:55)
[2023-02-26 01:47] VITALS: BP 109/77
[2023-02-26 04:00] VITALS: BP 131/72
[2023-02-26 08:00] VITALS: BP 113/73
[2023-02-26] MEDS ORDERED: LOSARTAN POTASSIUM 25 MG TABLET PO SCH (09:00)
[2023-02-26] MEDS ORDERED: CARVEDILOL 6.25 MG TABLET PO SCH (09:00)
[2023-02-26] MEDS ORDERED: FUROSEMIDE 40MG TABLET PO SCH (09:00)
[2023-02-26] MEDS ORDERED: ASPIRIN 81MG TABLET PO SCH (09:00)
[2023-02-26] MEDS: APIXABAN 5 MG TABLET PO SCH ×2 (09:18→17:58)
[2023-02-26 12:26] VITALS: BP 113/73
[2023-02-26] MEDS ORDERED: NALOXONE HCL 0.4MG/ML VIAL IV PRN (13:45)
== END 2023-02-26 18:55 | disposition home or self-care (01) | DRG 194 ==
LOC: ER 17:52 → MICUSO 22:32 → EDBEDREQ 22:35 → EDBEDREQTM 22:35 → ENRESERV 23:00 → 7EST 23:54
PROVIDERS: ADMIT Internal Medicine; ATTEND Internal Medicine
DX: I13.0 Hypertensive heart and chronic kidney disease with heart failure and stage 1 through stage 4 chronic kidney disease, or unspecified chronic kidney disease (principal); I42.0 Dilated cardiomyopathy; E11.22 Type 2 diabetes mellitus with diabetic chronic kidney disease; I50.23 Acute on chronic systolic (congestive) heart failure; I25.10 Atherosclerotic heart disease of native coronary artery without angina pectoris; J44.9 Chronic obstructive pulmonary disease, unspecified; I48.20 Chronic atrial fibrillation, unspecified; E78.5 Hyperlipidemia, unspecified; I25.5 Ischemic cardiomyopathy; N18.9 Chronic kidney disease, unspecified; Z79.4 Long term (current) use of insulin; Z82.49 Family history of ischemic heart disease and other diseases of the circulatory system; Z87.891 Personal history of nicotine dependence; Z95.5 Presence of coronary angioplasty implant and graft; Z95.810 Presence of automatic (implantable) cardiac defibrillator; Z91.14 Patient's other noncompliance with medication regimen; Z76.5 Malingerer [conscious simulation]
CPT/HCPCS: 36415; 71045; 80053; 83880; 84484; 85025; 93005; 99285; J1940; J2930

== ENCOUNTER 2023-02-28 18:53 | Emergency (ER) | payer MEDICARE, MEDICAID ==
[~2023-02-28] VITALS: Ht 165.1 cm; Wt 54.0 kg
[2023-02-28 19:01] VITALS: BP 129/78
[2023-03-01] MEDS ORDERED: ACET-2708 PO (04:03)
== END 2023-03-01 04:26 | disposition home or self-care (01) ==
LOC: ER 18:53
DX: S40.012A Contusion of left shoulder, initial encounter (principal); W22.8XXA Striking against or struck by other objects, initial encounter; Y93.89 Activity, other specified; Y92.89 Other specified places as the place of occurrence of the external cause; Y99.8 Other external cause status; I11.0 Hypertensive heart disease with heart failure; I50.9 Heart failure, unspecified; J44.9 Chronic obstructive pulmonary disease, unspecified; I25.2 Old myocardial infarction; Z79.899 Other long term (current) drug therapy
CPT/HCPCS: 99283